=== PATIENT | female | born 1965 | race Caucasian/White ===

== ENCOUNTER → 2017-11-09 | Outpatient (CLI) | payer OTHER ==
[2017-11-09 15:55] LABS: ADD MAN DIFF? NO
[2017-11-09 16:03] LABS: BASO % 1 % (0-3); EOS # 0.1 x10^3/uL (0.0-0.7); EOS % 2 % (0-3); HEMATOCRIT 43.9 % (36.0-47.0); HEMOGLOBIN 14.7 g/dL (12.0-15.5); LYMPH # 2.7 x10^3/uL (1.0-4.8); LYMPH % 47 % (24-48); MEAN CORPUSCULAR HEMOGLOBIN 30 pg (25-35); MEAN CORPUSCULAR HGB CONC 33 g/dL (31-37); MEAN CORPUSCULAR VOLUME 90 fL (79-100); MONO # 0.5 x10^3/uL (0.0-1.1); MONO % 8 % (0-9); NEUT # 2.5 x10^3uL (1.8-7.7); NEUT % 43 % (31-73); PLATELET COUNT 251 x10^3/uL (140-400); RED BLOOD COUNT 4.87 x10^6/uL (3.50-5.40); RED CELL DISTRIBUTION WIDTH 14.2 % (11.5-14.5); WHITE BLOOD COUNT 5.8 x10^3/uL (4.0-11.0)
[2017-11-09 16:28] LABS: ALBUMIN 4.3 g/dL (3.4-5.0); ALBUMIN/GLOBULIN RATIO 1.2 (1.0-1.7); ALK PHOS 86 U/L (46-116); ALT (SGPT) 29 U/L (14-59); ANION GAP 9 (6-14); AST (SGOT) 13 U/L (15-37); BLOOD UREA NITROGEN 15 mg/dL (7-20); BUN/CREATININE RATIO 25 (6-20); CALCIUM 9.5 mg/dL (8.5-10.1); CARBON DIOXIDE 29 mmol/L (21-32); CHLORIDE 104 mmol/L (98-107); CHOLESTEROL 233 mg/dL (0-200); CREATININE 0.6 mg/dL (0.6-1.0); GFR 104.2; GLUCOSE 102 mg/dL (70-99); HDLC 41 mg/dL (40-60); LDLC 146 mg/dL (0-100); NON-HDL CHOLESTEROL 192 mg/dL (0-129); POTASSIUM 3.8 mmol/L (3.5-5.1); SODIUM 142 mmol/L (136-145); TOTAL BILIRUBIN 0.3 mg/dL (0.2-1.0); TOTAL PROTEIN 7.9 g/dL (6.4-8.2); TRIGLYCERIDES 232 mg/dL (0-150); VLDLC 46 mg/dL (0-40)
[2017-11-09 16:29] LABS: CHOLESTEROL/HDL RATIO 5.7
[2017-11-09 16:37] LABS: THYROID STIM HORMONE (TSH) 1.004 uIU/mL (0.358-3.74)
[2017-11-10 03:20] LABS: HEMOGLOBIN A1C 5.6 % (4.8-5.6)
== END | disposition home or self-care (01) ==
LOC: LAB 15:43
DX: Z13.220 Encounter for screening for lipoid disorders (principal); F41.9 Anxiety disorder, unspecified
CPT/HCPCS: 36415; 80053; 80061; 83036; 84443; 85025

== ENCOUNTER → 2018-06-01 | Outpatient (CLI) | payer OTHER ==
--- NOTE | 2018-06-01 11:02 | KCIC ---
Bilateral digital screening mammograms: Reason for examination: Routine screening. Comparison is made to previous studies dated 06/22/2012, 05/06/2011 and 05/05/2010. Interpretation was made with the benefit of CAD. The skin and nipples show no abnormalities. No abnormal axillary lymph nodes are seen. The breast parenchyma shows scattered fibroglandular density. (Breast density: Category B.) There are no dominant masses, suspicious calcifications or architectural distortions. Impression: No evidence of malignancy. Recommend routine screening. BI-RADS Category 1: Negative. "Our facility is accredited by the [employer] Mammography Program." This patient's information has been entered into a reminder system for the patient to be notified with the results of her examination and a target date for the next mammogram. Electronically signed by: Christy Porter MD (06/01/2018 10:57 AM) [id number]
== END | disposition home or self-care (01) ==
LOC: KCIC MAMMO 09:37
PROVIDERS: ATTEND Nurse Practitioner
DX: Z12.31 Encounter for screening mammogram for malignant neoplasm of breast (principal)
CPT/HCPCS: 77063; 77067

== ENCOUNTER → 2018-06-15 | Outpatient (CLI) | payer OTHER ==
--- NOTE | 2018-06-15 11:02 | KCIC ---
CHEST PA LATERAL Clinical indications: Cough for one month. Shortness of air. Chest pain. COMPARISON: June 19, 2014. Findings: No acute lung infiltrate or pleural effusion or pulmonary edema or lung mass or pneumothorax is seen. The heart size, pulmonary vasculature, mediastinum and both elida are unremarkable. The osseous structures appear intact. Impression: No acute radiographic abnormality is seen. Electronically signed by: Evangelista Mota MD (06/15/2018 10:57 AM) [facility]
== END | disposition home or self-care (01) ==
LOC: KCIC 10:19
PROVIDERS: ATTEND Surgery
DX: R07.9 Chest pain, unspecified (principal); R05 Cough; R06.02 Shortness of breath
CPT/HCPCS: 71046

== ENCOUNTER 2018-09-09 09:24 | Inpatient (IN) | payer OTHER ==
[~2018-09-09] VITALS: Ht 165.1 cm; Wt 73.6 kg
[~2018-09-09 09:24] MED LIST: ALBU2.5V8 INH; ASCO500C PO; CHOL10003 PO; DIPH25CA58 PO; FEXO180T81 PO; FLUT9.9S NS; GLUC1CAP48 PO; INUL2TAB4 PO; LORA0.5T PO; MELA3TAB2 PO; MULT1TAB52 PO; OMEP20TA8 PO; VITA1TAB19 PO
[2018-09-09] MEDS ORDERED: IV NORMAL SALINE 1000ML BAG 1,000 ML IV ONE (10:00)
[2018-09-09] MEDS ORDERED: MECLIZINE HCL 12.5 MG TABLET. PO ONE (10:00)
[2018-09-09 10:14] LABS: BASO % 1 % (0-3); EOS # 0.2 x10^3/uL (0.0-0.7); EOS % 2 % (0-3); HEMOGLOBIN 13.5 g/dL (12.0-15.5); LYMPH # 1.8 x10^3/uL (1.0-4.8); LYMPH % 23 % (24-48); MEAN CORPUSCULAR HEMOGLOBIN 29 pg (25-35); MEAN CORPUSCULAR HGB CONC 33 g/dL (31-37); MEAN CORPUSCULAR VOLUME 88 fL (79-100); MONO # 0.5 x10^3/uL (0.0-1.1); MONO % 7 % (0-9); NEUT # 5.5 x10^3uL (1.8-7.7); NEUT % 68 % (31-73); PLATELET COUNT 271 x10^3/uL (140-400); RED BLOOD COUNT 4.64 x10^6/uL (3.50-5.40); RED CELL DISTRIBUTION WIDTH 15.1 % (11.5-14.5); WHITE BLOOD COUNT 8.1 x10^3/uL (4.0-11.0)
[2018-09-09 10:25] LABS: CALCIUM 9.3 mg/dL (8.5-10.1); CREATININE 0.6 mg/dL (0.6-1.0); GFR 103.8; POTASSIUM 3.8 mmol/L (3.5-5.1)
--- NOTE | 2018-09-09 10:25 | PHYS DOC ---
Past Medical History Past Medical History: Anxiety, Asthma, Other Additional Past Medical Histor: SEASONAL ALLERGIES Past Surgical History: Hysterectomy, Tubal ligation, Other Additional Past Surgical Histo: LEEP,CYSTO/RECTOCELE Alcohol Use: Occasionally Drug Use: None Adult General Chief Complaint Chief Complaint: DIZZY/LIGHT HEADED HPI HPI This is a pleasant 53-year-old female presenting the emergency department today with vertigo. She's had vertigo for many months intermittently. She also has had facial tingling and paresthesias bilaterally for over a year now intermittently. She denies slurred speech but describes blurred vision intermittently over the past many months. Last known well greater than one month ago. This morning at about 7:30 her symptoms got worse when she was getting up from a chair. She describes the room was spinning and she was turning to the right. She denies any slurred speech at that time. She denies weakness of the upper or lower extremities. She did have an episode 2 months ago when she had bilateral arm weakness in the morning that lasted briefly for a few minutes which improved. Review of systems is negative for chest pain shortness of breath. She has a chronic cough for which she took antibiotics which didn't seem to help for the past few months. She denies headache but did have a severe headache about a month ago which has improved since then. All other review of systems is negative. ED course: 53-year-old female presenting with generalized vertigo with intermittent tingling of the face blurred vision and an episode of month ago of weakness of both arms. On arrival NIH stroke scale was performed which demonstrated her to have decreased sensation on the right in the face arm and leg. Otherwise good strength in the extremities. Facial smile is symmetric. Otherwise she has rotatory laterals nystatin this to the right lateral right gaze. No vertical nystagmus. EKG obtained and reviewed by myself shows sinus rhythm with a regular rate. ST segments congruent. Not suggestive of ACS. Nonspecific T-wave inversion in lead 3. Otherwise head CT ordered along with blood work. We will place the patient nothing by mouth at this time and perform a bedside swallow. Patient is outside of the TPA window and is not a candidate for TPA. Head CT was negative. CT angiogram demonstrates an internal carotid dissection. Dr. Rice had seen the patient in the emergency department however Dr. padilla took over. I spoke with Dr. deshpande after obtaining the verbal report from radiology. Dr. padilla asked me to initiate IV heparin with a bolus and drip. I then spoke with Dr. Martin who accepted the patient for admission. We will put the patient in the intensive care unit overnight for frequent neurologic checks. I also spoke with our vascular surgeon Dr. Trimble who agrees with IV heparin initiation and will consult on the case. Current Medications Current Medications Current Medications Medications (Trade) Dose Ordered Sig/Michael Start Time Stop Time Status Last Admin Dose Admin Info (CONTRAST GIVEN -- Rx MONITORING) 1 each PRN DAILY PRN 09/09/18 10:45 09/11/18 10:44 Iohexol (Omnipaque 350 Mg/ml) 100 ml 1X ONCE 09/09/18 10:45 09/09/18 10:46 DC 09/09/18 10:45 100 ML Meclizine HCl (Antivert) 25 mg 1X ONCE 09/09/18 10:00 09/09/18 10:08 DC 09/09/18 10:16 25 MG Morphine Sulfate (Morphine Sulfate) 2 mg PRN Q2HR PRN 09/09/18 11:00 09/10/18 10:59 Ondansetron HCl (Zofran) 4 mg PRN Q8HRS PRN 09/09/18 11:00 09/10/18 10:59 Sodium Chloride 1,000 ml @ 100 mls/hr Q10H 09/09/18 10:47 09/10/18 10:46 Allergies Allergies Allergies Coded Allergies Type Severity Reaction Last Updated Verified No Known Drug Allergies 08/12/18 No Physical Exam Physical Exam Constitutional: Well developed, well nourished, no acute distress, non-toxic appearance. [] HENT: Normocephalic, atraumatic, bilateral external ears normal, oropharynx moist, no oral exudates, nose normal. [] Eyes: PERRLA, EOMI, conjunctiva normal, no discharge. [] Neck: Normal range of motion, no tenderness, supple, no stridor. [] Cardiovascular:Heart rate regular rhythm, no murmur [] Lungs & Thorax: Bilateral breath sounds clear to auscultation [] Abdomen: Bowel sounds normal, soft, no tenderness, no masses, no pulsatile masses. [] Skin: Warm, dry, no erythema, no rash. [] Back: No tenderness, no CVA tenderness. [] Extremities: No tenderness, no cyanosis, no clubbing, ROM intact, no edema. [] Neurologic: Mental status: Awake oriented and alert x3 Cranial nerves: Extraocular movements intact, eyebrows low bilaterally, smile symmetric, uvula elevation nl, shoulder shrug intact bilaterally, tongue protrusion normal DTRs: 2+ Sensation: Mild decreased sensation in the right face arm and leg. Strength: 5/5 in upper and lower extremities bilaterally Psychologic: Affect normal, judgement normal, mood normal. [] Current Patient Data Vital Signs Vital Signs Date Time Temp Pulse Resp B/P (MAP) Pulse Ox O2 Delivery O2 Flow Rate FiO2 09/09/18 11:27 72 16 96 09/09/18 09:25 98.1 149/86 (107) Room Air 98.1 Lab Values Laboratory Tests Test 09/09/18 09:32 09/09/18 09:50 Glucose (Fingerstick) 106 mg/dL (70-99) H White Blood Count 8.1 x10^3/uL (4.0-11.0) Red Blood Count 4.64 x10^6/uL (3.50-5.40) Hemoglobin 13.5 g/dL (12.0-15.5) Hematocrit 41.0 % (36.0-47.0) Mean Corpuscular Volume 88 fL (79-100) Mean Corpuscular Hemoglobin 29 pg (25-35) Mean Corpuscular Hemoglobin Concent 33 g/dL (31-37) Red Cell Distribution Width 15.1 % (11.5-14.5) H Platelet Count 271 x10^3/uL (140-400) Neutrophils (%) (Auto) 68 % (31-73) Lymphocytes (%) (Auto) 23 % (24-48) L Monocytes (%) (Auto) 7 % (0-9) Eosinophils (%) (Auto) 2 % (0-3) Basophils (%) (Auto) 1 % (0-3) Neutrophils # (Auto) 5.5 x10^3uL (1.8-7.7) Lymphocytes # (Auto) 1.8 x10^3/uL (1.0-4.8) Monocytes # (Auto) 0.5 x10^3/uL (0.0-1.1) Eosinophils # (Auto) 0.2 x10^3/uL (0.0-0.7) Basophils # (Auto) 0.0 x10^3/uL (0.0-0.2) Prothrombin Time 13.4 SEC (11.7-14.0) Prothrombin Time INR 1.1 (0.8-1.1) Sodium Level 140 mmol/L (136-145) Potassium Level 3.8 mmol/L (3.5-5.1) Chloride Level 103 mmol/L (98-107) Carbon Dioxide Level 26 mmol/L (21-32) Anion Gap 11 (6-14) Blood Urea Nitrogen 18 mg/dL (7-20) Creatinine 0.6 mg/dL (0.6-1.0) Estimated GFR (Cockcroft-Gault) 103.8 BUN/Creatinine Ratio 30 (6-20) H Glucose Level 114 mg/dL (70-99) H Calcium Level 9.3 mg/dL (8.5-10.1) Total Bilirubin 0.2 mg/dL (0.2-1.0) Aspartate Amino Transferase (AST) 15 U/L (15-37) Alanine Aminotransferase (ALT) 29 U/L (14-59) Alkaline Phosphatase 99 U/L (46-116) Total Protein 7.6 g/dL (6.4-8.2) Albumin 3.9 g/dL (3.4-5.0) Albumin/Globulin Ratio 1.1 (1.0-1.7) Laboratory Tests 09/09/18 09:50 Laboratory Tests 09/09/18 09:50 EKG EKG [] Radiology/Procedures Radiology/Procedures [] Course & Med Decision Making Course & Med Decision Making Pertinent Labs and Imaging studies reviewed. (See chart for details) [] Dragon Disclaimer Dragon Disclaimer This electronic medical record was generated, in whole or in part, using a voice recognition dictation system. Departure Departure Impression: Primary Impression: Vertigo Additional Impressions: Focal neurological deficit Carotid artery dissection Disposition: ADMITTED INPATIENT Admitting Physician: Micah Martin Condition: STABLE Referrals: MANJU BLUNT MD (PCP) Critical Care Time Critical care time spent was 45 minutes exclusive of procedures. Time was spent evaluating the patient, ordering the administration of medications, reevaluating the patient, discussing with the admitting provider and documenting. Problem Qualifiers LORI LINDSAY MD Sep 09, 2018 10:25
[2018-09-09 10:31] LABS: ALBUMIN 3.9 g/dL (3.4-5.0); ALBUMIN/GLOBULIN RATIO 1.1 (1.0-1.7); TOTAL BILIRUBIN 0.2 mg/dL (0.2-1.0); TOTAL PROTEIN 7.6 g/dL (6.4-8.2)
--- NOTE | 2018-09-09 10:42 | RAD ---
CT HEAD WO CONTRAST History: Dizziness Comparison: None. Technique: Noncontrast CT imaging was performed of the head. Exposure: One or more of the following individualized dose reduction techniques were utilized for this examination: 1. Automated exposure control 2. Adjustment of the mA and/or kV according to patient size 3. Use of iterative reconstruction technique. Findings: No acute extra-axial or parenchymal hemorrhage is identified. There is no significant intra-axial mass effect, midline shift, or extra-axial fluid collection. The adhikari-white differentiation of the major vascular territories is preserved. The ventricles, sulci, and cisterns are within normal limits in size and configuration. The mastoid air cells and the visualized paranasal sinuses are aerated. No acute calvarial abnormality is identified. Impression: 1. No acute intracranial abnormality is identified. Electronically signed by: Osorio Santiago MD (09/09/2018 10:39 AM) [facility]
[2018-09-09] MEDS ORDERED: CONTRAST GIVEN. MC PRN (10:45)
[2018-09-09] MEDS ORDERED: IOHEXOL 350 MG/ML 100 ML VIAL. IV ONE (10:45)
[2018-09-09] MEDS ORDERED: IV NORMAL SALINE 1000ML BAG 1,000 ML IV SCH (10:47)
--- NOTE | 2018-09-09 10:59 | EKG ---
[facility] [address] [place] [address] Test Date: 2018-09-09 Test Time: 09:37:15 Pat Name: TIFFANIE STANLEY Department: Room: Gender: F [employer]: : [id number] Requested By: LORI LINDSAY Order Number: [id number] Reading MD: Robinson Yadav MD Measurements Intervals [place] Rate: 66 P: 34 AR: 140 QRS: -5 QRSD: 86 T: 6 QT: 382 QTc: 402 Interpretive Statements SINUS RHYTHM Electronically Signed On 09-13-2018 12:00:00 CDT by Robinson Yadav MD
[2018-09-09] MEDS ORDERED: MORPHINE SULFATE 2 MG/ML VIAL. IV PRN (11:00)
[2018-09-09] MEDS ORDERED: ONDANSETRON PF 4 MG/2 ML VIAL. IV PRN (11:00)
[2018-09-09 11:27] LABS: PROTHROMBIN TIME PATIENT 13.4 SEC (11.7-14.0)
--- NOTE | 2018-09-09 12:19 | PDOC2 ---
NEUROLOGY CONSULT Date of Admission Date of Admission DATE: 09/09/18 TIME: 12:10 Reason for Consult Reason for Consult: Vertigo and numbness Referring Physician Referring Physician: Dr. Razo PCP: Dr. Soto Source Source: Chart review, Patient History of Present Illness History of Present Illness The patient is a 53-year-old right-handed female who came to the emergency department for vertigo. She has been having vertigo for several months intermittently as well as facial tingling and paresthesias in the arms. She had a particularly severe spell today. There is no dysarthria, diplopia, cognitive change, headache, but she does have chronic dysphagia for which she has esophageal dilatations. She is under a large amount of stress because her has early-onset dementia. 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, no tobacco Current Medications Current Medications Current Medications Meclizine HCl (Antivert) 25 mg 1X ONCE PO Last administered on 09/09/18at 10:16 ; Start 09/09/18 at 10:00; Stop 09/09/18 at 10:08; Status DC Sodium Chloride 1,000 ml @ 1,000 mls/hr 1X ONCE IV Last administered on at 10:17; Start 09/09/18 at 10:00; Stop 09/09/18 at 10:59; Status DC Iohexol (Omnipaque 350 Mg/ml) 100 ml 1X ONCE IV Last administered on at 10:45; Start 09/09/18 at 10:45; Stop 09/09/18 at 10:46; Status DC Info (CONTRAST GIVEN -- Rx MONITORING) 1 each PRN DAILY PRN MC SEE COMMENTS; Start 09/09/18 at 10:45; Stop 09/11/18 at 10:44 Ondansetron HCl (Zofran) 4 mg PRN Q8HRS PRN IV NAUSEA/VOMITING; Start 09/09/18 at 11:00; Stop 09/10/18 at 10:59 Morphine Sulfate (Morphine Sulfate) 2 mg PRN Q2HR PRN IV PAIN; Start 09/09/18 at 11:00; Stop 09/10/18 at 10:59 Sodium Chloride 1,000 ml @ 100 mls/hr Q10H IV ; Start 09/09/18 at 10:47; Stop 09/10/18 at 10:46 Active Scripts Active Reported Vitamin D3 (Cholecalciferol (Vitamin D3)) 1,000 Unit Tablet 1 Tab PO DAILY Vitamin C (Ascorbic Acid) 500 Mg Capsule.er 500 Mg PO DAILY B Complex (Vitamin B Complex) 1 Each Tablet 1 Each PO DAILY Multivitamins (Multivitamin) 1 Each Tablet 1 Tab PO DAILY Glucosamine & Chondroitin Cap (Gluc 2KCL/Chondr/Adarsh Hy/Hy Ac) 1 Each Capsule 1 Each PO DAILY Fiber Gummies (Inulin) 2 Gm Tab.chew 2 Gm PO DAILY Melatonin 3 Mg Tablet 1 Tab PO QHS Proair Hfa (Albuterol Sulfate) 8.5 Gm Hfa.aer.ad 1 Puff INH PRN Q6HRS PRN Flonase Allergy Relief (Fluticasone Propionate) 9.9 Ml [place].susp 2 Sprays NS DAILY Benadryl (Diphenhydramine Hcl) 25 Mg Capsule 25 Mg PO PRN PRN Barbara Allergy (Fexofenadine Hcl) 180 Mg Tablet 1 Tab PO DAILY Omeprazole 20 Mg Tablet.dr 1 Tab PO DAILY Lorazepam 0.5 Mg Tablet 0.5 Mg PO HS Allergies Allergies: Coded Allergies: No Known Drug Allergies (Unverified , 08/12/18) ROS Review of System Negative for fever, chills, weight loss, shortness of breath, chest pain, indigestion, hematochezia, melena, and dysuria. Full 14-point review of systems is negative. Physical Exam Physical Examination General: Well-developed, well-nourished white female in no acute distress HEENT: Normocephalic andatraumatic. Tympanic membranes clear.Temporal arteries pulsatile and nontender.Fundoscopic exam unremarkable Neck: Supple without bruit, no meningismus Musculoskeletal: Stability:see neurologic. Gait exam:see neurologic. Tone:see neurologic. Strength:see neurologic. Neurological: Mental Status:intact, orientation, memory, attention span/concentration, language, fund of knowledge normal. Cranial Nerves:Pupils equal and reactive to light, extraocular movements areintact, visual bentley are full to confrontation. Facial sensation is normal. There is no facial asymmetry. Vestibulo-ocular reflex is intact. Palate elevates and tongue protrudes in midline. All other cranial related problems are negative except as mentioned before.Reflexes:2+ and symmetric with flexor plantar responses. Motor:5/5 strength with normal tone and bulk. Coordination:Finger-nose finger and heel-to -howe testing are normal. Rapid alternating movements and fine finger movements are intact. Gait:Normal, including tandem. Sensory:hypesthesia, bilateral face , normal pinprick, vibration, light touch, proprioception. Vitals VITALS Vital Signs Date Time Temp Pulse Resp B/P (MAP) Pulse Ox O2 Delivery O2 Flow Rate FiO2 09/09/18 11:27 72 16 96 09/09/18 09:25 98.1 149/86 (107) Room Air 98.1 Labs Labs Laboratory Tests Test 09/09/18 09:32 09/09/18 09:50 Glucose (Fingerstick) 106 mg/dL (70-99) White Blood Count 8.1 x10^3/uL (4.0-11.0) Red Blood Count 4.64 x10^6/uL (3.50-5.40) Hemoglobin 13.5 g/dL (12.0-15.5) Hematocrit 41.0 % (36.0-47.0) Mean Corpuscular Volume 88 fL (79-100) Mean Corpuscular Hemoglobin 29 pg (25-35) Mean Corpuscular Hemoglobin Concent 33 g/dL (31-37) Red Cell Distribution Width 15.1 % (11.5-14.5) Platelet Count 271 x10^3/uL (140-400) Neutrophils (%) (Auto) 68 % (31-73) Lymphocytes (%) (Auto) 23 % (24-48) Monocytes (%) (Auto) 7 % (0-9) Eosinophils (%) (Auto) 2 % (0-3) Basophils (%) (Auto) 1 % (0-3) Neutrophils # (Auto) 5.5 x10^3uL (1.8-7.7) Lymphocytes # (Auto) 1.8 x10^3/uL (1.0-4.8) Monocytes # (Auto) 0.5 x10^3/uL (0.0-1.1) Eosinophils # (Auto) 0.2 x10^3/uL (0.0-0.7) Basophils # (Auto) 0.0 x10^3/uL (0.0-0.2) Prothrombin Time 13.4 SEC (11.7-14.0) Prothromb Time International Ratio 1.1 (0.8-1.1) Sodium Level 140 mmol/L (136-145) Potassium Level 3.8 mmol/L (3.5-5.1) Chloride Level 103 mmol/L (98-107) Carbon Dioxide Level 26 mmol/L (21-32) Anion Gap 11 (6-14) Blood Urea Nitrogen 18 mg/dL (7-20) Creatinine 0.6 mg/dL (0.6-1.0) Estimated GFR (Cockcroft-Gault) 103.8 BUN/Creatinine Ratio 30 (6-20) Glucose Level 114 mg/dL (70-99) Calcium Level 9.3 mg/dL (8.5-10.1) Total Bilirubin 0.2 mg/dL (0.2-1.0) Aspartate Amino Transf (AST/SGOT) 15 U/L (15-37) Alanine Aminotransferase (ALT/SGPT) 29 U/L (14-59) Alkaline Phosphatase 99 U/L (46-116) Total Protein 7.6 g/dL (6.4-8.2) Albumin 3.9 g/dL (3.4-5.0) Albumin/Globulin Ratio 1.1 (1.0-1.7) Laboratory Tests Test 09/09/18 09:32 09/09/18 09:50 Glucose (Fingerstick) 106 mg/dL (70-99) White Blood Count 8.1 x10^3/uL (4.0-11.0) Red Blood Count 4.64 x10^6/uL (3.50-5.40) Hemoglobin 13.5 g/dL (12.0-15.5) Hematocrit 41.0 % (36.0-47.0) Mean Corpuscular Volume 88 fL (79-100) Mean Corpuscular Hemoglobin 29 pg (25-35) Mean Corpuscular Hemoglobin Concent 33 g/dL (31-37) Red Cell Distribution Width 15.1 % (11.5-14.5) Platelet Count 271 x10^3/uL (140-400) Neutrophils (%) (Auto) 68 % (31-73) Lymphocytes (%) (Auto) 23 % (24-48) Monocytes (%) (Auto) 7 % (0-9) Eosinophils (%) (Auto) 2 % (0-3) Basophils (%) (Auto) 1 % (0-3) Neutrophils # (Auto) 5.5 x10^3uL (1.8-7.7) Lymphocytes # (Auto) 1.8 x10^3/uL (1.0-4.8) Monocytes # (Auto) 0.5 x10^3/uL (0.0-1.1) Eosinophils # (Auto) 0.2 x10^3/uL (0.0-0.7) Basophils # (Auto) 0.0 x10^3/uL (0.0-0.2) Prothrombin Time 13.4 SEC (11.7-14.0) Prothromb Time International Ratio 1.1 (0.8-1.1) Sodium Level 140 mmol/L (136-145) Potassium Level 3.8 mmol/L (3.5-5.1) Chloride Level 103 mmol/L (98-107) Carbon Dioxide Level 26 mmol/L (21-32) Anion Gap 11 (6-14) Blood Urea Nitrogen 18 mg/dL (7-20) Creatinine 0.6 mg/dL (0.6-1.0) Estimated GFR (Cockcroft-Gault) 103.8 BUN/Creatinine Ratio 30 (6-20) Glucose Level 114 mg/dL (70-99) Calcium Level 9.3 mg/dL (8.5-10.1) Total Bilirubin 0.2 mg/dL (0.2-1.0) Aspartate Amino Transf (AST/SGOT) 15 U/L (15-37) Alanine Aminotransferase (ALT/SGPT) 29 U/L (14-59) Alkaline Phosphatase 99 U/L (46-116) Total Protein 7.6 g/dL (6.4-8.2) Albumin 3.9 g/dL (3.4-5.0) Albumin/Globulin Ratio 1.1 (1.0-1.7) Images Images CT HEAD WO CONTRAST History: Dizziness Comparison: None. Technique: Noncontrast CT imaging was performed of the head. Exposure: One or more of the following individualized dose reduction techniques were utilized for this examination: 1. Automated exposure control 2. Adjustment of the mA and/or kV according to patient size 3. Use of iterative reconstruction technique. Findings: No acute extra-axial or parenchymal hemorrhage is identified. There is no significant intra-axial mass effect, midline shift, or extra-axial fluid collection. The adhikari-white differentiation of the major vascular territories is preserved. The ventricles, sulci, and cisterns are within normal limits in size and configuration. The mastoid air cells and the visualized paranasal sinuses are aerated. No acute calvarial abnormality is identified. Impression: 1. No acute intracranial abnormality is identified. Assessment/Plan Assessment/Plan Impression: Non-localization neurologic symptoms, unlikely to be related to cerebrovascular disease. Stress reaction is likely, also consider migraine Recommendation: CTA ordered MRI brain Rehab screening Thank you for letting me help with the patient's care. MICHELLE COLLINS MD Sep 09, 2018 12:19
--- NOTE | 2018-09-09 12:25 | RAD ---
Examination: CT ANGIOGRAPHY HEAD AND NECK History: right face sensation change Omni 350 75ml
Comparison/Correlation: 09/09/2018 CT head without contrast Findings: Axial images of the head and neck were obtained following IV contrast according to arteriography protocol. MIP images provided. 3-D images provided. Arterial vasculature of the head is normal. [place] of [place] is unremarkable. Kinked appearance of the proximal left internal carotid artery is evident. Relative narrowing at the proximal left internal carotid artery is present with diameter of 0.45 cm. Slightly more distally, diameter of 0.8 cm noted. At the proximal left internal carotid artery, there is linear focal dissection within the medial aspect of the lumen with measurement of less than 0.8 cm in length. No thrombosis of the false lumen. This is best seen on axial images [id number] and on coronal image 24 of series 5. Right common, internal, and external carotid arteries are unremarkable. Origins of the right brachiocephalic, right common carotid, left common carotid, and left subclavian arteries are normal. Vertebral artery origins are unremarkable. There is no aneurysm identified. There is no suspicious enhancement identified involving the brain on arterial phase images provided. Globes and optic nerves are unremarkable. Mucosal thickening of ethmoid sinuses noted. Right maxillary sinus mucous retention cyst is present. Minimal opacification of the bilateral maxillary sinuses noted. Atlantoaxial joint degenerative remodeling is noted. Disc space narrowing from C4 to C6 is present. Facet joint degenerative changes at multiple levels of the cervical spine noted. Soft tissues of the head and neck are unremarkable. Lung apices are unremarkable. No enlarged lymph nodes. Impression: There is a small focal left internal carotid artery dissection just distal to a narrowing of less than 50%. No thrombosis. No high-grade stenosis. No significant or definite plaque identified involving the arterial vasculature of the head or neck. Dr. Fontanez of the emergency Department informed on 09/09/2017 at 12:22 PM. PQRS Compliance Statement - Stenosis calculations for CT, MR and conventional angiography are based upon measurement of the distal ICA diameter in accordance with the NASCET methodology. Stenosis calculations for carotid ultrasound studies are derived from validated velocity criteria which are known to correlate with the NASCET methodology. PQRS Compliance Statement: One or more of the following individualized dose reduction techniques were utilized for this examination: 1. Automated exposure control 2. Adjustment of the mA and/or kV according to patient size 3. Use of iterative reconstruction technique Electronically signed by: Dharmesh Hernández MD (09/09/2018 12:22 PM) [id number]
[2018-09-09] MEDS ORDERED: ACETAMINOPHEN 325 MG TABLET. PO PRN (12:30)
[2018-09-09] MEDS ORDERED: ACETAMINOPHEN 650 MG SUPP.RECT. PR PRN (12:30)
[2018-09-09] MEDS ORDERED: ASPIRIN RECTAL 300 MG SUPP. PR PRN (12:30)
[2018-09-09] MEDS ORDERED: HEPARIN for IV BOLUS 10,000 UNIT/10 ML VIAL. IV ONE (12:45)
[2018-09-09] MEDS ORDERED: HEPARIN 25,000UTS/500ML PREMIX 500 ML IV PRN (12:45)
[2018-09-09 13:26] VITALS: BP 147/73
[2018-09-09] MEDS ORDERED: ALBUTEROL SULFATE 2.5 MG/3 ML NEBU. INH PRN (13:30)
--- NOTE | 2018-09-09 13:54 | HP ---
ADMIT DATE: 09/09/2018 CHIEF COMPLAINT: Dizziness. 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 She became dizzy today in the office. Dr. Celaya escorted her to the ER. She rates her symptoms at 9/10. This has been occurring off and on for some time. She also had some left face tingling and paresthesias in the arms. It is worse with moving, better with sitting still. She denies any visual changes. Her neurological exam is essentially benign, but we did some imaging and she has a carotid dissection on the left. I discussed the case with ER physician. We are going to admit the patient. We have also called Interventional Radiology and Neurosurgery and Neurology. The patient is going to the ICU. PAST MEDICAL HISTORY: Diverticulosis, mastectomy, hysterectomy, cystocele, rectocele, and some skin lesions removed from the hand. FAMILY HISTORY: Cancer. SOCIAL HISTORY: She does not drink, smoke or take drugs other than social alcohol in the weekends. 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 MEDICATIONS: Reviewed, please refer to the MRAD. She is on 13 home meds including Benadryl, ProAir, fexofenadine, lorazepam, Flonase, fiber, omeprazole, vitamins and melatonin. REVIEW OF SYSTEMS: GENERAL: No history of weight change, weakness or fevers. SKIN: No bruising, hair changes or rashes. EYES: No blurred, double or loss of vision. NOSE AND THROAT: No history of nosebleeds, hoarseness or sore throat. HEART: No history of palpitations, chest pain or shortness of breath on exertion. LUNGS: Denies cough, hemoptysis, wheezing or shortness of breath. GASTROINTESTINAL: Denies changes in appetite, nausea, vomiting, diarrhea or constipation. GENITOURINARY: No history of frequency, urgency, hesitancy or nocturia. NEUROLOGIC: She complains of dizziness. PSYCHIATRIC: No history of panic, anxiety or depression. ENDOCRINE: No history of heat or cold intolerance, polyuria or polydipsia. EXTREMITIES: Denies muscle weakness, joint pain, pain on walking or stiffness. PHYSICAL EXAMINATION: VITAL SIGNS: Temperature afebrile, pulse 92, respirations 18, blood pressure 149/86. GENERAL: She is alert, cooperative. HEART: Normal S1 and S2. LUNGS: Clear to auscultation. ABDOMEN: Soft, positive bowel sounds. EXTREMITIES: Trace edema. SKIN: No rash. ENDOCRINE: No thyromegaly. LYMPHATICS: No cervical nodes. HEMATOPOIETIC: No bruising. PSYCHIATRIC: She is anxious. NEUROLOGIC: Benign. LABORATORY DATA AND DIAGNOSTIC STUDIES: Hematology is normal. Electrolytes are normal other than glucose of 114. INR is 1.1. CT of the neck and head showed a small left carotid dissection. CT of the head was negative. ASSESSMENT AND PLAN: Left carotid dissection with vertigo. The patient is being admitted to the ICU. We are starting a heparin drip. We have consulted Vascular Surgery. I discussed the case with Interventional Radiology as well, but they do not generally do any work on the carotids. We have consulted Neurology. The patient has been seen by them already. We will resume her home meds, ICU monitoring, full code, DVT prophylaxis, PT and OT. TOTAL TIME: 32 minutes. ERUM VELASCO DO DR: ANGELINA/mer JOB#: [id number] / [id number]
--- NOTE | 2018-09-09 14:50 | RAD ---
MRI Brain without contrast History: Unsteady gait, right weakness Technique: Multiplanar, multisequential noncontrast MR imaging was performed of the brain. Comparison: None Findings: There is some motion degradation. There is no evidence of recent infarct or cytotoxic edema. The ventricles, sulci, and cisterns are within normal limits in size and configuration. There is no significant midline shift, intraaxial mass effect, or focal abnormal extra-axial fluid collection. There is no significant signal abnormality of the brain parenchyma. There is preservation of the major intracranial flow-voids at the skull base. The mastoid air cells are aerated. The cerebellar tonsils are normal in location. There is no significant abnormality of the pineal gland or pituitary gland. . There is right maxillary sinus mucous retention cyst about 1.2 cm and patchy minimal ethmoid air cell mucosal thickening. There is mild inferior left maxillary sinus mucosal thickening. There is preserved marrow signal of the clivus. Impression: 1. There is no significant intracranial abnormality. Electronically signed by: Osorio Santiago MD (09/09/2018 2:47 PM) [id number]
[2018-09-09] MEDS ORDERED: ANTI-COAG MONITOR BY PHARMACY. MC PRN (15:15)
[2018-09-09] MEDS ORDERED: IBUPROFEN 200 MG TABLET. PO PRN (18:00)
[2018-09-09] MEDS ORDERED: NAPROXEN 500 MG TABLET PO PRN (18:00)
[2018-09-09] MEDS ORDERED: LORazepam 0.5 MG TABLET PO SCH (21:00)
[2018-09-09] MEDS ORDERED: NON FORMULARY ITEM (Melatonin 1 TAB) PO SCH (21:00)
[2018-09-09] MEDS: METOPROLOL TART IMMED RELEASE 25 MG TABLET. PO SCH (21:53)
[2018-09-09 23:00] VITALS: BP 119/74
[2018-09-10 02:47] VITALS: BP 111/66
[2018-09-10] MEDS: HEPARIN for IV BOLUS 10,000 UNIT/10 ML VIAL. IV PRN ×2 (03:47→12:40)
[2018-09-10] MEDS ORDERED: PANTOPRAZOLE 40 MG TABLET.DR. PO SCH (07:30)
[2018-09-10 07:32] VITALS: BP 131/96
[2018-09-10] MEDS ORDERED: ASPIRIN ENTERIC COATED 325 MG TABLET.DR. PO SCH (08:00)
[2018-09-10] MEDS ORDERED: ASCORBIC ACID 500 MG TABLET PO SCH (09:00)
[2018-09-10] MEDS ORDERED: NON FORMULARY ITEM (Inulin (Fiber Gummies) 2 GM) PO SCH (09:00)
[2018-09-10] MEDS ORDERED: NON FORMULARY ITEM (Gluc 2KCL/Chondr/Coll Hy/Hy Ac (Glucosamine & Chondroitin Cap) 1 EACH) PO SCH (09:00)
[2018-09-10] MEDS ORDERED: VITAMIN B COMPLEX TABLET. PO SCH (09:00)
[2018-09-10] MEDS ORDERED: CHOLECALCIFEROL (VITAMIN D3) 1,000 UNIT TABLET PO SCH (09:00)
[2018-09-10] MEDS ORDERED: CETIRIZINE HCL 10 MG TABLET. PO SCH (09:00)
[2018-09-10] MEDS ORDERED: MULTIVITAMIN with MINERAL TABLET. PO SCH (09:00)
[2018-09-10] MEDS ORDERED: FLUTICASONE 50MCG/NASAL SPRAY 16GM BOTTLE. NS SCH (09:00)
[2018-09-10] MEDS: METOPROLOL TART IMMED RELEASE 25 MG TABLET. PO SCH (09:30)
[2018-09-10 10:04] LABS: BASO % 1 % (0-3); EOS # 0.2 x10^3/uL (0.0-0.7); EOS % 4 % (0-3); HEMATOCRIT 40.6 % (36.0-47.0); HEMOGLOBIN 13.1 g/dL (12.0-15.5); LYMPH # 2.1 x10^3/uL (1.0-4.8); LYMPH % 39 % (24-48); MEAN CORPUSCULAR HEMOGLOBIN 28 pg (25-35); MEAN CORPUSCULAR HGB CONC 32 g/dL (31-37); MEAN CORPUSCULAR VOLUME 88 fL (79-100); MONO # 0.4 x10^3/uL (0.0-1.1); MONO % 8 % (0-9); NEUT # 2.5 x10^3uL (1.8-7.7); NEUT % 49 % (31-73); PLATELET COUNT 236 x10^3/uL (140-400); RED BLOOD COUNT 4.62 x10^6/uL (3.50-5.40); RED CELL DISTRIBUTION WIDTH 14.9 % (11.5-14.5); WHITE BLOOD COUNT 5.3 x10^3/uL (4.0-11.0)
[2018-09-10 10:10] LABS: CALCIUM 9.2 mg/dL (8.5-10.1); CREATININE 0.6 mg/dL (0.6-1.0); GFR 103.8; POTASSIUM 3.7 mmol/L (3.5-5.1)
[2018-09-10 10:25] LABS: CHOLESTEROL/HDL RATIO 4.3
--- NOTE | 2018-09-10 10:54 | PDOC ---
Provider Note Provider Note Vascular surgery consult Consult dictated 53-year-old female with multiple underlying medical problems who has had episodes of numbness tingling and vertigo. She was seen in the emergency room. CT angiogram was obtained. There is a short segment dissection in the proximal internal carotid artery without hemodynamic significant stenosis. There is no evidence of brain injury. Patient does not have a history of left hemispheric TIAs, amaurosis fugax, or stroke Her examination is unremarkable. Her CT scan has been reviewed. Impression: Asymptomatic left internal carotid artery dissection without hemodynamically significant stenosis. Plan: Daily aspirin therapy and ambulation. Would repeat imaging studies in 2-3 months. The usual course of events is that this dissection flap will heal The patient develops any hemispheric symptoms that I need to be notified and would recommend additional evaluation and alternative therapies. EL SHRESTHA MD Sep 10, 2018 10:54
[2018-09-10 11:41] VITALS: BP 123/76
--- NOTE | 2018-09-10 13:16 | PDOC ---
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 She became dizzy today in the office. Dr. Celaya escorted her to the ER. She rates her symptoms at 9/ 10. This has been occurring off and on for some time. She also had some left face tingling and paresthesias in the arms. Symptoms completely resolved after a few minutes. She denies any visual changes. Her neurological exam is essentially benign, but we did some imaging and she has a carotid dissection on the left, less than 25%. Seen by vascular surgery as insignificant. Seen by Neurology as well, was initially placed on heparin GTT. Initially was triaged to ICU MRI was negative for CVA. On further review she has very severe allergies and h/o sinusitis and symptoms such as these have occurred on and off for years. Vitals Vitals Vital Signs Date Time Temp Pulse Resp B/P (MAP) Pulse Ox O2 Delivery O2 Flow Rate FiO2 09/10/18 11:41 97.5 70 123/76 (92) Room Air 97.5 09/10/18 07:32 16 97 Physical Exam General: Alert, Oriented X3, Cooperative Heart: Regular rate, Normal S1, Normal S2 Lungs: Clear Abdomen: Normal bowel sounds, Soft Extremities: No clubbing, No cyanosis Skin: No rashes, No breakdown Labs LABS Laboratory Tests Test 09/09/18 22:00 09/10/18 09:35 Heparin Anti-Xa Act, Unfractionated < 0.10 IU/mL (0.30-0.70) 0.16 IU/mL (0.30-0.70) White Blood Count 5.3 x10^3/uL (4.0-11.0) Red Blood Count 4.62 x10^6/uL (3.50-5.40) Hemoglobin 13.1 g/dL (12.0-15.5) Hematocrit 40.6 % (36.0-47.0) Mean Corpuscular Volume 88 fL (79-100) Mean Corpuscular Hemoglobin 28 pg (25-35) Mean Corpuscular Hemoglobin Concent 32 g/dL (31-37) Red Cell Distribution Width 14.9 % (11.5-14.5) Platelet Count 236 x10^3/uL (140-400) Neutrophils (%) (Auto) 49 % (31-73) Lymphocytes (%) (Auto) 39 % (24-48) Monocytes (%) (Auto) 8 % (0-9) Eosinophils (%) (Auto) 4 % (0-3) Basophils (%) (Auto) 1 % (0-3) Neutrophils # (Auto) 2.5 x10^3uL (1.8-7.7) Lymphocytes # (Auto) 2.1 x10^3/uL (1.0-4.8) Monocytes # (Auto) 0.4 x10^3/uL (0.0-1.1) Eosinophils # (Auto) 0.2 x10^3/uL (0.0-0.7) Basophils # (Auto) 0.0 x10^3/uL (0.0-0.2) Sodium Level 142 mmol/L (136-145) Potassium Level 3.7 mmol/L (3.5-5.1) Chloride Level 105 mmol/L (98-107) Carbon Dioxide Level 25 mmol/L (21-32) Anion Gap 12 (6-14) Blood Urea Nitrogen 16 mg/dL (7-20) Creatinine 0.6 mg/dL (0.6-1.0) Estimated GFR (Cockcroft-Gault) 103.8 Glucose Level 129 mg/dL (70-99) Calcium Level 9.2 mg/dL (8.5-10.1) Triglycerides Level 190 mg/dL (0-150) Cholesterol Level 199 mg/dL (0-200) LDL Cholesterol, Calculated 115 mg/dL (0-100) VLDL Cholesterol, Calculated 38 mg/dL (0-40) Non-HDL Cholesterol Calculated 153 mg/dL (0-129) HDL Cholesterol 46 mg/dL (40-60) Cholesterol/HDL Ratio 4.3 Assessment and Plan Assessmemt and Plan Problems Medical Problems: (1) Carotid artery dissection Status: Acute (2) Focal neurological deficit Status: Acute (3) Vertigo Status: Acute Comment Review of Relevant I have reviewed the following items so (where applicable) has been applied. Labs Laboratory Tests Test 09/09/18 09:32 09/09/18 09:50 09/09/18 22:00 09/10/18 09:35 Glucose (Fingerstick) 106 mg/dL (70-99) White Blood Count 8.1 x10^3/uL (4.0-11.0) 5.3 x10^3/uL (4.0-11.0) Red Blood Count 4.64 x10^6/uL (3.50-5.40) 4.62 x10^6/uL (3.50-5.40) Hemoglobin 13.5 g/dL (12.0-15.5) 13.1 g/dL (12.0-15.5) Hematocrit 41.0 % (36.0-47.0) 40.6 % (36.0-47.0) Mean Corpuscular Volume 88 fL (79-100) 88 fL (79-100) Mean Corpuscular Hemoglobin 29 pg (25-35) 28 pg (25-35) Mean Corpuscular Hemoglobin Concent 33 g/dL (31-37) 32 g/dL (31-37) Red Cell Distribution Width 15.1 % (11.5-14.5) 14.9 % (11.5-14.5) Platelet Count 271 x10^3/uL (140-400) 236 x10^3/uL (140-400) Neutrophils (%) (Auto) 68 % (31-73) 49 % (31-73) Lymphocytes (%) (Auto) 23 % (24-48) 39 % (24-48) Monocytes (%) (Auto) 7 % (0-9) 8 % (0-9) Eosinophils (%) (Auto) 2 % (0-3) 4 % (0-3) Basophils (%) (Auto) 1 % (0-3) 1 % (0-3) Neutrophils # (Auto) 5.5 x10^3uL (1.8-7.7) 2.5 x10^3uL (1.8-7.7) Lymphocytes # (Auto) 1.8 x10^3/uL (1.0-4.8) 2.1 x10^3/uL (1.0-4.8) Monocytes # (Auto) 0.5 x10^3/uL (0.0-1.1) 0.4 x10^3/uL (0.0-1.1) Eosinophils # (Auto) 0.2 x10^3/uL (0.0-0.7) 0.2 x10^3/uL (0.0-0.7) Basophils # (Auto) 0.0 x10^3/uL (0.0-0.2) 0.0 x10^3/uL (0.0-0.2) Prothrombin Time 13.4 SEC (11.7-14.0) Prothromb Time International Ratio 1.1 (0.8-1.1) Sodium Level 140 mmol/L (136-145) 142 mmol/L (136-145) Potassium Level 3.8 mmol/L (3.5-5.1) 3.7 mmol/L (3.5-5.1) Chloride Level 103 mmol/L (98-107) 105 mmol/L (98-107) Carbon Dioxide Level 26 mmol/L (21-32) 25 mmol/L (21-32) Anion Gap 11 (6-14) 12 (6-14) Blood Urea Nitrogen 18 mg/dL (7-20) 16 mg/dL (7-20) Creatinine 0.6 mg/dL (0.6-1.0) 0.6 mg/dL (0.6-1.0) Estimated GFR (Cockcroft-Gault) 103.8 103.8 BUN/Creatinine Ratio 30 (6-20) Glucose Level 114 mg/dL (70-99) 129 mg/dL (70-99) Calcium Level 9.3 mg/dL (8.5-10.1) 9.2 mg/dL (8.5-10.1) Total Bilirubin 0.2 mg/dL (0.2-1.0) Aspartate Amino Transf (AST/SGOT) 15 U/L (15-37) Alanine Aminotransferase (ALT/SGPT) 29 U/L (14-59) Alkaline Phosphatase 99 U/L (46-116) Total Protein 7.6 g/dL (6.4-8.2) Albumin 3.9 g/dL (3.4-5.0) Albumin/Globulin Ratio 1.1 (1.0-1.7) Heparin Anti-Xa Act, Unfractionated < 0.10 IU/mL (0.30-0.70) 0.16 IU/mL (0.30-0.70) Triglycerides Level 190 mg/dL (0-150) Cholesterol Level 199 mg/dL (0-200) LDL Cholesterol, Calculated 115 mg/dL (0-100) VLDL Cholesterol, Calculated 38 mg/dL (0-40) Non-HDL Cholesterol Calculated 153 mg/dL (0-129) HDL Cholesterol 46 mg/dL (40-60) Cholesterol/HDL Ratio 4.3 Laboratory Tests Test 09/09/18 22:00 09/10/18 09:35 Heparin Anti-Xa Act, Unfractionated < 0.10 IU/mL (0.30-0.70) 0.16 IU/mL (0.30-0.70) White Blood Count 5.3 x10^3/uL (4.0-11.0) Red Blood Count 4.62 x10^6/uL (3.50-5.40) Hemoglobin 13.1 g/dL (12.0-15.5) Hematocrit 40.6 % (36.0-47.0) Mean Corpuscular Volume 88 fL (79-100) Mean Corpuscular Hemoglobin 28 pg (25-35) Mean Corpuscular Hemoglobin Concent 32 g/dL (31-37) Red Cell Distribution Width 14.9 % (11.5-14.5) Platelet Count 236 x10^3/uL (140-400) Neutrophils (%) (Auto) 49 % (31-73) Lymphocytes (%) (Auto) 39 % (24-48) Monocytes (%) (Auto) 8 % (0-9) Eosinophils (%) (Auto) 4 % (0-3) Basophils (%) (Auto) 1 % (0-3) Neutrophils # (Auto) 2.5 x10^3uL (1.8-7.7) Lymphocytes # (Auto) 2.1 x10^3/uL (1.0-4.8) Monocytes # (Auto) 0.4 x10^3/uL (0.0-1.1) Eosinophils # (Auto) 0.2 x10^3/uL (0.0-0.7) Basophils # (Auto) 0.0 x10^3/uL (0.0-0.2) Sodium Level 142 mmol/L (136-145) Potassium Level 3.7 mmol/L (3.5-5.1) Chloride Level 105 mmol/L (98-107) Carbon Dioxide Level 25 mmol/L (21-32) Anion Gap 12 (6-14) Blood Urea Nitrogen 16 mg/dL (7-20) Creatinine 0.6 mg/dL (0.6-1.0) Estimated GFR (Cockcroft-Gault) 103.8 Glucose Level 129 mg/dL (70-99) Calcium Level 9.2 mg/dL (8.5-10.1) Triglycerides Level 190 mg/dL (0-150) Cholesterol Level 199 mg/dL (0-200) LDL Cholesterol, Calculated 115 mg/dL (0-100) VLDL Cholesterol, Calculated 38 mg/dL (0-40) Non-HDL Cholesterol Calculated 153 mg/dL (0-129) HDL Cholesterol 46 mg/dL (40-60) Cholesterol/HDL Ratio 4.3 Medications Current Medications Meclizine HCl (Antivert) 25 mg 1X ONCE PO Last administered on 09/09/18at 10:16 ; Start 09/09/18 at 10:00; Stop 09/09/18 at 10:08; Status DC Sodium Chloride 1,000 ml @ 1,000 mls/hr 1X ONCE IV Last administered on at 10:17; Start 09/09/18 at 10:00; Stop 09/09/18 at 10:59; Status DC Iohexol (Omnipaque 350 Mg/ml) 100 ml 1X ONCE IV Last administered on at 10:45; Start 09/09/18 at 10:45; Stop 09/09/18 at 10:46; Status DC Info (CONTRAST GIVEN -- Rx MONITORING) 1 each PRN DAILY PRN MC SEE COMMENTS; Start 09/09/18 at 10:45; Stop 09/11/18 at 10:44 Ondansetron HCl (Zofran) 4 mg PRN Q8HRS PRN IV NAUSEA/VOMITING; Start 09/09/18 at 11:00; Stop 09/10/18 at 10:59; Status DC Morphine Sulfate (Morphine Sulfate) 2 mg PRN Q2HR PRN IV PAIN; Start 09/09/18 at 11:00; Stop 09/10/18 at 10:59; Status DC Sodium Chloride 1,000 ml @ 100 mls/hr Q10H IV ; Start 09/09/18 at 10:47; Stop 09/09/18 at 16:50; Status DC Acetaminophen (Tylenol) 650 mg PRN Q6HRS PRN PO TEMP > 100.4F; Start 09/09/18 at 12:30 Acetaminophen (Tylenol Supp) 650 mg PRN Q4HRS PRN VA TEMP > 100.4F; Start 09/09 at 12:30 Aspirin (Ecotrin) 325 mg DAILYWBKFT PO Last administered on 09/10/18 09:29; Start 09/10/18 at 08:00 Aspirin (Aspirin) 300 mg PRN DAILY PRN VA IF UNABLE TO TAKE PO; Start 09/09/18 at 12:30 Heparin Sodium (Porcine) (Heparin Sodium) 4,000 unit 1X ONCE IV Last administered on 09/09/18at 13:04; Start 09/09/18 at 12:45; Stop 09/09/18 at 12:50 ; Status DC Heparin Sodium/ Dextrose 500 ml @ 16.8 mls/hr CONT PRN IV SEE I/O RECORD Last administered on 09/09/18at 13:06; Start 09/09/18 at 12:45 Metoprolol Tartrate (Lopressor) 12.5 mg BID PO Last administered on 09/10/18 09:30; Start 09/09/18 at 21:00 Albuterol Sulfate (Ventolin Neb Soln) 2.5 mg PRN Q6HRS PRN INH SHORTNESS OF BREATH; Start 09/09/18 at 13:30 Vitamin D (Vitamin D3) 1,000 unit DAILY PO Last administered on 09/10/18at 09:29 ; Start 09/10/18 at 09:00 Lorazepam (Ativan) 0.5 mg HS PO Last administered on 09/09/18 21:52; Start at 21:00 Vitamin B Complex (Per B) 1 tab DAILY PO Last administered on 09/10/18at 09:28 ; Start 09/10/18 at 09:00 Ascorbic Acid (Vitamin C) 500 mg DAILY PO Last administered on 09/10/18 09:29 ; Start 09/10/18 at 09:00 Cetirizine HCl (ZyrTEC) 10 mg DAILY PO ; Start 09/10/18 at 09:00 Fluticasone Propionate (Flonase) 2 spray DAILY NS ; Start 09/10/18 at 09:00 Non-Formulary Medication (Gluc 2KCL/ Chondr/Adarsh Hy/Hy Ac (Glucosamine & Chondroitin Cap)) 1 each DAILY PO ; Start 09/10/18 at 09:00; Stop 09/10/18 at 09 :00; Status DC Non-Formulary Medication (Inulin (Fiber Gummies)) 2 gm DAILY PO ; Start at 09:00; Stop 09/10/18 at 09:00; Status DC Non-Formulary Medication (Melatonin ) 1 tab QHS PO ; Start 09/09/18 at 21:00; Stop 09/09/18 at 21:00; Status DC Multivitamins (Thera M Plus) 1 tab DAILY PO Last administered on 09/10/18at 09: 28; Start 09/10/18 at 09:00 Pantoprazole Sodium (Protonix) 40 mg DAILYAC PO Last administered on 09/10/18at 09:29; Start 09/10/18 at 07:30 Info (Anti-Coagulation Monitoring By Pharmacy) 1 each PRN DAILY PRN MC SEE COMMENTS Last administered on 09/10/18at 08:51; Start 09/09/18 at 15:15 Ibuprofen (Motrin) 600 mg PRN Q6HRS PRN PO INFLAMMATION; Start 09/09/18 at 18: 00; Status UNV Naproxen (Naprosyn) 500 mg PRN BID PRN PO headache Last administered on at 18:13; Start 09/09/18 at 18:00 Heparin Sodium (Porcine) (Heparin Sodium) 1,800 unit PRN Q6HRS PRN IV FOR UFH LEVEL LESS THAN 0.2 Last administered on 09/10/18at 12:40; Start 09/10/18 at 03: 45 Active Scripts Active Reported Vitamin D3 (Cholecalciferol (Vitamin D3)) 1,000 Unit Tablet 1 Tab PO DAILY Vitamin C (Ascorbic Acid) 500 Mg Capsule.er 500 Mg PO DAILY B Complex (Vitamin B Complex) 1 Each Tablet 1 Each PO DAILY Multivitamins (Multivitamin) 1 Each Tablet 1 Tab PO DAILY Glucosamine & Chondroitin Cap (Gluc 2KCL/Chondr/Adarsh Hy/Hy Ac) 1 Each Capsule 1 Each PO DAILY Fiber Gummies (Inulin) 2 Gm Tab.chew 2 Gm PO DAILY Melatonin 3 Mg Tablet 1 Tab PO QHS Proair Hfa (Albuterol Sulfate) 8.5 Gm Hfa.aer.ad 1 Puff INH PRN Q6HRS PRN Flonase Allergy Relief (Fluticasone Propionate) 9.9 Ml [place].susp 2 Sprays NS DAILY Barbara Allergy (Fexofenadine Hcl) 180 Mg Tablet 1 Tab PO DAILY Omeprazole 20 Mg Tablet. 1 Tab PO DAILY Lorazepam 0.5 Mg Tablet 0.5 Mg PO HS Vitals/I & O Vital Sign - Last 24 Hours 09/09/18 09/09/18 09/09/18 09/09/18 13:26 14:58 20:08 21:53 Temp 98.6 98.6 Pulse 62 62 Resp 16 B/P (MAP) 147/73 (97) 147/73 Pulse Ox 96 O2 Delivery Room Air Room Air Room Air 09/09/18 09/10/18 09/10/18 09/10/18 23:00 02:47 07:32 08:00 Temp 98.9 97.5 97.6 98.9 97.5 97.6 Pulse 84 83 83 Resp 17 16 16 B/P (MAP) 119/74 (89) 111/66 (81) 131/96 (108) Pulse Ox 95 96 97 O2 Delivery Room Air Room Air Room Air Room Air 09/10/18 09/10/18 09:30 11:41 Temp 97.5 97.5 Pulse 83 70 B/P (MAP) 131/96 123/76 (92) O2 Delivery Room Air Intake and Output 09/09/18 09/09/18 09/10/18 15:00 23:00 07:00 Intake Total 1000 ml 950 ml 950 ml Balance 1000 ml 950 ml 950 ml VIKI FUENTES MD Sep 10, 2018 13:16
--- NOTE | 2018-09-10 13:26 | CONS ---
DATE OF CONSULTATION: 09/10/2018 REASON FOR CONSULTATION: Asymptomatic left internal carotid artery dissection, without hemodynamically significant stenosis. HISTORY OF PRESENT ILLNESS: This is a 53-year-old female admitted through the Emergency Room with an episode of vertigo. She has been having episodes of vertigo over the last several months. She has had some tingling and paresthesias in her arms. This is not localized to either right or left side. There is no antecedent history of dysarthria. No diplopia. No weakness or numbness. No history of stroke. No history of amaurosis fugax. She underwent CT imaging studies, including CT angiography of the neck and imaging studies of the head. There were no acute intracranial abnormalities. CT angiogram of the neck shows a short segment, non-hemodynamically significant dissection at the origin of the internal carotid artery. No other significant abnormalities were noted. She was admitted to the hospital for anticoagulation and observation. Vascular Surgery was consulted. The patient has also been seen by Dr. Rice from Neurology. SOCIAL HISTORY: The patient does not smoke. MEDICATIONS: Include she takes multivitamins and vitamin D, vitamin B complex, melatonin 3 mg for sleep, albuterol inhalers, Flonase, Benadryl, Barbara, omeprazole and lorazepam. ALLERGIES: She does not have any allergies. PHYSICAL EXAMINATION: NECK: No carotid bruits, normal carotid upstrokes. Excellent radial pulse. ABDOMEN: Soft. No masses, no aneurysm. EXTREMITIES: Excellent femoral and popliteal pulses bilaterally. NEUROLOGICAL EXAMINATION: She is awake, cooperative and conversant. Normal sensation, normal motor function bilaterally. Extraocular muscles are intact. LABORATORY DATA: Blood sugar is 106. Hemoglobin 13.5, platelet count 271,000. Protime at admission 13.4. Electrolytes are unremarkable. IMPRESSION AND PLAN: Asymptomatic short-segment left internal carotid artery stenosis. I do not believe this is related in any way to the patient's current symptoms. It is unclear as to whether or not this is new or an old finding. However, given the patient's recent nonspecific neurologic complaints and the finding of an internal carotid artery dissection, my recommendation would be for anticoagulation with heparin initially and then convert to either Coumadin or oral agent plus aspirin. This should be continued for 6 months. We will recommend re-imaging her neck in 2-3 months to see if she has healed this dissection. Following her course of anticoagulation therapy, she can be transitioned to just daily aspirin therapy and followed up with yearly carotid duplex imaging studies to make sure that any irregularity or potential stenosis in that left carotid artery remains stable. Thank you for this consultation. EL SHRESTHA MD DR: STEFAN/mer JOB#: [id number] / [id number]
--- NOTE | 2018-09-10 14:18 | CARD ---
MR#: [id number] Date of Study: 09/09/2018 Ordering Physician: MICHELLE COLLINS, Referring Physician: ERUM VELASCO Tech: Isabella Resendez APPROVED REPORT EXAM: Two-dimensional and M-mode echocardiogram with Doppler and color Doppler. Other Information Quality : AverageHR: 67bpm INDICATION Vertigo 2D DIMENSIONS RVDd3.1 (2.9-3.5cm)Left Atrium(2D)3.6 (1.6-4.0cm) IVSd1.1 (0.7-1.1cm)Aortic Root(2D)3.0 (2.0-3.7cm) LVDd5.0 (3.9-5.9cm)LVOT Diameter2.2 (1.8-2.4cm) PWd1.0 (0.7-1.1cm)LVDs3.3 (2.5-4.0cm) FS (%) 33.7 %SV72.1 ml LVEF(%)62.3 (>50%) Aortic Valve AoV Peak Elian.106.2cm/sAoV VTI23.1cm AO Peak GR.4.5mmHgLVOT VTI 16.26cm AO Mean GR.3mmHg Mitral Valve MV E Pjyyvpkn19.6cm/sMV DECEL [id number] MV A Wceykcya74.7cm/sE/A Ratio1.0 TDI Lateral E' P. V8.17cm/sMedial E' P. V8.43cm/s E/Lateral E'8.3E/Medial E'8.0 Tricuspid Valve TR P. Arisguga859ck/sRAP [id number] TR Peak Gr.67tkOoBKQQ24uzIx Pulmonary Vein S1 Txdxzybz91.7cm/sS2 Qqdvqkwc00.04cm/s D2 Ftufvtfn96.0cm/sPVa [id number] LEFT VENTRICLE The left ventricle is normal size. There is borderline concentric left ventricular hypertrophy. The l eft ventricular systolic function is normal and the ejection fraction is within normal range. The Eje ction Fraction is >55%. There is normal LV segmental wall motion. The left ventricular diastolic func tion and filling is normal for age. RIGHT VENTRICLE The right ventricle is normal size. There is normal right ventricular wall thickness. The right ventr icular systolic function is normal. ATRIA The left atrium is borderline dilated. The right atrium size is normal. The interatrial septum is int act with no evidence for an atrial septal defect or patent foramen ovale as noted on 2-D or Doppler i maging. AORTIC VALVE The aortic valve is normal in structure and function. Doppler and Color Flow revealed no significant aortic regurgitation. There is no significant aortic valvular stenosis. MITRAL VALVE The mitral valve is normal in structure and function. There is no evidence of mitral valve prolapse. There is no mitral valve stenosis. Doppler and Color Flow revealed no mitral valve regurgitation note d. TRICUSPID VALVE The tricuspid valve is normal in structure and function. Doppler and Color Flow revealed trace tricus pid regurgitation. There is no tricuspid valve stenosis. PULMONIC VALVE The pulmonary valve is normal in structure and function. Doppler and Color Flow revealed no pulmonic valvular regurgitation. There is no pulmonic valvular stenosis. GREAT VESSELS The aortic root is normal in size. The IVC is normal in size and collapses >50% with inspiration. PERICARDIAL EFFUSION There is no evidence of significant pericardial effusion. Critical Notification Critical Value: No <Conclusion> The left ventricular systolic function is normal and the ejection fraction is within normal range. Th e Ejection Fraction is >55%. There is normal LV segmental wall motion. Signed by : Robinson Yadav, Electronically Approved : 09/10/2018 14:17:43
[2018-09-10] MEDS ORDERED: MONT10TA9 PO (14:21)
[2018-09-10] MEDS ORDERED: METO25TA4 PO (14:21)
[2018-09-10] MEDS ORDERED: ASPI325T11 PO (14:21)
--- NOTE | 2018-09-10 14:26 | PDOC3 ---
Discharge Summary Visit Information Date of Admission: Sep 09, 2018 Date of Discharge: Sep 10, 2018 Admitting Diagnosis: TIA Final Diagnosis Problems Medical Problems: (1) Carotid artery dissection Status: Acute (2) Focal neurological deficit Status: Acute (3) Vertigo Status: Acute Brief Hospital Course Allergies Allergies Coded Allergies Type Severity Reaction Last Updated Verified No Known Drug Allergies 08/12/18 No Vital Signs Vital Signs Date Time Temp Pulse Resp B/P (MAP) Pulse Ox O2 Delivery O2 Flow Rate FiO2 09/10/18 11:41 97.5 70 123/76 (92) Room Air 97.5 09/10/18 07:32 16 97 Lab Results Laboratory Tests Test 09/09/18 09:32 09/09/18 09:50 09/09/18 22:00 09/10/18 09:35 Glucose (Fingerstick) 106 mg/dL (70-99) White Blood Count 8.1 x10^3/uL (4.0-11.0) 5.3 x10^3/uL (4.0-11.0) Red Blood Count 4.64 x10^6/uL (3.50-5.40) 4.62 x10^6/uL (3.50-5.40) Hemoglobin 13.5 g/dL (12.0-15.5) 13.1 g/dL (12.0-15.5) Hematocrit 41.0 % (36.0-47.0) 40.6 % (36.0-47.0) Mean Corpuscular Volume 88 fL (79-100) 88 fL (79-100) Mean Corpuscular Hemoglobin 29 pg (25-35) 28 pg (25-35) Mean Corpuscular Hemoglobin Concent 33 g/dL (31-37) 32 g/dL (31-37) Red Cell Distribution Width 15.1 % (11.5-14.5) 14.9 % (11.5-14.5) Platelet Count 271 x10^3/uL (140-400) 236 x10^3/uL (140-400) Neutrophils (%) (Auto) 68 % (31-73) 49 % (31-73) Lymphocytes (%) (Auto) 23 % (24-48) 39 % (24-48) Monocytes (%) (Auto) 7 % (0-9) 8 % (0-9) Eosinophils (%) (Auto) 2 % (0-3) 4 % (0-3) Basophils (%) (Auto) 1 % (0-3) 1 % (0-3) Neutrophils # (Auto) 5.5 x10^3uL (1.8-7.7) 2.5 x10^3uL (1.8-7.7) Lymphocytes # (Auto) 1.8 x10^3/uL (1.0-4.8) 2.1 x10^3/uL (1.0-4.8) Monocytes # (Auto) 0.5 x10^3/uL (0.0-1.1) 0.4 x10^3/uL (0.0-1.1) Eosinophils # (Auto) 0.2 x10^3/uL (0.0-0.7) 0.2 x10^3/uL (0.0-0.7) Basophils # (Auto) 0.0 x10^3/uL (0.0-0.2) 0.0 x10^3/uL (0.0-0.2) Prothrombin Time 13.4 SEC (11.7-14.0) Prothromb Time International Ratio 1.1 (0.8-1.1) Sodium Level 140 mmol/L (136-145) 142 mmol/L (136-145) Potassium Level 3.8 mmol/L (3.5-5.1) 3.7 mmol/L (3.5-5.1) Chloride Level 103 mmol/L (98-107) 105 mmol/L (98-107) Carbon Dioxide Level 26 mmol/L (21-32) 25 mmol/L (21-32) Anion Gap 11 (6-14) 12 (6-14) Blood Urea Nitrogen 18 mg/dL (7-20) 16 mg/dL (7-20) Creatinine 0.6 mg/dL (0.6-1.0) 0.6 mg/dL (0.6-1.0) Estimated GFR (Cockcroft-Gault) 103.8 103.8 BUN/Creatinine Ratio 30 (6-20) Glucose Level 114 mg/dL (70-99) 129 mg/dL (70-99) Calcium Level 9.3 mg/dL (8.5-10.1) 9.2 mg/dL (8.5-10.1) Total Bilirubin 0.2 mg/dL (0.2-1.0) Aspartate Amino Transf (AST/SGOT) 15 U/L (15-37) Alanine Aminotransferase (ALT/SGPT) 29 U/L (14-59) Alkaline Phosphatase 99 U/L (46-116) Total Protein 7.6 g/dL (6.4-8.2) Albumin 3.9 g/dL (3.4-5.0) Albumin/Globulin Ratio 1.1 (1.0-1.7) Heparin Anti-Xa Act, Unfractionated < 0.10 IU/mL (0.30-0.70) 0.16 IU/mL (0.30-0.70) Triglycerides Level 190 mg/dL (0-150) Cholesterol Level 199 mg/dL (0-200) LDL Cholesterol, Calculated 115 mg/dL (0-100) VLDL Cholesterol, Calculated 38 mg/dL (0-40) Non-HDL Cholesterol Calculated 153 mg/dL (0-129) HDL Cholesterol 46 mg/dL (40-60) Cholesterol/HDL Ratio 4.3 Laboratory Tests Test 09/09/18 22:00 09/10/18 09:35 Heparin Anti-Xa Act, Unfractionated < 0.10 IU/mL (0.30-0.70) 0.16 IU/mL (0.30-0.70) White Blood Count 5.3 x10^3/uL (4.0-11.0) Red Blood Count 4.62 x10^6/uL (3.50-5.40) Hemoglobin 13.1 g/dL (12.0-15.5) Hematocrit 40.6 % (36.0-47.0) Mean Corpuscular Volume 88 fL (79-100) Mean Corpuscular Hemoglobin 28 pg (25-35) Mean Corpuscular Hemoglobin Concent 32 g/dL (31-37) Red Cell Distribution Width 14.9 % (11.5-14.5) Platelet Count 236 x10^3/uL (140-400) Neutrophils (%) (Auto) 49 % (31-73) Lymphocytes (%) (Auto) 39 % (24-48) Monocytes (%) (Auto) 8 % (0-9) Eosinophils (%) (Auto) 4 % (0-3) Basophils (%) (Auto) 1 % (0-3) Neutrophils # (Auto) 2.5 x10^3uL (1.8-7.7) Lymphocytes # (Auto) 2.1 x10^3/uL (1.0-4.8) Monocytes # (Auto) 0.4 x10^3/uL (0.0-1.1) Eosinophils # (Auto) 0.2 x10^3/uL (0.0-0.7) Basophils # (Auto) 0.0 x10^3/uL (0.0-0.2) Sodium Level 142 mmol/L (136-145) Potassium Level 3.7 mmol/L (3.5-5.1) Chloride Level 105 mmol/L (98-107) Carbon Dioxide Level 25 mmol/L (21-32) Anion Gap 12 (6-14) Blood Urea Nitrogen 16 mg/dL (7-20) Creatinine 0.6 mg/dL (0.6-1.0) Estimated GFR (Cockcroft-Gault) 103.8 Glucose Level 129 mg/dL (70-99) Calcium Level 9.2 mg/dL (8.5-10.1) Triglycerides Level 190 mg/dL (0-150) Cholesterol Level 199 mg/dL (0-200) LDL Cholesterol, Calculated 115 mg/dL (0-100) VLDL Cholesterol, Calculated 38 mg/dL (0-40) Non-HDL Cholesterol Calculated 153 mg/dL (0-129) HDL Cholesterol 46 mg/dL (40-60) Cholesterol/HDL Ratio 4.3 Brief Hospital Course Ms Arce is a 53-year-old female w/ PMHx Diverticulosis, mastectomy, hysterectomy, cystocele, rectocele, and some skin lesions removed from the hand , 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 She became dizzy today in the office. Dr. Celaya escorted her to the ER. She rates her symptoms at 9/ 10. This has been occurring off and on for some time. She also had some left face tingling and paresthesias in the arms. Symptoms completely resolved after a few minutes. She denies any visual changes. Her neurological exam is essentially benign, but we did some imaging and she has a carotid dissection on the left, less than 25%. Seen by vascular surgery as insignificant. Seen by Neurology as well, was initially placed on heparin GTT. Initially was triaged to ICU. However, MRI was negative for CVA and downgraded. Her symptoms resolved before she even in the ICU. On further review she has very severe allergies and h/o sinusitis and symptoms such as these have occurred on and off for years. After d/w vascular surgery, ASA is appropriate discharge therapy. Discharge time spent greater than 30 minutes Asymptomatic left internal carotid artery dissection without hemodynamically significant stenosis TIA sx Allergic rhinitis Discharge Information Condition at Discharge: Improved Follow Up: Weeks (2) Disposition/Orders: D/C to Home Scheduled Ascorbic Acid (Vitamin C) 500 Mg Capsule.er, 500 MG PO DAILY for supplement, ( Reported) Entered as Reported by: NAILA ESPINAL on 08/12/18836 Last Action: Reviewed on 09/09/181455 by BIPIN WALTON Aspirin (Aspirin Ec) 325 Mg Tablet.dr, 325 MG PO DAILYWBKFT for TIA/Carotid dissection for 30 Days, #30 Ref 5 Prescribed by: VIKI FUENTES MD on 09/10/181420 Cholecalciferol (Vitamin D3) (Vitamin D3) 1,000 Unit Tablet, 1 TAB PO DAILY for supplement, #30 Ref 5 (Reported) Entered as Reported by: NAILA ESPINAL on 08/12/18837 Last Action: Reviewed on 09/09/181455 by BIPIN WALTON Fexofenadine Hcl (Barbara Allergy) 180 Mg Tablet, 1 TAB PO DAILY for allergies, #30 Ref 2 (Reported) Entered as Reported by: NAILA ESPINAL on 08/12/18814 Last Action: Reviewed on 09/09/181455 by BIPIN WALTON Fluticasone Propionate (Flonase Allergy Relief) 9.9 Ml [place].susp, 2 SPRAYS NS DAILY for allergies, (Reported) Entered as Reported by: NAILA ESPINAL on 08/12/18815 Last Action: Reviewed on 09/09/181455 by BIPIN WALTON Gluc 2KCL/Chondr/Adarsh Hy/Hy Ac (Glucosamine & Chondroitin Cap) 1 Each Capsule, 1 EACH PO DAILY for joint health, (Reported) Entered as Reported by: NAILA ESPINAL on 08/12/18834 Last Action: Reviewed on 09/09/181455 by BIPIN WALTON Inulin (Fiber Gummies) 2 Gm Tab.chew, 2 GM PO DAILY for supplement, (Reported) Entered as Reported by: NAILA ESPINAL on 08/12/18834 Last Action: Reviewed on 09/09/181455 by BIPIN WALTON Lorazepam (Lorazepam) 0.5 Mg Tablet, 0.5 MG PO HS for anxiety, (Reported) Entered as Reported by: NAILA ESPINAL on 08/12/18814 Last Action: Reviewed on 09/09/181455 by BIPIN WALTON Melatonin (Melatonin) 3 Mg Tablet, 1 TAB PO QHS for insomnia, #30 Ref 2 ( Reported) Entered as Reported by: NAILA ESPINAL on 08/12/18833 Last Action: Reviewed on 09/09/181455 by BIPIN WALTON Metoprolol Tartrate (Metoprolol Tartrate) 25 Mg Tablet, 12.5 MG PO BID for HTN for 30 Days, #30 Ref 3 Prescribed by: VIKI FUENTES MD on 09/10/18 1421 Montelukast Sodium (Montelukast Sodium Tablet) 10 Mg Tablet, 1 TAB PO QHS for Allergies for 30 Days, #30 Ref 5 Prescribed by: VIKI FUENTES MD on 09/10/18 1421 Multivitamin (Multivitamins) 1 Each Tablet, 1 TAB PO DAILY for supplement, #90 Ref 3 (Reported) Entered as Reported by: NAILA ESPINAL on 08/12/18835 Last Action: Reviewed on 09/09/181455 by BIPIN WALTON Omeprazole (Omeprazole) 20 Mg Tablet.dr, 1 TAB PO DAILY for reflux, #90 Ref 1 ( Reported) Entered as Reported by: NAILA ESPINAL on 08/12/18814 Last Action: Reviewed on 09/09/181455 by BIPIN WALTON Vitamin B Complex (B Complex) 1 Each Tablet, 1 EACH PO DAILY for supplement, ( Reported) Entered as Reported by: NAILA ESPINAL on 08/12/18836 Last Action: Reviewed on 09/09/181455 by BIPIN WALTON Scheduled PRN Albuterol Sulfate (Proair Hfa) 8.5 Gm Hfa.aer.ad, 1 PUFF INH PRN Q6HRS PRN for SHORTNESS OF BREATH, (Reported) Entered as Reported by: NAILA ESPINAL on 08/12/18 0833 Last Action: Reviewed on 09/09/181455 by BIPIN WALTON Discontinued Medications Diphenhydramine Hcl (Benadryl) 25 Mg Capsule, 25 MG PO PRN PRN for ALLERGIES, ( Reported) Entered as Reported by: NAILA ESPINAL on 08/12/18 0816 Last Action: Discontinued on 09/09/181455 by VIKI SAENZ MD Sep 10, 2018 14:26
--- NOTE | 2018-09-10 15:23 | PDOC ---
PROGRESS NOTES Assessment Assessment IMPRESSION: Left ICA dissection? Vertigo. Dizziness. HLD. Emotional stress. Breast cancer. RECOMMENDATIONS/PLAN: Heparin drip on 09/09/18. ASA daily. Zocor 20 mg HS. Consulted Vascular Surgery. MRA head and neck. 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 Head: No traumatic brain or head injury. Skin: No edema, or rash. Ear: No infection, tinnitus. Eyes: No vision loss, or diplopia. Nose: No bleeding or purulent discharges. Hearing: No hearing decrease. Neck: No injury. Breast: Cancer. Cardiac: HLD Pulmonary: No pneumonia, COPD. GI: No GI Ulcer, GI bleeding Urinary/genital: UTI. Endocrine: Over weight. Skeletomuscular: No muscular atrophy, deformity. Neurological: see HP. Psychiatric: Denies drug use/abuse. Otherwise, not [id number] review of systems. PHYSICAL EXAMINATION: General appearance in subacute distress. HEENT: Normocephalic and nontraumatic. Eyes, nose, ears, and throat are unremarkable. Hearing decrease. Neck is supple. No lymphadenopathy. No bruits are heard over the carotid artery. No Crepitus. Cardiovascular: S1, S2, regular rate and rhythm. Pulmonary: Clear to auscultation bilaterally. Abdomen: Bowel sounds are positive. Abdomen is soft, nontender, and nondistended. Extremities: No rash, lesions, or edema. No restriction of range of motion NEUROLOGICAL EXAMINATION: Alert. Oriented to time, place and person. PERRL. EOMI. CN: no focal findings. Muscle tone: within normal. Muscle strength: 5 DTR: 2 Plantar reflex: Flexor response bilaterally Gait: At baseline normal. Sensory exam: no abnormal findings. No cerebellar signs elicited. F-T-N test accurate. Objective Objective Vital Signs Date Time Temp Pulse Resp B/P (MAP) Pulse Ox O2 Delivery O2 Flow Rate FiO2 09/10/18 11:41 97.5 70 123/76 (92) Room Air 97.5 09/10/18 07:32 16 97 Intake and Output 09/10/18 07:00 Intake Total 2900 ml Balance 2900 ml Intake Oral 1900 ml IV Total 1000 ml # Voids 4 Vitals Signs Vitals VS - Last 72 Hours, by Label Date Time Temp Pulse Resp B/P (MAP) Pulse Ox O2 Delivery O2 Flow Rate FiO2 09/10/18 11:41 97.5 70 123/76 (92) Room Air 97.5 09/10/18 09:30 83 131/96 09/10/18 08:00 Room Air 09/10/18 07:32 97.6 83 16 131/96 (108) 97 Room Air 97.6 09/10/18 02:47 97.5 83 16 111/66 (81) 96 Room Air 97.5 09/09/18 23:00 98.9 84 17 119/74 (89) 95 Room Air 98.9 09/09/18 21:53 62 147/73 09/09/18 20:08 Room Air 09/09/18 14:58 Room Air 09/09/18 13:26 98.6 62 16 147/73 (97) 96 Room Air 98.6 09/09/18 13:01 76 28 97 09/09/18 12:57 76 25 4 09/09/18 12:27 74 23 97 09/09/18 11:57 72 20 99 09/09/18 11:27 72 16 96 09/09/18 10:33 70 25 96 09/09/18 10:10 70 19 96 09/09/18 09:40 70 96 09/09/18 09:25 98.1 77 20 149/86 (107) 95 Room Air 98.1 Laboratory Laboratory Laboratory Tests Test 09/09/18 22:00 09/10/18 09:35 Heparin Anti-Xa Act, Unfractionated < 0.10 IU/mL (0.30-0.70) 0.16 IU/mL (0.30-0.70) White Blood Count 5.3 x10^3/uL (4.0-11.0) Red Blood Count 4.62 x10^6/uL (3.50-5.40) Hemoglobin 13.1 g/dL (12.0-15.5) Hematocrit 40.6 % (36.0-47.0) Mean Corpuscular Volume 88 fL (79-100) Mean Corpuscular Hemoglobin 28 pg (25-35) Mean Corpuscular Hemoglobin Concent 32 g/dL (31-37) Red Cell Distribution Width 14.9 % (11.5-14.5) Platelet Count 236 x10^3/uL (140-400) Neutrophils (%) (Auto) 49 % (31-73) Lymphocytes (%) (Auto) 39 % (24-48) Monocytes (%) (Auto) 8 % (0-9) Eosinophils (%) (Auto) 4 % (0-3) Basophils (%) (Auto) 1 % (0-3) Neutrophils # (Auto) 2.5 x10^3uL (1.8-7.7) Lymphocytes # (Auto) 2.1 x10^3/uL (1.0-4.8) Monocytes # (Auto) 0.4 x10^3/uL (0.0-1.1) Eosinophils # (Auto) 0.2 x10^3/uL (0.0-0.7) Basophils # (Auto) 0.0 x10^3/uL (0.0-0.2) Sodium Level 142 mmol/L (136-145) Potassium Level 3.7 mmol/L (3.5-5.1) Chloride Level 105 mmol/L (98-107) Carbon Dioxide Level 25 mmol/L (21-32) Anion Gap 12 (6-14) Blood Urea Nitrogen 16 mg/dL (7-20) Creatinine 0.6 mg/dL (0.6-1.0) Estimated GFR (Cockcroft-Gault) 103.8 Glucose Level 129 mg/dL (70-99) Calcium Level 9.2 mg/dL (8.5-10.1) Triglycerides Level 190 mg/dL (0-150) Cholesterol Level 199 mg/dL (0-200) LDL Cholesterol, Calculated 115 mg/dL (0-100) VLDL Cholesterol, Calculated 38 mg/dL (0-40) Non-HDL Cholesterol Calculated 153 mg/dL (0-129) HDL Cholesterol 46 mg/dL (40-60) Cholesterol/HDL Ratio 4.3 Medication Medications Current Medications Ascorbic Acid (Vitamin C) 500 mg DAILY PO Last administered on 09/10/18at 09:29 ; Start 09/10/18 at 09:00 Aspirin (Ecotrin) 325 mg DAILYWBKFT PO Last administered on 09/10/18at 09:29; Start 09/10/18 at 08:00 Cetirizine HCl (ZyrTEC) 10 mg DAILY PO ; Start 09/10/18 at 09:00 Fluticasone Propionate (Flonase) 2 spray DAILY NS ; Start 09/10/18 at 09:00 Heparin Sodium (Porcine) (Heparin Sodium) 1,800 unit PRN Q6HRS PRN IV FOR UFH LEVEL LESS THAN 0.2 Last administered on 09/10/18at 12:40; Start 09/10/18 at 03: 45 Ibuprofen (Motrin) 600 mg PRN Q6HRS PRN PO INFLAMMATION; Start 09/09/18 at 18: 00; Status UNV Info (Anti-Coagulation Monitoring By Pharmacy) 1 each PRN DAILY PRN MC SEE COMMENTS Last administered on 09/10/18 08:51; Start 09/09/18 at 15:15 Lorazepam (Ativan) 0.5 mg HS PO Last administered on 09/09/18 21:52; Start at 21:00 Metoprolol Tartrate (Lopressor) 12.5 mg BID PO Last administered on 09/10/18 09:30; Start 09/09/18 at 21:00 Multivitamins (Thera M Plus) 1 tab DAILY PO Last administered on 09/10/18at 09: 28; Start 09/10/18 at 09:00 Naproxen (Naprosyn) 500 mg PRN BID PRN PO headache Last administered on at 18:13; Start 09/09/18 at 18:00 Non-Formulary Medication (Gluc 2KCL/ Chondr/Adarsh Hy/Hy Ac (Glucosamine & Chondroitin Cap)) 1 each DAILY PO ; Start 09/10/18 at 09:00; Stop 09/10/18 at 09 :00; Status DC Non-Formulary Medication (Inulin (Fiber Gummies)) 2 gm DAILY PO ; Start at 09:00; Stop 09/10/18 at 09:00; Status DC Non-Formulary Medication (Melatonin ) 1 tab QHS PO ; Start 09/09/18 at 21:00; Stop 09/09/18 at 21:00; Status DC Pantoprazole Sodium (Protonix) 40 mg DAILYAC PO Last administered on 09/10/18at 09:29; Start 09/10/18 at 07:30 Vitamin B Complex (Per B) 1 tab DAILY PO Last administered on 09/10/18at 09:28 ; Start 09/10/18 at 09:00 Vitamin D (Vitamin D3) 1,000 unit DAILY PO Last administered on 09/10/18at 09:29 ; Start 09/10/18 at 09:00 Comment Review of Relevant I have reviewed the following items so (where applicable) has been applied. SHAISTA CRUZ MD Sep 10, 2018 15:23
[2018-09-10] MEDS ORDERED: SIMVASTATIN 20 MG TABLET PO SCH (21:00)
== END 2018-09-10 17:00 | disposition home or self-care (01) | DRG 301 ==
LOC: ER 09:24 → 6 SOUTH 11:52 → 1 WEST ICU 12:53 → 2 NORTH 19:50
PROVIDERS: ADMIT Internal Medicine; ATTEND Internal Medicine
DX: I77.71 Dissection of carotid artery (principal); F41.9 Anxiety disorder, unspecified; J45.909 Unspecified asthma, uncomplicated; K57.90 Diverticulosis of intestine, part unspecified, without perforation or abscess without bleeding; E78.5 Hyperlipidemia, unspecified; Z90.710 Acquired absence of both cervix and uterus; Z98.51 Tubal ligation status; Z85.3 Personal history of malignant neoplasm of breast; Z79.82 Long term (current) use of aspirin; Z90.10 Acquired absence of unspecified breast and nipple
CPT/HCPCS: 36415; 70450; 70496; 70498; 70551; 80048; 80053; 80061; 82962; 85025; 85520; 85610; 87641; 93005; 93306; 96361; 96374; J1644; J7030; J8597; Q9967; 92610; 99291-25

== ENCOUNTER → 2018-09-26 | Outpatient (CLI) | payer OTHER ==
[2018-09-10 11:41] VITALS: BP 123/76
[~2018-09-26] MED LIST changes: +ASPI325T11 PO; +METO25TA4 PO; +MONT10TA9 PO
[2018-09-26 15:39] LABS: BILIRUBIN,URINE NEGATIVE (NEG); CLARITY,URINE CLEAR; COLOR,URINE YELLOW; NITRITE,URINE NEGATIVE (NEG); PROTEIN,URINE NEGATIVE (NEG-TRACE); UROBILINOGEN,URINE 0.2 mg/dL (0.2 mg/dL)
[2018-09-26 15:47] LABS: BACTERIA,URINE 0 /HPF (0-FEW); RBC,URINE 0 /HPF (0-2); SQUAMOUS EPITHELIAL CELL,UR OCC /LPF; WBC,URINE RARE /HPF (0-4)
[2018-09-26 16:11] LABS: ALBUMIN 3.9 g/dL (3.4-5.0); ALBUMIN/GLOBULIN RATIO 1.1 (1.0-1.7); CALCIUM 9.1 mg/dL (8.5-10.1); CREATININE 0.7 mg/dL (0.6-1.0); GFR 86.9; POTASSIUM 3.7 mmol/L (3.5-5.1); TOTAL BILIRUBIN 0.3 mg/dL (0.2-1.0); TOTAL PROTEIN 7.5 g/dL (6.4-8.2)
[2018-09-27 03:13] LABS: HEMOGLOBIN A1C 6.3 % (4.8-5.6)
== END | disposition home or self-care (01) ==
LOC: LAB 15:05
PROVIDERS: ATTEND Nurse Practitioner
DX: Z13.1 Encounter for screening for diabetes mellitus (principal); R39.15 Urgency of urination
CPT/HCPCS: 36415; 80053; 81001; 83036

== ENCOUNTER → 2018-10-28 | Outpatient (CLI) | payer OTHER ==
--- NOTE | 2018-10-28 15:28 | RAD ---
EXAM: CT paranasal sinuses without contrast. HISTORY: Chronic cough, rhinitis. TECHNIQUE: CT of the paranasal sinuses was performed without intravenous contrast. COMPARISON: None. FINDINGS: There is a small mucus retention cyst within the right maxillary sinus. This currently occludes the ostium of the right ostiomeatal unit. The left ostiomeatal unit is patent currently. Another small mucus retention cyst is seen inferiorly in the right maxillary sinus. There is minimal mucosal thickening in the left maxillary sinus. The ethmoid air cells, frontal sinus and sphenoid sinus are clear. There are no air-fluid levels. Limited images of the orbits and brain reveal no abnormality. IMPRESSION: 1. A small right maxillary sinus mucus retention cyst currently occludes the right ostiomeatal unit. *One or more of the following individualized dose reduction techniques were utilized for this examination: 1. Automated exposure control. 2. Adjustment of the mA and/or kV according to patient size. 3. Use of iterative reconstruction technique. Electronically signed by: Morales Meyers MD (10/28/2018 3:25 PM) [facility]
== END | disposition home or self-care (01) ==
LOC: CT 14:36
PROVIDERS: ATTEND Otolaryngology Plastic Surgery within the Head & Neck
DX: J34.1 Cyst and mucocele of nose and nasal sinus (principal)
CPT/HCPCS: 70486

== ENCOUNTER → 2018-11-11 | Outpatient (CLI) | payer OTHER ==
[~2018-11-11] MED LIST changes: +MONT10TA49 PO; -MONT10TA9 PO
--- NOTE | 2018-11-11 17:02 | RAD ---
Carotid ultrasound, 11/11/2018: HISTORY: Previous left internal carotid artery dissection Duplex evaluation of the carotid arteries and neck was performed including grayscale, color-flow and spectral Doppler analysis. There are minimal scattered atherosclerotic plaques. No carotid dissection is evident. The peak systolic velocity in the right internal carotid artery is 93 cm per sec with an end-diastolic velocity of 36 cm/s and an internal carotid to common carotid artery ratio of less than 1. On the left the peak systolic velocity in the internal carotid artery is 68 cm/s with an end-diastolic velocity of 29 cm/s and an internal carotid to common carotid artery ratio of less than 1. These Doppler findings do not suggest significant stenosis. Antegrade flow is present in both vertebral arteries in the neck. IMPRESSION: No duplex evidence of a significant carotid stenosis in the neck. Note: Stenosis calculations for CT, MRA and conventional angiography are based upon determination of the distal ICA diameter in accordance with the NASCET methodology. Stenosis calculations for Doppler studies are derived from validated velocity criteria which are known to correlate with NASCET methodology of determining stenosis. Electronically signed by: Beny Feldman MD (11/11/2018 4:59 PM) [facility]
== END | disposition home or self-care (01) ==
LOC: US 14:57
DX: I65.23 Occlusion and stenosis of bilateral carotid arteries (principal); Z86.79 Personal history of other diseases of the circulatory system
CPT/HCPCS: 93880

== ENCOUNTER 2019-02-23 11:36 | Inpatient (IN) | payer OTHER ==
[~2019-02-23] VITALS: Ht 162.6 cm; Wt 70.3 kg
[~2019-02-23 11:36] MED LIST changes: -MELA3TAB2 PO; +MELA3TAB56 PO
[2019-02-23 12:28] LABS: BILIRUBIN,URINE NEGATIVE (NEG); CLARITY,URINE CLEAR; COLOR,URINE YELLOW; NITRITE,URINE NEGATIVE (NEG); PH,URINE 5.5; PROTEIN,URINE NEGATIVE (NEG-TRACE); UROBILINOGEN,URINE 0.2 mg/dL (0.2 mg/dL)
[2019-02-23] MEDS ORDERED: ONDANSETRON PF 4 MG/2 ML VIAL. IVP ONE (12:30)
[2019-02-23 12:34] LABS: SQUAMOUS EPITHELIAL CELL,UR MOD /LPF
[2019-02-23 12:35] LABS: BACTERIA,URINE 0 /HPF (0-FEW)
[2019-02-23] MEDS ORDERED: CONTRAST GIVEN. MC PRN (12:45)
--- NOTE | 2019-02-23 12:49 | RAD ---
EXAM: Chest, single view. HISTORY: Chest pain. Dizziness. COMPARISON: None. FINDINGS: A frontal view of the chest is obtained. There is no infiltrate, pleural effusion or pneumothorax. The heart is normal in size for portable technique. IMPRESSION: No acute pulmonary finding. Electronically signed by: Rachell Galeana MD (02/23/2019 12:46 PM) [facility]
[2019-02-23] MEDS ORDERED: IOHEXOL 300 MG/ML 100ML VIAL. IV ONE (13:00)
--- NOTE | 2019-02-23 13:03 | EKG ---
[facility] [address] [place] [address] Test Date: 2019-02-23 Test Time: 11:55:06 Pat Name: TIFFANIE STANLEY Department: Room: Gender: F Undercollar Maker: : [id number] Requested By: MARJAN VERA Order Number: [id number] Reading MD: Zaki Rivera Measurements Intervals [place] Rate: 69 P: 26 AK: 144 QRS: -3 QRSD: 88 T: 2 QT: 380 QTc: 409 Interpretive Statements SINUS RHYTHM NONSPECIFIC ST-T WAVE CHANGES. Electronically Signed On 03-03-2019 16:40:53 CDT by Zaki Rivera
[2019-02-23 13:13] LABS: BASO % 1 % (0-3); EOS # 0.1 x10^3/uL (0.0-0.7); EOS % 1 % (0-3); HEMATOCRIT 38.1 % (36.0-47.0); HEMOGLOBIN 12.6 g/dL (12.0-15.5); LYMPH # 1.7 x10^3/uL (1.0-4.8); LYMPH % 21 % (24-48); MEAN CORPUSCULAR HEMOGLOBIN 29 pg (25-35); MEAN CORPUSCULAR HGB CONC 33 g/dL (31-37); MEAN CORPUSCULAR VOLUME 87 fL (79-100); MONO # 0.7 x10^3/uL (0.0-1.1); MONO % 8 % (0-9); NEUT # 5.6 x10^3/uL (1.8-7.7); NEUT % 69 % (31-73); PLATELET COUNT 256 x10^3/uL (140-400); RED BLOOD COUNT 4.36 x10^6/uL (3.50-5.40); RED CELL DISTRIBUTION WIDTH 15.5 % (11.5-14.5); WHITE BLOOD COUNT 8.1 x10^3/uL (4.0-11.0)
[2019-02-23 13:27] LABS: CALCIUM 9.4 mg/dL (8.5-10.1); CREATININE 0.6 mg/dL (0.6-1.0); GFR 103.8; POTASSIUM 3.8 mmol/L (3.5-5.1)
--- NOTE | 2019-02-23 13:33 | RAD ---
EXAM: CT ANGIOGRAPHY HEAD AND NECK DATE: 02/23/2019 12:24 PM INDICATION: Neck pain, dizziness, history of carotid dissection TECHNIQUE: 5 mm axial tomographic images were obtained through the head before contrast. CTA angiogram of the head and neck was obtained after IV bolus administration of 75 cc of Omnipaque 350. The images were sent to workstation and multiplanar reconstructions were obtained. Multiplanar reconstruction images to include MIP and 3-D reconstruction images are submitted. One or more of the following dose reduction techniques were utilized: Automated exposure control (AEC), Adjustment of mA and/or kV according to patient size, Use of iterative reconstruction technique such as ASiR, CT scan done according to ALARA and image gently/image wisely COMPARISON: CTA 09/09/2018. FINDINGS: CTA Head: The visualized distal internal carotid arteries, anterior and middle cerebral arteries are patent and normal caliber. The distal vertebral arteries, basilar artery, and posterior cerebral arteries are patent and normal caliber. No aneurysm or arteriovenous malformation is seen. CTA Neck: Right carotid: The right common carotid artery is patent and normal caliber. The carotid bifurcation is normal. No stenosis of the right internal carotid artery per NASCET criteria. Unchanged small focal dissection flap of the left proximal ICA (series 3 image 165). The right external carotid artery is patent. Left carotid: The left common carotid artery is patent and normal caliber. The carotid bifurcation is normal. No stenosis of the left internal carotid artery per NASCET criteria. The left external carotid artery is patent. Right vertebral: The right vertebral artery is patent and normal caliber. Left vertebral: The left vertebral artery is patent and normal caliber. The visualized portions of the aortic arch are normal. The origins of the brachiocephalic and subclavian arteries are normal. No cervical lymphadenopathy. The thyroid gland is normal. The parotid and submandibular glands are normal. The visualized aerodigestive tract is unremarkable. The cervical spine is normal. The visualized portions of the lungs are clear. IMPRESSION: Unchanged small focal dissection flap involving the left proximal ICA. There is no new dissection, stenosis, or occlusion of the cervical or intracranial vasculature. PQRS Compliance Statement - Stenosis calculations for CT, MR and conventional angiography are based upon measurement of the distal ICA diameter in accordance with the NASCET methodology. Electronically signed by: Osorio Lagos MD (02/23/2019 1:30 PM) [facility]
--- NOTE | 2019-02-23 14:34 | PDOC1 ---
History and Physical Date of Admission Date of Admission DATE: 02/23/19 TIME: 14:32 Identification/Chief Complaint Chief Complaint Dizziness Source Source: Patient History of Present Illness History of Present Illness Ms Arce is a 53-year-old female w/ PMHx Diverticulosis, mastectomy, hysterectomy, cystocele, rectocele, and carotid artery dissection he presents acute onset dizziness starting approximately 0700 while at work this morning. Vision was standing reports acute onset dizziness and feeling off balance while walking. Symptoms associated with nausea. Symptoms are worse with standing and movement and are partially relieved while at rest and eyes are closed. Patient denies headache, neck pain chest pain palpitations. Denies extremity weakness or loss of sensation. Patient had similar episode of dizziness several months ago attributed to left carotid artery dissection. Patient reports feeling left-sided neck pain earlier in the week. She denies recent trauma or strain. Recent sinus sx, no sinus symptoms or complaints at this time. No new medications recent changes, in fact she just weaned herself off metoprolol for feeling fatigued. No other acute symptoms or complaints. On further review she has very severe allergies and h/o sinusitis and symptoms such as these have occurred on and off for years. She just had sinus surgery with Dr. Min she is still recovering from, no complications. Past Medical History GI: Diverticulosis Heme/Onc: Cancer Past Surgical History Past Surgical History: Mastectomy, Hysterectomy, Other Family History Family History: Family History Unknown Social History Smoke: No ALCOHOL: none Drugs: None Current Medications Current Medications Current Medications Ondansetron HCl (Zofran) 4 mg 1X ONCE IVP Last administered on 02/23/19at 12:55; Start 02/23/19 at 12:30; Stop 02/23/19 at 12:31; Status DC Iohexol (Omnipaque 300 Mg/ml) 75 ml 1X ONCE IV Last administered on 02/23/19at 12:39; Start 02/23/19 at 13:00; Stop 02/23/19 at 13:01; Status DC Info (CONTRAST GIVEN -- Rx MONITORING) 1 each PRN DAILY PRN MC SEE COMMENTS; Start 02/23/19 at 12:45; Stop 02/25/19 at 12:44 Active Scripts Active Montelukast Sodium Tablet (Montelukast Sodium) 10 Mg Tablet 1 Tab PO QHS 30 Days Aspirin Ec (Aspirin) 325 Mg Tablet. 325 Mg PO DAILYWBKFT 30 Days Metoprolol Tartrate 25 Mg Tablet 12.5 Mg PO BID 30 Days Reported Vitamin D3 (Cholecalciferol (Vitamin D3)) 1,000 Unit Tablet 1 Tab PO DAILY Vitamin C (Ascorbic Acid) 500 Mg Capsule.er 500 Mg PO DAILY B Complex (Vitamin B Complex) 1 Each Tablet 1 Each PO DAILY Multivitamins (Multivitamin) 1 Each Tablet 1 Tab PO DAILY Glucosamine & Chondroitin Cap (Gluc 2KCL/Chondr/Adarsh Hy/Hy Ac) 1 Each Capsule 1 Each PO DAILY Fiber Gummies (Inulin) 2 Gm Tab.chew 2 Gm PO DAILY Melatonin 3 Mg Tablet 1 Tab PO QHS Proair Hfa (Albuterol Sulfate) 8.5 Gm Hfa.aer.ad 1 Puff INH PRN Q6HRS PRN Flonase Allergy Relief (Fluticasone Propionate) 9.9 Ml [place].susp 2 Sprays NS DAILY Barbara Allergy (Fexofenadine Hcl) 180 Mg Tablet 1 Tab PO DAILY Omeprazole 20 Mg Tablet.dr 1 Tab PO DAILY Lorazepam 0.5 Mg Tablet 0.5 Mg PO HS Allergies Allergies: Coded Allergies: No Known Drug Allergies (Unverified , 08/12/18) ROS General: YES: Fatigue, Malaise; No: Chills, Night Sweats, Appetite, Other PSYCHOLOGICAL ROS: YES: Anxiety; No: Behavioral Disorder, Concentration difficultie, Decreased libido, Depression, Disorientation, Hallucinations, Hostility, Irritablity, Memory difficulties, Mood Swings, Obsessive thoughts, Physical abuse, Sexual abuse, Sleep disturbances, Suicidal ideation, Other Eyes: Yes Blurry vision, Yes Double vision; No Decreased vision, No Dry eyes, No Excessive tearing, No Eye Pain, No Itchy Eyes, No Loss of vision, No Photophobia, No Scotomata, No Uses contacts, No Uses glasses, No Other HEENT: YES: Visual Changes; No: Heacaches, Hearing change, Nasal congestion, Nasal discharge, Oral lesions, Sinus pain, Sore Throat, Epistaxis, Sneezing, Snoring, Tinnitus, Vertigo, Vocal changes, Other ALLERGY AND IMMUNOLOGY: No: Hives, Insect Bite Sensitivity, Itchy/Watery Eyes, Nasal Congestion, Post Nasal Drip, Seasonal Allergies, Other Hematological and Lymphatic: No: Bleeding Problems, Blood Clots, Blood Transfusions, Brusing, Night Sweats, Pallor, Swollen Lymph Nodes, Other ENDOCRINE: No: Breast Changes, Galactorrhea, Hair Pattern Changes, Hot Flashes, Malaise/lethargy, Mood Swings, Palpitations, Polydipsia/polyuria, Skin Changes, Temperature Intolerance, Unexpected Weight Changes, Other Breast: No New/Changing Breast Lumps, No Nipple changes, No Nipple discharge, No Other Respiratory: No: Cough, Hemoptysis, Orthopnea, Pleuritic Pain, Shortness of breath, SOB with excertion, Sputum Changes, Stridor, Tachypnea, Wheezing, Other Cardiovascular: No Chest Pain, No Palpitations, No Orthopnea, No Paroxysmal Noc. Dyspnea, No Edema, No Lt Headedness, No Other Gastrointestinal: Yes Nausea; No Vomiting, No Abdominal Pain, No Diarrhea, No Constipation, No Melena, No Hematochezia, No Other Genitourinary: No Dysuria, No Frequency, No Incontinence, No Hematuria, No Retention, No Discharge, No Urgency, No Pain, No Flank Pain, No Other, No , No , No , No , No , No , No Musculoskeletal: Yes Gait Disturbance; No Joint Pain, No Joint Stiffness, No Joint Swelling, No Muscle Pain, No Muscular Weakness, No Pain In:, No Swelling In:, No Other Neurological: Yes Dizziness; No Behavorial Changes, No Bowel/Bladder ControlChng, No Confusion, No Gait Disturbance, No Headaches, No Impaired Coord/balance, No Memory Loss, No Numbness/Tingling, No Seizures, No Speech Problems, No Tremors, No Visual Changes, No Weakness, No Other Skin: No Dry Skin, No Eczema, No Hair Changes, No Lumps, No Mole Changes, No Mottling, No Nail Changes, No Pruritus, No Rash, No Skin Lesion Changes, No Other, No Acne Physical Exam General: Alert, Oriented X3, Cooperative, No acute distress HEENT: Atraumatic, PERRLA, EOMI, Mucous membr. moist/pink, Other (Early dot ract in left eye) Lungs: Clear to auscultation, Normal air movement Heart: S1S2, RRR, no gallops, no murmurs Abdomen: Normal bowel sounds, Soft, No tenderness, No hepatosplenomegaly, No masses Rectal Exam: not examined Extremities: No clubbing, No cyanosis, No edema, Normal pulses, No tenderness/swelling Skin: No rashes, No breakdown, No significant lesion Neuro: Normal gait, Normal speech, Strength at 5/5 X4 ext, Normal tone, Sensation intact, Cranial nerves 3-12 NL, Reflexes 2+ Psych/Mental Status: Mental status NL, Mood NL Vitals Vitals Vital Signs Date Time Temp Pulse Resp B/P (MAP) Pulse Ox O2 Delivery O2 Flow Rate FiO2 02/23/19 11:41 97.8 78 21 151/85 (107) 96 Room Air 97.8 Labs Labs Laboratory Tests Test 02/23/19 12:05 02/23/19 13:05 02/23/19 13:07 Urine Collection Type Unknown Urine Color Yellow Urine Clarity Clear Urine pH 5.5 Urine Specific [place] 1.015 Urine Protein Negative mg/dL (NEG-TRACE) Urine Glucose (UA) Negative mg/dL (NEG) Urine Ketones (Stick) Negative mg/dL (NEG) Urine Blood Negative (NEG) Urine Nitrite Negative (NEG) Urine Bilirubin Negative (NEG) Urine Urobilinogen Dipstick 0.2 mg/dL (0.2 mg/dL) Urine Leukocyte Esterase Trace (NEG) Urine RBC 1-2 /HPF (0-2) Urine WBC 5-10 /HPF (0-4) Urine Squamous Epithelial Cells Mod /LPF Urine Bacteria 0 /HPF (0-FEW) Urine Mucus Mod /LPF White Blood Count 8.1 x10^3/uL (4.0-11.0) Red Blood Count 4.36 x10^6/uL (3.50-5.40) Hemoglobin 12.6 g/dL (12.0-15.5) Hematocrit 38.1 % (36.0-47.0) Mean Corpuscular Volume 87 fL (79-100) Mean Corpuscular Hemoglobin 29 pg (25-35) Mean Corpuscular Hemoglobin Concent 33 g/dL (31-37) Red Cell Distribution Width 15.5 % (11.5-14.5) Platelet Count 256 x10^3/uL (140-400) Neutrophils (%) (Auto) 69 % (31-73) Lymphocytes (%) (Auto) 21 % (24-48) Monocytes (%) (Auto) 8 % (0-9) Eosinophils (%) (Auto) 1 % (0-3) Basophils (%) (Auto) 1 % (0-3) Neutrophils # (Auto) 5.6 x10^3/uL (1.8-7.7) Lymphocytes # (Auto) 1.7 x10^3/uL (1.0-4.8) Monocytes # (Auto) 0.7 x10^3/uL (0.0-1.1) Eosinophils # (Auto) 0.1 x10^3/uL (0.0-0.7) Basophils # (Auto) 0.0 x10^3/uL (0.0-0.2) Sodium Level 142 mmol/L (136-145) Potassium Level 3.8 mmol/L (3.5-5.1) Chloride Level 106 mmol/L (98-107) Carbon Dioxide Level 27 mmol/L (21-32) Anion Gap 9 (6-14) Blood Urea Nitrogen 17 mg/dL (7-20) Creatinine 0.6 mg/dL (0.6-1.0) Estimated GFR (Cockcroft-Gault) 103.8 Glucose Level 103 mg/dL (70-99) Calcium Level 9.4 mg/dL (8.5-10.1) Bedside Troponin I 0.01 ng/ml (<0.08) Laboratory Tests Test 02/23/19 12:05 02/23/19 13:05 02/23/19 13:07 Urine Collection Type Unknown Urine Color Yellow Urine Clarity Clear Urine pH 5.5 Urine Specific [place] 1.015 Urine Protein Negative mg/dL (NEG-TRACE) Urine Glucose (UA) Negative mg/dL (NEG) Urine Ketones (Stick) Negative mg/dL (NEG) Urine Blood Negative (NEG) Urine Nitrite Negative (NEG) Urine Bilirubin Negative (NEG) Urine Urobilinogen Dipstick 0.2 mg/dL (0.2 mg/dL) Urine Leukocyte Esterase Trace (NEG) Urine RBC 1-2 /HPF (0-2) Urine WBC 5-10 /HPF (0-4) Urine Squamous Epithelial Cells Mod /LPF Urine Bacteria 0 /HPF (0-FEW) Urine Mucus Mod /LPF White Blood Count 8.1 x10^3/uL (4.0-11.0) Red Blood Count 4.36 x10^6/uL (3.50-5.40) Hemoglobin 12.6 g/dL (12.0-15.5) Hematocrit 38.1 % (36.0-47.0) Mean Corpuscular Volume 87 fL (79-100) Mean Corpuscular Hemoglobin 29 pg (25-35) Mean Corpuscular Hemoglobin Concent 33 g/dL (31-37) Red Cell Distribution Width 15.5 % (11.5-14.5) Platelet Count 256 x10^3/uL (140-400) Neutrophils (%) (Auto) 69 % (31-73) Lymphocytes (%) (Auto) 21 % (24-48) Monocytes (%) (Auto) 8 % (0-9) Eosinophils (%) (Auto) 1 % (0-3) Basophils (%) (Auto) 1 % (0-3) Neutrophils # (Auto) 5.6 x10^3/uL (1.8-7.7) Lymphocytes # (Auto) 1.7 x10^3/uL (1.0-4.8) Monocytes # (Auto) 0.7 x10^3/uL (0.0-1.1) Eosinophils # (Auto) 0.1 x10^3/uL (0.0-0.7) Basophils # (Auto) 0.0 x10^3/uL (0.0-0.2) Sodium Level 142 mmol/L (136-145) Potassium Level 3.8 mmol/L (3.5-5.1) Chloride Level 106 mmol/L (98-107) Carbon Dioxide Level 27 mmol/L (21-32) Anion Gap 9 (6-14) Blood Urea Nitrogen 17 mg/dL (7-20) Creatinine 0.6 mg/dL (0.6-1.0) Estimated GFR (Cockcroft-Gault) 103.8 Glucose Level 103 mg/dL (70-99) Calcium Level 9.4 mg/dL (8.5-10.1) Bedside Troponin I 0.01 ng/ml (<0.08) Images Images CTA shows Unchanged small focal dissection flap involving the left proximal ICA. There is no new dissection, stenosis, or occlusion of the cervical or intracranial vasculature. VTE Prophylaxis Ordered VTE Prophylaxis Devices: Yes VTE Pharmacological Prophylaxi: No Assessment/Plan Assessment/Plan A/P: Dizziness - resolving already, she is very anxious about her 's health. Asymptomatic left internal carotid artery dissection without hemodynamically significant stenosis TIA sx - improving. Will check TSH, sed rate. Neurology consulted. MRI brain ordered Nausea - improved with zofran Visual disturbance - may have early left cataract. Allergic rhinitis - s/p sinus surgery FEN - General diet PPX - SCDs FULL CODE Dispo - inpatient for further workup of CVA syndrome symptoms with high risk carotid dissection known VIKI FUENTES MD Feb 23, 2019 14:34
[2019-02-23] MEDS ORDERED: ALBUTEROL SULFATE 2.5 MG/3 ML NEBU. NEB PRN (14:45)
--- NOTE | 2019-02-23 14:55 | PHYS DOC ---
Past Medical History Past Medical History: Anxiety, Asthma, Other Additional Past Medical Histor: SEASONAL ALLERGIES, CAROTID ARTERY DISSECTION Past Surgical History: Hysterectomy, Tubal ligation, Other Additional Past Surgical Histo: LEEP,CYSTO/RECTOCELE, SINUS SURGERY Alcohol Use: Occasionally Drug Use: None Adult General Chief Complaint Chief Complaint: DIZZY/LIGHT HEADED HPI HPI Patient is a 53 year old female with history of carotid artery dissection he presents acute onset dizziness starting approximately 0700 while at work this morning. Vision was standing reports acute onset dizziness and feeling off balance while walking. Symptoms associated with nausea. Symptoms are worse with standing and movement and are partially relieved while at rest and eyes are rody sed. Patient denies headache, neck pain chest pain palpitations. Denies extremity weakness or loss of sensation. Patient had similar episode of dizziness several months ago attributed to left carotid artery dissection. Patient reports feeling left-sided neck pain earlier in the week. She denies recent trauma or strain. Recent sinus sx, no sinus symptoms or complaints at this time. No new medications recent changes. No other acute symptoms or complaints. [] Review of Systems Review of Systems ROS are as HPI. All other systems were reviewed and found to be within normal limits, except as documented in this note. Current Medications Current Medications Current Medications Medications (Trade) Dose Ordered Sig/Michael Start Time Stop Time Status Last Admin Dose Admin Albuterol Sulfate (Ventolin Neb Soln) 2.5 mg PRN Q6HRS PRN 02/23/19 14:45 Ascorbic Acid (Vitamin C) 500 mg DAILY 02/24/19 09:00 Aspirin (Ecotrin) 325 mg DAILYWBKFT 02/24/19 08:00 Info (CONTRAST GIVEN -- Rx MONITORING) 1 each PRN DAILY PRN 02/23/19 12:45 02/25/19 12:44 Iohexol (Omnipaque 300 Mg/ml) 75 ml 1X ONCE 02/23/19 13:00 02/23/19 13:01 DC 02/23/19 12:39 75 ML Lorazepam (Ativan) 0.5 mg HS 02/23/19 21:00 Metoprolol Tartrate (Lopressor) 12.5 mg BID 02/23/19 21:00 Montelukast Sodium (Singulair) 10 mg QHS 02/23/19 21:00 Multivitamins (Thera M Plus) 1 tab DAILY 02/24/19 09:00 Non-Formulary Medication (Fexofenadine Hcl (Barbara Allergy)) 1 tab DAILY 02/24/19 09:00 UNV Non-Formulary Medication (Fluticasone Propionate (Flonase Allergy Relief)) 2 sprays DAILY 02/24/19 09:00 UNV Non-Formulary Medication (Melatonin ) 1 tab QHS 02/23/19 21:00 UNV Ondansetron HCl (Zofran) 4 mg 1X ONCE 02/23/19 12:30 02/23/19 12:31 DC 02/23/19 12:55 4 MG Pantoprazole Sodium (Protonix) 40 mg DAILYAC 02/24/19 07:30 Vitamin B Complex (Per B) 1 tab DAILY 02/24/19 09:00 Vitamin D (Vitamin D3) 1,000 unit DAILY 02/24/19 09:00 Allergies Allergies Allergies Coded Allergies Type Severity Reaction Last Updated Verified No Known Drug Allergies 08/12/18 No Physical Exam Physical Exam Constitutional: Well developed, well nourished, no acute distress, non-toxic appearance. [] HENT: Normocephalic, atraumatic, bilateral external ears normal, oropharynx moist, no oral exudates, nose normal. [] Eyes: PERRLA, EOMI, is on nystagmus. [] Neck: Normal range of motion, no tenderness, supple, no stridor. [] Cardiovascular:Heart rate regular rhythm, no murmur [] Lungs & Thorax: Bilateral breath sounds clear to auscultation [] Abdomen: Bowel sounds normal, soft, no tenderness. [] Skin: Warm, dry. [] Back: No tenderness, no CVA tenderness. [] Extremities: No tenderness, no cyanosis, no clubbing, ROM intact, no edema. [] Neurologic: Alert and oriented X 3, renal nerves II through XII grossly intact, no focal extremity weakness loss of sensation. [id number], [id number].. [] Psychologic: Affect normal, judgement normal, mood normal. [] Current Patient Data Vital Signs Vital Signs Date Time Temp Pulse Resp B/P (MAP) Pulse Ox O2 Delivery O2 Flow Rate FiO2 02/23/19 11:41 97.8 78 21 151/85 (107) 96 Room Air 97.8 Lab Values Laboratory Tests Test 02/23/19 12:05 02/23/19 13:05 02/23/19 13:07 Urine Collection Type Unknown Urine Color Yellow Urine Clarity Clear Urine pH 5.5 Urine Specific [place] 1.015 Urine Protein Negative mg/dL (NEG-TRACE) Urine Glucose (UA) Negative mg/dL (NEG) Urine Ketones (Stick) Negative mg/dL (NEG) Urine Blood Negative (NEG) Urine Nitrite Negative (NEG) Urine Bilirubin Negative (NEG) Urine Urobilinogen Dipstick 0.2 mg/dL (0.2 mg/dL) Urine Leukocyte Esterase Trace (NEG) Urine RBC 1-2 /HPF (0-2) Urine WBC 5-10 /HPF (0-4) Urine Squamous Epithelial Cells Mod /LPF Urine Bacteria 0 /HPF (0-FEW) Urine Mucus Mod /LPF White Blood Count 8.1 x10^3/uL (4.0-11.0) Red Blood Count 4.36 x10^6/uL (3.50-5.40) Hemoglobin 12.6 g/dL (12.0-15.5) Hematocrit 38.1 % (36.0-47.0) Mean Corpuscular Volume 87 fL (79-100) Mean Corpuscular Hemoglobin 29 pg (25-35) Mean Corpuscular Hemoglobin Concent 33 g/dL (31-37) Red Cell Distribution Width 15.5 % (11.5-14.5) H Platelet Count 256 x10^3/uL (140-400) Neutrophils (%) (Auto) 69 % (31-73) Lymphocytes (%) (Auto) 21 % (24-48) L Monocytes (%) (Auto) 8 % (0-9) Eosinophils (%) (Auto) 1 % (0-3) Basophils (%) (Auto) 1 % (0-3) Neutrophils # (Auto) 5.6 x10^3/uL (1.8-7.7) Lymphocytes # (Auto) 1.7 x10^3/uL (1.0-4.8) Monocytes # (Auto) 0.7 x10^3/uL (0.0-1.1) Eosinophils # (Auto) 0.1 x10^3/uL (0.0-0.7) Basophils # (Auto) 0.0 x10^3/uL (0.0-0.2) Sodium Level 142 mmol/L (136-145) Potassium Level 3.8 mmol/L (3.5-5.1) Chloride Level 106 mmol/L (98-107) Carbon Dioxide Level 27 mmol/L (21-32) Anion Gap 9 (6-14) Blood Urea Nitrogen 17 mg/dL (7-20) Creatinine 0.6 mg/dL (0.6-1.0) Estimated GFR (Cockcroft-Gault) 103.8 Glucose Level 103 mg/dL (70-99) H Calcium Level 9.4 mg/dL (8.5-10.1) POC Troponin I 0.01 ng/ml (<0.08) Laboratory Tests 02/23/19 13:05 Laboratory Tests 02/23/19 13:05 EKG EKG [EKG: Reviewed] Radiology/Procedures Radiology/Procedures [CT angio head and neck: No acute findings per radiology report.] Course & Med Decision Making Course & Med Decision Making Pertinent Labs and Imaging studies reviewed. (See chart for details) [Symptoms improved while in the ED. No acute neurologic findings. No new findings of dissection on CT angiogram of the neck. MRI pending. Case discussed with Dr. she recommends hospitalization and stroke evaluation. to admit] Dragon Disclaimer Tee Disclaimer This electronic medical record was generated, in whole or in part, using a voice recognition dictation system. Departure Departure Impression: Primary Impression: Vertigo Disposition: ADMITTED INPATIENT Condition: STABLE Referrals: MANJU BLUNT MD (PCP) MARJAN VERA DO Feb 23, 2019 14:55
[2019-02-23 15:20] VITALS: BP 143/79
--- NOTE | 2019-02-23 16:44 | RAD ---
Exam: MRI brain without contrast INDICATION: Vertigo TECHNIQUE: Multiplanar multisequence MRI of the brain was obtained without the administration of IV contrast. Comparisons: 09/09/2018 FINDINGS: No focal area of restricted diffusion identified on DWI sequence. Visualized portions of the vascular flow voids are within normal limits. No abnormal areas of T2/FLAIR hyperintense signal. No focal intraparenchymal hemorrhage or lesion is identified. The ventricular system is within normal limits without compression hydrocephalus. The basal cisterns are well maintained. Globes and intraorbital contents are normal. Midline structures are within normal limits. Bone marrow signal is normal. IMPRESSION: No intracranial abnormality. No evidence for acute ischemia. Electronically signed by: Myriam Bull MD (02/23/2019 4:41 PM) [facility]
[2019-02-23] MEDS ORDERED: NAPR220C4 PO (16:58)
[2019-02-23] MEDS ORDERED: CALC500T54 PO (16:58)
[2019-02-23] MEDS ORDERED: ATOR40TA59 PO (16:58)
[2019-02-23] MEDS ORDERED: UBID30CA9 PO (16:58)
[2019-02-23] MEDS ORDERED: [UNRECOGNIZED DRUG - REMARK] (16:58)
[2019-02-23] MEDS ORDERED: METF500T16 PO (16:58)
[2019-02-23 18:30] VITALS: BP_SYST 130; BP_SYST 132; BP_SYST 135; BP_DIAS 82; BP_DIAS 85; BP_DIAS 88
--- NOTE | 2019-02-23 18:51 | PDOC2 ---
NEUROLOGY CONSULT Date of Admission Date of Admission DATE: 02/23/19 TIME: 18:35 Reason for Consult Reason for Consult: IMPRESSION: Vertigo. Dizziness. 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 HTN. RECOMMENDATIONS/PLAN: Meclizine 12.5 mg bid to tid x 3 days. Lab: see orders. Ortho HR and BP. See ENT as out patient. Treat medical diseases. OT/PT. CT: Negative. CTA: No acute findings. No new CA dissection. Brain MRI: No acute CVA. History of Present Illness Ms. Arce is a 53-year-old female patient w/ith PMHx Diverticulosis, mastectomy, hysterectomy, cystocele, rectocele, and small left carotid artery dissection about 5 months ago without etiology found. She developed acute onset symptoms of dizziness and vertigo and feeling of unsteadiness starting approximately 0700 while at work this morning. Symptoms associated with nausea. Her symptoms are worse with standing and movement and are partially relieved while at rest and eyes are closed. Patient denies headache, sharp neck pain chest pain palpitations. Denies extremity weakness or loss of sensation. She had similar episode of dizziness several months ago attributed to left carotid artery dissection. She had another episode of dizziness recently lasting for about 30 minutes then resolved. She had left-sided neck pain earlier in the week. She denies recent trauma or strain. Past Medical History GI: Diverticulosis Heme/Onc: Cancer Past Surgical History Mastectomy, Hysterectomy. Family History Unknown Social History Smoke: No ALCOHOL: none Drugs: None ALLERGY: Unknown MEDICATIONS: Refer to MAR REVIEW OF SYSTEMS: Constitutional: No malnutrition, weight loss, cachexia. Head: No traumatic brain or head injury. Skin: No edema, or rash. Ear: No infection, tinnitus. Eyes: No vision loss or color blindness. Nose: No bleeding or purulent discharges. Hearing: No hearing decrease. Neck: No injury. Breast: No history of cancer, masses,or discharges. Cardiac: HTN. Pulmonary: No COPD. GI: No GI ulcer, GI bleeding. Urinary/genital: UTI. Endocrinologic: No cousin face, craniofacial dysmorphism, polydactyly. Skeletomuscular: No muscular atrophy, deformity. Neurological: see HP. Psychiatric: Denies drug use/abuse. Otherwise, not [id number] review of systems. PHYSICAL EXAMINATION: General appearance is in subacute distress. HEENT: Normocephalic and nontraumatic. Eyes, nose, ears, and throat are unremarkable. Neck is supple. No lymphadenopathy. No crepitus. Cardiovascular: S1, S2, regular rate and rhythm. Pulmonary: Clear to auscultation bilaterally. Abdomen: Bowel sounds are positive. Extremities: No rash, lesions, or edema. No restriction of range of motion NEUROLOGICAL EXAMINATION: Alert Oriented to time, place and person. PERRL. EOMI. CN: no focal findings. Muscle tone: within normal. Muscle strength: 5 DTR: 2 Plantar reflex: Flexor response bilaterally Gait: At baseline normal. Sensory exam: no abnormal findings. No obvious cerebellar signs elicited, but tadem walking slightly unsteady. F-T-N test accurate. Current Medications Current Medications Current Medications Ondansetron HCl (Zofran) 4 mg 1X ONCE IVP Last administered on 02/23/19at 12:55; Start 02/23/19 at 12:30; Stop 02/23/19 at 12:31; Status DC Iohexol (Omnipaque 300 Mg/ml) 75 ml 1X ONCE IV Last administered on 02/23/19at 12:39; Start 02/23/19 at 13:00; Stop 02/23/19 at 13:01; Status DC Info (CONTRAST GIVEN -- Rx MONITORING) 1 each PRN DAILY PRN MC SEE COMMENTS; Start 02/23/19 at 12:45; Stop 02/25/19 at 12:44 Albuterol Sulfate (Ventolin Neb Soln) 2.5 mg PRN Q6HRS PRN NEB SHORTNESS OF BREATH; Start 02/23/19 at 14:45 Aspirin (Ecotrin) 325 mg DAILYWBKFT PO ; Start 02/24/19 at 08:00 Vitamin D (Vitamin D3) 1,000 unit DAILY PO ; Start 02/24/19 at 09:00 Lorazepam (Ativan) 0.5 mg HS PO ; Start 02/23/19 at 21:00 Metoprolol Tartrate (Lopressor) 12.5 mg BID PO ; Start 02/23/19 at 21:00 Montelukast Sodium (Singulair) 10 mg QHS PO ; Start 02/23/19 at 21:00 Vitamin B Complex (Per B) 1 tab DAILY PO ; Start 02/24/19 at 09:00 Ascorbic Acid (Vitamin C) 500 mg DAILY PO ; Start 02/24/19 at 09:00 Cetirizine HCl (ZyrTEC) 10 mg DAILY PO ; Start 02/24/19 at 09:00 Fluticasone Propionate (Flonase) 2 spray DAILY NS ; Start 02/24/19 at 09:00 Non-Formulary Medication (Melatonin ) 1 tab QHS PO ; Start 02/23/19 at 21:00; Status UNV Multivitamins (Thera M Plus) 1 tab DAILY PO ; Start 02/24/19 at 09:00 Pantoprazole Sodium (Protonix) 40 mg DAILYAC PO ; Start 02/24/19 at 07:30 Active Scripts Active Montelukast Sodium Tablet (Montelukast Sodium) 10 Mg Tablet 1 Tab PO QHS 30 Days Aspirin Ec (Aspirin) 325 Mg Tablet.dr 325 Mg PO DAILYWBKFT 30 Days Reported Metformin Hcl 500 Mg Tablet 500 Mg PO DAILY16 Coq-10 (Ubidecarenone) 30 Mg Capsule 30 Mg PO DAILY Calcium (Calcium Carbonate) 500 Mg Tab.chew 500 Mg PO DAILY Aleve (Naproxen Sodium) 220 Mg Capsule 220 Mg PO BID [genexa allergy d] DAILY Atorvastatin Calcium 40 Mg Tablet 1 Tab PO QHS Vitamin D3 (Cholecalciferol (Vitamin D3)) 1,000 Unit Tablet 1 Tab PO DAILY Vitamin C (Ascorbic Acid) 500 Mg Capsule.er 500 Mg PO DAILY B Complex (Vitamin B Complex) 1 Each Tablet 1 Each PO DAILY Multivitamins (Multivitamin) 1 Each Tablet 1 Tab PO DAILY Glucosamine & Chondroitin Cap (Gluc 2KCL/Chondr/Adarsh Hy/Hy Ac) 1 Each Capsule 1 Each PO DAILY Fiber Gummies (Inulin) 2 Gm Tab.chew 2 Gm PO DAILY Melatonin 3 Mg Tablet 1 Tab PO QHS Proair Hfa (Albuterol Sulfate) 8.5 Gm Hfa.aer.ad 1 Puff INH PRN Q6HRS PRN Flonase Allergy Relief (Fluticasone Propionate) 9.9 Ml [place].susp 2 Sprays NS DAILY Barbara Allergy (Fexofenadine Hcl) 180 Mg Tablet 1 Tab PO DAILY Omeprazole 20 Mg Tablet.dr 1 Tab PO DAILY Lorazepam 0.5 Mg Tablet 0.5 Mg PO HS Allergies Allergies: Allergies Coded Allergies Type Severity Reaction Last Updated Verified No Known Drug Allergies 08/12/18 No ROS Review of System The patient denies any associated fevers, chills, headache, ear pain, rhinorrhea, sore throat, stiff neck, productive cough, chest pain, shortness of breath, back or flank pain, abdominal pain, nausea, vomiting, diarrhea, constipation, dysuria, rash, numbness, weakness, tingling, incontinence, difficulty ambulating, or diaphoresis. Physical Exam Physical Exam General: Well developed, well nourished, no acute distress, well appearing HEENT: Pupils equally round and reactive to light, EOMI, no discharge, normal conjunctiva Neck: Supple, no nuchal rigidity, no JVD, trachea midline, no tenderness Cardiac: RRR, no murmurs, no gallops, no rubs Chest/Lungs: CTAB, no wheeze, no rhonchi, no crackles Abdomen: soft, non-distended, no guarding, no peritoneal signs, non-tender Back: No tenderness Extremities: no edema, pulses intact, non-tender,capillary refill <3 sec bilateral upper and lower extremities, Neuro: Alert and oriented x 4, no focal deficits, normal speech Vitals Vitals: Vital Signs Date Time Temp Pulse Resp B/P (MAP) Pulse Ox O2 Delivery O2 Flow Rate FiO2 02/23/19 15:20 97.7 72 18 143/79 (100) 95 Room Air 97.7 Labs Labs Laboratory Tests Test 02/23/19 12:05 02/23/19 13:05 02/23/19 13:07 Urine Collection Type Unknown Urine Color Yellow Urine Clarity Clear Urine pH 5.5 Urine Specific [place] 1.015 Urine Protein Negative mg/dL (NEG-TRACE) Urine Glucose (UA) Negative mg/dL (NEG) Urine Ketones (Stick) Negative mg/dL (NEG) Urine Blood Negative (NEG) Urine Nitrite Negative (NEG) Urine Bilirubin Negative (NEG) Urine Urobilinogen Dipstick 0.2 mg/dL (0.2 mg/dL) Urine Leukocyte Esterase Trace (NEG) Urine RBC 1-2 /HPF (0-2) Urine WBC 5-10 /HPF (0-4) Urine Squamous Epithelial Cells Mod /LPF Urine Bacteria 0 /HPF (0-FEW) Urine Mucus Mod /LPF White Blood Count 8.1 x10^3/uL (4.0-11.0) Red Blood Count 4.36 x10^6/uL (3.50-5.40) Hemoglobin 12.6 g/dL (12.0-15.5) Hematocrit 38.1 % (36.0-47.0) Mean Corpuscular Volume 87 fL (79-100) Mean Corpuscular Hemoglobin 29 pg (25-35) Mean Corpuscular Hemoglobin Concent 33 g/dL (31-37) Red Cell Distribution Width 15.5 % (11.5-14.5) Platelet Count 256 x10^3/uL (140-400) Neutrophils (%) (Auto) 69 % (31-73) Lymphocytes (%) (Auto) 21 % (24-48) Monocytes (%) (Auto) 8 % (0-9) Eosinophils (%) (Auto) 1 % (0-3) Basophils (%) (Auto) 1 % (0-3) Neutrophils # (Auto) 5.6 x10^3/uL (1.8-7.7) Lymphocytes # (Auto) 1.7 x10^3/uL (1.0-4.8) Monocytes # (Auto) 0.7 x10^3/uL (0.0-1.1) Eosinophils # (Auto) 0.1 x10^3/uL (0.0-0.7) Basophils # (Auto) 0.0 x10^3/uL (0.0-0.2) Sodium Level 142 mmol/L (136-145) Potassium Level 3.8 mmol/L (3.5-5.1) Chloride Level 106 mmol/L (98-107) Carbon Dioxide Level 27 mmol/L (21-32) Anion Gap 9 (6-14) Blood Urea Nitrogen 17 mg/dL (7-20) Creatinine 0.6 mg/dL (0.6-1.0) Estimated GFR (Cockcroft-Gault) 103.8 Glucose Level 103 mg/dL (70-99) Calcium Level 9.4 mg/dL (8.5-10.1) Vitamin B12 Level 642 pg/mL (247-911) Bedside Troponin I 0.01 ng/ml (<0.08) Laboratory Tests Test 02/23/19 12:05 02/23/19 13:05 02/23/19 13:07 Urine Collection Type Unknown Urine Color Yellow Urine Clarity Clear Urine pH 5.5 Urine Specific [place] 1.015 Urine Protein Negative mg/dL (NEG-TRACE) Urine Glucose (UA) Negative mg/dL (NEG) Urine Ketones (Stick) Negative mg/dL (NEG) Urine Blood Negative (NEG) Urine Nitrite Negative (NEG) Urine Bilirubin Negative (NEG) Urine Urobilinogen Dipstick 0.2 mg/dL (0.2 mg/dL) Urine Leukocyte Esterase Trace (NEG) Urine RBC 1-2 /HPF (0-2) Urine WBC 5-10 /HPF (0-4) Urine Squamous Epithelial Cells Mod /LPF Urine Bacteria 0 /HPF (0-FEW) Urine Mucus Mod /LPF White Blood Count 8.1 x10^3/uL (4.0-11.0) Red Blood Count 4.36 x10^6/uL (3.50-5.40) Hemoglobin 12.6 g/dL (12.0-15.5) Hematocrit 38.1 % (36.0-47.0) Mean Corpuscular Volume 87 fL (79-100) Mean Corpuscular Hemoglobin 29 pg (25-35) Mean Corpuscular Hemoglobin Concent 33 g/dL (31-37) Red Cell Distribution Width 15.5 % (11.5-14.5) Platelet Count 256 x10^3/uL (140-400) Neutrophils (%) (Auto) 69 % (31-73) Lymphocytes (%) (Auto) 21 % (24-48) Monocytes (%) (Auto) 8 % (0-9) Eosinophils (%) (Auto) 1 % (0-3) Basophils (%) (Auto) 1 % (0-3) Neutrophils # (Auto) 5.6 x10^3/uL (1.8-7.7) Lymphocytes # (Auto) 1.7 x10^3/uL (1.0-4.8) Monocytes # (Auto) 0.7 x10^3/uL (0.0-1.1) Eosinophils # (Auto) 0.1 x10^3/uL (0.0-0.7) Basophils # (Auto) 0.0 x10^3/uL (0.0-0.2) Sodium Level 142 mmol/L (136-145) Potassium Level 3.8 mmol/L (3.5-5.1) Chloride Level 106 mmol/L (98-107) Carbon Dioxide Level 27 mmol/L (21-32) Anion Gap 9 (6-14) Blood Urea Nitrogen 17 mg/dL (7-20) Creatinine 0.6 mg/dL (0.6-1.0) Estimated GFR (Cockcroft-Gault) 103.8 Glucose Level 103 mg/dL (70-99) Calcium Level 9.4 mg/dL (8.5-10.1) Vitamin B12 Level 642 pg/mL (247-911) Bedside Troponin I 0.01 ng/ml (<0.08) SHAISTA CRUZ MD Feb 23, 2019 18:51
[2019-02-23] MEDS ORDERED: NON FORMULARY ITEM (Melatonin 1 TAB) PO SCH (21:00)
[2019-02-23] MEDS ORDERED: MONTELUKAST SODIUM 10 MG TABLET. PO SCH (21:00)
[2019-02-23] MEDS ORDERED: METOPROLOL TART IMMED RELEASE 25 MG TABLET. PO SCH (21:00)
[2019-02-23] MEDS ORDERED: LORazepam 0.5 MG TABLET PO SCH (21:00)
[2019-02-24] MEDS ORDERED: PANTOPRAZOLE 40 MG TABLET.DR. PO SCH (07:30)
[2019-02-24] MEDS ORDERED: ASPIRIN ENTERIC COATED 325 MG TABLET.DR. PO SCH (08:00)
[2019-02-24] MEDS ORDERED: CHOLECALCIFEROL (VITAMIN D3) 1,000 UNIT TABLET PO SCH (09:00)
[2019-02-24] MEDS ORDERED: CETIRIZINE HCL 10 MG TABLET. PO SCH (09:00)
[2019-02-24] MEDS ORDERED: ASCORBIC ACID 500 MG TABLET PO SCH (09:00)
[2019-02-24] MEDS ORDERED: MULTIVITAMIN with MINERAL TABLET. PO SCH (09:00)
[2019-02-24] MEDS ORDERED: FLUTICASONE 50MCG/NASAL SPRAY 16GM BOTTLE. NS SCH (09:00)
[2019-02-24] MEDS ORDERED: VITAMIN B COMPLEX TABLET. PO SCH (09:00)
== END 2019-02-23 18:59 | disposition home or self-care (01) | DRG 149 ==
LOC: ER 11:36 → 6 SOUTH 14:30
PROVIDERS: ADMIT Internal Medicine; ATTEND Internal Medicine
DX: R42 Dizziness and giddiness (principal); Z98.51 Tubal ligation status; I10 Essential (primary) hypertension; K57.90 Diverticulosis of intestine, part unspecified, without perforation or abscess without bleeding; J45.909 Unspecified asthma, uncomplicated; Z79.899 Other long term (current) drug therapy; Z90.710 Acquired absence of both cervix and uterus; F41.9 Anxiety disorder, unspecified
CPT/HCPCS: 36415; 70496; 70498; 70551; 71045; 80048; 81001; 82607; 84443; 84484; 85025; 85651; 87086; 93005; J2405; Q9967; G0378

== ENCOUNTER → 2019-03-17 | Outpatient (CLI) | payer OTHER ==
[2019-02-23 18:30] VITALS: BP 135/88
[~2019-03-17] MED LIST changes: +ATOR40TA59 PO; +CALC500T54 PO; +METF500T16 PO; +NAPR220C4 PO; +UBID30CA9 PO; +[UNRECOGNIZED DRUG - REMARK]
[2019-03-17 14:52] LABS: CALCIUM 9.2 mg/dL (8.5-10.1); CREATININE 0.8 mg/dL (0.6-1.0); GFR 74.5; POTASSIUM 3.8 mmol/L (3.5-5.1); TOTAL BILIRUBIN 0.3 mg/dL (0.2-1.0); TOTAL PROTEIN 8.1 g/dL (6.4-8.2)
[2019-03-17 14:54] LABS: CHOLESTEROL/HDL RATIO 2.5
[2019-03-18 01:13] LABS: HEMOGLOBIN A1C 5.9 % (4.8-5.6)
== END | disposition home or self-care (01) ==
LOC: LAB 14:12
PROVIDERS: ATTEND Nurse Practitioner
DX: I77.71 Dissection of carotid artery (principal); R73.03 Prediabetes
CPT/HCPCS: 36415; 80053; 80061; 83036

== ENCOUNTER 2019-05-07 21:33 | Emergency (ER) | payer OTHER ==
[~2019-05-07] VITALS: Ht 162.6 cm; Wt 72.6 kg
[2019-05-07 23:06] LABS: BASO % 1 % (0-3); EOS # 0.2 x10^3/uL (0.0-0.7); EOS % 2 % (0-3); HEMATOCRIT 40.7 % (36.0-47.0); HEMOGLOBIN 13.3 g/dL (12.0-15.5); LYMPH # 1.7 x10^3/uL (1.0-4.8); LYMPH % 24 % (24-48); MEAN CORPUSCULAR HEMOGLOBIN 28 pg (25-35); MEAN CORPUSCULAR HGB CONC 33 g/dL (31-37); MEAN CORPUSCULAR VOLUME 87 fL (79-100); MONO # 0.6 x10^3/uL (0.0-1.1); MONO % 9 % (0-9); NEUT # 4.4 x10^3/uL (1.8-7.7); NEUT % 64 % (31-73); PLATELET COUNT 326 x10^3/uL (140-400); RED BLOOD COUNT 4.71 x10^6/uL (3.50-5.40); WHITE BLOOD COUNT 6.9 x10^3/uL (4.0-11.0)
[2019-05-07 23:18] LABS: CALCIUM 9.4 mg/dL (8.5-10.1); CREATININE 0.6 mg/dL (0.6-1.0); GFR 103.4; POTASSIUM 3.8 mmol/L (3.5-5.1)
[2019-05-07 23:26] LABS: ALBUMIN 3.8 g/dL (3.4-5.0); ALBUMIN/GLOBULIN RATIO 0.9 (1.0-1.7); MAGNESIUM 2.3 mg/dL (1.8-2.4); TOTAL BILIRUBIN 0.3 mg/dL (0.2-1.0)
--- NOTE | 2019-05-07 23:28 | PHYS DOC ---
Past Medical History Past Medical History: Anxiety, Arthritis, Asthma, CAD, GERD, Other Additional Past Medical Histor: SEASONAL ALLERGIES, left CAROTID DISSECTION, Pre-Diabetes (GADIEL LOPEZ APRN) Past Surgical History: Hysterectomy, Tubal ligation, Other Additional Past Surgical Histo: LEEP,CYSTO/RECTOCELE, SINUS SURGERY (GADIEL LOPEZ APRN) Alcohol Use: Occasionally Drug Use: None (GADIEL LOPEZ APRN) Adult General Chief Complaint Chief Complaint: LOWER EXT PAIN HPI HPI Patient is a 54 year old female with history of CAD, asthma, anxiety, who presents to the ED today complaining of bilateral ankle pain. Patient rates the pain at 7 out of 10, describes the pain as sharp and constant. Patient states left ankle pain began 3 weeks ago, it got better and returned last night, patient states right ankle pain began last night. Patient is also reporting swelling to bilateral ankles. Denies anything specifically exacerbating or relieving her symptoms. (GADIEL LOPEZ APRN) Review of Systems Review of Systems Constitutional: Denies fever or chills [] Eyes: Denies change in visual acuity, redness, or eye pain [] HENT: Denies nasal congestion or sore throat [] Respiratory: Denies cough or shortness of breath [] Cardiovascular: No additional information not addressed in HPI [] GI: Denies abdominal pain, nausea, vomiting, bloody stools or diarrhea [] : Denies dysuria or hematuria [] Musculoskeletal: Reports bilateral ankle pain and slight swelling. Denies back pain Integument: Denies rash or skin lesions [] Neurologic: Denies headache, focal weakness or sensory changes [] All other systems were reviewed and found to be within normal limits, except as documented in this note. (GADIEL LOPEZ APRN) Allergies Allergies Allergies Coded Allergies Type Severity Reaction Last Updated Verified No Known Drug Allergies 08/12/18 No (ELIZABETH LACY DO) Physical Exam Physical Exam Constitutional: Well developed, well nourished, no acute distress, non-toxic appearance. [] HENT: Normocephalic, atraumatic, bilateral external ears normal, oropharynx moist, no oral exudates, nose normal. [] Eyes: PERRLA, EOMI, conjunctiva normal, no discharge. [] Neck: Normal range of motion, no tenderness, supple, no stridor. [] Cardiovascular:Heart rate regular rhythm, no murmur [] Lungs & Thorax: Bilateral breath sounds clear to auscultation [] Abdomen: Bowel sounds normal, soft, no tenderness, no masses, no pulsatile masses. [] Skin: Warm, dry, no erythema, no rash. [] Back: No tenderness, no CVA tenderness. [] Extremities: Bilateral ankles with no obvious deformity, trace edema noted on the left ankle with slight erythema on the medial and lateral aspect of the ankle, no warmth, no signs of infection. Full range of motion to bilateral ankles, negative Homans sign bilaterally. +2 bilateral pedal pulses. Cap refill less than 2 seconds bilateral lower extremities. Neurologic: Alert and oriented X 3, normal motor function, normal sensory function, no focal deficits noted. [] Psychologic: Affect normal, judgement normal, mood normal. [] (GADIEL LOPEZ APRN) Current Patient Data Vital Signs Vital Signs Date Time Temp Pulse Resp B/P (MAP) Pulse Ox O2 Delivery O2 Flow Rate FiO2 05/07/19 23:30 84 113/56 (75) 95 Room Air 05/07/19 22:05 98.2 22 98.2 (LACYELIZABETH ESQUIVEL DO) Lab Values Laboratory Tests Test 05/07/19 22:55 White Blood Count 6.9 x10^3/uL (4.0-11.0) Red Blood Count 4.71 x10^6/uL (3.50-5.40) Hemoglobin 13.3 g/dL (12.0-15.5) Hematocrit 40.7 % (36.0-47.0) Mean Corpuscular Volume 87 fL (79-100) Mean Corpuscular Hemoglobin 28 pg (25-35) Mean Corpuscular Hemoglobin Concent 33 g/dL (31-37) Red Cell Distribution Width 15.0 % (11.5-14.5) H Platelet Count 326 x10^3/uL (140-400) Neutrophils (%) (Auto) 64 % (31-73) Lymphocytes (%) (Auto) 24 % (24-48) Monocytes (%) (Auto) 9 % (0-9) Eosinophils (%) (Auto) 2 % (0-3) Basophils (%) (Auto) 1 % (0-3) Neutrophils # (Auto) 4.4 x10^3/uL (1.8-7.7) Lymphocytes # (Auto) 1.7 x10^3/uL (1.0-4.8) Monocytes # (Auto) 0.6 x10^3/uL (0.0-1.1) Eosinophils # (Auto) 0.2 x10^3/uL (0.0-0.7) Basophils # (Auto) 0.0 x10^3/uL (0.0-0.2) Sodium Level 145 mmol/L (136-145) Potassium Level 3.8 mmol/L (3.5-5.1) Chloride Level 104 mmol/L (98-107) Carbon Dioxide Level 27 mmol/L (21-32) Anion Gap 14 (6-14) Blood Urea Nitrogen 20 mg/dL (7-20) Creatinine 0.6 mg/dL (0.6-1.0) Estimated GFR (Cockcroft-Gault) 103.4 BUN/Creatinine Ratio 33 (6-20) H Glucose Level 106 mg/dL (70-99) H Calcium Level 9.4 mg/dL (8.5-10.1) Magnesium Level 2.3 mg/dL (1.8-2.4) Total Bilirubin 0.3 mg/dL (0.2-1.0) Aspartate Amino Transferase (AST) 10 U/L (15-37) L Alanine Aminotransferase (ALT) 18 U/L (14-59) Alkaline Phosphatase 147 U/L (46-116) H Creatine Kinase 61 U/L (26-192) Creatine Kinase MB (Mass) < 0.5 ng/mL (0.0-3.6) Creatine Kinase MB Relative Index % (0-4) Troponin I Quantitative < 0.017 ng/mL (0.000-0.055) SE-Vft-G-Type Natriuretic Peptide 25 pg/mL (0-124) Total Protein 8.0 g/dL (6.4-8.2) Albumin 3.8 g/dL (3.4-5.0) Albumin/Globulin Ratio 0.9 (1.0-1.7) L Laboratory Tests 05/07/19 22:55 Laboratory Tests 05/07/19 22:55 (ELIZABETH LACY DO) EKG EKG [address] Lacy sinus rhythm heart rate 66 no STEMI[] (GADIEL LOPEZ TOUR LEADER) Radiology/Procedures Radiology/Procedures [] (GADIEL LOPEZ APRN) Radiology/Procedures PROCEDURE: VENOUS LOWER EXT BILATERAL Exam: VENOUS LOWER EXT BILATERAL Indication: Bilateral leg pain Technique: Color-flow and pulsed wave duplex ultrasound with compression of venous structures of the bilateral lower extremities. Comparison: None Available. Findings: Duplex ultrasound with compression of the deep venous structures of the bilateral lower extremities from the common femoral vein through the popliteal vein is negative for DVT. The posterior tibial and peroneal veins are segmentally visualized and patent where seen. Normal venous waveforms and augmentation are noted throughout. Impression: No evidence for DVT in the bilateral lower extremities. Electronically signed by: Osorio Lagos MD (05/07/2019 11:34 PM) [facility] PROCEDURE: PORTABLE CHEST 1V PORTABLE CHEST 1V INDICATION: Swelling. COMPARISON STUDY: None. FINDINGS: Lungs: Normal lung volume. No pulmonary mass or consolidation. The tracheobronchial tree and hilar structures are normal. Pleura: No pleural effusion or pneumothorax. Heart and Mediastinum: The cardiomediastinal silhouette is normal. The great vessels of the thorax are normal. IMPRESSION: No acute cardiopulmonary process. Electronically signed by: Osorio Lagos MD (05/07/2019 11:59 PM) [facility] PROCEDURE: ANKLE BILAT 3V ANKLE BILAT 3V DATE: 05/07/2019 10:30 PM INDICATION: Ankle swelling COMPARISON: None. FINDINGS: Bones: There is no evidence of acute fracture or dislocation. Joints: The ankle mortise is congruent. No widening of the distal tibiofibular syndesmosis. Miscellaneous: No focal soft tissue swelling. IMPRESSION: No evidence of acute ankle fracture. Electronically signed by: Osorio Lagos MD (05/08/2019 12:00 AM) [facility] (ELIZABETH LACY DO) Course & Med Decision Making Course & Med Decision Making Pertinent Labs and Imaging studies reviewed. (See chart for details) This is a 54-year-old female patient presenting to the ED today complaining of bilateral ankle pain with slight swelling. Left ankle pain and swelling began 3 weeks ago, right ankle pain began last night. Venous Dopplers of bilateral lower extremities are negative. Chest x-ray, bilateral ankle x-rays interpreted by Dr. Lacy negative for any acute findings. Patient's labs are negative for any acute findings including normal BNP She was discharged to home. Instructed to ice and elevate the ankles. Ray ban dages also recommended as needed to the ankles. Follow-up with primary care doctor in 1-2 weeks although orthopedic doctor. (GADIEL LOPEZ APRN) Dragon Disclaimer Dragon Disclaimer This electronic medical record was generated, in whole or in part, using a voice recognition dictation system. (GADIEL LOPEZ APRN) Departure Departure Impression: Primary Impression: Acute bilateral ankle pain Disposition: HOME, SELF-CARE Condition: STABLE Referrals: MANJU BLUNT MD (PCP) Follow up in 1-2 weeks HEMA LAND MD follow up in 1-2 weeks Patient Instructions: Ankle Pain Additional Instructions: You were evaluated and admitted to bilateral eye pain and swelling. Your ankle x-rays are negative for any acute findings, your venous Dopplers of bilateral lower extremities are negative, your labwork is negative. Please follow-up with your own primary care doctor or the orthopedic doctor provided in the next 1-2 weeks. Try to ice and elevate the bilateral extremities. You can apply Ray bandages to bilateral ankles to help with the swelling and pain. Attending Signature Attending Signature I have reviewed the PA/GRAPHICS EDIT TECHNICIAN's note and plan of care. I was available for consultation as needed during the patient's visit in the emergency department. I agree with the clinical impression, plan, and disposition. (ELIZABETH LACY DO) GADIEL LOPEZ APRN May 07, 2019 23:28 ELIZABETH LACY DO May 08, 2019 04:03
[2019-05-07 23:30] VITALS: BP 113/56
[2019-05-07 23:33] LABS: CREATINE KINASE 61 U/L (26-192)
--- NOTE | 2019-05-07 23:37 | RAD ---
Exam: VENOUS LOWER EXT BILATERAL Indication: Bilateral leg pain Technique: Color-flow and pulsed wave duplex ultrasound with compression of venous structures of the bilateral lower extremities. Comparison: None Available. Findings: Duplex ultrasound with compression of the deep venous structures of the bilateral lower extremities from the common femoral vein through the popliteal vein is negative for DVT. The posterior tibial and peroneal veins are segmentally visualized and patent where seen. Normal venous waveforms and augmentation are noted throughout. Impression: No evidence for DVT in the bilateral lower extremities. Electronically signed by: Osorio Lagos MD (05/07/2019 11:34 PM) [facility]
--- NOTE | 2019-05-08 00:01 | RAD ---
PORTABLE CHEST 1V INDICATION: Swelling. COMPARISON STUDY: None. FINDINGS: Lungs: Normal lung volume. No pulmonary mass or consolidation. The tracheobronchial tree and hilar structures are normal. Pleura: No pleural effusion or pneumothorax. Heart and Mediastinum: The cardiomediastinal silhouette is normal. The great vessels of the thorax are normal. IMPRESSION: No acute cardiopulmonary process. Electronically signed by: Osorio Lagos MD (05/07/2019 11:59 PM) [facility]
--- NOTE | 2019-05-08 00:03 | RAD ---
ANKLE BILAT 3V DATE: 05/07/2019 10:30 PM INDICATION: Ankle swelling COMPARISON: None. FINDINGS: Bones: There is no evidence of acute fracture or dislocation. Joints: The ankle mortise is congruent. No widening of the distal tibiofibular syndesmosis. Miscellaneous: No focal soft tissue swelling. IMPRESSION: No evidence of acute ankle fracture. Electronically signed by: Osorio Lagos MD (05/08/2019 12:00 AM) [facility]
--- NOTE | 2019-05-08 07:40 | EKG ---
[facility] [address] [place] [address] Test Date: 2019-05-07 Test Time: 22:40:25 Pat Name: TIFFANIE STANLEY Department: Room: Gender: F Service Member: : 1965 Requested By: GADIEL LOPEZ Order Number: [id number] Reading MD: Measurements Intervals Edwards Rate: 67 P: 26 RI: 132 QRS: -7 QRSD: 86 T: -6 QT: 398 QTc: 423 Interpretive Statements SINUS RHYTHM LEFTWARD AXIS T ABNORMALITY IN INFERIOR LEADS ABNORMAL ECG No previous ECG available for comparison
== END 2019-05-08 00:16 | disposition home or self-care (01) ==
LOC: ER 21:33
DX: M25.572 Pain in left ankle and joints of left foot (principal); M25.571 Pain in right ankle and joints of right foot; F41.9 Anxiety disorder, unspecified; J45.909 Unspecified asthma, uncomplicated; M13.80 Other specified arthritis, unspecified site; I25.10 Atherosclerotic heart disease of native coronary artery without angina pectoris; K21.9 Gastro-esophageal reflux disease without esophagitis; R73.03 Prediabetes; Z90.710 Acquired absence of both cervix and uterus; Z98.51 Tubal ligation status; Z98.890 Other specified postprocedural states
CPT/HCPCS: 36415; 71045; 73610; 80053; 82553; 83735; 83880; 84484; 85025; 93005; 93970; 99285

== ENCOUNTER → 2019-05-09 | Outpatient (CLI) | payer OTHER ==
[2019-05-07 23:30] VITALS: BP 113/56
[2019-05-09 14:19] LABS: BASO % 1 % (0-3); EOS # 0.1 x10^3/uL (0.0-0.7); EOS % 2 % (0-3); HEMATOCRIT 40.4 % (36.0-47.0); HEMOGLOBIN 13.3 g/dL (12.0-15.5); LYMPH # 1.6 x10^3/uL (1.0-4.8); LYMPH % 24 % (24-48); MEAN CORPUSCULAR HEMOGLOBIN 29 pg (25-35); MEAN CORPUSCULAR HGB CONC 33 g/dL (31-37); MEAN CORPUSCULAR VOLUME 87 fL (79-100); MONO # 0.6 x10^3/uL (0.0-1.1); MONO % 9 % (0-9); NEUT # 4.3 x10^3/uL (1.8-7.7); NEUT % 65 % (31-73); PLATELET COUNT 339 x10^3/uL (140-400); RED BLOOD COUNT 4.65 x10^6/uL (3.50-5.40); WHITE BLOOD COUNT 6.7 x10^3/uL (4.0-11.0)
[2019-05-09 15:36] LABS: ALBUMIN 3.7 g/dL (3.4-5.0); ALBUMIN/GLOBULIN RATIO 0.8 (1.0-1.7); C-REACTIVE PROTEIN 13.2 mg/L (0-3.3); CALCIUM 9.3 mg/dL (8.5-10.1); CREATININE 0.6 mg/dL (0.6-1.0); GFR 103.4; POTASSIUM 3.8 mmol/L (3.5-5.1); TOTAL BILIRUBIN 0.3 mg/dL (0.2-1.0); TOTAL PROTEIN 8.1 g/dL (6.4-8.2); URIC ACID 4.5 mg/dL (2.6-6.0)
[2019-05-10 01:07] LABS: RHEUMATOID FACTOR <10.0 IU/mL (0.0-13.9)
[2019-05-11 19:09] LABS: ANA INTERP Negative (.)
== END | disposition home or self-care (01) ==
LOC: LAB 13:46
PROVIDERS: ATTEND Nurse Practitioner
DX: M25.50 Pain in unspecified joint (principal)
CPT/HCPCS: 36415; 80053; 84550; 85025; 85651; 86038; 86140; 86431

== ENCOUNTER → 2019-06-08 | Outpatient (CLI) | payer OTHER | END | disposition home or self-care (01) | LOC: LAB 07:20 | PROVIDERS: ATTEND Nurse Practitioner | DX: R89.9 Unspecified abnormal finding in specimens from other organs, systems and tissues (principal) | CPT/HCPCS: 36415; 85651; 86140; 86141 ==

== ENCOUNTER → 2019-06-14 | Outpatient (CLI) | payer OTHER ==
[2019-06-14 11:41] LABS: BILIRUBIN,URINE NEGATIVE (NEG); CLARITY,URINE CLEAR; COLOR,URINE YELLOW; NITRITE,URINE NEGATIVE (NEG); PROTEIN,URINE NEGATIVE (NEG-TRACE)
[2019-06-14 12:01] LABS: BACTERIA,URINE FEW /HPF (0-FEW); RBC,URINE OCC /HPF (0-2); SQUAMOUS EPITHELIAL CELL,UR OCC /LPF; WBC,URINE OCC /HPF (0-4)
== END | disposition home or self-care (01) ==
LOC: LAB 11:05
PROVIDERS: ATTEND Nurse Practitioner
DX: R10.32 Left lower quadrant pain (principal)
CPT/HCPCS: 81001

== ENCOUNTER → 2019-06-14 | Outpatient (CLI) | payer OTHER ==
[~2019-06-14] MED LIST changes: +IOHEXOL 240 MG/ML 50ML VIAL. PO ONE; +IOHEXOL 300 MG/ML 100ML VIAL. IV ONE
--- NOTE | 2019-06-14 16:12 | RAD ---
Examination: CT of the abdomen pelvis with oral and IV contrast HISTORY: History of abdominal pain COMPARISON: None available TECHNIQUE: Axial CT images of the abdomen pelvis were performed with oral and IV contrast. Coronal and sagittal reformats are performed Exposure: One or more of the following individualized dose reduction techniques were utilized for this examination: 1. Automated exposure control 2. Adjustment of the mA and/or kV according to patient size 3. Use of iterative reconstruction technique FINDINGS: Minimal atelectasis left lung base. No evidence of free air identified in the abdomen. Mild decreased attenuation noted in the liver likely hepatic steatosis. The spleen, adrenals grossly appears unremarkable. Is mildly distended. Stomach is mildly distended. The visualized pancreas grossly appears unremarkable. The small bowel is nondilated. There is focal thickening of the junction of the distal descending colon and sigmoid colon with surrounding inflammatory fat stranding. Multiple colonic diverticulosis. Few pericolonic subcentimeter lymph nodes identified. Urinary bladder is mildly distended. Bilateral kidneys enhance symmetrically. Moderate degenerative changes thoracolumbar spine. IMPRESSION: 1. Focal thickening of the junction of the distal descending colon and the sigmoid colon with surrounding edema identified stranding. Differential includes neoplasm or diverticulitis or focal colitis. Correlate clinically. Consider colonoscopic evaluation. Few subcentimeter pericolonic lymph nodes identified could be reactive or metastatic. Electronically signed by: Justin Rajput MD (06/14/2019 4:09 PM) [place] [id number]
== END | disposition home or self-care (01) ==
LOC: CT 11:00
PROVIDERS: ATTEND Internal Medicine
DX: K57.30 Diverticulosis of large intestine without perforation or abscess without bleeding (principal); J98.11 Atelectasis
CPT/HCPCS: 74177; Q9966; Q9967

== ENCOUNTER → 2019-07-11 | Outpatient (CLI) | payer OTHER ==
--- NOTE | 2019-07-11 16:15 | RAD ---
Examination: CT abdomen pelvis with IV contrast HISTORY: History of left lower quadrant abdominal pain, bloating COMPARISON: None available TECHNIQUE: Axial CT images of the abdomen pelvis were performed with oral and IV contrast. Coronal and sagittal reformats performed. Exposure: One or more of the following individualized dose reduction techniques were utilized for this examination: 1. Automated exposure control 2. Adjustment of the mA and/or kV according to patient size 3. Use of iterative reconstruction technique FINDINGS: Linear atelectasis left lung base. No evidence of free air identified in the abdomen. The liver, spleen, adrenals grossly appears unremarkable. Gallbladder is mildly distended. The stomach is mildly distended. The visualized pancreas grossly appears unremarkable. The small bowel is nondilated. Appendix is normal. Feces and gas noted throughout the colon. Multiple diverticulosis identified in the descending colon and sigmoid colon. There is faint fat stranding identified in the distal descending colon. Few subcentimeter lymph nodes identified about the descending colon. Urinary bladder is mildly distended. The bilateral kidneys enhance symmetrically. Mild degenerative changes lumbar spine. IMPRESSION: 1. Multiple diverticulosis identified in the descending colon and sigmoid colon with mild fat stranding in the distal descending colon probably mild diverticulitis. However underlying neoplasm is not completely excluded. Tiny subcentimeter lymph nodes identified about the descending colon could be reactive or metastatic. Electronically signed by: Justin Rajput MD (07/11/2019 4:12 PM) [id number]
== END | disposition home or self-care (01) ==
LOC: CT 07:59
PROVIDERS: ATTEND Internal Medicine Gastroenterology
DX: K57.30 Diverticulosis of large intestine without perforation or abscess without bleeding (principal); N32.89 Other specified disorders of bladder; M47.816 Spondylosis without myelopathy or radiculopathy, lumbar region; J98.11 Atelectasis
CPT/HCPCS: 74177; Q9966; Q9967

== ENCOUNTER → 2019-08-15 | Outpatient (CLI) | payer OTHER ==
[~2019-08-15] MED LIST changes: +CONTRAST GIVEN. MC PRN; -IOHEXOL 240 MG/ML 50ML VIAL. PO ONE; +MELA3TAB4 PO; -MELA3TAB56 PO
--- NOTE | 2019-08-15 13:36 | RAD ---
Contrast-enhanced CT scan of the chest without comparison for hemoptysis. TECHNIQUE: Contiguous helical 5 mm axial images are obtained from the thoracic inlet to the base of diaphragm following administration of IV contrast. Sagittal and coronal reformations are evaluated. FINDINGS: There are couple of areas of groundglass opacification in a discoid configuration, one in the lateral aspect of the left lower lobe, and another in the medial aspect the right lower lobe. These are seen best on the coronal reformatted images. These findings may represent discoid atelectasis, or pneumonitis from a variety of pathological entities including viral or atypical organisms. No pleural effusions. Central airways are patent. No pleural thickening. No lung nodules or masses. Heart size within normal limits. No suspicious mediastinal, hilar, or axillary lymphadenopathy. Visualized upper abdominal organs are grossly unremarkable. No suspicious osteoblastic or osteolytic bone lesions. IMPRESSION: 1. Small foci of groundglass opacification within both lung bases as described above. Considerations include atelectasis versus early pneumonitis from a variety of possible etiologies including viral or atypical infection. PQRS Compliance Statement: One or more of the following individualized dose reduction techniques were utilized for this examination: 1. Automated exposure control 2. Adjustment of the mA and/or kV according to patient size 3. Use of iterative reconstruction technique Electronically signed by: Ben Curry MD (08/15/2019 1:33 PM) [id number]
== END | disposition home or self-care (01) ==
LOC: CT 12:29
PROVIDERS: ATTEND Internal Medicine
DX: J98.4 Other disorders of lung (principal); R04.2 Hemoptysis
CPT/HCPCS: 71260; Q9967

== ENCOUNTER → 2019-08-16 | Outpatient (CLI) | payer OTHER ==
[~2019-08-16] MED LIST changes: -CONTRAST GIVEN. MC PRN; -IOHEXOL 300 MG/ML 100ML VIAL. IV ONE
[2019-08-16 15:29] LABS: BASO % 0 % (0-3); BILIRUBIN,URINE NEGATIVE (NEG); CLARITY,URINE CLEAR; COLOR,URINE YELLOW; EOS # 0.1 x10^3/uL (0.0-0.7); EOS % 1 % (0-3); HEMATOCRIT 43.5 % (36.0-47.0); HEMOGLOBIN 14.3 g/dL (12.0-15.5); LYMPH # 1.6 x10^3/uL (1.0-4.8); LYMPH % 17 % (24-48); MEAN CORPUSCULAR HEMOGLOBIN 28 pg (25-35); MEAN CORPUSCULAR HGB CONC 33 g/dL (31-37); MEAN CORPUSCULAR VOLUME 86 fL (79-100); MONO # 0.8 x10^3/uL (0.0-1.1); MONO % 8 % (0-9); NEUT # 7.2 x10^3/uL (1.8-7.7); NEUT % 74 % (31-73); NITRITE,URINE NEGATIVE (NEG); PH,URINE 7.5 (<5.0-8.0); PLATELET COUNT 328 x10^3/uL (140-400); PROTEIN,URINE NEGATIVE (NEG-TRACE); RED BLOOD COUNT 5.05 x10^6/uL (3.50-5.40); RED CELL DISTRIBUTION WIDTH 16.7 % (11.5-14.5); UROBILINOGEN,URINE 0.2 mg/dL (0.2 mg/dL); WHITE BLOOD COUNT 9.7 x10^3/uL (4.0-11.0)
[2019-08-16 15:39] LABS: PROTHROMBIN TIME PATIENT 12.9 SEC (11.7-14.0)
[2019-08-16 15:41] LABS: CALCIUM 9.6 mg/dL (8.5-10.1); CREATININE 0.7 mg/dL (0.6-1.0); GFR 86.6; TOTAL BILIRUBIN 0.2 mg/dL (0.2-1.0); TOTAL PROTEIN 7.9 g/dL (6.4-8.2)
[2019-08-16 15:44] LABS: SQUAMOUS EPITHELIAL CELL,UR FEW /LPF
[2019-08-16 15:45] LABS: BACTERIA,URINE 0 /HPF (0-FEW); RBC,URINE 0 /HPF (0-2)
== END | disposition home or self-care (01) ==
LOC: LAB 14:54
PROVIDERS: ATTEND Nurse Practitioner
DX: R04.2 Hemoptysis (principal)
CPT/HCPCS: 36415; 80053; 81001; 85025; 85610; 85730; 86481; 87086

== ENCOUNTER 2019-11-30 10:15 | Inpatient (IN) | payer OTHER ==
[~2019-11-30] VITALS: Ht 165.1 cm; Wt 78.1 kg
[~2019-11-30 10:15] MED LIST changes: +MULT-445 PO; -MULT1TAB52 PO
[2019-11-30 11:23] LABS: BASO % 0 % (0-3); EOS # 0.1 x10^3/uL (0.0-0.7); EOS % 1 % (0-3); HEMOGLOBIN 14.4 g/dL (12.0-15.5); LYMPH # 1.1 x10^3/uL (1.0-4.8); LYMPH % 19 % (24-48); MEAN CORPUSCULAR HEMOGLOBIN 30 pg (25-35); MEAN CORPUSCULAR HGB CONC 34 g/dL (31-37); MEAN CORPUSCULAR VOLUME 89 fL (79-100); MONO # 0.6 x10^3/uL (0.0-1.1); MONO % 11 % (0-9); NEUT # 3.8 x10^3/uL (1.8-7.7); NEUT % 68 % (31-73); PLATELET COUNT 277 x10^3/uL (140-400); RED BLOOD COUNT 4.83 x10^6/uL (3.50-5.40); RED CELL DISTRIBUTION WIDTH 15.5 % (11.5-14.5); WHITE BLOOD COUNT 5.6 x10^3/uL (4.0-11.0)
[2019-11-30 11:25] LABS: BILIRUBIN,URINE NEGATIVE (NEG); CLARITY,URINE CLEAR; COLOR,URINE AMBER; NITRITE,URINE NEGATIVE (NEG); PROTEIN,URINE NEGATIVE (NEG-TRACE)
[2019-11-30 11:37] LABS: SQUAMOUS EPITHELIAL CELL,UR FEW /LPF
[2019-11-30 11:38] LABS: BACTERIA,URINE FEW /HPF (0-FEW); RBC,URINE 0 /HPF (0-2)
[2019-11-30 11:46] LABS: CALCIUM 9.4 mg/dL (8.5-10.1); CREATININE 0.9 mg/dL (0.6-1.0); GFR 64.8; POTASSIUM 3.7 mmol/L (3.5-5.1)
[2019-11-30 11:52] LABS: ALBUMIN 4.1 g/dL (3.4-5.0); ALBUMIN/GLOBULIN RATIO 1.1 (1.0-1.7); TOTAL BILIRUBIN 0.2 mg/dL (0.2-1.0)
[2019-11-30] MEDS ORDERED: IOHEXOL 300 MG/ML 100ML VIAL. IV ONE (12:00)
[2019-11-30] MEDS ORDERED: CONTRAST GIVEN. MC PRN (12:00)
[2019-11-30] MEDS ORDERED: ONDANSETRON PF 4 MG/2 ML VIAL. IV ONE (12:15)
[2019-11-30] MEDS ORDERED: IV NORMAL SALINE 1000ML BAG 1,000 ML IV ONE (12:15)
[2019-11-30 13:47] LABS: FECAL OB PT POSITIVE (NEG)
--- NOTE | 2019-11-30 14:02 | RAD ---
EXAM: CT ABDOMEN/PELVIS WITH CONTRAST. HISTORY: Abdominal pain, rectal bleeding. TECHNIQUE: Computed tomography of the abdomen and pelvis was performed after the intravenous administration of iodinated contrast. One or more of the following individualized dose reduction techniques were utilized for this examination: 1. Automated exposure control. 2. Adjustment of the mA and/or kV according to patient size. 3. Use of iterative reconstruction technique. COMPARISON: 07/11/2019. FINDINGS: Lung windows through the visualized portions of the bases reveal a small hiatal hernia.. Bone windows reveal no suspicious lesions. Wall thickening along the descending/sigmoid junction involves a segment measuring approximately 17 cm. Inflammation is favored over malignancy given the long segment. There are enlarged lymph nodes within the adjacent mesentery measuring up to 12 mm. There is mild surrounding stranding without a drainable collection. Diverticulosis is moderate within the more proximal colon. Stool throughout the more proximal colon is consistent with mild constipation. The appendix is not inflamed. There is no small bowel obstruction. The uterus is surgically absent. There are changes of pelvic floor relaxation with a small cystocele. There are no suspicious hepatic lesions. The gallbladder, spleen, adrenal glands, pancreas and kidneys are unremarkable. IMPRESSION: 1. A 17 cm segment of wall thickening along the descending/sigmoid junction is more likely inflammatory than neoplastic given the length of the segment. Lymphoma could be considered as a neoplastic etiology. Endoscopy is recommended to exclude an underlying lesion. Enlarged adjacent mesenteric lymph nodes are likely reactive in the absence of identifiable malignancy. 2. Mild constipation more proximally. 3. Small hiatal hernia. 4. Pelvic floor relaxation with a cystocele. Electronically signed by: Morales Meyers MD (11/30/2019 1:59 PM) [id number]
--- NOTE | 2019-11-30 14:19 | PDOC1 ---
History and Physical Date of Admission Date of Admission DATE: 11/30/19 TIME: 14:16 Identification/Chief Complaint Chief Complaint Abdominal pain Source Source: Patient History of Present Illness History of Present Illness Ms Arce is a 53-year-old female w/ PMHx Diverticulosis, mastectomy, hysterectomy, cystocele, rectocele, and carotid artery dissection who presents to ED c/o nausea and vomiting. She drank 7-up with no improvement. Started cipro and flagyl on Wednesday and has been having nausea and vomiting and blood in stools since then. Passing stool that is small rabbit pellets mixed with bloody mucous. She has been treated with antibiotics 3 times in the past 1-2 years for diverticultis, and this is similar. Prior EGD 07/2018 showed mild Schatzki's ring (dilated), and she was planning on a colonoscopy recently but due to coronavirus outbreak has not had it yet. In ED hemoccult was positive, but no stool in the vault. WBC 5.6, HB 14.4. CT abdomen/pelvis with 17cm of inflamed appearing descending and sigmoid colon. Admitted for further treatment failing outpatient antibiotics. Past Medical History GI: Diverticulosis Heme/Onc: Cancer Past Surgical History Past Surgical History: Mastectomy, Hysterectomy, Other Family History Family History: Cancer (Colon) Social History Smoke: No ALCOHOL: none Drugs: None Current Medications Current Medications Current Medications Iohexol (Omnipaque 300 Mg/ml) 75 ml 1X ONCE IV Last administered on 11/30/19at 12:07; Start 11/30/19 at 12:00; Stop 11/30/19 at 12:01; Status DC Info (CONTRAST GIVEN -- Rx MONITORING) 1 each PRN DAILY PRN MC SEE COMMENTS; Start 11/30/19 at 12:00; Stop 12/02/19 at 11:59 Sodium Chloride 1,000 ml @ 1,000 mls/hr 1X ONCE IV Last administered on 11/30/19at 12:36; Start 11/30/19 at 12:15; Stop 11/30/19 at 13:14; Status DC Ondansetron HCl (Zofran) 4 mg 1X ONCE IV Last administered on 11/30/19at 12:36; Start 11/30/19 at 12:15; Stop 11/30/19 at 12:16; Status DC Active Scripts Active Montelukast Sodium Tablet (Montelukast Sodium) 10 Mg Tablet 1 Tab PO QHS 30 Days Aspirin Ec (Aspirin) 325 Mg Tablet. 325 Mg PO DAILYWBKFT 30 Days Reported Metformin Hcl 500 Mg Tablet 500 Mg PO DAILY16 Coq-10 (Ubidecarenone) 30 Mg Capsule 30 Mg PO DAILY Calcium (Calcium Carbonate) 500 Mg Tab.chew 500 Mg PO DAILY Aleve (Naproxen Sodium) 220 Mg Capsule 220 Mg PO BID [genexa allergy d] DAILY Atorvastatin Calcium 40 Mg Tablet 1 Tab PO QHS Vitamin D3 (Cholecalciferol (Vitamin D3)) 1,000 Unit Tablet 1 Tab PO DAILY Vitamin C (Ascorbic Acid) 500 Mg Capsule.er 500 Mg PO DAILY B Complex (Vitamin B Complex) 1 Each Tablet 1 Each PO DAILY Multivitamins (Multivitamin) 1 Each Tablet 1 Tab PO DAILY Glucosamine & Chondroitin Cap (Gluc 2KCL/Chondr/Adarsh Hy/Hy Ac) 1 Each Capsule 1 Each PO DAILY Fiber Gummies (Inulin) 2 Gm Tab.chew 2 Gm PO DAILY Melatonin 3 Mg Tablet 1 Tab PO QHS Proair Hfa (Albuterol Sulfate) 8.5 Gm Hfa.aer.ad 1 Puff INH PRN Q6HRS PRN Flonase Allergy Relief (Fluticasone Propionate) 9.9 Ml [place].susp 2 Sprays NS DAILY Barbara Allergy (Fexofenadine Hcl) 180 Mg Tablet 1 Tab PO DAILY Omeprazole 20 Mg Tablet. 1 Tab PO DAILY Lorazepam 0.5 Mg Tablet 0.5 Mg PO HS Allergies Allergies: Coded Allergies: No Known Drug Allergies (Unverified , 08/12/18) ROS General: YES: Fatigue, Malaise; No: Chills, Night Sweats, Appetite, Other PSYCHOLOGICAL ROS: No: Anxiety, Behavioral Disorder, Concentration difficultie, Decreased libido, Depression, Disorientation, Hallucinations, Hostility, Irritablity, Memory difficulties, Mood Swings, Obsessive thoughts, Physical abuse, Sexual abuse, Sleep disturbances, Suicidal ideation, Other Eyes: No Blurry vision, No Decreased vision, No Double vision, No Dry eyes, No Excessive tearing, No Eye Pain, No Itchy Eyes, No Loss of vision, No Photophobia, No Scotomata, No Uses contacts, No Uses glasses, No Other HEENT: No: Heacaches, Visual Changes, Hearing change, Nasal congestion, Nasal discharge, Oral lesions, Sinus pain, Sore Throat, Epistaxis, Sneezing, Snoring, Tinnitus, Vertigo, Vocal changes, Other ALLERGY AND IMMUNOLOGY: No: Hives, Insect Bite Sensitivity, Itchy/Watery Eyes, Nasal Congestion, Post Nasal Drip, Seasonal Allergies, Other Hematological and Lymphatic: No: Bleeding Problems, Blood Clots, Blood Transfusions, Brusing, Night Sweats, Pallor, Swollen Lymph Nodes, Other ENDOCRINE: No: Breast Changes, Galactorrhea, Hair Pattern Changes, Hot Flashes, Malaise/lethargy, Mood Swings, Palpitations, Polydipsia/polyuria, Skin Changes, Temperature Intolerance, Unexpected Weight Changes, Other Breast: No New/Changing Breast Lumps, No Nipple changes, No Nipple discharge, No Other Respiratory: No: Cough, Hemoptysis, Orthopnea, Pleuritic Pain, Shortness of breath, SOB with excertion, Sputum Changes, Stridor, Tachypnea, Wheezing, Other Cardiovascular: No Chest Pain, No Palpitations, No Orthopnea, No Paroxysmal Noc. Dyspnea, No Edema, No Lt Headedness, No Other Gastrointestinal: Yes Nausea, Yes Vomiting, Yes Abdominal Pain, Yes Diarrhea, Yes Constipation; No Melena, No Hematochezia, No Other Genitourinary: No Dysuria, No Frequency, No Incontinence, No Hematuria, No Retention, No Discharge, No Urgency, No Pain, No Flank Pain, No Other, No , No , No , No , No , No , No Musculoskeletal: No Gait Disturbance, No Joint Pain, No Joint Stiffness, No Joint Swelling, No Muscle Pain, No Muscular Weakness, No Pain In:, No Swelling In:, No Other Neurological: No Behavorial Changes, No Bowel/Bladder ControlChng, No Confusion, No Dizziness, No Gait Disturbance, No Headaches, No Impaired Coord/balance, No Memory Loss, No Numbness/Tingling, No Seizures, No Speech Problems, No Tremors, No Visual Changes, No Weakness, No Other Skin: No Dry Skin, No Eczema, No Hair Changes, No Lumps, No Mole Changes, No Mottling, No Nail Changes, No Pruritus, No Rash, No Skin Lesion Changes, No Other, No Acne Physical Exam General: Alert, Oriented X3, Cooperative, moderate distress HEENT: Atraumatic, PERRLA, EOMI, Mucous membr. moist/pink Lungs: Clear to auscultation, Normal air movement Heart: S1S2, RRR, no thrills, no rubs, no gallops, no murmurs Abdomen: Normal bowel sounds, Soft, No hepatosplenomegaly, No masses, Other (LUQ and LLQ tenderness) Rectal Exam: not examined Extremities: No clubbing, No cyanosis, No edema, Normal pulses, No t enderness/swelling Skin: No rashes, No breakdown, No significant lesion Neuro: Normal gait, Normal speech, Strength at 5/5 X4 ext, Normal tone, Sensation intact, Cranial nerves 3-12 NL, Reflexes 2+ Psych/Mental Status: Mental status NL, Mood NL Vitals Vitals Vital Signs Date Time Temp Pulse Resp B/P (MAP) Pulse Ox O2 Delivery O2 Flow Rate FiO2 11/30/19 10:53 98.3 86 18 129/78 (95) 96 Room Air 98.3 Labs Labs Laboratory Tests Test 11/30/19 11:10 11/30/19 12:00 White Blood Count 5.6 x10^3/uL (4.0-11.0) Red Blood Count 4.83 x10^6/uL (3.50-5.40) Hemoglobin 14.4 g/dL (12.0-15.5) Hematocrit 43.0 % (36.0-47.0) Mean Corpuscular Volume 89 fL (79-100) Mean Corpuscular Hemoglobin 30 pg (25-35) Mean Corpuscular Hemoglobin Concent 34 g/dL (31-37) Red Cell Distribution Width 15.5 % (11.5-14.5) Platelet Count 277 x10^3/uL (140-400) Neutrophils (%) (Auto) 68 % (31-73) Lymphocytes (%) (Auto) 19 % (24-48) Monocytes (%) (Auto) 11 % (0-9) Eosinophils (%) (Auto) 1 % (0-3) Basophils (%) (Auto) 0 % (0-3) Neutrophils # (Auto) 3.8 x10^3/uL (1.8-7.7) Lymphocytes # (Auto) 1.1 x10^3/uL (1.0-4.8) Monocytes # (Auto) 0.6 x10^3/uL (0.0-1.1) Eosinophils # (Auto) 0.1 x10^3/uL (0.0-0.7) Basophils # (Auto) 0.0 x10^3/uL (0.0-0.2) Urine Collection Type Unknown Urine Color Laura Urine Clarity Clear Urine pH 6.0 (<5.0-8.0) Urine Specific [place] 1.015 (1.000-1.030) Urine Protein Negative mg/dL (NEG-TRACE) Urine Glucose (UA) Negative mg/dL (NEG) Urine Ketones (Stick) Negative mg/dL (NEG) Urine Blood Negative (NEG) Urine Nitrite Negative (NEG) Urine Bilirubin Negative (NEG) Urine Urobilinogen Dipstick 1.0 mg/dL (0.2 mg/dL) Urine Leukocyte Esterase Small (NEG) Urine RBC 0 /HPF (0-2) Urine WBC 1-4 /HPF (0-4) Urine Squamous Epithelial Cells Few /LPF Urine Transitional Epithelial Cells Occ /LPF Urine Bacteria Few /HPF (0-FEW) Urine Mucus Mod /LPF Sodium Level 143 mmol/L (136-145) Potassium Level 3.7 mmol/L (3.5-5.1) Chloride Level 104 mmol/L (98-107) Carbon Dioxide Level 27 mmol/L (21-32) Anion Gap 12 (6-14) Blood Urea Nitrogen 13 mg/dL (7-20) Creatinine 0.9 mg/dL (0.6-1.0) Estimated GFR (Cockcroft-Gault) 64.8 BUN/Creatinine Ratio 14 (6-20) Glucose Level 118 mg/dL (70-99) Calcium Level 9.4 mg/dL (8.5-10.1) Total Bilirubin 0.2 mg/dL (0.2-1.0) Aspartate Amino Transf (AST/SGOT) 16 U/L (15-37) Alanine Aminotransferase (ALT/SGPT) 28 U/L (14-59) Alkaline Phosphatase 112 U/L (46-116) Total Protein 8.0 g/dL (6.4-8.2) Albumin 4.1 g/dL (3.4-5.0) Albumin/Globulin Ratio 1.1 (1.0-1.7) Lipase 75 U/L (73-393) Stool Occult Blood Positive (NEG) Laboratory Tests Test 11/30/19 11:10 11/30/19 12:00 White Blood Count 5.6 x10^3/uL (4.0-11.0) Red Blood Count 4.83 x10^6/uL (3.50-5.40) Hemoglobin 14.4 g/dL (12.0-15.5) Hematocrit 43.0 % (36.0-47.0) Mean Corpuscular Volume 89 fL (79-100) Mean Corpuscular Hemoglobin 30 pg (25-35) Mean Corpuscular Hemoglobin Concent 34 g/dL (31-37) Red Cell Distribution Width 15.5 % (11.5-14.5) Platelet Count 277 x10^3/uL (140-400) Neutrophils (%) (Auto) 68 % (31-73) Lymphocytes (%) (Auto) 19 % (24-48) Monocytes (%) (Auto) 11 % (0-9) Eosinophils (%) (Auto) 1 % (0-3) Basophils (%) (Auto) 0 % (0-3) Neutrophils # (Auto) 3.8 x10^3/uL (1.8-7.7) Lymphocytes # (Auto) 1.1 x10^3/uL (1.0-4.8) Monocytes # (Auto) 0.6 x10^3/uL (0.0-1.1) Eosinophils # (Auto) 0.1 x10^3/uL (0.0-0.7) Basophils # (Auto) 0.0 x10^3/uL (0.0-0.2) Urine Collection Type Unknown Urine Color Laura Urine Clarity Clear Urine pH 6.0 (<5.0-8.0) Urine Specific [place] 1.015 (1.000-1.030) Urine Protein Negative mg/dL (NEG-TRACE) Urine Glucose (UA) Negative mg/dL (NEG) Urine Ketones (Stick) Negative mg/dL (NEG) Urine Blood Negative (NEG) Urine Nitrite Negative (NEG) Urine Bilirubin Negative (NEG) Urine Urobilinogen Dipstick 1.0 mg/dL (0.2 mg/dL) Urine Leukocyte Esterase Small (NEG) Urine RBC 0 /HPF (0-2) Urine WBC 1-4 /HPF (0-4) Urine Squamous Epithelial Cells Few /LPF Urine Transitional Epithelial Cells Occ /LPF Urine Bacteria Few /HPF (0-FEW) Urine Mucus Mod /LPF Sodium Level 143 mmol/L (136-145) Potassium Level 3.7 mmol/L (3.5-5.1) Chloride Level 104 mmol/L (98-107) Carbon Dioxide Level 27 mmol/L (21-32) Anion Gap 12 (6-14) Blood Urea Nitrogen 13 mg/dL (7-20) Creatinine 0.9 mg/dL (0.6-1.0) Estimated GFR (Cockcroft-Gault) 64.8 BUN/Creatinine Ratio 14 (6-20) Glucose Level 118 mg/dL (70-99) Calcium Level 9.4 mg/dL (8.5-10.1) Total Bilirubin 0.2 mg/dL (0.2-1.0) Aspartate Amino Transf (AST/SGOT) 16 U/L (15-37) Alanine Aminotransferase (ALT/SGPT) 28 U/L (14-59) Alkaline Phosphatase 112 U/L (46-116) Total Protein 8.0 g/dL (6.4-8.2) Albumin 4.1 g/dL (3.4-5.0) Albumin/Globulin Ratio 1.1 (1.0-1.7) Lipase 75 U/L (73-393) Stool Occult Blood Positive (NEG) Images Images CT abdomen/pelvis: Lung windows through the visualized portions of the bases reveal a small hiatal hernia.. Bone windows reveal no suspicious lesions. Wall thickening along the descending/sigmoid junction involves a segment measuring approximately 17 cm. Inflammation is favored over malignancy given the long segment. There are enlarged lymph nodes within the adjacent mesentery measuring up to 12 mm. There is mild surrounding stranding without a drainable collection. Diverticulosis is moderate within the more proximal colon. Stool throughout the more proximal colon is consistent with mild constipation. The appendix is not inflamed. There is no small bowel obstruction. The uterus is surgically absent. There are changes of pelvic floor relaxation with a small cystocele. There are no suspicious hepatic lesions. The gallbladder, spleen, adrenal glands, pancreas and kidneys are unremarkable. IMPRESSION: 1. A 17 cm segment of wall thickening along the descending/sigmoid junction is more likely inflammatory than neoplastic given the length of the segment. Lymphoma could be considered as a neoplastic etiology. Endoscopy is recommended to exclude an underlying lesion. Enlarged adjacent mesenteric lymph nodes are likely reactive in the absence of identifiable malignancy. 2. Mild constipation more proximally. 3. Small hiatal hernia. 4. Pelvic floor relaxation with a cystocele. VTE Prophylaxis Ordered VTE Prophylaxis Devices: Yes VTE Pharmacological Prophylaxi: Yes Assessment/Plan Assessment/Plan A/P: Nausea and vomiting - likely from colitis/enteritis. Will give IV antiemetics. Consult GI. Abdominal pain - with colitis and h/o diverticulitis, was on 3 days PO antibiotics, will admit for IV antibiotics Abnormal CT - 7 cm segment of wall thickening along the descending/sigmoid j unction w/ lymphadenopathy and stranding - similar findings on 2 earlier CTs from this year and in 2014 Schatzki's ring/dilation - H/o GERD, dysphagia Constipation - with diarrhea, previously thought IBD, but no evidence of this. Will check CRP Hemorrhoids - likely etiology of blood in stool FEN - NPO, ADAT if ok with GI PPX - lovenox FULL CODE Dispo - inpatient for 2 midnights Justicifation of Admission Dx: Justifications for Admission: Justification of Admission Dx: Yes VIKI FUENTES MD Nov 30, 2019 14:19
--- NOTE | 2019-11-30 14:44 | PHYS DOC ---
Past Medical History Past Medical History: Anxiety, Arthritis, Asthma, CAD, Diverticulitis, GERD, Other Additional Past Medical Histor: SEASONAL ALLERGIES, left CAROTID DISSECTION, Pre-Diabetes Past Surgical History: Hysterectomy, Tubal ligation, Other Additional Past Surgical Histo: LEEP,CYSTO/RECTOCELE, SINUS SURGERY Smoking Status: Never Smoker Alcohol Use: Occasionally Drug Use: None General Adult EDM: Chief Complaint: ABDOMINAL PAIN HPI: HPI: Patient is a 54 year old female who presents to the emergency department with complaints of left-sided abdominal pain for the last 6 days with nausea, constipation, and rectal bleeding. She reports that she has a history of diverticulitis and that her eyeletter, Dr. Gupta started her on oral ciprofloxacin and Flagyl Wednesday. Patient reports she is taking the medication since then with no relief in her symptoms. She denies any fever, cough, shortness of breath, rash, dysuria, hematuria, low back pain, or increased urination. She denies any vomiting. The patient currently rates her pain a 7 out of 10 on the pain scale, there is no radiation of the pain, there are no alleviating or exacerbating factors. The patient reports that the pain feels like a cramping or aching sensation. Review of Systems: Review of Systems: Constitutional: Denies fever or chills. [] Eyes: Denies change in visual acuity. [] HENT: Denies nasal congestion or sore throat. [] Respiratory: Denies cough or shortness of breath. [] Cardiovascular: Denies chest pain or edema. [] GI: See HPI : Denies dysuria. [] Musculoskeletal: Denies back pain or joint pain. [] Integument: Denies rash. [] Neurologic: Denies headache, focal weakness or sensory changes. [] Psychiatric: Denies depression or anxiety. [] Heart Score: Risk Factors: Risk Factors: DM, Current or recent (<one month) smoker, HTN, HLP, family history of CAD, obesity. Risk Scores: Score 0 - 3: 2.5% MACE over next 6 weeks - Discharge Home Score 4 - 6: 20.3% MACE over next 6 weeks - Admit for Clinical Observation Score 7 - 10: 72.7% MACE over next 6 weeks - Early Invasive Strategies Current Medications: Current Medications Medications (Trade) Dose Ordered Sig/Michael Start Time Stop Time Status Last Admin Dose Admin Info (CONTRAST GIVEN -- Rx MONITORING) 1 each PRN DAILY PRN 11/30/19 12:00 12/02/19 11:59 Iohexol (Omnipaque 300 Mg/ml) 75 ml 1X ONCE 11/30/19 12:00 11/30/19 12:01 DC 11/30/19 12:07 75 ML Ondansetron HCl (Zofran) 4 mg 1X ONCE 11/30/19 12:15 11/30/19 12:16 DC 11/30/19 12:36 4 MG Sodium Chloride 1,000 ml @ 1,000 mls/hr 1X ONCE 11/30/19 12:15 11/30/19 13:14 DC 11/30/19 12:36 1,000 MLS/HR Allergies: Allergies: Allergies Coded Allergies Type Severity Reaction Last Updated Verified No Known Drug Allergies 08/12/18 No Physical Exam: PE: Constitutional: Well developed, well nourished, no acute distress, non-toxic appearance. [] HENT: Normocephalic, atraumatic, bilateral external ears normal, nose normal. [] Eyes: PERRLA, EOMI, conjunctiva normal, no discharge. [] Neck: Normal range of motion, no stridor. [] Cardiovascular:Heart rate regular rhythm Lungs & Thorax: Respirations even and unlabored, no retractions, no respiratory distress Abdomen: soft, Left upper and lower tenderness to palpation, no rebound tenderness, no guarding Rectal Exam: Normal tone, No mass, Positive control Stool: Bloody Guaiac: Positive Skin: Warm, dry, no erythema, no rash. [] Extremities: No cyanosis, ROM intact, no edema. [] Neurologic: Alert and oriented X 3, no focal deficits noted. [] Psychologic: Affect normal, judgement normal, mood normal. [] Current Patient Data: Labs: Laboratory Tests Test 11/30/19 11:10 11/30/19 12:00 White Blood Count 5.6 x10^3/uL (4.0-11.0) Red Blood Count 4.83 x10^6/uL (3.50-5.40) Hemoglobin 14.4 g/dL (12.0-15.5) Hematocrit 43.0 % (36.0-47.0) Mean Corpuscular Volume 89 fL (79-100) Mean Corpuscular Hemoglobin 30 pg (25-35) Mean Corpuscular Hemoglobin Concent 34 g/dL (31-37) Red Cell Distribution Width 15.5 % (11.5-14.5) H Platelet Count 277 x10^3/uL (140-400) Neutrophils (%) (Auto) 68 % (31-73) Lymphocytes (%) (Auto) 19 % (24-48) L Monocytes (%) (Auto) 11 % (0-9) H Eosinophils (%) (Auto) 1 % (0-3) Basophils (%) (Auto) 0 % (0-3) Neutrophils # (Auto) 3.8 x10^3/uL (1.8-7.7) Lymphocytes # (Auto) 1.1 x10^3/uL (1.0-4.8) Monocytes # (Auto) 0.6 x10^3/uL (0.0-1.1) Eosinophils # (Auto) 0.1 x10^3/uL (0.0-0.7) Basophils # (Auto) 0.0 x10^3/uL (0.0-0.2) Urine Collection Type Unknown Urine Color Laura Urine Clarity Clear Urine pH 6.0 (<5.0-8.0) Urine Specific [place] 1.015 (1.000-1.030) Urine Protein Negative mg/dL (NEG-TRACE) Urine Glucose (UA) Negative mg/dL (NEG) Urine Ketones (Stick) Negative mg/dL (NEG) Urine Blood Negative (NEG) Urine Nitrite Negative (NEG) Urine Bilirubin Negative (NEG) Urine Urobilinogen Dipstick 1.0 mg/dL (0.2 mg/dL) Urine Leukocyte Esterase Small (NEG) Urine RBC 0 /HPF (0-2) Urine WBC 1-4 /HPF (0-4) Urine Squamous Epithelial Cells Few /LPF Urine Transitional Epithelial Cells Occ /LPF Urine Bacteria Few /HPF (0-FEW) Urine Mucus Mod /LPF Sodium Level 143 mmol/L (136-145) Potassium Level 3.7 mmol/L (3.5-5.1) Chloride Level 104 mmol/L (98-107) Carbon Dioxide Level 27 mmol/L (21-32) Anion Gap 12 (6-14) Blood Urea Nitrogen 13 mg/dL (7-20) Creatinine 0.9 mg/dL (0.6-1.0) Estimated GFR (Cockcroft-Gault) 64.8 BUN/Creatinine Ratio 14 (6-20) Glucose Level 118 mg/dL (70-99) H Calcium Level 9.4 mg/dL (8.5-10.1) Total Bilirubin 0.2 mg/dL (0.2-1.0) Aspartate Amino Transferase (AST) 16 U/L (15-37) Alanine Aminotransferase (ALT) 28 U/L (14-59) Alkaline Phosphatase 112 U/L (46-116) Total Protein 8.0 g/dL (6.4-8.2) Albumin 4.1 g/dL (3.4-5.0) Albumin/Globulin Ratio 1.1 (1.0-1.7) Lipase 75 U/L (73-393) Stool Occult Blood Positive (NEG) Laboratory Tests 11/30/19 11:10 Laboratory Tests 11/30/19 11:10 Vital Signs: Vital Signs Date Time Temp Pulse Resp B/P (MAP) Pulse Ox O2 Delivery O2 Flow Rate FiO2 11/30/19 10:53 98.3 86 18 129/78 (95) 96 Room Air 98.3 EKG: EKG: [] Radiology/Procedures: Radiology/Procedures: PROCEDURE: CT ABD PELV W/ IV CONTRST ONLY EXAM: CT ABDOMEN/PELVIS WITH CONTRAST. HISTORY: Abdominal pain, rectal bleeding. TECHNIQUE: Computed tomography of the abdomen and pelvis was performed after the intravenous administration of iodinated contrast. One or more of the following individualized dose reduction techniques were utilized for this examination: 1. Automated exposure control. 2. Adjustment of the mA and/or kV according to patient size. 3. Use of iterative reconstruction technique. COMPARISON: 07/11/2019. FINDINGS: Lung windows through the visualized portions of the bases reveal a small hiatal hernia.. Bone windows reveal no suspicious lesions. Wall thickening along the descending/sigmoid junction involves a segment measuring approximately 17 cm. Inflammation is favored over malignancy given the long segment. There are enlarged lymph nodes within the adjacent mesentery measuring up to 12 mm. There is mild surrounding stranding without a drainable collection. Diverticulosis is moderate within the more proximal colon. Stool throughout the more proximal colon is consistent with mild constipation. The appendix is not inflamed. There is no small bowel obstruction. The uterus is surgically absent. There are changes of pelvic floor relaxation with a small cystocele. There are no suspicious hepatic lesions. The gallbladder, spleen, adrenal glands, pancreas and kidneys are unremarkable. IMPRESSION: 1. A 17 cm segment of wall thickening along the descending/sigmoid junction is more likely inflammatory than neoplastic given the length of the segment. Lymphoma could be considered as a neoplastic etiology. Endoscopy is recommended to exclude an underlying lesion. Enlarged adjacent mesenteric lymph nodes are likely reactive in the absence of identifiable malignancy. 2. Mild constipation more proximally. 3. Small hiatal hernia. 4. Pelvic floor relaxation with a cystocele.[] Course & Med Decision Making: Course & Med Decision Making Pertinent Labs and Imaging studies reviewed. (See chart for details) [id number]-spoke with Dr. Herzog who is the admitting physician, and care was assumed following discussion of patient. Will admit patient to [facility] for colitis Patient's vital signs stable. Patient remains afebrile, appears nontoxic, respirations even and unlabored. Patient's case and plan of care also discussed with Dr. Tse [] Tee Disclaimer: Tee Disclaimer: This electronic medical record was generated, in whole or in part, using a voice recognition dictation system. Departure Departure Impression: Primary Impression: Colitis Disposition: ADMITTED INPATIENT Admitting Physician: HELEN (Rosenda) Condition: STABLE Referrals: JESSICA TRAYLOR APRN (PCP) Justicifation of Admission Dx: Justifications for Admission: Justification of Admission Dx: Yes Comments: Colitis failed outpatient tx REYNA ONEILL APRN Nov 30, 2019 14:44
[2019-11-30] MEDS ORDERED: diphenhydrAMINE 50 MG/ML VIAL IVP PRN (14:45)
[2019-11-30] MEDS ORDERED: ONDANSETRON PF 4 MG/2 ML VIAL. IV PRN (14:45)
[2019-11-30] MEDS ORDERED: ZOLPIDEM 5 MG TABLET. PO PRN (14:45)
[2019-11-30] MEDS ORDERED: ACETAMINOPHEN 325 MG TABLET. PO PRN (14:45)
--- NOTE | 2019-11-30 15:31 | PDOC2 ---
GI CONSULT Reason For Consult: colitis HPI: HPI: Pleasant 54 y/o female seen in ER. Ill since Wednesday - began w/ a bloated gassy feeling, then started w/ left-sided abdominal pain w/ radiation on lower back and significant nausea, low-grade fever and fatigue, and also notes constipation. Last "good" bowel movement 1.5 weeks ago - has been passing "rabbit turds" since w/ some bloody mucous. All symptoms similar but more severe than past episodes of diverticulitis - says has been treated w/ antibiotics 3 times in the past 1-2 years. She called our office on Wednesday and was started on Cipro and Flagyl but came to ER today w/ worsening symptoms. H/o GERD on omeprazole. Occasional dysphagia w/ foods like pizza - felt in midt hroat, has to clear throat and take a drink or cough food up - esophageal dilation has helped in the past. Vomited once this morning. No diarrhea or melena. Typically no constipation either. Has gained weight "from stress eating." Also was sick briefly after a Father's Day bbq w/ vomiting. EGD and colonoscopy in 07/2018 showed mild Schatzki's ring (dilated), sigmoid diverticulosis, hemorrhoids. Says another colonoscopy was discussed earlier this year but not pursued due to pandemic. No GB, liver, pancreas, or PUD history. PRN NSAIDs. Previously daily ASA but stopped due to bruising. PMH: PMH: left carotid artery dissection, HLD, asthma, pre-DM, OA, anxiety tubal ligation, LEEP, hysterectomy w/ cystocele/rectocele repair, sinus surgery FH: Family History: Cancer (mother - colon, other family members w/ non-GI cancers), Other (father - diverticulitis w/ colon resection) Social History: Smoke: No ALCOHOL: occassional Drugs: None ROS: GEN: +fever HEENT: Denies blurred vision, sore throat CV: Denies chest pain RESP: Denies shortness of air, cough GI: Per HPI : Denies hematuria, dysuria ENDO: +weight gain NEURO: Denies confusion, dizziness MSK: Denies weakness, joint pain/swelling SKIN: Denies jaundice, pruritus Vitals: Vitals: Vital Signs Date Time Temp Pulse Resp B/P (MAP) Pulse Ox O2 Delivery O2 Flow Rate FiO2 7/9/20 14:40 72 149/84 (105) 96 Room Air 11/30/19 10:53 98.3 18 98.3 Labs: Labs: Laboratory Tests Test 11/30/19 11:10 11/30/19 12:00 White Blood Count 5.6 x10^3/uL (4.0-11.0) Red Blood Count 4.83 x10^6/uL (3.50-5.40) Hemoglobin 14.4 g/dL (12.0-15.5) Hematocrit 43.0 % (36.0-47.0) Mean Corpuscular Volume 89 fL (79-100) Mean Corpuscular Hemoglobin 30 pg (25-35) Mean Corpuscular Hemoglobin Concent 34 g/dL (31-37) Red Cell Distribution Width 15.5 % (11.5-14.5) Platelet Count 277 x10^3/uL (140-400) Neutrophils (%) (Auto) 68 % (31-73) Lymphocytes (%) (Auto) 19 % (24-48) Monocytes (%) (Auto) 11 % (0-9) Eosinophils (%) (Auto) 1 % (0-3) Basophils (%) (Auto) 0 % (0-3) Neutrophils # (Auto) 3.8 x10^3/uL (1.8-7.7) Lymphocytes # (Auto) 1.1 x10^3/uL (1.0-4.8) Monocytes # (Auto) 0.6 x10^3/uL (0.0-1.1) Eosinophils # (Auto) 0.1 x10^3/uL (0.0-0.7) Basophils # (Auto) 0.0 x10^3/uL (0.0-0.2) Urine Collection Type Unknown Urine Color Laura Urine Clarity Clear Urine pH 6.0 (<5.0-8.0) Urine Specific [place] 1.015 (1.000-1.030) Urine Protein Negative mg/dL (NEG-TRACE) Urine Glucose (UA) Negative mg/dL (NEG) Urine Ketones (Stick) Negative mg/dL (NEG) Urine Blood Negative (NEG) Urine Nitrite Negative (NEG) Urine Bilirubin Negative (NEG) Urine Urobilinogen Dipstick 1.0 mg/dL (0.2 mg/dL) Urine Leukocyte Esterase Small (NEG) Urine RBC 0 /HPF (0-2) Urine WBC 1-4 /HPF (0-4) Urine Squamous Epithelial Cells Few /LPF Urine Transitional Epithelial Cells Occ /LPF Urine Bacteria Few /HPF (0-FEW) Urine Mucus Mod /LPF Sodium Level 143 mmol/L (136-145) Potassium Level 3.7 mmol/L (3.5-5.1) Chloride Level 104 mmol/L (98-107) Carbon Dioxide Level 27 mmol/L (21-32) Anion Gap 12 (6-14) Blood Urea Nitrogen 13 mg/dL (7-20) Creatinine 0.9 mg/dL (0.6-1.0) Estimated GFR (Cockcroft-Gault) 64.8 BUN/Creatinine Ratio 14 (6-20) Glucose Level 118 mg/dL (70-99) Calcium Level 9.4 mg/dL (8.5-10.1) Total Bilirubin 0.2 mg/dL (0.2-1.0) Aspartate Amino Transf (AST/SGOT) 16 U/L (15-37) Alanine Aminotransferase (ALT/SGPT) 28 U/L (14-59) Alkaline Phosphatase 112 U/L (46-116) Total Protein 8.0 g/dL (6.4-8.2) Albumin 4.1 g/dL (3.4-5.0) Albumin/Globulin Ratio 1.1 (1.0-1.7) Lipase 75 U/L (73-393) Stool Occult Blood Positive (NEG) Allergies: Coded Allergies: No Known Drug Allergies (Unverified , 08/12/18) Medications: Current Medications Medications (Trade) Dose Ordered Sig/Michael Route PRN Reason Start Time Stop Time Status Last Admin Dose Admin Iohexol (Omnipaque 300 Mg/ml) 75 ml 1X ONCE IV 11/30/19 12:00 11/30/19 12:01 DC 11/30/19 12:07 Sodium Chloride 1,000 ml @ 1,000 mls/hr 1X ONCE IV 11/30/19 12:15 11/30/19 13:14 DC 11/30/19 12:36 Ondansetron HCl (Zofran) 4 mg 1X ONCE IV 11/30/19 12:15 11/30/19 12:16 DC 11/30/19 12:36 Imaging: Imaging: CT A/P IMPRESSION: 1. A 17 cm segment of wall thickening along the descending/sigmoid junction is more likely inflammatory than neoplastic given the length of the segment. Lymphoma could be considered as a neoplastic etiology. Endoscopy is recommended to exclude an underlying lesion. Enlarged adjacent mesenteric lymph nodes are likely reactive in the absence of identifiable malignancy. 2. Mild constipation more proximally. 3. Small hiatal hernia. 4. Pelvic floor relaxation with a cystocele. PE: GEN: NAD HEENT: Atraumatic, PERRL LUNGS: CTAB HEART: RRR ABD: quiet BS, some distention, diffuse discomfort - worst to left side EXTREMITY: No edema SKIN: No rashes, no jaundice NEURO/PSYCH: A & O 3, anxious A/P: A/P: Bloating, abd pain, change in bowel habits, n/v, fatigue - similar symptoms in the past w/ diverticulitis Abnormal CT - 7 cm segment of wall thickening along the descending/sigmoid junction w/ lymphadenopathy and stranding - similar findings on 2 earlier CTs from this year and in 2013 GERD, intermittent dysphagia w/ h/o Schatzki's ring/dilation CRC screen - UTD Constipation Diverticulosis, hemorrhoids -- Can try clears sparingly. IV atbx, pain control, anti-emetics. Recurrent issue - ?surgery opinion ABDON WHEELER Nov 30, 2019 15:31
[2019-11-30] MEDS: CIPROFLOXACIN 400MG PREMIX 200 ML IV SCH (15:59)
[2019-11-30] MEDS: PANTOPRAZOLE IV PUSH 40 MG VIAL. IVP SCH (16:01)
[2019-11-30] MEDS ORDERED: ALBUTEROL SULFATE 2.5 MG/3 ML NEBU. INH PRN (16:30)
[2019-11-30 19:00] VITALS: BP 112/61
[2019-11-30] MEDS: LORazepam 0.5 MG TABLET PO SCH (20:32)
[2019-11-30] MEDS: ATORVASTATIN CALCIUM 40 MG TABLET. PO SCH (20:32)
[2019-11-30] MEDS: MONTELUKAST SODIUM 10 MG TABLET. PO SCH (20:32)
[2019-11-30 23:00] VITALS: BP 115/74
[2019-12-01 03:00] VITALS: BP 103/68
[2019-12-01 07:00] VITALS: BP 103/64
[2019-12-01] MEDS: ASPIRIN ENTERIC COATED 325 MG TABLET.DR. PO SCH (08:00)
[2019-12-01] MEDS: CIPROFLOXACIN 400MG PREMIX 200 ML IV SCH ×2 (08:52→21:15)
[2019-12-01] MEDS: PANTOPRAZOLE IV PUSH 40 MG VIAL. IVP SCH (08:52)
[2019-12-01] MEDS: VITAMIN B COMPLEX TABLET. PO SCH (08:52)
[2019-12-01] MEDS: CHOLECALCIFEROL (VITAMIN D3) 1,000 UNIT TABLET PO SCH (08:53)
[2019-12-01] MEDS ORDERED: NON FORMULARY ITEM (Ubidecarenone (Coq-10) 30 MG) PO SCH (09:00)
--- NOTE | 2019-12-01 09:16 | PDOC ---
PROGRESS NOTES History of Present Illness History of Present Illness mages Images CT abdomen/pelvis: Lung windows through the visualized portions of the bases reveal a small hiatal hernia.. Bone windows reveal no suspicious lesions. Wall thickening along the descending/sigmoid junction involves a segment measuring approximately 17 cm. Inflammation is favored over malignancy given the long segment. There are enlarged lymph nodes within the adjacent mesentery measuring up to 12 mm. There is mild surrounding stranding without a drainable collection. Diverticulosis is moderate within the more proximal colon. Stool throughout the more proximal colon is consistent with mild constipation. The appendix is not inflamed. There is no small bowel obstruction. The uterus is surgically absent. There are changes of pelvic floor relaxation with a small cystocele. There are no suspicious hepatic lesions. The gallbladder, spleen, adrenal glands, pancreas and kidneys are unremarkable. IMPRESSION: 1. A 17 cm segment of wall thickening along the descending/sigmoid junction is more likely inflammatory than neoplastic given the length of the segment. Lymphoma could be considered as a neoplastic etiology. Endoscopy is recommended to exclude an underlying lesion. Enlarged adjacent mesenteric lymph nodes are likely reactive in the absence of identifiable malignancy. 2. Mild constipation more proximally. 3. Small hiatal hernia. 4. Pelvic floor relaxation with a cystocele. VTE Prophylaxis Ordered VTE Prophylaxis Devices: Yes VTE Pharmacological Prophylaxi: Yes Assessment/Plan Assessment/Plan A/P: Nausea and vomiting - likely from colitis/enteritis. // IV antiemetics. Consult GI. Abdominal pain - with colitis and h/o diverticulitis, admit for IV antibiotics Abnormal CT - 7 cm segment of wall thickening along the descending/sigmoid junction w/ lymphadenopathy and stranding - similar findings on 2 earlier CTs from this year and in 2014 Schatzki's ring/dilation - H/o GERD, dysphagia Constipation - with diarrhea, previously thought IBD, but no evidence of this. Will check CRP Hemorrhoids - likely etiology of blood in stool FEN - NPO, ADAT if ok with GI PPX - lovenox FULL CODE Dispo - inpatient for 2 midnights Gen surgery consult, recurrent colitis Vitals Vitals Vital Signs Date Time Temp Pulse Resp B/P (MAP) Pulse Ox O2 Delivery O2 Flow Rate FiO2 12/01/19 07:00 98.1 66 18 103/64 (77) 94 Room Air 98.1 Physical Exam General: Alert, Oriented X3, Cooperative, moderate distress Lungs: Clear Abdomen: Normal bowel sounds, Soft, No hepatosplenomegaly, No masses, Other (LUQ and LLQ tenderness) Extremities: No clubbing, No cyanosis, No edema, Normal pulses, No tenderness/swelling Skin: No rashes, No breakdown, No significant lesion Labs LABS Laboratory Tests Test 11/30/19 11:10 11/30/19 12:00 White Blood Count 5.6 x10^3/uL (4.0-11.0) Red Blood Count 4.83 x10^6/uL (3.50-5.40) Hemoglobin 14.4 g/dL (12.0-15.5) Hematocrit 43.0 % (36.0-47.0) Mean Corpuscular Volume 89 fL (79-100) Mean Corpuscular Hemoglobin 30 pg (25-35) Mean Corpuscular Hemoglobin Concent 34 g/dL (31-37) Red Cell Distribution Width 15.5 % (11.5-14.5) Platelet Count 277 x10^3/uL (140-400) Neutrophils (%) (Auto) 68 % (31-73) Lymphocytes (%) (Auto) 19 % (24-48) Monocytes (%) (Auto) 11 % (0-9) Eosinophils (%) (Auto) 1 % (0-3) Basophils (%) (Auto) 0 % (0-3) Neutrophils # (Auto) 3.8 x10^3/uL (1.8-7.7) Lymphocytes # (Auto) 1.1 x10^3/uL (1.0-4.8) Monocytes # (Auto) 0.6 x10^3/uL (0.0-1.1) Eosinophils # (Auto) 0.1 x10^3/uL (0.0-0.7) Basophils # (Auto) 0.0 x10^3/uL (0.0-0.2) Urine Collection Type Unknown Urine Color Laura Urine Clarity Clear Urine pH 6.0 (<5.0-8.0) Urine Specific [place] 1.015 (1.000-1.030) Urine Protein Negative mg/dL (NEG-TRACE) Urine Glucose (UA) Negative mg/dL (NEG) Urine Ketones (Stick) Negative mg/dL (NEG) Urine Blood Negative (NEG) Urine Nitrite Negative (NEG) Urine Bilirubin Negative (NEG) Urine Urobilinogen Dipstick 1.0 mg/dL (0.2 mg/dL) Urine Leukocyte Esterase Small (NEG) Urine RBC 0 /HPF (0-2) Urine WBC 1-4 /HPF (0-4) Urine Squamous Epithelial Cells Few /LPF Urine Transitional Epithelial Cells Occ /LPF Urine Bacteria Few /HPF (0-FEW) Urine Mucus Mod /LPF Sodium Level 143 mmol/L (136-145) Potassium Level 3.7 mmol/L (3.5-5.1) Chloride Level 104 mmol/L (98-107) Carbon Dioxide Level 27 mmol/L (21-32) Anion Gap 12 (6-14) Blood Urea Nitrogen 13 mg/dL (7-20) Creatinine 0.9 mg/dL (0.6-1.0) Estimated GFR (Cockcroft-Gault) 64.8 BUN/Creatinine Ratio 14 (6-20) Glucose Level 118 mg/dL (70-99) Calcium Level 9.4 mg/dL (8.5-10.1) Total Bilirubin 0.2 mg/dL (0.2-1.0) Aspartate Amino Transf (AST/SGOT) 16 U/L (15-37) Alanine Aminotransferase (ALT/SGPT) 28 U/L (14-59) Alkaline Phosphatase 112 U/L (46-116) C-Reactive Protein, Quantitative 2.7 mg/L (0-3.3) Total Protein 8.0 g/dL (6.4-8.2) Albumin 4.1 g/dL (3.4-5.0) Albumin/Globulin Ratio 1.1 (1.0-1.7) Lipase 75 U/L (73-393) Stool Occult Blood Positive (NEG) Assessment and Plan Assessmemt and Plan Problems Medical Problems: (1) Colitis Status: Acute Comment Review of Relevant I have reviewed the following items so (where applicable) has been applied. Labs Laboratory Tests Test 11/30/19 11:10 11/30/19 12:00 White Blood Count 5.6 x10^3/uL (4.0-11.0) Red Blood Count 4.83 x10^6/uL (3.50-5.40) Hemoglobin 14.4 g/dL (12.0-15.5) Hematocrit 43.0 % (36.0-47.0) Mean Corpuscular Volume 89 fL (79-100) Mean Corpuscular Hemoglobin 30 pg (25-35) Mean Corpuscular Hemoglobin Concent 34 g/dL (31-37) Red Cell Distribution Width 15.5 % (11.5-14.5) Platelet Count 277 x10^3/uL (140-400) Neutrophils (%) (Auto) 68 % (31-73) Lymphocytes (%) (Auto) 19 % (24-48) Monocytes (%) (Auto) 11 % (0-9) Eosinophils (%) (Auto) 1 % (0-3) Basophils (%) (Auto) 0 % (0-3) Neutrophils # (Auto) 3.8 x10^3/uL (1.8-7.7) Lymphocytes # (Auto) 1.1 x10^3/uL (1.0-4.8) Monocytes # (Auto) 0.6 x10^3/uL (0.0-1.1) Eosinophils # (Auto) 0.1 x10^3/uL (0.0-0.7) Basophils # (Auto) 0.0 x10^3/uL (0.0-0.2) Urine Collection Type Unknown Urine Color Laura Urine Clarity Clear Urine pH 6.0 (<5.0-8.0) Urine Specific [place] 1.015 (1.000-1.030) Urine Protein Negative mg/dL (NEG-TRACE) Urine Glucose (UA) Negative mg/dL (NEG) Urine Ketones (Stick) Negative mg/dL (NEG) Urine Blood Negative (NEG) Urine Nitrite Negative (NEG) Urine Bilirubin Negative (NEG) Urine Urobilinogen Dipstick 1.0 mg/dL (0.2 mg/dL) Urine Leukocyte Esterase Small (NEG) Urine RBC 0 /HPF (0-2) Urine WBC 1-4 /HPF (0-4) Urine Squamous Epithelial Cells Few /LPF Urine Transitional Epithelial Cells Occ /LPF Urine Bacteria Few /HPF (0-FEW) Urine Mucus Mod /LPF Sodium Level 143 mmol/L (136-145) Potassium Level 3.7 mmol/L (3.5-5.1) Chloride Level 104 mmol/L (98-107) Carbon Dioxide Level 27 mmol/L (21-32) Anion Gap 12 (6-14) Blood Urea Nitrogen 13 mg/dL (7-20) Creatinine 0.9 mg/dL (0.6-1.0) Estimated GFR (Cockcroft-Gault) 64.8 BUN/Creatinine Ratio 14 (6-20) Glucose Level 118 mg/dL (70-99) Calcium Level 9.4 mg/dL (8.5-10.1) Total Bilirubin 0.2 mg/dL (0.2-1.0) Aspartate Amino Transf (AST/SGOT) 16 U/L (15-37) Alanine Aminotransferase (ALT/SGPT) 28 U/L (14-59) Alkaline Phosphatase 112 U/L (46-116) C-Reactive Protein, Quantitative 2.7 mg/L (0-3.3) Total Protein 8.0 g/dL (6.4-8.2) Albumin 4.1 g/dL (3.4-5.0) Albumin/Globulin Ratio 1.1 (1.0-1.7) Lipase 75 U/L (73-393) Stool Occult Blood Positive (NEG) Laboratory Tests Test 11/30/19 11:10 11/30/19 12:00 White Blood Count 5.6 x10^3/uL (4.0-11.0) Red Blood Count 4.83 x10^6/uL (3.50-5.40) Hemoglobin 14.4 g/dL (12.0-15.5) Hematocrit 43.0 % (36.0-47.0) Mean Corpuscular Volume 89 fL (79-100) Mean Corpuscular Hemoglobin 30 pg (25-35) Mean Corpuscular Hemoglobin Concent 34 g/dL (31-37) Red Cell Distribution Width 15.5 % (11.5-14.5) Platelet Count 277 x10^3/uL (140-400) Neutrophils (%) (Auto) 68 % (31-73) Lymphocytes (%) (Auto) 19 % (24-48) Monocytes (%) (Auto) 11 % (0-9) Eosinophils (%) (Auto) 1 % (0-3) Basophils (%) (Auto) 0 % (0-3) Neutrophils # (Auto) 3.8 x10^3/uL (1.8-7.7) Lymphocytes # (Auto) 1.1 x10^3/uL (1.0-4.8) Monocytes # (Auto) 0.6 x10^3/uL (0.0-1.1) Eosinophils # (Auto) 0.1 x10^3/uL (0.0-0.7) Basophils # (Auto) 0.0 x10^3/uL (0.0-0.2) Urine Collection Type Unknown Urine Color Laura Urine Clarity Clear Urine pH 6.0 (<5.0-8.0) Urine Specific [place] 1.015 (1.000-1.030) Urine Protein Negative mg/dL (NEG-TRACE) Urine Glucose (UA) Negative mg/dL (NEG) Urine Ketones (Stick) Negative mg/dL (NEG) Urine Blood Negative (NEG) Urine Nitrite Negative (NEG) Urine Bilirubin Negative (NEG) Urine Urobilinogen Dipstick 1.0 mg/dL (0.2 mg/dL) Urine Leukocyte Esterase Small (NEG) Urine RBC 0 /HPF (0-2) Urine WBC 1-4 /HPF (0-4) Urine Squamous Epithelial Cells Few /LPF Urine Transitional Epithelial Cells Occ /LPF Urine Bacteria Few /HPF (0-FEW) Urine Mucus Mod /LPF Sodium Level 143 mmol/L (136-145) Potassium Level 3.7 mmol/L (3.5-5.1) Chloride Level 104 mmol/L (98-107) Carbon Dioxide Level 27 mmol/L (21-32) Anion Gap 12 (6-14) Blood Urea Nitrogen 13 mg/dL (7-20) Creatinine 0.9 mg/dL (0.6-1.0) Estimated GFR (Cockcroft-Gault) 64.8 BUN/Creatinine Ratio 14 (6-20) Glucose Level 118 mg/dL (70-99) Calcium Level 9.4 mg/dL (8.5-10.1) Total Bilirubin 0.2 mg/dL (0.2-1.0) Aspartate Amino Transf (AST/SGOT) 16 U/L (15-37) Alanine Aminotransferase (ALT/SGPT) 28 U/L (14-59) Alkaline Phosphatase 112 U/L (46-116) C-Reactive Protein, Quantitative 2.7 mg/L (0-3.3) Total Protein 8.0 g/dL (6.4-8.2) Albumin 4.1 g/dL (3.4-5.0) Albumin/Globulin Ratio 1.1 (1.0-1.7) Lipase 75 U/L (73-393) Stool Occult Blood Positive (NEG) Medications Current Medications Iohexol (Omnipaque 300 Mg/ml) 75 ml 1X ONCE IV Last administered on 11/30/19at 12:07; Start 11/30/19 at 12:00; Stop 11/30/19 at 12:01; Status DC Info (CONTRAST GIVEN -- Rx MONITORING) 1 each PRN DAILY PRN MC SEE COMMENTS; Start 11/30/19 at 12:00; Stop 12/02/19 at 11:59 Sodium Chloride 1,000 ml @ 1,000 mls/hr 1X ONCE IV Last administered on 11/30/19at 12:36; Start 11/30/19 at 12:15; Stop 11/30/19 at 13:14; Status DC Ondansetron HCl (Zofran) 4 mg 1X ONCE IV Last administered on 11/30/19at 12:36; Start 11/30/19 at 12:15; Stop 11/30/19 at 12:16; Status DC Ondansetron HCl (Zofran) 4 mg PRN Q4HRS PRN IV NAUSEA/VOMITING; Start 11/30/19 at 14:45 Zolpidem Tartrate (Ambien) 5 mg PRN QHS PRN PO INSOMNIA; Start 11/30/19 at 14:45 Acetaminophen (Tylenol) 650 mg PRN Q4HRS PRN PO TEMP OVER 100.4F OR MILD PAIN; Start 11/30/19 at 14:45 Diphenhydramine HCl (Benadryl) 25 mg PRN Q4HRS PRN IVP ITCHING; Start 11/30/19 at 14:45 Metronidazole 100 ml @ 100 mls/hr Q8HRS IV Last administered on 12/01/19at 06:24; Start 11/30/19 at 16:00 Ciprofloxacin/ Dextrose 200 ml @ 200 mls/hr Q12HR IV Last administered on 12/01/19at 08:52; Start 11/30/19 at 17:00 Pantoprazole Sodium (PROTONIX VIAL for IV PUSH) 40 mg DAILYAC IVP Last administered on 12/01/19at 08:52; Start 11/30/19 at 16:00 Albuterol Sulfate (Ventolin Neb Soln) 2.5 mg PRN Q6HRS PRN INH SHORTNESS OF BREATH Last administered on 11/30/19at 20:09; Start 11/30/19 at 16:30 Aspirin (Ecotrin) 325 mg DAILYWBKFT PO ; Start 12/01/19 at 08:00 Atorvastatin Calcium (Lipitor) 40 mg QHS PO Last administered on 11/30/19at 20:32; Start 11/30/19 at 21:00 Vitamin D (Vitamin D3) 1,000 unit DAILY PO ; Start 12/01/19 at 09:00 Lorazepam (Ativan) 0.5 mg HS PO Last administered on 11/30/19at 20:32; Start 11/30/19 at 21:00 Montelukast Sodium (Singulair) 10 mg QHS PO Last administered on 11/30/19at 20:32; Start 11/30/19 at 21:00 Vitamin B Complex (Per B) 1 tab DAILY PO Last administered on 12/01/19at 08:52; Start 12/01/19 at 09:00 Non-Formulary Medication (Ubidecarenone (Coq-10)) 30 mg DAILY PO ; Start 12/01/19 at 09:00; Status UNV Active Scripts Active Montelukast Sodium Tablet (Montelukast Sodium) 10 Mg Tablet 1 Tab PO QHS 30 Days Aspirin Ec (Aspirin) 325 Mg Tablet.dr 325 Mg PO DAILYWBKFT 30 Days Reported Metformin Hcl 500 Mg Tablet 500 Mg PO DAILY16 Coq-10 (Ubidecarenone) 30 Mg Capsule 30 Mg PO DAILY Calcium (Calcium Carbonate) 500 Mg Tab.chew 500 Mg PO DAILY Aleve (Naproxen Sodium) 220 Mg Capsule 220 Mg PO BID [genexa allergy d] DAILY Atorvastatin Calcium 40 Mg Tablet 1 Tab PO QHS Vitamin D3 (Cholecalciferol (Vitamin D3)) 1,000 Unit Tablet 1 Tab PO DAILY Vitamin C (Ascorbic Acid) 500 Mg Capsule.er 500 Mg PO DAILY B Complex (Vitamin B Complex) 1 Each Tablet 1 Each PO DAILY Multivitamins (Multivitamin) 1 Each Tablet 1 Tab PO DAILY Glucosamine & Chondroitin Cap (Gluc 2KCL/Chondr/Adarsh Hy/Hy Ac) 1 Each Capsule 1 Each PO DAILY Fiber Gummies (Inulin) 2 Gm Tab.chew 2 Gm PO DAILY Melatonin 3 Mg Tablet 1 Tab PO QHS Proair Hfa (Albuterol Sulfate) 8.5 Gm Hfa.aer.ad 1 Puff INH PRN Q6HRS PRN Flonase Allergy Relief (Fluticasone Propionate) 9.9 Ml [place].susp 2 Sprays NS DAILY Barbara Allergy (Fexofenadine Hcl) 180 Mg Tablet 1 Tab PO DAILY Omeprazole 20 Mg Tablet.dr 1 Tab PO DAILY Lorazepam 0.5 Mg Tablet 0.5 Mg PO HS Vitals/I & O Vital Sign - Last 24 Hours 11/30/19 11/30/19 11/30/19 11/30/19 10:53 11:30 14:40 19:00 Temp 98.3 98.0 98.3 98.0 Pulse 86 84 72 72 Resp 18 18 B/P (MAP) 129/78 (95) 118/80 (93) 149/84 (105) 112/61 (78) Pulse Ox 96 96 96 91 O2 Delivery Room Air Room Air Room Air Room Air 11/30/19 11/30/19 11/30/19 12/01/19 19:45 20:10 23:00 03:00 Temp 98.3 98.3 98.3 98.3 Pulse 86 70 Resp 18 18 B/P (MAP) 115/74 (88) 103/68 (80) Pulse Ox 95 93 94 O2 Delivery Room Air Room Air Room Air Room Air 12/01/19 07:00 Temp 98.1 98.1 Pulse 66 Resp 18 B/P (MAP) 103/64 (77) Pulse Ox 94 O2 Delivery Room Air Intake and Output 11/30/19 11/30/19 12/01/19 15:00 23:00 07:00 Intake Total 1000 ml 100 ml Balance 1000 ml 100 ml Justicifation of Admission Dx: Justifications for Admission: Justification of Admission Dx: Yes JUVENCIO GÓMEZ MD Dec 01, 2019 09:16
--- NOTE | 2019-12-01 09:25 | PDOC ---
Subjective: Subjective: Tolerating clear liquids - nausea much better. Abd pain better but still bloated. Mentions a couple times how fatigued she is - not like her. Objective: Vital Signs: Vital Signs Date Time Temp Pulse Resp B/P (MAP) Pulse Ox O2 Delivery O2 Flow Rate FiO2 12/01/19 07:00 98.1 66 18 103/64 (77) 94 Room Air 98.1 PE: GEN: NAD LUNGS: CTAB HEART: RRR ABD: quiet BS, soft, less discomfort to left NEURO/PSYCH: A & O 3, smiling and cooperative A/P: Fatigue, bloating, abd pain, change in bowel habits H/o recurrent diverticulitis - last colonoscopy 07/[address] - 7 cm segment of wall thickening along the descending/sigmoid junction w/ lymphadenopathy and stranding -- Keep to clears and IV atbx for now, will return to see w/ Dr. Sears. Outpt colonoscopy once acute issue resolved. Can change to PO PPI for h/o GERD and Schatzki's ring/past dilation. Note labs to be rechecked. Justicifation of Admission Dx: Justifications for Admission: Justification of Admission Dx: Yes ABDON WHEELER Dec 01, 2019 09:25
[2019-12-01 11:00] VITALS: BP 120/77
[2019-12-01 11:08] LABS: BASO % 1 % (0-3); EOS # 0.1 x10^3/uL (0.0-0.7); EOS % 2 % (0-3); HEMATOCRIT 39.3 % (36.0-47.0); HEMOGLOBIN 13.1 g/dL (12.0-15.5); LYMPH # 1.2 x10^3/uL (1.0-4.8); LYMPH % 23 % (24-48); MEAN CORPUSCULAR HEMOGLOBIN 30 pg (25-35); MEAN CORPUSCULAR HGB CONC 33 g/dL (31-37); MEAN CORPUSCULAR VOLUME 89 fL (79-100); MONO # 0.8 x10^3/uL (0.0-1.1); MONO % 14 % (0-9); NEUT # 3.2 x10^3/uL (1.8-7.7); NEUT % 61 % (31-73); PLATELET COUNT 260 x10^3/uL (140-400); RED BLOOD COUNT 4.44 x10^6/uL (3.50-5.40); RED CELL DISTRIBUTION WIDTH 15.2 % (11.5-14.5); WHITE BLOOD COUNT 5.3 x10^3/uL (4.0-11.0)
[2019-12-01 11:21] LABS: CALCIUM 8.8 mg/dL (8.5-10.1); CREATININE 0.8 mg/dL (0.6-1.0); GFR 74.2; POTASSIUM 3.7 mmol/L (3.5-5.1)
--- NOTE | 2019-12-01 12:04 | PDOC2 ---
CONSULT Date of Consult Date of Consult DATE: 12/01/19 TIME: 11:56 Reason for Consult Reason for Consult: diverticulitis Referring Physician Referring Physician: Dr Sears Identification/Chief Complaint Chief Complaint abdominal pain Source Source: Chart review, Patient History of Present Illness Reason for Visit: A week of abdominal pain, bloody stools. This has been a reoccurring issues for many years, however over last 2 years has been worse. Has been on abx for this in past. Colonoscopy in past, diverticulitis. Plans for rescope, however not done yet with Covid precautions. Very fatigued. Pain is improved. Past Medical History GI: Diverticulosis Heme/Onc: Cancer Past Surgical History Past Surgical History: Mastectomy, Hysterectomy, Other Family History Family History: Cancer (Colon) Social History No ALCOHOL: occassional Drugs: None Current Problem List Problem List Problems Medical Problems: (1) Colitis Status: Acute Current Medications Current Medications Current Medications Iohexol (Omnipaque 300 Mg/ml) 75 ml 1X ONCE IV Last administered on 11/30/19at 12:07; Start 11/30/19 at 12:00; Stop 11/30/19 at 12:01; Status DC Info (CONTRAST GIVEN -- Rx MONITORING) 1 each PRN DAILY PRN MC SEE COMMENTS; Start 11/30/19 at 12:00; Stop 12/02/19 at 11:59 Sodium Chloride 1,000 ml @ 1,000 mls/hr 1X ONCE IV Last administered on 11/30/19at 12:36; Start 11/30/19 at 12:15; Stop 11/30/19 at 13:14; Status DC Ondansetron HCl (Zofran) 4 mg 1X ONCE IV Last administered on 11/30/19at 12:36; Start 11/30/19 at 12:15; Stop 11/30/19 at 12:16; Status DC Ondansetron HCl (Zofran) 4 mg PRN Q4HRS PRN IV NAUSEA/VOMITING; Start 11/30/19 at 14:45 Zolpidem Tartrate (Ambien) 5 mg PRN QHS PRN PO INSOMNIA; Start 11/30/19 at 14:45 Acetaminophen (Tylenol) 650 mg PRN Q4HRS PRN PO TEMP OVER 100.4F OR MILD PAIN; Start 11/30/19 at 14:45 Diphenhydramine HCl (Benadryl) 25 mg PRN Q4HRS PRN IVP ITCHING; Start 11/30/19 at 14:45 Metronidazole 100 ml @ 100 mls/hr Q8HRS IV Last administered on 12/01/19at 06:24; Start 11/30/19 at 16:00 Ciprofloxacin/ Dextrose 200 ml @ 200 mls/hr Q12HR IV Last administered on 12/01/19at 08:52; Start 11/30/19 at 17:00 Pantoprazole Sodium (PROTONIX VIAL for IV PUSH) 40 mg DAILYAC IVP Last administered on 12/01/19at 08:52; Start 11/30/19 at 16:00; Stop 12/01/19 at 09:26; Status DC Albuterol Sulfate (Ventolin Neb Soln) 2.5 mg PRN Q6HRS PRN INH SHORTNESS OF KAILEY ATH Last administered on 11/30/19at 20:09; Start 11/30/19 at 16:30 Aspirin (Ecotrin) 325 mg DAILYWBKFT PO ; Start 12/01/19 at 08:00 Atorvastatin Calcium (Lipitor) 40 mg QHS PO Last administered on 11/30/19at 20:32; Start 11/30/19 at 21:00 Vitamin D (Vitamin D3) 1,000 unit DAILY PO ; Start 12/01/19 at 09:00 Lorazepam (Ativan) 0.5 mg HS PO Last administered on 11/30/19at 20:32; Start 11/30/19 at 21:00 Montelukast Sodium (Singulair) 10 mg QHS PO Last administered on 11/30/19at 20:32; Start 11/30/19 at 21:00 Vitamin B Complex (Per B) 1 tab DAILY PO Last administered on 12/01/19at 08:52; Start 12/01/19 at 09:00 Non-Formulary Medication (Ubidecarenone (Coq-10)) 30 mg DAILY PO ; Start 12/01/19 at 09:00; Status UNV Pantoprazole Sodium (Protonix) 40 mg DAILYAC PO ; Start 12/02/19 at 07:30 Active Scripts Active Montelukast Sodium Tablet (Montelukast Sodium) 10 Mg Tablet 1 Tab PO QHS 30 Days Aspirin Ec (Aspirin) 325 Mg Tablet.dr 325 Mg PO DAILYWBKFT 30 Days Reported Metformin Hcl 500 Mg Tablet 500 Mg PO DAILY16 Coq-10 (Ubidecarenone) 30 Mg Capsule 30 Mg PO DAILY Calcium (Calcium Carbonate) 500 Mg Tab.chew 500 Mg PO DAILY Aleve (Naproxen Sodium) 220 Mg Capsule 220 Mg PO BID [genexa allergy d] DAILY Atorvastatin Calcium 40 Mg Tablet 1 Tab PO QHS Vitamin D3 (Cholecalciferol (Vitamin D3)) 1,000 Unit Tablet 1 Tab PO DAILY Vitamin C (Ascorbic Acid) 500 Mg Capsule.er 500 Mg PO DAILY B Complex (Vitamin B Complex) 1 Each Tablet 1 Each PO DAILY Multivitamins (Multivitamin) 1 Each Tablet 1 Tab PO DAILY Glucosamine & Chondroitin Cap (Gluc 2KCL/Chondr/Adarsh Hy/Hy Ac) 1 Each Capsule 1 Each PO DAILY Fiber Gummies (Inulin) 2 Gm Tab.chew 2 Gm PO DAILY Melatonin 3 Mg Tablet 1 Tab PO QHS Proair Hfa (Albuterol Sulfate) 8.5 Gm Hfa.aer.ad 1 Puff INH PRN Q6HRS PRN Flonase Allergy Relief (Fluticasone Propionate) 9.9 Ml [place].susp 2 Sprays NS DAILY Barbara Allergy (Fexofenadine Hcl) 180 Mg Tablet 1 Tab PO DAILY Omeprazole 20 Mg Tablet. 1 Tab PO DAILY Lorazepam 0.5 Mg Tablet 0.5 Mg PO HS Allergies Allergies: Coded Allergies: No Known Drug Allergies (Unverified , 08/12/18) ROS General: YES: Fatigue; No: Chills, Other (fevers ) PSYCHOLOGICAL ROS: No: Anxiety, Depression Eyes: No Blurry vision, No Double vision HEENT: No: Heacaches, Sore Throat Respiratory: No: Cough, SOB with excertion Cardiovascular: No Chest Pain, No Palpitations Gastrointestinal: Yes Other (see hpi) Genitourinary: No Dysuria, No Retention Musculoskeletal: No Joint Pain, No Muscle Pain Neurological: No Impaired Coord/balance, No Numbness/Tingling Skin: No Pruritus, No Rash Physical Exam General: Alert, Oriented X3, Cooperative HEENT: Atraumatic, PERRLA Lungs: Clear to auscultation, Normal air movement Heart: Regular rate, Normal S1, Normal S2 Abdomen: Soft, No tenderness Extremities: No clubbing, No cyanosis Skin: No rashes, No breakdown Neuro: Normal gait, Normal speech Psych/Mental Status: Mental status NL, Mood NL MUSCULOSKELETAL: No deformity, No swelling Vitals VITALS Vital Signs Date Time Temp Pulse Resp B/P (MAP) Pulse Ox O2 Delivery O2 Flow Rate FiO2 12/01/19 11:00 98.3 72 18 120/77 (91) 96 Room Air 98.3 Labs Labs Laboratory Tests Test 11/30/19 11:10 11/30/19 12:00 12/01/19 10:55 White Blood Count 5.6 x10^3/uL (4.0-11.0) 5.3 x10^3/uL (4.0-11.0) Red Blood Count 4.83 x10^6/uL (3.50-5.40) 4.44 x10^6/uL (3.50-5.40) Hemoglobin 14.4 g/dL (12.0-15.5) 13.1 g/dL (12.0-15.5) Hematocrit 43.0 % (36.0-47.0) 39.3 % (36.0-47.0) Mean Corpuscular Volume 89 fL (79-100) 89 fL (79-100) Mean Corpuscular Hemoglobin 30 pg (25-35) 30 pg (25-35) Mean Corpuscular Hemoglobin Concent 34 g/dL (31-37) 33 g/dL (31-37) Red Cell Distribution Width 15.5 % (11.5-14.5) 15.2 % (11.5-14.5) Platelet Count 277 x10^3/uL (140-400) 260 x10^3/uL (140-400) Neutrophils (%) (Auto) 68 % (31-73) 61 % (31-73) Lymphocytes (%) (Auto) 19 % (24-48) 23 % (24-48) Monocytes (%) (Auto) 11 % (0-9) 14 % (0-9) Eosinophils (%) (Auto) 1 % (0-3) 2 % (0-3) Basophils (%) (Auto) 0 % (0-3) 1 % (0-3) Neutrophils # (Auto) 3.8 x10^3/uL (1.8-7.7) 3.2 x10^3/uL (1.8-7.7) Lymphocytes # (Auto) 1.1 x10^3/uL (1.0-4.8) 1.2 x10^3/uL (1.0-4.8) Monocytes # (Auto) 0.6 x10^3/uL (0.0-1.1) 0.8 x10^3/uL (0.0-1.1) Eosinophils # (Auto) 0.1 x10^3/uL (0.0-0.7) 0.1 x10^3/uL (0.0-0.7) Basophils # (Auto) 0.0 x10^3/uL (0.0-0.2) 0.0 x10^3/uL (0.0-0.2) Urine Collection Type Unknown Urine Color Laura Urine Clarity Clear Urine pH 6.0 (<5.0-8.0) Urine Specific [place] 1.015 (1.000-1.030) Urine Protein Negative mg/dL (NEG-TRACE) Urine Glucose (UA) Negative mg/dL (NEG) Urine Ketones (Stick) Negative mg/dL (NEG) Urine Blood Negative (NEG) Urine Nitrite Negative (NEG) Urine Bilirubin Negative (NEG) Urine Urobilinogen Dipstick 1.0 mg/dL (0.2 mg/dL) Urine Leukocyte Esterase Small (NEG) Urine RBC 0 /HPF (0-2) Urine WBC 1-4 /HPF (0-4) Urine Squamous Epithelial Cells Few /LPF Urine Transitional Epithelial Cells Occ /LPF Urine Bacteria Few /HPF (0-FEW) Urine Mucus Mod /LPF Sodium Level 143 mmol/L (136-145) 142 mmol/L (136-145) Potassium Level 3.7 mmol/L (3.5-5.1) 3.7 mmol/L (3.5-5.1) Chloride Level 104 mmol/L (98-107) 107 mmol/L (98-107) Carbon Dioxide Level 27 mmol/L (21-32) 25 mmol/L (21-32) Anion Gap 12 (6-14) 10 (6-14) Blood Urea Nitrogen 13 mg/dL (7-20) 9 mg/dL (7-20) Creatinine 0.9 mg/dL (0.6-1.0) 0.8 mg/dL (0.6-1.0) Estimated GFR (Cockcroft-Gault) 64.8 74.2 BUN/Creatinine Ratio 14 (6-20) Glucose Level 118 mg/dL (70-99) 105 mg/dL (70-99) Calcium Level 9.4 mg/dL (8.5-10.1) 8.8 mg/dL (8.5-10.1) Total Bilirubin 0.2 mg/dL (0.2-1.0) Aspartate Amino Transf (AST/SGOT) 16 U/L (15-37) Alanine Aminotransferase (ALT/SGPT) 28 U/L (14-59) Alkaline Phosphatase 112 U/L (46-116) C-Reactive Protein, Quantitative 2.7 mg/L (0-3.3) Total Protein 8.0 g/dL (6.4-8.2) Albumin 4.1 g/dL (3.4-5.0) Albumin/Globulin Ratio 1.1 (1.0-1.7) Lipase 75 U/L (73-393) Stool Occult Blood Positive (NEG) Laboratory Tests Test 11/30/19 12:00 12/01/19 10:55 Stool Occult Blood Positive (NEG) White Blood Count 5.3 x10^3/uL (4.0-11.0) Red Blood Count 4.44 x10^6/uL (3.50-5.40) Hemoglobin 13.1 g/dL (12.0-15.5) Hematocrit 39.3 % (36.0-47.0) Mean Corpuscular Volume 89 fL (79-100) Mean Corpuscular Hemoglobin 30 pg (25-35) Mean Corpuscular Hemoglobin Concent 33 g/dL (31-37) Red Cell Distribution Width 15.2 % (11.5-14.5) Platelet Count 260 x10^3/uL (140-400) Neutrophils (%) (Auto) 61 % (31-73) Lymphocytes (%) (Auto) 23 % (24-48) Monocytes (%) (Auto) 14 % (0-9) Eosinophils (%) (Auto) 2 % (0-3) Basophils (%) (Auto) 1 % (0-3) Neutrophils # (Auto) 3.2 x10^3/uL (1.8-7.7) Lymphocytes # (Auto) 1.2 x10^3/uL (1.0-4.8) Monocytes # (Auto) 0.8 x10^3/uL (0.0-1.1) Eosinophils # (Auto) 0.1 x10^3/uL (0.0-0.7) Basophils # (Auto) 0.0 x10^3/uL (0.0-0.2) Sodium Level 142 mmol/L (136-145) Potassium Level 3.7 mmol/L (3.5-5.1) Chloride Level 107 mmol/L (98-107) Carbon Dioxide Level 25 mmol/L (21-32) Anion Gap 10 (6-14) Blood Urea Nitrogen 9 mg/dL (7-20) Creatinine 0.8 mg/dL (0.6-1.0) Estimated GFR (Cockcroft-Gault) 74.2 Glucose Level 105 mg/dL (70-99) Calcium Level 8.8 mg/dL (8.5-10.1) Assessment/Plan Assessment/Plan diverticulitis abx, bowel rest outpt scope once resolved [address] THRU ORDER TAKER Dec 01, 2019 12:04
--- NOTE | 2019-12-01 14:55 | NUR ---
SS following for discharge planning. SS reviewed pt chart and discussed with pt RN. Pt is from home with spouse and is currently on room air. Pt on IV Cipro. Possible discharge to home over the weekend. SS will continue to follow for discharge planning.
[2019-12-01 15:00] VITALS: BP 121/82
[2019-12-01 19:30] VITALS: BP 108/70
[2019-12-01] MEDS: ATORVASTATIN CALCIUM 40 MG TABLET. PO SCH (21:14)
[2019-12-01] MEDS: MONTELUKAST SODIUM 10 MG TABLET. PO SCH (21:14)
[2019-12-01] MEDS: LORazepam 0.5 MG TABLET PO SCH (21:14)
[2019-12-01] MEDS: LACTOBACILLUS RHAMNOSUS GG 1 CAPSULE. PO SCH (21:14)
[2019-12-01 23:00] VITALS: BP 95/70
[2019-12-02 03:00] VITALS: BP 95/75
[2019-12-02 07:00] VITALS: BP 146/71
[2019-12-02] MEDS ORDERED: PANTOPRAZOLE 40 MG TABLET.DR. PO SCH (07:30)
[2019-12-02] MEDS: CHOLECALCIFEROL (VITAMIN D3) 1,000 UNIT TABLET PO SCH (07:35)
[2019-12-02] MEDS: ASPIRIN ENTERIC COATED 325 MG TABLET.DR. PO SCH (07:35)
[2019-12-02] MEDS: LACTOBACILLUS RHAMNOSUS GG 1 CAPSULE. PO SCH (08:01)
[2019-12-02] MEDS: VITAMIN B COMPLEX TABLET. PO SCH (08:01)
[2019-12-02] MEDS: CIPROFLOXACIN 400MG PREMIX 200 ML IV SCH (08:02)
[2019-12-02 11:00] VITALS: BP 148/70
--- NOTE | 2019-12-02 11:14 | PDOC ---
SURGICAL PROGRESS NOTE Subjective Pt with c/o some bleeding and LLQ pain, but improved, mya soft diet. No N/V Vital Signs Vital Signs Date Time Temp Pulse Resp B/P (MAP) Pulse Ox O2 Delivery O2 Flow Rate FiO2 12/02/19 07:00 98.6 89 20 146/71 (96) 94 Room Air 98.6 I&O Intake and Output 12/02/19 07:00 Intake Total 700 ml Balance 700 ml Intake Oral 300 ml IV Total 400 ml # Voids 6 General: Alert, Oriented X3, Cooperative, No acute distress Abdomen: Soft, No tenderness, No masses Labs Laboratory Tests Test 11/30/19 12:00 12/01/19 10:55 Stool Occult Blood Positive (NEG) White Blood Count 5.3 x10^3/uL (4.0-11.0) Red Blood Count 4.44 x10^6/uL (3.50-5.40) Hemoglobin 13.1 g/dL (12.0-15.5) Hematocrit 39.3 % (36.0-47.0) Mean Corpuscular Volume 89 fL (79-100) Mean Corpuscular Hemoglobin 30 pg (25-35) Mean Corpuscular Hemoglobin Concent 33 g/dL (31-37) Red Cell Distribution Width 15.2 % (11.5-14.5) Platelet Count 260 x10^3/uL (140-400) Neutrophils (%) (Auto) 61 % (31-73) Lymphocytes (%) (Auto) 23 % (24-48) Monocytes (%) (Auto) 14 % (0-9) Eosinophils (%) (Auto) 2 % (0-3) Basophils (%) (Auto) 1 % (0-3) Neutrophils # (Auto) 3.2 x10^3/uL (1.8-7.7) Lymphocytes # (Auto) 1.2 x10^3/uL (1.0-4.8) Monocytes # (Auto) 0.8 x10^3/uL (0.0-1.1) Eosinophils # (Auto) 0.1 x10^3/uL (0.0-0.7) Basophils # (Auto) 0.0 x10^3/uL (0.0-0.2) Sodium Level 142 mmol/L (136-145) Potassium Level 3.7 mmol/L (3.5-5.1) Chloride Level 107 mmol/L (98-107) Carbon Dioxide Level 25 mmol/L (21-32) Anion Gap 10 (6-14) Blood Urea Nitrogen 9 mg/dL (7-20) Creatinine 0.8 mg/dL (0.6-1.0) Estimated GFR (Cockcroft-Gault) 74.2 Glucose Level 105 mg/dL (70-99) Calcium Level 8.8 mg/dL (8.5-10.1) Problem List Problems Medical Problems: (1) Colitis Status: Acute Assessment/Plan favor diverticulitis with related stricture. OK to d/c home on PO abx and low residual diet given stricture and worsening problems, favor surgical intervention at some point. She will consider. Justicifation of Admission Dx: Justifications for Admission: Justification of Admission Dx: Yes BHAVIN SEVERINO MD Dec 02, 2019 11:14
[2019-12-02] MEDS ORDERED: ONDA4TAB12 PO (13:08)
[2019-12-02] MEDS ORDERED: AMOX1TAB61 PO (13:08)
--- NOTE | 2019-12-02 13:14 | PDOC ---
GENERAL General: Discharge summary [id number] VITAL SIGNS Vital Signs/I&O: Vital Signs Date Time Temp Pulse Resp B/P (MAP) Pulse Ox O2 Delivery O2 Flow Rate FiO2 12/02/19 11:00 98.6 90 18 148/70 (96) 94 Room Air 98.6 I & O 12/01/19 12/01/19 12/02/19 15:00 23:00 07:00 Intake Total 100 ml 500 ml 100 ml Balance 100 ml 500 ml 100 ml ALLERGIES Allergies: Allergies Coded Allergies Type Severity Reaction Last Updated Verified No Known Drug Allergies 08/12/18 No MEDS Medications: Current Medications Medications (Trade) Dose Ordered Sig/Michael Route PRN Reason Start Time Stop Time Status Last Admin Dose Admin Pantoprazole Sodium (Protonix) 40 mg DAILYAC PO 12/02/19 07:30 12/02/19 08:01 Lactobacillus Rhamnosus (Culturelle) 1 cap BID PO 12/01/19 21:00 12/02/19 08:01 Justicifation of Admission Dx: Justifications for Admission: Justification of Admission Dx: Yes SCARLETT CHE MD Dec 02, 2019 13:13
--- NOTE | 2019-12-02 13:30 | DS ---
DATE OF DISCHARGE: HOSPITAL COURSE: This patient is a marcin 54-year-old woman who is a continuity outpatient at [facility] with the nurse practitioner there, Jessica Ybarra. She also follows with Dr. Cortes. She was admitted 3 days ago with hematochezia and left sided abdominal pain, found to have recurrent sigmoid diverticulitis. She responded well to intravenous antibiotics and bowel rest and is feeling up for discharge today. 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 Plan is for outpatient colonoscopy once she is improved. We will send her home on another 14 days of Augmentin twice daily and close outpatient followup with primary care as well as Gastroenterology and surgery if needed. PHYSICAL EXAMINATION: VITAL SIGNS: Today is notable for that the patient has been afebrile. Blood pressure has been in the 130s-140s/70s, heart rate is in the 70s and regular. She is breathing comfortably and saturating normally on room air. GENERAL: She is a pleasant 54-year-old woman, alert and oriented x 3, in no acute distress. HEENT: Unremarkable. NECK: Soft and supple. No adenopathy or thyromegaly noted. CHEST: Clear to auscultation. HEART: S1, S2 normal. Regular rate and rhythm. No murmurs or gallops are noted. ABDOMEN: Bowel sounds are present, though diminished, soft, nontender except on the left lower quadrant. No masses or organomegaly noted. EXTREMITIES: Unremarkable. FINAL DIAGNOSIS: Sigmoid diverticulitis. SCARLETT CHE MD DR: ASYA/mer JOB#: [id number] / [id number] JESSICA Davison APRN, SCOTT MD MTDD
--- NOTE | 2019-12-02 14:18 | NUR ---
Discharge Note: TIFFANIE STANLEY Discharge instructions and discharge home medications reviewed with Patient and a copy given. All questions have been answered and understanding verbalized. The following instructions and handouts were given: Colitis, Soft diet Discontinued lines and drains: Peripheral IV intact. Patient discharged to Home or Self Care with Self via Wheelchair
[2019-12-22] MEDS ORDERED: glucosamine PO (17:06)
[2019-12-22] MEDS ORDERED: ACET325T21 PO (17:06)
[2019-12-22] MEDS ORDERED: CIPR500T PO (17:06)
[2019-12-22] MEDS ORDERED: LACT1CAP6 PO (17:06)
[2019-12-22] MEDS ORDERED: METR500T PO (17:06)
[2019-12-22] MEDS ORDERED: FEXO60TA25 PO (17:06)
== END 2019-12-02 14:19 | disposition home or self-care (01) | DRG 392 ==
LOC: ER 10:15 → 4 NORTH 14:10
PROVIDERS: ADMIT Internal Medicine; ATTEND Internal Medicine
DX: K57.32 Diverticulitis of large intestine without perforation or abscess without bleeding (principal); K52.9 Noninfective gastroenteritis and colitis, unspecified; E78.5 Hyperlipidemia, unspecified; F41.9 Anxiety disorder, unspecified; I25.10 Atherosclerotic heart disease of native coronary artery without angina pectoris; J45.909 Unspecified asthma, uncomplicated; K22.2 Esophageal obstruction; K44.9 Diaphragmatic hernia without obstruction or gangrene; K57.30 Diverticulosis of large intestine without perforation or abscess without bleeding; K59.00 Constipation, unspecified; K64.9 Unspecified hemorrhoids; N81.6 Rectocele; R73.03 Prediabetes; Z80.9 Family history of malignant neoplasm, unspecified; K21.9 Gastro-esophageal reflux disease without esophagitis; M19.90 Unspecified osteoarthritis, unspecified site; Z79.899 Other long term (current) drug therapy
CPT/HCPCS: 36415; 74177; 80048; 80053; 81001; 82274; 83690; 85025; 86140; 94640; 94760; 96361; 96374; 99285; C9113; J0744; J2405; J3490; J7030; Q9967; G0378; J7613

== ENCOUNTER → 2019-12-11 | Outpatient (CLI) | payer OTHER ==
[2019-12-02 11:00] VITALS: BP 148/70
[~2019-12-11] MED LIST changes: +AMOX1TAB61 PO; +ONDA4TAB12 PO
== END | disposition home or self-care (01) ==
LOC: LAB 14:14
PROVIDERS: ATTEND Internal Medicine Gastroenterology
DX: Z01.818 Encounter for other preprocedural examination (principal); Z11.59 Encounter for screening for other viral diseases; K57.30 Diverticulosis of large intestine without perforation or abscess without bleeding
CPT/HCPCS: U0003-CS

== ENCOUNTER → 2019-12-15 | Day surgery (SDC) | payer OTHER ==
[~2019-12-15] MED LIST changes: +IV RINGERS,LACTATED 1000ML 1,000 ML IV SCH; +LIDOCAINE 2% PF 5 ML VIAL. ONE; +PROPOFOL 10 MG/ML (20ML) VIAL. IV ONE
[2019-12-15 07:30] VITALS: BP 90/62
--- NOTE | 2019-12-15 07:46 | HP ---
ADMIT DATE: 12/15/2019 UPDATED HISTORY AND PHYSICAL REASON FOR ADMISSION: Diverticulitis. REFERRING PHYSICIAN: Minh Palmer MD HISTORY OF PRESENT ILLNESS: A 54-year-old female with past medical history significant for hyperlipidemia, gastroesophageal reflux disease as well as CVA and diverticulosis, has recently been treated with interval antibiotics for persistent left lower quadrant abdominal pain, recurrent diverticulitis. She does continue to have residual pain and interval colonoscopy to assess the CT scan is recommended at this time. No melena or hematochezia. No change in appetite. No change in weight. She is otherwise without additional complaints. PAST MEDICAL HISTORY: History of diverticular disease, history of Schatzki's ring, history of hyperlipidemia, history of CVA and history of asthma. ALLERGIES: None. MEDICATIONS: Include albuterol, atorvastatin, Barbara, Flonase, montelukast and omeprazole. FAMILY HISTORY: Significant for breast cancer with sister, CVA with multiple family members, hypertension with multiple family members and ovarian cancer with an aunt. PAST SURGICAL HISTORY: Significant for hysterectomy, rectocele, cystocele repair and tubal ligation. REVIEW OF SYSTEMS: Per records. PHYSICAL EXAMINATION: GENERAL: Reveals a well-nourished, well-developed female who is alert and cooperative, in no acute distress. VITAL SIGNS: Temperature is 97.7, pulse 104 and respirations 20. LUNGS: Clear. CARDIOVASCULAR: Reveals an S1, S2 without S3, S4 or appreciable murmur. ABDOMEN: With a soft abdomen, normal bowel sounds, with mild left lower quadrant tenderness to deep palpation. EXTREMITIES: Reveals no cyanosis, clubbing or edema. IMPRESSION: Left lower quadrant abdominal pain, history of diverticulitis. Interval colonoscopy to assess for malignancy and inflammatory bowel disease is recommended. Risks and benefits have been discussed. The patient is willing to proceed at this time. FRANSICO FLORES MD DR: SINDY/mer JOB#: [id number] / [id number]
== END | disposition home or self-care (01) ==
LOC: ENDOS 06:04
PROVIDERS: ATTEND Internal Medicine Gastroenterology
DX: R10.32 Left lower quadrant pain (principal); K57.30 Diverticulosis of large intestine without perforation or abscess without bleeding; E78.5 Hyperlipidemia, unspecified; J45.909 Unspecified asthma, uncomplicated; Z86.73 Personal history of transient ischemic attack (TIA), and cerebral infarction without residual deficits; Z82.49 Family history of ischemic heart disease and other diseases of the circulatory system; Z80.3 Family history of malignant neoplasm of breast; Z80.41 Family history of malignant neoplasm of ovary; Z79.899 Other long term (current) drug therapy
CPT/HCPCS: 45378; J2704

== ENCOUNTER → 2019-12-18 | Outpatient (CLI) | payer OTHER ==
[2019-12-15 07:30] VITALS: BP 90/62
[~2019-12-18] MED LIST changes: -IV RINGERS,LACTATED 1000ML 1,000 ML IV SCH; -LIDOCAINE 2% PF 5 ML VIAL. ONE; -PROPOFOL 10 MG/ML (20ML) VIAL. IV ONE
[2019-12-18 09:45] LABS: HEMATOCRIT 40.8 % (36.0-47.0); HEMOGLOBIN 13.7 g/dL (12.0-15.5)
== END | disposition home or self-care (01) ==
LOC: LAB 09:10
PROVIDERS: ATTEND Nurse Practitioner Family
DX: K92.1 Melena (principal)
CPT/HCPCS: 36415; 85014; 85018

== ENCOUNTER → 2019-12-22 | Outpatient (CLI) | payer OTHER ==
[2019-12-15 07:30] VITALS: BP 90/62
[~2019-12-22] MED LIST changes: +ACET325T21 PO; +CIPR500T PO; +FEXO60TA25 PO; +LACT1CAP6 PO; +METR500T PO; +glucosamine PO
== END | disposition home or self-care (01) ==
LOC: LAB 12:58
PROVIDERS: ATTEND Surgery
DX: Z11.59 Encounter for screening for other viral diseases (principal)
CPT/HCPCS: U0003-CS

== ENCOUNTER 2019-12-26 06:13 | Inpatient (IN) | payer OTHER ==
[~2019-12-26] VITALS: Ht 161.3 cm; Wt 71.4 kg
[2019-12-26] VITALS (9 sets, daily range): BP systolic 101–119; BP diastolic 59–73
[2019-12-26] MEDS ORDERED: fentaNYL PF VIAL 100 MCG/2 ML VIAL IV PRN (07:00)
[2019-12-26] MEDS ORDERED: LIDOCAINE 1% PF 2 ML VIAL. ID PRN (07:00)
[2019-12-26] MEDS ORDERED: IV RINGERS,LACTATED 1000ML 1,000 ML IV SCH (07:00)
[2019-12-26] MEDS ORDERED: ONDANSETRON PF 4 MG/2 ML VIAL. IV PRN (07:00)
[2019-12-26] MEDS ORDERED: MIDAZOLAM HCL/PF 2 MG/2 ML VIAL. ONE (07:16)
[2019-12-26] MEDS ORDERED: fentaNYL PF VIAL 100 MCG/2 ML VIAL ONE ×5 (07:16→14:23)
[2019-12-26] MEDS ORDERED: ROCURONIUM 50 MG/5 ML VIAL. ONE ×3 (07:16→10:55)
[2019-12-26] MEDS ORDERED: SEVOFLURANE > 120 MINUTES. IH ONE (07:16)
[2019-12-26] MEDS ORDERED: NEOSTIGMINE METHYLSULFATE 5 MG/5 ML SYRINGE. ONE (07:16)
[2019-12-26] MEDS ORDERED: ONDANSETRON PF 4 MG/2 ML VIAL. ONE (07:17)
[2019-12-26] MEDS ORDERED: DEXAMETHASONE SOD PHOS 4 MG/ML VIAL ONE (07:17)
[2019-12-26] MEDS ORDERED: GLYCOPYRROLATE 1 MG/5 ML VIAL. ONE (07:17)
[2019-12-26] MEDS ORDERED: PROPOFOL 10 MG/ML (20ML) VIAL. IV ONE (07:17)
[2019-12-26] MEDS ORDERED: LIDOCAINE 2% PF 5 ML VIAL. ONE (07:17)
[2019-12-26] MEDS ORDERED: ceFAZolin SODIUM IV Push 1 GM VIAL. IVP ONE ×2 (12:41)
[2019-12-26] MEDS ORDERED: PHENYLEPHRINE in 0.9% NACL PF 1 MG/10 ML SYRINGE. IV ONE (13:14)
[2019-12-26] MEDS: fentaNYL PF VIAL 100 MCG/2 ML VIAL IV PRN ×4 (13:52→15:06)
[2019-12-26] MEDS: IV NORMAL SALINE 1000ML BAG 1,000 ML IV SCH (13:56)
[2019-12-26] MEDS ORDERED: NALOXONE 0.4 MG/ML VIAL. IV PRN (14:00)
[2019-12-26] MEDS ORDERED: 0.9 % SODIUM CHLORIDE 10 ML DISP.SYRIN. IV PRN (14:00)
[2019-12-26] MEDS ORDERED: MORPHINE SULFATE 2 MG/ML VIAL. ONE (14:01)
[2019-12-26] MEDS: MORPHINE SULFATE 2 MG/ML VIAL. IV PRN ×2 (14:03→14:15)
[2019-12-26] MEDS ORDERED: HYDROmorphone 2 MG/ML VIAL ONE (14:11)
[2019-12-26] MEDS ORDERED: PROCHLORPERAZINE 10 MG/2 ML VIAL. ONE (14:11)
[2019-12-26] MEDS: PROCHLORPERAZINE 10 MG/2 ML VIAL. IV PRN ×2 (14:16→14:30)
[2019-12-26] MEDS: HYDROmorphone 2 MG/ML VIAL IV PRN ×4 (14:16→15:32)
--- NOTE | 2019-12-26 14:16 | PDOC4 ---
Operative Note Operative Note Operative Note: Preoperative Diagnosis: Colonic diverticulitis Postoperative Diagnosis: Long segment descending sigmoid colon diverticulitis, segment of transverse colon diverticulitis Procedure: Exploratory laparoscopy, extended left and sigmoid colectomy with splenic flexure takedown, appendectomy Surgeon: Giovani Anesthesia: Gen EBL: 200 ml Specimen: L colon, segment transverse colon to pathology with omentum Drains: 19 Fr RACHAEL drain, bill in subcutaneous space Complications: None Indication: The patient is a 54-year-old female who has been dealing with recurrent problems with diverticulitis. Her evaluation suggests long segment involvement of her descending and sigmoid colon. We recommend surgical intervention with plan resection of the involved area. The risks of surgery were discussed which include bleeding, infection, anastomotic leak, pain, visceral injury, hernia formation, anesthetic risk, potential need for additional surgery procedure. She understands and would like to proceed. Description: The patient was taken to the operating room and placed supine on the operating table. General anesthesia was performed. She was then placed in lithotomy. The abdomen was prepped with ChloraPrep and draped in a standard surgical manner. A small incision was made in the patient's right upper abdomen through which visualized 5 mm trocar was inserted. A pneumoperitoneum was created and the laparoscope was introduced. In the right lower quadrant and lower mid abdomen two additional 5 mm trochars were inserted. Attention was directed to the left colon. The sigmoid colon appeared fibrotic and hardened with obvious acute and chronic inflammatory changes. We began trying to mobilize the involved segment of colon however this proved difficult laparoscopically due to the degree of inflammation. There appeared to be dense adhesions to some of the surrounding structures including her left fallopian tube. We elected to convert to an open procedure due to the extent of her disease. A vertical midline incision was made in the skin with a scalpel. Cautery dissection was carried down to the fascia. The fascia and peritoneum were then opened and the Omni retractor was used to facilitate exposure. With palpation we were able to better identify the extent of disease which seem to involve the entire descending and sigmoid colon. We began mobilizing the entire left colon. The lateral peritoneal attachments were markedly thickened due to chronic inflammatory change. Were able to free up the colon away from the fibrotic inflammatory adhesions near the left fallopian tube. All of the attachments near the splenic flexure were taken down as well. The LigaSure device assisted with some of this dissection. The right colon and transverse colon appeared fairly dilated likely due to chronic obstructive effect from the diverticular changes. There was a separate focal area near the mid transverse colon that showed a masslike effect which seemed likely from a separate focus of chronic diverticulitis. We elected to include this with the specimen making it a very extended left and sigmoid colectomy. The proximal transverse colon was divided with the FLOR-75 stapling device. The mesentery of the distal transverse and left colon were then dissected. Blood vessels were sequentially ligated with 2-0 Vicryl and divided. The LigaSure device assisted with mesenteric dissection. We continued mobilizing all the way down to the junction at the sigmoid colon and rectum. The rectum appeared normal and we were able to divide the bowel in this location with a FLOR-75 stapling device. The transverse colon and left colon segments were then sent to pathology for evaluation. The stapled end of the transverse colon was able to reach the pelvis with no undue tension. A two layer handsewn anastomosis was then constructed. The posterior seromuscular layer was developed first with interrupted 3-0 Vicryl. The staple lines were then excised. The next layer was constructed with 3-0 PDS in a running locked fashion. The anterior seromuscular was then completed with 3-0 Vicryl sutures. Due to the colon resection and altered anatomy the ascending colon appeared quite mobile and was relocated to the right upper quadrant. Given its mobility we elected to remove the appendix and perform a cecopexy. The appendix was amputated with an Endo FLOR 45 stapling device. The mesoappendix was ligated with 2-0 Vicryl and divided. The appendix was sent to pathology. The cecum was then pexed to the anterior abdominal wall with interrupted 3-0 Vicryl sutures. The abdominal cavity was then thoroughly irrigated with sterile saline which was then suctioned. Hemostasis appeared good. A 19 [place] RACHAEL drain was left in the pelvis with an exit site in the right trocar incision. This was secured to the skin with 2-0 silk. The fascia was then approximated with 1 PDS. A [place] drain was left in the subcutaneous tissue which exited inferiorly. This was secured to skin with 3-0 Vicryl. The subcutaneous tissue was closed over the drain with 3-0 Vicryl and the skin was approximated with 4-0 Monocryl. Steri-Strips and a sterile dressing were then applied. The patient tolerated the procedure well and was sent to the recovery room in stable condition. At the end of the case all counts were correct. FRANSICO LIU MD Dec 26, 2019 14:16
[2019-12-26] MEDS: HYDROmorphone 12mg/30ml PCA 30 ML IV PRN (14:34)
--- NOTE | 2019-12-26 15:54 | RAD ---
KUB History: Reason: POST OP KUB IN OR, POST COLECTOMY / Spl. Instructions: / History: Technique: Supine view the abdomen. Comparison: CT November 30, 2019 Findings: No radiopaque foreign body. Surgical drain projecting over the mid abdomen. Multilevel lumbar spondylosis. Postoperative probable pneumoperitoneum noted. Impression: 1. No radiopaque foreign body. Electronically signed by: Lemuel Donovan DO (12/26/2019 3:51 PM) JESSIE
--- NOTE | 2019-12-26 17:25 | NUR ---
The patient, TIFFANIE STANLEY, 54 y/o, F admitted by FRANSICO LIU MD, was given written information regarding hospital policies, unit procedures and contact persons. Patient arrived to floor from PACU via bed at 1530. Patient was drowsy but oriented x4; she is on 2 L of oxygen with lang in place. 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 No drainage present on dressing; dressing intact. Some serosanguineous fluid present in RACHAEL drain. Two of her son's were present at time of admission. Valuables were checked.
--- NOTE | 2019-12-26 17:40 | NUR ---
Entered incorrect shift total in previous documentation. Charted 8.0, the correct dose was 0.8. Addendum: 12/26/19 at 1741 by GLORIA VELAZQUEZ RN Amended: Links added.
[2019-12-26] MEDS: POTASSIUM CL 20MEQ D5-0.45NACL 1,000 ML IV SCH (18:32)
[2019-12-26] MEDS: ceFAZolin SODIUM IV Push 1 GM VIAL. IVP SCH (21:00)
[2019-12-27] MEDS: POTASSIUM CL 20MEQ D5-0.45NACL 1,000 ML IV SCH ×3 (02:00→23:07)
[2019-12-27 03:58] VITALS: BP 91/54
[2019-12-27] MEDS: ceFAZolin SODIUM IV Push 1 GM VIAL. IVP SCH ×3 (05:06→23:07)
[2019-12-27 06:15] LABS: CREATININE 0.5 mg/dL (0.6-1.0); GFR 127.6; POTASSIUM 4.2 mmol/L (3.5-5.1)
[2019-12-27 06:16] LABS: BASO % 0 % (0-3); EOS % 0 % (0-3); HEMATOCRIT 35.4 % (36.0-47.0); HEMOGLOBIN 11.6 g/dL (12.0-15.5); LYMPH # 0.8 x10^3/uL (1.0-4.8); LYMPH % 13 % (24-48); MEAN CORPUSCULAR HEMOGLOBIN 29 pg (25-35); MEAN CORPUSCULAR HGB CONC 33 g/dL (31-37); MEAN CORPUSCULAR VOLUME 89 fL (79-100); MONO # 1.2 x10^3/uL (0.0-1.1); MONO % 18 % (0-9); NEUT # 4.4 x10^3/uL (1.8-7.7); NEUT % 69 % (31-73); PLATELET COUNT 210 x10^3/uL (140-400); RED BLOOD COUNT 3.97 x10^6/uL (3.50-5.40); RED CELL DISTRIBUTION WIDTH 15.8 % (11.5-14.5); WHITE BLOOD COUNT 6.4 x10^3/uL (4.0-11.0)
[2019-12-27 07:00] VITALS: BP 102/60
[2019-12-27] MEDS: ENOXAPARIN 40 MG/0.4 ML SYRINGE. SQ SCH (08:48)
[2019-12-27 11:00] VITALS: BP 105/57
[2019-12-27 11:04] LABS: % BANDS 38 % (0-9); % LYMPHS 12 % (24-48); % MONOS 15 % (0-10); % SEGS 35 % (35-66)
[2019-12-27 11:11] LABS: PLT ESTIMATE ADEQUATE (ADEQUATE)
--- NOTE | 2019-12-27 11:37 | PDOC ---
PROGRESS NOTES Date of Service DATE: 12/27/19 TIME: 11:36 Subjective Subjective very significant pain, hasn't been out of bed Objective Objective Vital Signs Date Time Temp Pulse Resp B/P (MAP) Pulse Ox O2 Delivery O2 Flow Rate FiO2 12/27/19 07:00 98.0 95 16 102/60 (74) 93 Nasal Cannula 2.0 98.0 Intake and Output 12/27/19 07:00 Intake Total 5331.5 ml Output Total 1820 ml Balance 3511.5 ml Intake Oral 0 ml IV Total 5124.5 ml Other 207 ml Output Urine Total 1295 ml Stool Total 250 ml Drainage Total 75 ml Estimated Blood Loss 200 ml Physical Exam Abdomen: Soft (binder on, tender with palp) Assessment Assessment POD 1 Plan Plan of Care Postop care, PT consult Comment Review of Relevant I have reviewed the following items so (where applicable) has been applied. Labs Laboratory Tests Test 12/27/19 04:00 White Blood Count 6.4 x10^3/uL (4.0-11.0) Red Blood Count 3.97 x10^6/uL (3.50-5.40) Hemoglobin 11.6 g/dL (12.0-15.5) Hematocrit 35.4 % (36.0-47.0) Mean Corpuscular Volume 89 fL (79-100) Mean Corpuscular Hemoglobin 29 pg (25-35) Mean Corpuscular Hemoglobin Concent 33 g/dL (31-37) Red Cell Distribution Width 15.8 % (11.5-14.5) Platelet Count 210 x10^3/uL (140-400) Neutrophils (%) (Auto) 69 % (31-73) Lymphocytes (%) (Auto) 13 % (24-48) Monocytes (%) (Auto) 18 % (0-9) Eosinophils (%) (Auto) 0 % (0-3) Basophils (%) (Auto) 0 % (0-3) Neutrophils # (Auto) 4.4 x10^3/uL (1.8-7.7) Lymphocytes # (Auto) 0.8 x10^3/uL (1.0-4.8) Monocytes # (Auto) 1.2 x10^3/uL (0.0-1.1) Eosinophils # (Auto) 0.0 x10^3/uL (0.0-0.7) Basophils # (Auto) 0.0 x10^3/uL (0.0-0.2) Segmented Neutrophils % 35 % (35-66) Band Neutrophils % 38 % (0-9) Lymphocytes % 12 % (24-48) Monocytes % 15 % (0-10) Platelet Estimate Adequate (ADEQUATE) Sodium Level 139 mmol/L (136-145) Potassium Level 4.2 mmol/L (3.5-5.1) Chloride Level 105 mmol/L (98-107) Carbon Dioxide Level 28 mmol/L (21-32) Anion Gap 6 (6-14) Blood Urea Nitrogen 6 mg/dL (7-20) Creatinine 0.5 mg/dL (0.6-1.0) Estimated GFR (Cockcroft-Gault) 127.6 Glucose Level 142 mg/dL (70-99) Calcium Level 8.0 mg/dL (8.5-10.1) Laboratory Tests Test 12/27/19 04:00 White Blood Count 6.4 x10^3/uL (4.0-11.0) Red Blood Count 3.97 x10^6/uL (3.50-5.40) Hemoglobin 11.6 g/dL (12.0-15.5) Hematocrit 35.4 % (36.0-47.0) Mean Corpuscular Volume 89 fL (79-100) Mean Corpuscular Hemoglobin 29 pg (25-35) Mean Corpuscular Hemoglobin Concent 33 g/dL (31-37) Red Cell Distribution Width 15.8 % (11.5-14.5) Platelet Count 210 x10^3/uL (140-400) Neutrophils (%) (Auto) 69 % (31-73) Lymphocytes (%) (Auto) 13 % (24-48) Monocytes (%) (Auto) 18 % (0-9) Eosinophils (%) (Auto) 0 % (0-3) Basophils (%) (Auto) 0 % (0-3) Neutrophils # (Auto) 4.4 x10^3/uL (1.8-7.7) Lymphocytes # (Auto) 0.8 x10^3/uL (1.0-4.8) Monocytes # (Auto) 1.2 x10^3/uL (0.0-1.1) Eosinophils # (Auto) 0.0 x10^3/uL (0.0-0.7) Basophils # (Auto) 0.0 x10^3/uL (0.0-0.2) Segmented Neutrophils % 35 % (35-66) Band Neutrophils % 38 % (0-9) Lymphocytes % 12 % (24-48) Monocytes % 15 % (0-10) Platelet Estimate Adequate (ADEQUATE) Sodium Level 139 mmol/L (136-145) Potassium Level 4.2 mmol/L (3.5-5.1) Chloride Level 105 mmol/L (98-107) Carbon Dioxide Level 28 mmol/L (21-32) Anion Gap 6 (6-14) Blood Urea Nitrogen 6 mg/dL (7-20) Creatinine 0.5 mg/dL (0.6-1.0) Estimated GFR (Cockcroft-Gault) 127.6 Glucose Level 142 mg/dL (70-99) Calcium Level 8.0 mg/dL (8.5-10.1) Medications Current Medications Ondansetron HCl (Zofran) 4 mg PRN Q6HRS PRN IV NAUSEA/VOMITING; Start 12/26/19 at 07:00; Stop 12/27/19 at 07:00; Status DC Fentanyl Citrate (Fentanyl 2ml Vial) 25 mcg PRN Q5MIN PRN IV MILD PAIN 1-3; Start 12/26/19 at 07:00; Stop 12/27/19 at 07:00; Status DC Fentanyl Citrate (Fentanyl 2ml Vial) 50 mcg PRN Q5MIN PRN IV MODERATE TO SEVERE PAIN Last administered on 12/26/19at 15:06; Start 12/26/19 at 07:00; Stop 12/27/19 at 07:00; Status DC Morphine Sulfate (Morphine Sulfate) 1 mg PRN Q10MIN PRN IV SEVERE PAIN 7-10 Last administered on 12/26/19at 14:15; Start 12/26/19 at 07:00; Stop 12/27/19 at 07:00; Status DC Ringer's Solution 1,000 ml @ 30 mls/hr Q24H IV Last administered on 12/26/19at 07:02; Start 12/26/19 at 07:00; Stop 12/26/19 at 18:59; Status DC Lidocaine HCl (Xylocaine-Mpf 1% 2ml Vial) 2 ml PRN 1X PRN ID PRIOR TO IV START; Start 12/26/19 at 07:00; Stop 12/27/19 at 07:00; Status DC Hydromorphone HCl (Dilaudid) 0.5 mg PRN Q10MIN PRN IV SEV PAIN, Second choice Last administered on 12/26/19at 15:32; Start 12/26/19 at 07:00; Stop 12/27/19 at 07:00; Status DC Prochlorperazine Edisylate (Compazine) 5 mg PACU PRN PRN IV NAUSEA, MRX1 Last administered on 12/26/19at 14:30; Start 12/26/19 at 07:00; Stop 12/27/19 at 07:00; Status DC Cefazolin Sodium/ Dextrose 50 ml @ 100 mls/hr 1X PREOP PRN IV PRIOR TO PROCEDURE Last administered on 12/26/19at 07:42; Start 12/26/19 at 06:00; Stop 12/26/19 at 18:00; Status DC Metronidazole 100 ml @ 100 mls/hr 1X PREOP PRN IV PRIOR TO PROCEDURE Last administered on 12/26/19at 07:59; Start 12/26/19 at 06:00; Stop 12/26/19 at 18:00; Status DC Sevoflurane (Ultane) 90 ml STK-MED ONCE IH ; Start 12/26/19 at 07:16; Stop 12/26/19 at 07:16; Status DC Rocuronium Kendrick (Zemuron) 50 mg STK-MED ONCE .ROUTE ; Start 12/26/19 at 07:16; Stop 12/26/19 at 07:16; Status DC Fentanyl Citrate (Fentanyl 2ml Vial) 100 mcg STK-MED ONCE .ROUTE ; Start 12/26/19 at 07:16; Stop 12/26/19 at 07:16; Status DC Neostigmine Kendrick (Neostigmine Methylsulfate) 5 mg STK-MED ONCE .ROUTE ; Start 12/26/19 at 07:16; Stop 12/26/19 at 07:16; Status DC Midazolam HCl (Versed) 2 mg STK-MED ONCE .ROUTE ; Start 12/26/19 at 07:16; Stop 12/26/19 at 07:17; Status DC Glycopyrrolate (Robinul) 1 mg STK-MED ONCE .ROUTE ; Start 12/26/19 at 07:17; Stop 12/26/19 at 07:17; Status DC Propofol (Diprivan) 200 mg STK-MED ONCE IV ; Start 12/26/19 at 07:17; Stop 12/26/19 at 07:17; Status DC Lidocaine HCl (Lidocaine Pf 2% Vial) 5 ml STK-MED ONCE .ROUTE ; Start 12/26/19 at 07:17; Stop 12/26/19 at 07:17; Status DC Dexamethasone Sodium Phosphate (Decadron) 4 mg STK-MED ONCE .ROUTE ; Start 12/26/19 at 07:17; Stop 12/26/19 at 07:17; Status DC Ondansetron HCl (Zofran) 4 mg STK-MED ONCE .ROUTE ; Start 12/26/19 at 07:17; Stop 12/26/19 at 07:17; Status DC Rocuronium Kendrick (Zemuron) 50 mg STK-MED ONCE .ROUTE ; Start 12/26/19 at 08:08; Stop 12/26/19 at 08:09; Status DC Fentanyl Citrate (Fentanyl 2ml Vial) 100 mcg STK-MED ONCE .ROUTE ; Start 12/26/19 at 08:33; Stop 12/26/19 at 08:34; Status DC Fentanyl Citrate (Fentanyl 2ml Vial) 100 mcg STK-MED ONCE .ROUTE ; Start 12/26/19 at 09:38; Stop 12/26/19 at 09:38; Status DC Rocuronium Kendrick (Zemuron) 50 mg STK-MED ONCE .ROUTE ; Start 12/26/19 at 10:55; Stop 12/26/19 at 10:56; Status DC Cefazolin Sodium (Ancef) 1 gm STK-MED ONCE IVP ; Start 12/26/19 at 12:41; Stop 12/26/19 at 12:41; Status DC Cefazolin Sodium (Ancef) 1 gm STK-MED ONCE IVP ; Start 12/26/19 at 12:41; Stop 12/26/19 at 12:41; Status DC Phenylephrine HCl (PHENYLEPHRINE in 0.9% NACL PF) 1 mg STK-MED ONCE IV ; Start 12/26/19 at 13:14; Stop 12/26/19 at 13:15; Status DC Phenylephrine HCl (PHENYLEPHRINE in 0.9% NACL PF) 1 mg STK-MED ONCE IV ; Start 12/26/19 at 13:14; Stop 12/26/19 at 13:15; Status DC Fentanyl Citrate (Fentanyl 2ml Vial) 100 mcg STK-MED ONCE .ROUTE ; Start 12/26/19 at 13:35; Stop 12/26/19 at 13:36; Status DC Cefazolin Sodium (Ancef) 1 gm Q8HRS IVP Last administered on 12/27/19at 05:06; Start 12/26/19 at 22:00 Metronidazole 100 ml @ 100 mls/hr Q12HR IV Last administered on 12/27/19at 08:47; Start 12/26/19 at 21:00 Enoxaparin Sodium (Lovenox 40mg Syringe) 40 mg Q24H SQ Last administered on 12/27/19at 08:48; Start 12/27/19 at 09:00 Sodium Chloride (Normal Saline Flush) 3 ml QSHIFT PRN IV AFTER MEDS AND BLOOD DRAWS; Start 12/26/19 at 14:00 Potassium Chloride/Dextrose/ Sod Cl 1,000 ml @ 100 mls/hr Q10H IV Last administered on 12/27/19at 03:29; Start 12/26/19 at 16:00 Naloxone HCl (Narcan) 0.4 mg PRN Q2MIN PRN IV SEE INSTRUCTIONS; Start 12/26/19 at 14:00 Sodium Chloride 1,000 ml @ 25 mls/hr Q24H IV ; Start 12/26/19 at 13:56 Hydromorphone HCl 30 ml @ 0 mls/hr CONT PRN PRN IV PER PROTOCOL Last admin istered on 12/26/19at 14:34; Start 12/26/19 at 14:00 Ondansetron HCl (Zofran) 4 mg PRN Q6HRS PRN IVP NAUESA, 1ST CHOICE; Start 12/26/19 at 14:00 Morphine Sulfate (Morphine Sulfate) 2 mg STK-MED ONCE .ROUTE ; Start 12/26/19 at 14:01; Stop 12/26/19 at 14:01; Status DC Prochlorperazine Edisylate (Compazine) 10 mg STK-MED ONCE .ROUTE ; Start 12/26/19 at 14:11; Stop 12/26/19 at 14:11; Status DC Hydromorphone HCl (Dilaudid) 2 mg STK-MED ONCE .ROUTE ; Start 12/26/19 at 14:11; Stop 12/26/19 at 14:12; Status DC Fentanyl Citrate (Fentanyl 2ml Vial) 100 mcg STK-MED ONCE .ROUTE ; Start 12/26/19 at 14:23; Stop 12/26/19 at 14:23; Status DC Active Scripts Active Montelukast Sodium Tablet (Montelukast Sodium) 10 Mg Tablet 1 Tab PO QHS 30 Days Reported Acetaminophen 325 Mg Tablet 650 Mg PO PRN Q8-12HRS PRN [glucosamine] 1 Tab PO DAILY Probiotic (Lactobacillus Acidophilus) 1 Each Capsule 1 Each PO DAILY Barbara Allergy (Fexofenadine Hcl) 60 Mg Tablet 60 Mg PO DAILY Calcium (Calcium Carbonate) 500 Mg Tab.chew 500 Mg PO DAILY Atorvastatin Calcium 40 Mg Tablet 1 Tab PO QHS Multivitamins (Multivitamin) 1 Each Tablet 1 Tab PO DAILY Melatonin 3 Mg Tablet 1 Tab PO QHS Proair Hfa (Albuterol Sulfate) 8.5 Gm Hfa.aer.ad 1 Puff INH PRN Q6HRS PRN Flonase Allergy Relief (Fluticasone Propionate) 9.9 Ml Alpine.susp 2 Sprays NS DAILY Omeprazole 20 Mg Tablet. 1 Tab PO DAILY Vitals/I & O Vital Sign - Last 24 Hours 12/26/19 12/26/19 12/26/19 12/26/19 13:47 13:47 13:52 14:02 Temp 97.3 97.3 Pulse 79 Resp 15 15 15 B/P (MAP) 122/55 Pulse Ox 98 98 98 O2 Delivery Mask Simple Mask Simple Mask O2 Flow Rate 10 10 10.0 10.0 12/26/19 12/26/19 12/26/19 12/26/19 14:02 14:03 14:15 14:16 Temp 97.3 97.3 Pulse 78 Resp 15 15 15 15 B/P (MAP) 121/63 Pulse Ox 99 98 98 98 O2 Delivery Simple Mask Simple Mask Simple Mask O2 Flow Rate 10.0 10.0 10.0 10.0 12/26/19 12/26/19 12/26/19 12/26/19 14:17 14:26 14:31 14:32 Temp 97.3 97.3 Pulse 92 103 Resp 15 15 22 B/P (MAP) 109/68 128/58 Pulse Ox 94 94 94 95 O2 Delivery Nasal Cannula Nasal Cannula Nasal Cannula Nasal Cannula O2 Flow Rate 2 2.0 2.0 2 12/26/19 12/26/19 12/26/19 12/26/19 14:34 14:47 15:02 15:06 Pulse 91 100 Resp 20 20 B/P (MAP) 126/60 125/65 Pulse Ox 95 92 92 O2 Delivery Nasal Cannula Nasal Cannula Nasal Cannula Nasal Cannula O2 Flow Rate 2.0 2 3 3.0 12/26/19 12/26/19 12/26/19 12/26/19 15:07 15:17 15:26 15:32 Pulse 102 Resp 20 20 20 B/P (MAP) 130/61 Pulse Ox 95 94 95 O2 Delivery Nasal Cannula Nasal Cannula Nasal Cannula O2 Flow Rate 2.0 2 3 12/26/19 12/26/19 12/26/19 12/26/19 15:32 15:45 15:50 16:00 Temp 97.6 98.9 97.6 98.9 Pulse 102 100 Resp 20 20 B/P (MAP) 127/67 105/70 (82) 110/69 (83) Pulse Ox 98 94 O2 Delivery Nasal Cannula Nasal Cannula Nasal Cannula O2 Flow Rate 2.0 2.0 12/26/19 12/26/19 12/26/19 12/26/19 16:02 16:15 16:30 17:00 Temp 98.0 97.9 98.0 97.9 Pulse 97 81 Resp 14 18 B/P (MAP) 112/73 (86) 105/70 (82) 113/66 (82) Pulse Ox 95 96 O2 Delivery Nasal Cannula Nasal Cannula Nasal Cannula O2 Flow Rate 2.0 2.0 2.0 12/26/19 12/26/19 12/26/19 12/26/19 17:30 18:33 19:39 19:52 Temp 97.2 98.3 97.2 98.3 Pulse 74 99 Resp 20 14 B/P (MAP) 119/70 (86) 110/59 (76) 106/70 (82) Pulse Ox 96 93 O2 Delivery Nasal Cannula Nasal Cannula Nasal Cannula O2 Flow Rate 2.0 2.0 2.0 12/26/19 12/27/19 12/27/19 22:48 03:58 07:00 Temp 99.2 98.1 98.0 99.2 98.1 98.0 Pulse 96 99 95 Resp 16 16 16 B/P (MAP) 101/63 (76) 91/54 (66) 102/60 (74) Pulse Ox 92 94 93 O2 Delivery Nasal Cannula Nasal Cannula Nasal Cannula O2 Flow Rate 2.0 2.0 2.0 Intake and Output 12/26/19 12/26/19 12/27/19 15:00 23:00 07:00 Intake Total 3950 ml 207 ml 1174.5 ml Output Total 395 ml 760 ml 665 ml Balance 3555 ml -553 ml 509.5 ml Justicifation of Admission Dx: Justifications for Admission: Justification of Admission Dx: Yes FRANSICO LIU MD Dec 27, 2019 11:37
--- NOTE | 2019-12-27 11:47 | NUR ---
SW following. 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 RN advised no SW needs. SW will continue to follow, should any discharge needs arise.
[2019-12-27] MEDS: IV NORMAL SALINE 1000ML BAG 1,000 ML IV SCH (13:56)
[2019-12-27 15:00] VITALS: BP 112/62
[2019-12-27 19:00] VITALS: BP 117/75
[2019-12-27] MEDS ORDERED: KETOROLAC 15 MG/ML VIAL. IVP ONE (21:00)
[2019-12-27 23:00] VITALS: BP 106/60
[2019-12-28] MEDS: HYDROmorphone 12mg/30ml PCA 30 ML IV PRN (01:08)
[2019-12-28 03:00] VITALS: BP 105/60
[2019-12-28] MEDS: ceFAZolin SODIUM IV Push 1 GM VIAL. IVP SCH ×3 (06:16→22:59)
[2019-12-28 07:00] VITALS: BP 114/62
--- NOTE | 2019-12-28 07:25 | NUR ---
At 0630 pt. got up to bedside commode to try to urinate but did not have any luck. Pt. is passing gas now. Will continue to monitor.
[2019-12-28] MEDS: POTASSIUM CL 20MEQ D5-0.45NACL 1,000 ML IV SCH ×2 (08:27→20:31)
[2019-12-28] MEDS: ENOXAPARIN 40 MG/0.4 ML SYRINGE. SQ SCH (08:27)
--- NOTE | 2019-12-28 09:41 | NUR ---
SW following. 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 PT ordered to work with pt. 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 RN advised no SW needs at this time, SW will continue to follow.
[2019-12-28 11:00] VITALS: BP_SYST 122; BP_SYST 130; BP_DIAS 72; BP_DIAS 74
[2019-12-28] MEDS ORDERED: KETOROLAC 30 MG/ML VIAL. IVP ONE (11:30)
[2019-12-28] MEDS: IV NORMAL SALINE 1000ML BAG 1,000 ML IV SCH (11:52)
--- NOTE | 2019-12-28 14:19 | PDOC ---
CALEB BOOTH RIGGING SUPERVISOR 12/28/19 1419: SURGICAL PROGRESS NOTE DATE: 12/28/19 TIME: 14:17 Subjective pain improved no nausea some flatus and stool urinating Vital Signs Vital Signs Date Time Temp Pulse Resp B/P (MAP) Pulse Ox O2 Delivery O2 Flow Rate FiO2 12/28/19 11:00 97.8 101 18 122/72 (89) 94 Room Air 97.8 12/28/19 08:00 2.0 I&O Intake and Output 12/28/19 07:00 Intake Total 30 ml Output Total 2900 ml Balance -2870 ml Intake Oral 30 ml Output Urine Total 2900 ml General: Alert, Oriented X3, Cooperative Abdomen: Soft, Other (ND, incision c/d/i, no erythema, terese serosang) Labs Laboratory Tests Test 12/27/19 04:00 White Blood Count 6.4 x10^3/uL (4.0-11.0) Red Blood Count 3.97 x10^6/uL (3.50-5.40) Hemoglobin 11.6 g/dL (12.0-15.5) Hematocrit 35.4 % (36.0-47.0) Mean Corpuscular Volume 89 fL (79-100) Mean Corpuscular Hemoglobin 29 pg (25-35) Mean Corpuscular Hemoglobin Concent 33 g/dL (31-37) Red Cell Distribution Width 15.8 % (11.5-14.5) Platelet Count 210 x10^3/uL (140-400) Neutrophils (%) (Auto) 69 % (31-73) Lymphocytes (%) (Auto) 13 % (24-48) Monocytes (%) (Auto) 18 % (0-9) Eosinophils (%) (Auto) 0 % (0-3) Basophils (%) (Auto) 0 % (0-3) Neutrophils # (Auto) 4.4 x10^3/uL (1.8-7.7) Lymphocytes # (Auto) 0.8 x10^3/uL (1.0-4.8) Monocytes # (Auto) 1.2 x10^3/uL (0.0-1.1) Eosinophils # (Auto) 0.0 x10^3/uL (0.0-0.7) Basophils # (Auto) 0.0 x10^3/uL (0.0-0.2) Segmented Neutrophils % 35 % (35-66) Band Neutrophils % 38 % (0-9) Lymphocytes % 12 % (24-48) Monocytes % 15 % (0-10) Platelet Estimate Adequate (ADEQUATE) Sodium Level 139 mmol/L (136-145) Potassium Level 4.2 mmol/L (3.5-5.1) Chloride Level 105 mmol/L (98-107) Carbon Dioxide Level 28 mmol/L (21-32) Anion Gap 6 (6-14) Blood Urea Nitrogen 6 mg/dL (7-20) Creatinine 0.5 mg/dL (0.6-1.0) Estimated GFR (Cockcroft-Gault) 127.6 Glucose Level 142 mg/dL (70-99) Calcium Level 8.0 mg/dL (8.5-10.1) Assessment/Plan s/p resection start clears ambulate Justicifation of Admission Dx: Justifications for Admission: Justification of Admission Dx: Yes FRANSICO LIU MD 12/29/19 1151: SURGICAL PROGRESS NOTE Assessment/Plan Agree with above CALEB BOOTH [employer]GING SUPERVISOR Dec 28, 2019 14:19 FRANSICO LIU MD Dec 29, 2019 11:51
[2019-12-28 15:00] VITALS: BP 124/70
--- NOTE | 2019-12-28 17:07 | PATHOLOGY ---
[facility] Accession Number: [id number] . 01 Material submitted: . PART A: colon - DESCENDING AND SIGMOID COLON AND OMENTUM. Modifiers: descending, sigmoid PART B: colon - SEGMENT OF TRANSVERSE COLON. Modifiers: transverse PART C: appendix - APPENDIX . 01 Clinical history: . diverticulitis . 02 Diagnosis: A. Segment of colon with attached mesocolon and separate portion of omentum, descending and sigmoid colon resection: - Diverticulosis. - Acute and chronic diverticulitis with pericolic abscesses, and with pericolic scarring, chronic inflammation, and focal foreign body giant cell reaction, and resulting in luminal narrowing. 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 - Serosal adhesions. - Omentum showing focal recent hemorrhage. . B. Segment of colon with attached mesocolon and omental apron, transverse colon segmental resection: - Diverticulosis. - Acute and chronic diverticulitis with focal pericolic scarring and inflammation. - Small tubular adenoma. - Omentum showing focal recent hemorrhage. . C. Appendix, appendectomy: - No significant pathologic abnormalities. (JPM/db; 12/28/2019) LBQ 12/28/2019 1650 Local . 02 Electronically signed: . Ramos Mcgee MD, Pathologist NPI- [id number] . 01 Gross description: . A. The specimen is received in formalin, labeled "Arce, Nini, descending and sigmoid colon and omentum" and consists of a segment of colon measuring approximate 33 cm in length and ranging from 3.1 cm to 5.0 cm in diameter with pericolic fat measuring up to 8.8 cm. Both margins are stapled closed. The serosa is pink-adhikari with multifocal hemorrhage and thin adhesions. The lumen at one margin is dilated, with the remaining colon showing narrowing and stenosis. The mucosa is pink-correa to brown with no mass lesions. Sectioning reveals multiple (more than 10) diverticula forming smooth mucosal lined out pouches as well as inflamed abscess formation. No perforation is grossly identified. Also received is a segment of omentum measuring 20.7 x 9.8 x 3.5 cm. Upon sectioning there is focal congestion and no masses or lesions. Issue Clerk sections are submitted as follows: . A1: Margin from dilated lumen aspect A2: Opposite margin A3-A6: Diverticula A7: Omentum . B. The specimen is received in formalin, labeled "Nini Arce, segment of transverse colon" and consists of an unoriented segment of colon measuring approximately 24.0 cm in length and 4.0 cm in diameter with pericolic fat measuring up to 4.0 cm. Both margins are stapled closed. Attached is the omental apron measuring 59.9 x 21.5 cm. The colon serosa is pink-correa smooth shiny. The mucosa is pink-correa with a single 0.3 x 0.3 cm polyp. Sectioning reveals multiple (more than 10) diverticula showing smooth mucosal lined out pouches. No perforation is grossly identified. The omentum reveals no gross lesions. Issue Clerk sections are submitted as follows: . B1-B2: Margins B3: Polyp B4-B5: Diverticuli B6: Omentum . C. The specimen is received in formalin, labeled "Nini Arce, appendix" and consists of an appendix measuring 12.5 cm in length and up to 0.6 cm in diameter with mesoappendix measuring 3.3 cm thick. The serosa is pink smooth shiny. The margin is closed with a line of jaydon and inked black. Sectioning reveals a pinpoint to dilated lumen containing brown fecal material. Issue Clerk sections are submitted in C1. (SDY; 12/27/2019) SYU/SYU 12/28/2019 1219 Local . 02 Pathologist provided ICD-10: K57.30, K57.32, K63.0, K52.9, D12.3, K92.2 . 02 CPT . 621481, [id number], [id number] Specimen Comment: A courtesy copy of this report has been sent to [phone], [phone] Specimen Comment: [id number] Specimen Comment: Report sent to / DR TRAYLOR Performed at: [address], [place] [id number] MD Edvin Ji MD Phone: [phone] [facility]formed at: [facility] [address] [place], [place] [id number] MD Ramos Mcgee MD Phone: [phone]
[2019-12-28 19:00] VITALS: BP 125/64
[2019-12-28 23:00] VITALS: BP 127/65
[2019-12-29 03:00] VITALS: BP 124/71
[2019-12-29 07:00] VITALS: BP 112/66
[2019-12-29] MEDS: POTASSIUM CL 20MEQ D5-0.45NACL 1,000 ML IV SCH ×2 (07:18→15:36)
[2019-12-29] MEDS: ceFAZolin SODIUM IV Push 1 GM VIAL. IVP SCH ×3 (07:18→22:07)
[2019-12-29] MEDS: HYDROmorphone 12mg/30ml PCA 30 ML IV PRN (08:10)
[2019-12-29] MEDS: ENOXAPARIN 40 MG/0.4 ML SYRINGE. SQ SCH (08:13)
[2019-12-29 11:00] VITALS: BP 114/68
--- NOTE | 2019-12-29 12:21 | PDOC ---
PROGRESS NOTES Date of Service DATE: 12/29/19 TIME: 12:20 Subjective Subjective improving steadily; passing gas and had a stool Objective Objective Vital Signs Date Time Temp Pulse Resp B/P (MAP) Pulse Ox O2 Delivery O2 Flow Rate FiO2 12/29/19 11:00 98.4 98 16 114/68 (83) 98 Room Air 98.4 12/29/19 08:40 2.0 Intake and Output 12/29/19 07:00 Output Total 0 ml Balance 0 ml Output Urine Total 0 ml # Voids 3 # Bowel Movements 1 Physical Exam Abdomen: Soft Assessment Assessment S/P extended Left/sigmoid colectomy Plan Plan of Care see orders Comment Review of Relevant I have reviewed the following items so (where applicable) has been applied. Medications Current Medications Ondansetron HCl (Zofran) 4 mg PRN Q6HRS PRN IV NAUSEA/VOMITING; Start 12/26/19 at 07:00; Stop 12/27/19 at 07:00; Status DC Fentanyl Citrate (Fentanyl 2ml Vial) 25 mcg PRN Q5MIN PRN IV MILD PAIN 1-3; Start 12/26/19 at 07:00; Stop 12/27/19 at 07:00; Status DC Fentanyl Citrate (Fentanyl 2ml Vial) 50 mcg PRN Q5MIN PRN IV MODERATE TO SEVERE PAIN Last administered on 12/26/19at 15:06; Start 12/26/19 at 07:00; Stop 12/27/19 at 07:00; Status DC Morphine Sulfate (Morphine Sulfate) 1 mg PRN Q10MIN PRN IV SEVERE PAIN 7-10 Last administered on 12/26/19at 14:15; Start 12/26/19 at 07:00; Stop 12/27/19 at 07:00; Status DC Ringer's Solution 1,000 ml @ 30 mls/hr Q24H IV Last administered on 12/26/19at 07:02; Start 12/26/19 at 07:00; Stop 12/26/19 at 18:59; Status DC Lidocaine HCl (Xylocaine-Mpf 1% 2ml Vial) 2 ml PRN 1X PRN ID PRIOR TO IV START; Start 12/26/19 at 07:00; Stop 12/27/19 at 07:00; Status DC Hydromorphone HCl (Dilaudid) 0.5 mg PRN Q10MIN PRN IV SEV PAIN, Second choice Last administered on 12/26/19at 15:32; Start 12/26/19 at 07:00; Stop 12/27/19 at 07:00; Status DC Prochlorperazine Edisylate (Compazine) 5 mg PACU PRN PRN IV NAUSEA, MRX1 Last administered on 12/26/19at 14:30; Start 12/26/19 at 07:00; Stop 12/27/19 at 07:00; Status DC Cefazolin Sodium/ Dextrose 50 ml @ 100 mls/hr 1X PREOP PRN IV PRIOR TO PROCEDURE Last administered on 12/26/19at 07:42; Start 12/26/19 at 06:00; Stop 12/26/19 at 18:00; Status DC Metronidazole 100 ml @ 100 mls/hr 1X PREOP PRN IV PRIOR TO PROCEDURE Last administered on 12/26/19at 07:59; Start 12/26/19 at 06:00; Stop 12/26/19 at 18:00; Status DC Sevoflurane (Ultane) 90 ml STK-MED ONCE IH ; Start 12/26/19 at 07:16; Stop 12/26/19 at 07:16; Status DC Rocuronium [place] (Zemuron) 50 mg STK-MED ONCE .ROUTE ; Start 12/26/19 at 07:16; Stop 12/26/19 at 07:16; Status DC Fentanyl Citrate (Fentanyl 2ml Vial) 100 mcg STK-MED ONCE .ROUTE ; Start 12/26/19 at 07:16; Stop 12/26/19 at 07:16; Status DC Neostigmine [place] (Neostigmine Methylsulfate) 5 mg STK-MED ONCE .ROUTE ; Start 12/26/19 at 07:16; Stop 12/26/19 at 07:16; Status DC Midazolam HCl (Versed) 2 mg STK-MED ONCE .ROUTE ; Start 12/26/19 at 07:16; Stop 12/26/19 at 07:17; Status DC Glycopyrrolate (Robinul) 1 mg STK-MED ONCE .ROUTE ; Start 12/26/19 at 07:17; Stop 12/26/19 at 07:17; Status DC Propofol (Diprivan) 200 mg STK-MED ONCE IV ; Start 12/26/19 at 07:17; Stop 12/26/19 at 07:17; Status DC Lidocaine HCl (Lidocaine Pf 2% Vial) 5 ml STK-MED ONCE .ROUTE ; Start 12/26/19 at 07:17; Stop 12/26/19 at 07:17; Status DC Dexamethasone Sodium Phosphate (Decadron) 4 mg STK-MED ONCE .ROUTE ; Start 12/26/19 at 07:17; Stop 12/26/19 at 07:17; Status DC Ondansetron HCl (Zofran) 4 mg STK-MED ONCE .ROUTE ; Start 12/26/19 at 07:17; Stop 12/26/19 at 07:17; Status DC Rocuronium [place] (Zemuron) 50 mg STK-MED ONCE .ROUTE ; Start 12/26/19 at 08:08; Stop 12/26/19 at 08:09; Status DC Fentanyl Citrate (Fentanyl 2ml Vial) 100 mcg STK-MED ONCE .ROUTE ; Start 12/26/19 at 08:33; Stop 12/26/19 at 08:34; Status DC Fentanyl Citrate (Fentanyl 2ml Vial) 100 mcg STK-MED ONCE .ROUTE ; Start 12/26/19 at 09:38; Stop 12/26/19 at 09:38; Status DC Rocuronium [place] (Zemuron) 50 mg STK-MED ONCE .ROUTE ; Start 12/26/19 at 10:55; Stop 12/26/19 at 10:56; Status DC Cefazolin Sodium (Ancef) 1 gm STK-MED ONCE IVP ; Start 12/26/19 at 12:41; Stop 12/26/19 at 12:41; Status DC Cefazolin Sodium (Ancef) 1 gm STK-MED ONCE IVP ; Start 12/26/19 at 12:41; Stop 12/26/19 at 12:41; Status DC Phenylephrine HCl (PHENYLEPHRINE in 0.9% NACL PF) 1 mg STK-MED ONCE IV ; Start 12/26/19 at 13:14; Stop 12/26/19 at 13:15; Status DC Phenylephrine HCl (PHENYLEPHRINE in 0.9% NACL PF) 1 mg STK-MED ONCE IV ; Start 12/26/19 at 13:14; Stop 12/26/19 at 13:15; Status DC Fentanyl Citrate (Fentanyl 2ml Vial) 100 mcg STK-MED ONCE .ROUTE ; Start 12/26/19 at 13:35; Stop 12/26/19 at 13:36; Status DC Cefazolin Sodium (Ancef) 1 gm Q8HRS IVP Last administered on 12/29/19at 07:18; Start 12/26/19 at 22:00 Metronidazole 100 ml @ 100 mls/hr Q12HR IV Last administered on 12/29/19at 08:12; Start 12/26/19 at 21:00 Enoxaparin Sodium (Lovenox 40mg Syringe) 40 mg Q24H SQ Last administered on 12/29/19at 08:13; Start 12/27/19 at 09:00 Sodium Chloride (Normal Saline Flush) 3 ml QSHIFT PRN IV AFTER MEDS AND BLOOD DRAWS; Start 12/26/19 at 14:00 Potassium Chloride/Dextrose/ Sod Cl 1,000 ml @ 100 mls/hr Q10H IV Last admi nistered on 12/29/19at 07:18; Start 12/26/19 at 16:00 Naloxone HCl (Narcan) 0.4 mg PRN Q2MIN PRN IV SEE INSTRUCTIONS; Start 12/26/19 at 14:00 Sodium Chloride 1,000 ml @ 25 mls/hr Q24H IV ; Start 12/26/19 at 13:56 Hydromorphone HCl 30 ml @ 0 mls/hr CONT PRN PRN IV PER PROTOCOL Last administered on 12/29/19at 08:10; Start 12/26/19 at 14:00 Ondansetron HCl (Zofran) 4 mg PRN Q6HRS PRN IVP NAUESA; Start 12/26/19 at 14:00 Morphine Sulfate (Morphine Sulfate) 2 mg STK-MED ONCE .ROUTE ; Start 12/26/19 at 14:01; Stop 12/26/19 at 14:01; Status DC Prochlorperazine Edisylate (Compazine) 10 mg STK-MED ONCE .ROUTE ; Start 12/26/19 at 14:11; Stop 12/26/19 at 14:11; Status DC Hydromorphone HCl (Dilaudid) 2 mg STK-MED ONCE .ROUTE ; Start 12/26/19 at 14:11; Stop 12/26/19 at 14:12; Status DC Fentanyl Citrate (Fentanyl 2ml Vial) 100 mcg STK-MED ONCE .ROUTE ; Start 12/26/19 at 14:23; Stop 12/26/19 at 14:23; Status DC Ketorolac Tromethamine (Toradol 15mg Vial) 15 mg 1X ONCE IVP Last administered on 12/27/19at 21:24; Start 12/27/19 at 21:00; Stop 12/27/19 at 21:01; Status DC Ketorolac Tromethamine (Toradol 30mg Vial) 30 mg 1X ONCE IVP Last administered on 12/28/19at 12:11; Start 12/28/19 at 11:30; Stop 12/28/19 at 11:31; Status DC Active Scripts Active Montelukast Sodium Tablet (Montelukast Sodium) 10 Mg Tablet 1 Tab PO QHS 30 Days Reported Acetaminophen 325 Mg Tablet 650 Mg PO PRN Q8-12HRS PRN [glucosamine] 1 Tab PO DAILY Probiotic (Lactobacillus Acidophilus) 1 Each Capsule 1 Each PO DAILY Barbara Allergy (Fexofenadine Hcl) 60 Mg Tablet 60 Mg PO DAILY Calcium (Calcium Carbonate) 500 Mg Tab.chew 500 Mg PO DAILY Atorvastatin Calcium 40 Mg Tablet 1 Tab PO QHS Multivitamins (Multivitamin) 1 Each Tablet 1 Tab PO DAILY Melatonin 3 Mg Tablet 1 Tab PO QHS Proair Hfa (Albuterol Sulfate) 8.5 Gm Hfa.aer.ad 1 Puff INH PRN Q6HRS PRN Flonase Allergy Relief (Fluticasone Propionate) 9.9 Ml [place].susp 2 Sprays NS DAILY Omeprazole 20 Mg Tablet.dr 1 Tab PO DAILY Vitals/I & O Vital Sign - Last 24 Hours 12/28/19 12/28/19 12/28/19 12/28/19 15:00 19:00 20:00 23:00 Temp 98.3 101.0 99.9 98.3 101.0 99.9 Pulse 102 99 100 Resp 16 24 30 B/P (MAP) 124/70 (88) 125/64 (84) 127/65 (85) Pulse Ox 97 96 93 O2 Delivery Room Air Room Air Nasal Cannula Room Air O2 Flow Rate 2.0 12/29/19 12/29/19 12/29/19 12/29/19 03:00 07:00 08:10 08:40 Temp 98.2 98.3 98.2 98.3 Pulse 92 99 Resp 26 18 B/P (MAP) 124/71 (88) 112/66 (81) Pulse Ox 97 96 O2 Delivery Room Air Room Air Room Air Nasal Cannula O2 Flow Rate 2.0 12/29/19 11:00 Temp 98.4 98.4 Pulse 98 Resp 16 B/P (MAP) 114/68 (83) Pulse Ox 98 O2 Delivery Room Air Intake and Output 12/28/19 12/28/19 12/29/19 15:00 23:00 07:00 Output Total 0 ml Balance 0 ml Justicifation of Admission Dx: Justifications for Admission: Justification of Admission Dx: Yes FRANSICO LIU MD Dec 29, 2019 12:21
[2019-12-29] MEDS ORDERED: HYDROmorphone 2 MG/ML VIAL IVP PRN ×2 (12:30)
[2019-12-29] MEDS: PANTOPRAZOLE 40 MG TABLET.DR. PO SCH (13:52)
[2019-12-29] MEDS: oxyCODONE/APAP 5/325 1 TAB TABLET PO PRN ×2 (13:52→19:51)
[2019-12-29] MEDS: IV NORMAL SALINE 1000ML BAG 1,000 ML IV SCH (13:56)
[2019-12-29 15:00] VITALS: BP 130/68
[2019-12-29] MEDS: HYDROmorphone 2 MG/ML VIAL IVP PRN ×2 (17:35→22:17)
[2019-12-29 19:00] VITALS: BP 128/70
[2019-12-29 23:00] VITALS: BP 115/79
[2019-12-30] MEDS: HYDROmorphone 2 MG/ML VIAL IVP PRN ×5 (01:16→21:39)
[2019-12-30] MEDS: POTASSIUM CL 20MEQ D5-0.45NACL 1,000 ML IV SCH (01:18)
[2019-12-30 03:00] VITALS: BP 123/76
[2019-12-30] MEDS: ceFAZolin SODIUM IV Push 1 GM VIAL. IVP SCH ×3 (05:38→21:37)
[2019-12-30] MEDS: oxyCODONE/APAP 5/325 1 TAB TABLET PO PRN ×3 (05:38→17:12)
[2019-12-30 07:59] VITALS: BP 111/75
[2019-12-30] MEDS: PANTOPRAZOLE 40 MG TABLET.DR. PO SCH (08:19)
[2019-12-30] MEDS: ENOXAPARIN 40 MG/0.4 ML SYRINGE. SQ SCH (08:20)
[2019-12-30 11:24] VITALS: BP 118/68
[2019-12-30] MEDS: IV NORMAL SALINE 1000ML BAG 1,000 ML IV SCH (13:56)
--- NOTE | 2019-12-30 14:48 | NUR ---
Manually administered Dilaudid. Vial thrown in sharps before scan.
[2019-12-30 15:59] VITALS: BP 130/89
--- NOTE | 2019-12-30 16:31 | PDOC ---
SURGICAL PROGRESS NOTE DATE: 12/30/19 TIME: 16:30 Subjective feeling better some flatus no stool yet some bloating Vital Signs Vital Signs Date Time Temp Pulse Resp B/P (MAP) Pulse Ox O2 Delivery O2 Flow Rate FiO2 12/30/19 15:17 15 Room Air 12/30/19 11:24 98.0 78 118/68 (85) 96 98.0 12/30/19 08:52 2.0 I&O Intake and Output 12/30/19 07:00 Intake Total 1000 ml Output Total 2025 ml Balance -1025 ml Intake Oral 1000 ml Output Urine Total 1975 ml Drainage Total 50 ml # Voids 2 General: Alert, Oriented X3, Cooperative Abdomen: Soft, Other (mildly distented , terese serosang) Assessment/Plan await bowel function will continue clears for now Justicifation of Admission Dx: Justifications for Admission: Justification of Admission Dx: Yes CALEB BOOTH APRN Dec 30, 2019 16:30
[2019-12-30 19:00] VITALS: BP 126/76
[2019-12-30] MEDS: LACTOBACILLUS RHAMNOSUS GG 1 CAPSULE. PO SCH (21:35)
[2019-12-30 22:43] VITALS: BP 122/82
[2019-12-31] MEDS: HYDROmorphone 2 MG/ML VIAL IVP PRN ×5 (02:23→21:16)
[2019-12-31] MEDS: POTASSIUM CL 20MEQ D5-0.45NACL 1,000 ML IV SCH (03:20)
[2019-12-31 03:35] VITALS: BP 120/68
[2019-12-31] MEDS: ceFAZolin SODIUM IV Push 1 GM VIAL. IVP SCH ×3 (05:54→23:01)
[2019-12-31] MEDS: ONDANSETRON PF 4 MG/2 ML VIAL. IVP PRN ×2 (06:08→16:52)
[2019-12-31 07:00] VITALS: BP 120/75
[2019-12-31] MEDS: LACTOBACILLUS RHAMNOSUS GG 1 CAPSULE. PO SCH ×2 (07:59→21:15)
[2019-12-31] MEDS: PANTOPRAZOLE 40 MG TABLET.DR. PO SCH (07:59)
[2019-12-31] MEDS: ENOXAPARIN 40 MG/0.4 ML SYRINGE. SQ SCH (08:00)
[2019-12-31 11:00] VITALS: BP 118/78
--- NOTE | 2019-12-31 12:29 | PDOC ---
CALEB BOOTH APRN 12/31/19 1229: SURGICAL PROGRESS NOTE DATE: 12/31/19 TIME: 12:27 Subjective pain this AM--waited to long for meds + flatus, no stool no emesis, jello tastes bad Vital Signs Vital Signs Date Time Temp Pulse Resp B/P (MAP) Pulse Ox O2 Delivery O2 Flow Rate FiO2 12/31/19 12:08 Room Air 12/31/19 11:00 98.4 80 18 118/78 (91) 92 98.4 12/30/19 08:52 2.0 I&O Intake and Output 12/31/19 07:00 Intake Total 1060 ml Balance 1060 ml Intake Oral 560 ml Other 500 ml # Voids 6 General: Alert, Oriented X3, Cooperative Abdomen: Soft, Other (RACHAEL serosang, dressing dry, ND) Assessment/Plan will trial fulls continue walking Justicifation of Admission Dx: Justifications for Admission: Justification of Admission Dx: Yes FRANSICO LIU MD 01/01/20 1334: SURGICAL PROGRESS NOTE Assessment/Plan Agree with above CALEB BOOTH APRN Dec 31, 2019 12:29 FRANSICO LIU MD Jan 01, 2020 13:34
[2019-12-31] MEDS: IV NORMAL SALINE 1000ML BAG 1,000 ML IV SCH (13:56)
[2019-12-31 15:00] VITALS: BP 121/80
[2019-12-31 19:00] VITALS: BP 131/68
[2019-12-31 23:00] VITALS: BP 125/68
[2020-01-01] MEDS: POTASSIUM CL 20MEQ D5-0.45NACL 1,000 ML IV SCH ×2 (00:50→21:00)
[2020-01-01] MEDS: HYDROmorphone 2 MG/ML VIAL IVP PRN ×3 (00:50→11:23)
[2020-01-01 03:00] VITALS: BP 119/69
[2020-01-01] MEDS: ceFAZolin SODIUM IV Push 1 GM VIAL. IVP SCH ×3 (05:33→22:17)
[2020-01-01 07:00] VITALS: BP 125/71
[2020-01-01] MEDS: LACTOBACILLUS RHAMNOSUS GG 1 CAPSULE. PO SCH ×2 (08:20→20:59)
[2020-01-01] MEDS: PANTOPRAZOLE 40 MG TABLET.DR. PO SCH (08:20)
[2020-01-01] MEDS: ENOXAPARIN 40 MG/0.4 ML SYRINGE. SQ SCH (08:21)
--- NOTE | 2020-01-01 09:58 | NUR ---
SW following. Discussed with RN, pt from home, full liquid, had BM. PT recommending home health - however, RN reporting pt gets around fine. RN advised no SW needs, anticipate possible discharge home today if diet can be advanced. SW will continue to follow.
[2020-01-01 11:00] VITALS: BP 104/66
--- NOTE | 2020-01-01 12:43 | PDOC ---
CALEB BOOTH APRN 01/01/20 1243: SURGICAL PROGRESS NOTE DATE: 01/01/20 TIME: 12:42 Subjective taking fulls slowly having stools, flatus Vital Signs Vital Signs Date Time Temp Pulse Resp B/P (MAP) Pulse Ox O2 Delivery O2 Flow Rate FiO2 01/01/20 11:23 Room Air 01/01/20 11:00 98.3 74 16 104/66 (79) 97 98.3 I&O Intake and Output 01/01/20 07:00 Intake Total 320 ml Output Total 60 ml Balance 260 ml Intake Oral 320 ml Drainage Total 60 ml # Voids 9 # Bowel Movements 2 General: Alert, Oriented X3, Cooperative Abdomen: Soft, Other (incision c/d/i, no erythema, bill in place, terese serosang) Assessment/Plan full liquids oral meds increase activity Justicifation of Admission Dx: Justifications for Admission: Justification of Admission Dx: Yes FRANSICO LIU MD 01/01/20 1334: SURGICAL PROGRESS NOTE Assessment/Plan Agree with above CALEB BOOTH APRN Jan 01, 2020 12:43 FRANSICO LIU MD Jan 01, 2020 13:34
[2020-01-01] MEDS: oxyCODONE/APAP 5/325 1 TAB TABLET PO PRN ×3 (13:40→22:30)
[2020-01-01] MEDS: IV NORMAL SALINE 1000ML BAG 1,000 ML IV SCH (13:56)
[2020-01-01 15:34] VITALS: BP 118/70
[2020-01-01 19:00] VITALS: BP 116/76
[2020-01-01 23:05] VITALS: BP 120/70
[2020-01-02 03:00] VITALS: BP 119/62
[2020-01-02] MEDS: oxyCODONE/APAP 5/325 1 TAB TABLET PO PRN ×5 (05:04→22:29)
[2020-01-02] MEDS: ceFAZolin SODIUM IV Push 1 GM VIAL. IVP SCH (06:04)
[2020-01-02 07:39] VITALS: BP 124/73
[2020-01-02] MEDS: PANTOPRAZOLE 40 MG TABLET.DR. PO SCH (09:27)
[2020-01-02] MEDS: ONDANSETRON PF 4 MG/2 ML VIAL. IVP PRN (09:27)
[2020-01-02] MEDS: LACTOBACILLUS RHAMNOSUS GG 1 CAPSULE. PO SCH ×2 (09:27→21:33)
[2020-01-02] MEDS: ENOXAPARIN 40 MG/0.4 ML SYRINGE. SQ SCH (09:27)
--- NOTE | 2020-01-02 09:45 | NUR ---
SW following. Discussed with RN, pt on full liquid diet - waiting for surgery to advance diet. SW will continue to follow. Pt will discharge home when ready.
--- NOTE | 2020-01-02 10:00 | PDOC ---
SURGICAL PROGRESS NOTE DATE: 01/02/20 TIME: 09:59 Subjective mild nausea this AM has been tolerating diet, low appetite pain managed loose stools Vital Signs Vital Signs Date Time Temp Pulse Resp B/P (MAP) Pulse Ox O2 Delivery O2 Flow Rate FiO2 01/02/20 08:00 Room Air 01/02/20 07:39 98.4 78 16 124/73 (90) 94 98.4 I&O Intake and Output 01/02/20 07:00 Intake Total 390 ml Output Total 0 ml Balance 390 ml Intake Oral 390 ml Output Urine Total 0 ml # Voids 4 # Bowel Movements 1 General: Alert, Oriented X3, Cooperative Abdomen: Soft, Other (binder in place, drain serosang ) Assessment/Plan advance diet stop abx remove bill drain Justicifation of Admission Dx: Justifications for Admission: Justification of Admission Dx: Yes CALEB BOOTH APRN Jan 02, 2020 10:00
[2020-01-02 11:45] VITALS: BP 122/69
[2020-01-02 15:34] VITALS: BP 94/58
[2020-01-02 19:00] VITALS: BP 128/69
[2020-01-02 23:00] VITALS: BP 132/78
[2020-01-03 03:00] VITALS: BP 121/72
[2020-01-03] MEDS: oxyCODONE/APAP 5/325 1 TAB TABLET PO PRN ×2 (04:22→08:47)
[2020-01-03 07:00] VITALS: BP 125/70
[2020-01-03] MEDS: PANTOPRAZOLE 40 MG TABLET.DR. PO SCH (08:47)
[2020-01-03] MEDS: ENOXAPARIN 40 MG/0.4 ML SYRINGE. SQ SCH (08:47)
[2020-01-03] MEDS: LACTOBACILLUS RHAMNOSUS GG 1 CAPSULE. PO SCH (08:47)
--- NOTE | 2020-01-03 09:59 | NUR ---
SW following. Discussed with RN, pt from home, advanced to GI soft, bill drain has been removed. RN advised no SW needs, anticipates possible discharge home today. SW will continue to follow, should any discharge needs arise.
[2020-01-03 11:00] VITALS: BP 128/81
--- NOTE | 2020-01-03 12:35 | PDOC3 ---
Discharge Summary Visit Information Date of Admission: Dec 26, 2019 Date of Discharge: Jan 03, 2020 Admitting Diagnosis: Diverticulosis with stricture Final Diagnosis Same Brief Hospital Course Allergies Allergies Coded Allergies Type Severity Reaction Last Updated Verified No Known Drug Allergies 12/26/19 No Vital Signs Vital Signs Date Time Temp Pulse Resp B/P (MAP) Pulse Ox O2 Delivery O2 Flow Rate FiO2 01/03/20 11:00 98.2 82 18 128/81 (97) 95 Room Air 98.2 01/02/20 20:00 2.0 Brief Hospital Course Ms. Arce is a 54 old female with long history of diverticular disease having worsening abdominal pain and obstructive symptoms. She underwent colectomy for significant stricture diverticular disease. Her hospital course is been quite uneventful she is tolerating regular diet having bowel movements and is being discharged home in stable condition. Assessment Assessment Diverticular disease Discharge Information Condition at Discharge: Stable Follow Up: Weeks Disposition/Orders: D/C to Home Scheduled Atorvastatin Calcium (Atorvastatin Calcium) 40 Mg Tablet, 1 TAB PO QHS for cholesterol, #90 Ref 3 (Reported) Entered as Reported by: REZA LOUISE on 02/23/191657 Last Action: Reviewed on 12/22/191705 by EMMANUEL KELLER Calcium Carbonate (Calcium) 500 Mg Tab.chew, 500 MG PO DAILY for replacement, (Reported) Entered as Reported by: REZA LOUISE on 02/23/191657 Last Action: Reviewed on 12/22/191705 by EMMANUEL KELLER Fexofenadine Hcl (Barbara Allergy) 60 Mg Tablet, 60 MG PO DAILY for control allergies, (Reported) Entered as Reported by: EMMANUEL KELLER on 12/22/191705 Last Action: New Order on 12/22/191705 by EMMANUEL KELLER Fluticasone Propionate (Flonase Allergy Relief) 9.9 Ml [place].susp, 2 SPRAYS NS DAILY for allergies, (Reported) Entered as Reported by: NAILA ESPINAL on 08/12/18815 Last Taken: Unknown Dose on 12/26/19 0430 Last Action: Last Taken Edited on 12/26/19810 by MALIK AMIN Lactobacillus Acidophilus (Probiotic) 1 Each Capsule, 1 EACH PO DAILY for colon health, (Reported) Entered as Reported by: EMMANUEL KELLER on 12/22/191705 Last Action: New Order on 12/22/191705 by EMMANUEL KELLER Melatonin (Melatonin) 3 Mg Tablet, 1 TAB PO QHS for insomnia, #30 Ref 2 (Repo rted) Entered as Reported by: NAILA ESPINAL on 08/12/18 0834 Last Action: Reviewed on 12/22/191705 by EMMANUEL KELLER Montelukast Sodium (Montelukast Sodium Tablet ) 10 Mg Tablet, 1 TAB PO QHS for Allergies for 30 Days, #30 Ref 5 Prescribed by: VIKI FUENTES MD on 09/10/18 1421 Last Action: Reviewed on 12/22/191705 by EMMANUEL KELLER Multivitamin (Multivitamins) 1 Each Tablet, 1 TAB PO DAILY for supplement, #90 Ref 3 (Reported) Entered as Reported by: NAILA ESPINAL on 08/12/18835 Last Action: Reviewed on 12/22/191705 by EMMANUEL KELLER Omeprazole (Omeprazole) 20 Mg Tablet.dr, 1 TAB PO DAILY for reflux, #90 Ref 1 (Reported) Entered as Reported by: NAILA ESPINAL on 08/12/1815 Last Taken: Unknown Dose on 12/26/19 0430 Last Action: Converted on 12/29/19 1345 by MIGUEL HUMPHRIES RN [glucosamine] , 1 TAB PO DAILY for joint health, (Reported) Entered as Reported by: EMMANUEL KELLER on 12/22/191705 Last Action: New Order on 12/22/191705 by EMMANUEL KELLER Scheduled PRN Acetaminophen (Acetaminophen) 325 Mg Tablet, 650 MG PO PRN Q8-12HRS PRN for PAIN, (Reported) Entered as Reported by: EMMANUEL KELLER on 12/22/191705 Last Action: New Order on 12/22/191705 by EMMANUEL KELLER Albuterol Sulfate (Proair Hfa) 8.5 Gm Hfa.aer.ad, 1 PUFF INH PRN Q6HRS PRN for SHORTNESS OF BREATH, (Reported) Entered as Reported by: NAILA ESPINAL on 08/12/18 0833 Last Action: Reviewed on 12/22/191705 by EMMANUEL KELLER Patient Instructions Patient Instructions Patient follow-up Dr. Matute in 1 week for possible drain removal No lifting more than 20 pounds for 6 weeks May shower No soaking in tub hot tub or pool for 6 weeks Justicifation of Admission Dx: Justifications for Admission: Justification of Admission Dx: N/A JUVENCIO CRANE MD Jan 03, 2020 12:35
--- NOTE | 2020-01-03 12:38 | DISCH ---
DISCHARGE INSTRUCTIONS Condition on Discharge Condition on Discharge: Stable Activity After Discharge Activity Instructions for Disc: Avoid exertion Other activity instructions: No lifting more than 20 pounds for 6 weeks Exercise Instruction after Dis: Progress as tolerated Driving Instructions after Dis: Do not drive today Weight Bearing Status after Di: No restrictions Diet after Discharge Diet after Discharge: GI Soft Diet Texture: Regular Liquid Texture: Thin Liquid Swallowing Supervision: None needed Wound Incision Care Other wound/incision instructi: May shower Contacting the DRArline after DC Call your doctor for: If your condition worsens Follow-Up Follow up with: Dr. Matute in 1 week Treatment/Equipment after DC Adaptive Equipment Issued: None JUVENCIO CRANE MD Jan 03, 2020 12:38
--- NOTE | 2020-01-03 14:44 | NUR ---
Pt. discharged to home with Rx, verbalized understanding of discharge instructions and RACHAEL drain care for home. Pt. given drain record and measuring cup. Abd binder in place incision CDI.
== END 2020-01-03 15:10 | disposition home or self-care (01) | DRG 331 ==
LOC: OPSVCIP 06:13 → 4 NORTH 15:21
PROVIDERS: ADMIT Surgery; ATTEND Surgery
PROC: 0DTJ0ZZ Resection of Appendix, Open Approach (ICD-10-PCS; 2019-12-26)
PROC: 0DJD4ZZ Inspection of Lower Intestinal Tract, Percutaneous Endoscopic Approach (ICD-10-PCS; 2019-12-26)
PROC: 0DNN0ZZ Release Sigmoid Colon, Open Approach (ICD-10-PCS; 2019-12-26)
PROC: 0DTN0ZZ Resection of Sigmoid Colon, Open Approach (ICD-10-PCS; principal; 2019-12-26 07:30)
DX: K57.32 Diverticulitis of large intestine without perforation or abscess without bleeding (principal); Z53.31 Laparoscopic surgical procedure converted to open procedure
CPT/HCPCS: 36415; 74018; 80048; 85007; 85025; 88304; 88307; A7015; J0690; J0780; J1100; J1170; J1650; J1885; J2250; J2270; J2370; J2405; J2704; J2710; J3010; J3480; J3490; J7030; J7120; 97110-GP; 97116-GP; 97530-GP; G0378

== ENCOUNTER 2020-01-05 14:41 | Inpatient (IN) | payer OTHER ==
[~2020-01-05] VITALS: Ht 162.6 cm; Wt 66.1 kg
[2020-01-05] MEDS ORDERED: ONDANSETRON PF 4 MG/2 ML VIAL. IVP ONE (16:15)
[2020-01-05] MEDS ORDERED: IOHEXOL 240 MG/ML 50ML VIAL. ONE (16:22)
[2020-01-05] MEDS ORDERED: IOHEXOL 240 MG/ML 50ML VIAL. PO ONE (16:30)
[2020-01-05] MEDS ORDERED: IOHEXOL 300 MG/ML 100ML VIAL. IV ONE (16:30)
[2020-01-05] MEDS ORDERED: IV NORMAL SALINE 1000ML BAG 1,000 ML IV ONE (16:30)
[2020-01-05] MEDS ORDERED: CONTRAST GIVEN. MC PRN (16:30)
[2020-01-05 17:02] LABS: BASO % 0 % (0-3); EOS % 0 % (0-3); HEMATOCRIT 37.7 % (36.0-47.0); HEMOGLOBIN 12.5 g/dL (12.0-15.5); LYMPH % 18 % (24-48); MEAN CORPUSCULAR HEMOGLOBIN 29 pg (25-35); MEAN CORPUSCULAR HGB CONC 33 g/dL (31-37); MEAN CORPUSCULAR VOLUME 87 fL (79-100); MONO # 0.9 x10^3/uL (0.0-1.1); MONO % 17 % (0-9); NEUT # 3.5 x10^3/uL (1.8-7.7); NEUT % 65 % (31-73); PLATELET COUNT 496 x10^3/uL (140-400); RED BLOOD COUNT 4.33 x10^6/uL (3.50-5.40); RED CELL DISTRIBUTION WIDTH 15.8 % (11.5-14.5); WHITE BLOOD COUNT 5.4 x10^3/uL (4.0-11.0)
[2020-01-05 17:10] LABS: CALCIUM 9.8 mg/dL (8.5-10.1); CREATININE 0.7 mg/dL (0.6-1.0); GFR 86.6; POTASSIUM 3.9 mmol/L (3.5-5.1)
--- NOTE | 2020-01-05 17:13 | PHYS DOC ---
Past Medical History Past Medical History: Anxiety, Arthritis, Asthma, CAD, Diverticulitis, GERD, Other Additional Past Medical Histor: SEASONAL ALLERGIES, left CAROTID DISSECTION, Pre-Diabetes (BRIELLE VILLALOBOS MD) Past Surgical History: Hysterectomy, Tubal ligation, Other Additional Past Surgical Histo: LEEP,CYSTO/RECTOCELE, SINUS SURGERY (BRIELLE VILLALOBOS MD) Smoking Status: Never Smoker Alcohol Use: Occasionally Drug Use: None (BRIELLE VILLALOBOS MD) General Adult EDM: Chief Complaint: NAUSEA/VOMITING/DIARRHA HPI: HPI: Patient is a 54-year-old female who presents to the emergency room complaining of nausea and vomiting. Patient states that she had a open colectomy done for diverticulitis and colitis 1 week ago. She states that she has been nauseous since the surgery. They initially thought it was due to pain medicine. When she went home she quit taking the pain medicine because she no longer had pain. She continues to be nauseous. She started having bilious vomiting earlier today. She denies any abdominal pain. She does not have any fever. She is not able to eat anything. (BRIELLE VILLALOBOS MD) Review of Systems: Review of Systems: General: Denies fever, chills, sweats, fatigue Eyes: Denies drainage, blurred vision, eye redness HENT: Denies rhinorrhea, sore throat, earache Respiratory: Denies cough, shortness of breath, wheezing Cardiac: Denies edema, palpitations, chest pain GI: Reports nausea, vomiting. Denies abdominal pain MSK: Denies neck pain, back pain Skin: Denies rash, jaundice Neuro: Denies headache, dizziness Psychiatric: Denies SI/HI (BRIELLE VILLALOBOS MD) Heart Score: Risk Factors: Risk Factors: DM, Current or recent (<one month) smoker, HTN, HLP, family history of CAD, obesity. Risk Scores: Score 0 - 3: 2.5% MACE over next 6 weeks - Discharge Home Score 4 - 6: 20.3% MACE over next 6 weeks - Admit for Clinical Observation Score 7 - 10: 72.7% MACE over next 6 weeks - Early Invasive Strategies (BRIELLE VILLALOBOS MD) Current Medications: Current Medications Medications (Trade) Dose Ordered Sig/Michael Start Time Stop Time Status Last Admin Dose Admin Info (CONTRAST GIVEN -- Rx MONITORING) 1 each PRN DAILY PRN 8/14/20 16:30 01/07/20 16:29 Iohexol (Omnipaque 240 Mg/ml) 50 ml STK-MED ONCE 01/05/20 16:22 01/05/20 16:22 DC Iohexol (Omnipaque 300 Mg/ml) 75 ml 1X ONCE 01/05/20 16:30 01/05/20 16:31 DC Ondansetron HCl (Zofran) 4 mg 1X ONCE 01/05/20 16:15 01/05/20 16:16 DC 01/05/20 16:52 4 MG Sodium Chloride 1,000 ml @ 1,000 mls/hr 1X ONCE 01/05/20 16:30 01/05/20 17:29 01/05/20 16:52 1,000 MLS/HR (BRIELLE VILLALOBOS MD) Allergies: Allergies: Allergies Coded Allergies Type Severity Reaction Last Updated Verified No Known Drug Allergies 12/26/19 No (BRIELLE VILLALOBOS MD) Physical Exam: PE: General: Awake, alert, NAD. Well Nourished, well hydrated. Cooperative HEENT: Atraumatic, EOMI, PERRL, airway patent, moist oral mucosa Neck: Supple, trachea midline Respiratory: CTA bilaterally, normal effort, no wheezing/crackles CV: Tachycardic, no murmur, cap refill <2 GI: Soft, nondistended, nontender, no masses, drain in place, incision clean dry intact MSK: No obvious deformities Skin: Warm, dry, intact Neuro: A&O x3, speech NL, sensory and motor grossly intact, no focal deficits Psych: Normal affect, normal mood, not suicidal or homicidal (BRIELLE VILLALOBOS MD) Current Patient Data: Labs: Laboratory Tests Test 01/05/20 16:50 White Blood Count 5.4 x10^3/uL (4.0-11.0) Red Blood Count 4.33 x10^6/uL (3.50-5.40) Hemoglobin 12.5 g/dL (12.0-15.5) Hematocrit 37.7 % (36.0-47.0) Mean Corpuscular Volume 87 fL (79-100) Mean Corpuscular Hemoglobin 29 pg (25-35) Mean Corpuscular Hemoglobin Concent 33 g/dL (31-37) Red Cell Distribution Width 15.8 % (11.5-14.5) H Platelet Count 496 x10^3/uL (140-400) H Neutrophils (%) (Auto) 65 % (31-73) Lymphocytes (%) (Auto) 18 % (24-48) L Monocytes (%) (Auto) 17 % (0-9) H Eosinophils (%) (Auto) 0 % (0-3) Basophils (%) (Auto) 0 % (0-3) Neutrophils # (Auto) 3.5 x10^3/uL (1.8-7.7) Lymphocytes # (Auto) 1.0 x10^3/uL (1.0-4.8) Monocytes # (Auto) 0.9 x10^3/uL (0.0-1.1) Eosinophils # (Auto) 0.0 x10^3/uL (0.0-0.7) Basophils # (Auto) 0.0 x10^3/uL (0.0-0.2) Laboratory Tests 01/05/20 16:50 Vital Signs: Vital Signs Date Time Temp Pulse Resp B/P (MAP) Pulse Ox O2 Delivery O2 Flow Rate FiO2 01/05/20 15:31 98.1 120 16 129/75 (93) 97 98.1 (BRIELLE VILLALOBOS MD) EKG: EKG: [] (BRIELLE VILLALOBOS MD) Radiology/Procedures: Radiology/Procedures: [] (BRIELLE VILLALOBOS MD) Course & Med Decision Making: Course & Med Decision Making Pertinent Labs and Imaging studies reviewed. (See chart for details) Patient is a 54-year-old female who presents to the emergency room complaining of postop nausea and vomiting. Patient has a nontender abdomen. Given her recent surgery will do a CT abdomen pelvis to evaluate for obstruction or other pathology. Abdominal labs were ordered. Patient was given fluids and nausea medicine here in the emergency room. (BRIELLE VILLALOBOS MD) Course & Med Decision Making 1958-patient was seen and evaluated. Patient reports that she has improved with the medications rendered here in the emergency department. I discussed the case with the admitting physician. I discussed all pertinent CT laboratory and history and physical data. I did discuss with the covering surgeon as well. No directions towards NG tube or other treatment other than admission and observation. (JOSÉ MANUEL RODRIGUEZ MD) Dragon Disclaimer: Dragon Disclaimer: This electronic medical record was generated, in whole or in part, using a voice recognition dictation system. (BRIELLE VILLALOBOS MD) Departure Departure Impression: Primary Impression: Abdominal pain Qualified Codes: R10.84 - Generalized abdominal pain Additional Impressions: Dehydration Ileus, postoperative Nausea and vomiting Qualified Codes: R11.14 - Bilious vomiting Disposition: ADMITTED INPATIENT Condition: STABLE Referrals: JESSICA TRAYLOR APRN (PCP) Justicifation of Admission Dx: Justifications for Admission: Justification of Admission Dx: Yes (BRIELLE VILLALOBOS MD) Justification of Admission Dx: Yes Comments: pOST-OP ILEUS (JOSÉ MANUEL RODRIGUEZ MD) BRIELLE VILLALOBOS MD Jan 05, 2020 17:13 JOSÉ MANUEL RODRIGUEZ MD Jan 05, 2020 19:58
[2020-01-05 17:16] LABS: ALBUMIN 3.3 g/dL (3.4-5.0); ALBUMIN/GLOBULIN RATIO 0.8 (1.0-1.7); TOTAL BILIRUBIN 0.4 mg/dL (0.2-1.0); TOTAL PROTEIN 7.4 g/dL (6.4-8.2)
--- NOTE | 2020-01-05 18:06 | RAD ---
Exam: CT of abdomen and pelvis with contrast INDICATION: Abdominal pain postop TECHNIQUE: Sequential axial images through the abdomen and pelvis obtained following the administration of 75 mL of Omni 300 IV contrast. Sagittal and coronal reformatted images were reconstructed from the axial data and reviewed. Comparisons: 11/30/2019 FINDINGS: Heart size is normal. No pericardial effusion. Strandy opacities at dependent portion lungs likely representing atelectasis. No pleural effusion Liver, spleen, pancreas and adrenals are unremarkable. Gallbladder is mildly distended. Kidneys demonstrate symmetric enhancement. No perinephric inflammation or hydronephrosis. No renal or ureteral calculi. Bladder is partially distended and not well evaluated. Uterus is absent. No abnormal adnexal mass. Interval postsurgical changes of a right hemicolectomy with a right upper quadrant ileocolic anastomosis. There is a small amount of free air adjacent to the sigmoid colon. There is wall thickening at the sigmoid colon. Additionally, there is small amount of free fluid noted in the pelvis particularly at the left adnexa. Percutaneous abdominal drain is seen with tip in the left pelvis. There are several mildly dilated loops of small bowel noted throughout the abdomen without evidence of obstruction. Abdominal aorta has a normal course and caliber. Abdominal vasculature is patent. No enlarged abdominal lymph nodes are identified. No suspicious osseous lesions or acute fractures. IMPRESSION: 1. Small amount of free air is noted along the sigmoid colon in an area of diffuse wall thickening. Findings are suspicious for perforation, correlate with surgical history. Additionally there is a small amount of free fluid noted in the pelvis. Oral contrast is seen predominantly in the proximal small bowel which limits the evaluation for extravasated contrast at this level. 2. Mildly distended loops of small bowel diffusely, likely reactive/postoperative. No evidence for obstruction. Exposure: One or more of the following in the visualized dose reduction techniques were utilized for this examination: 1. Automated exposure control 2. Adjustment of the MA and/or KV according to patient size 3. Use of iterative of reconstructive technique Electronically signed by: Myriam Bull MD (01/05/2020 6:03 PM) [id number]
[2020-01-05] MEDS ORDERED: diphenhydrAMINE 50 MG/ML VIAL IVP ONE (19:00)
[2020-01-05] MEDS ORDERED: PIPERACILLIN/TAZOBACTAM 4.5 GM in IV NORMAL SALINE 100ML 100 ML IV ONE (19:45)
[2020-01-05] MEDS ORDERED: PROCHLORPERAZINE 10 MG/2 ML VIAL. IV ONE (20:00)
[2020-01-05] MEDS ORDERED: ONDANSETRON PF 4 MG/2 ML VIAL. IV PRN (20:30)
[2020-01-05] MEDS ORDERED: IV NORMAL SALINE 1000ML BAG 1,000 ML IV SCH (21:00)
[2020-01-05] MEDS ORDERED: KETOROLAC 15 MG/ML VIAL. ONE (21:01)
[2020-01-05] MEDS: POTASSIUM CL 20MEQ D5-0.45NACL 1,000 ML IV SCH (21:15)
--- NOTE | 2020-01-05 21:24 | PDOC1 ---
History and Physical Date of Admission Date of Admission DATE: 01/05/20 TIME: 21:18 Source Source: Chart review, Patient History of Present Illness History of Present Illness Patient is a 54-year-old female who presents to the emergency room complaining of nausea and vomiting. Patient states that she had a open colectomy done for diverticulitis and colitis 1 week ago. She previously had a long history of diverticular disease having worsening abdominal pain and obstructive symptoms. She states that she has been nauseous since the surgery. she feels bloated and cannot eat. she complains of reflux and has vomited bilious material. she stopped taking pain meds only about 30 mls of of her drain today and it looks clear with tinge of red. She continues to be nauseous. she did stool some today, Past Medical History Cardiovascular: No pertinent hx GI: Diverticulosis Heme/Onc: Cancer Past Surgical History Past Surgical History: Mastectomy, Hysterectomy, Other Family History Family History: Cancer Social History Smoke: No ALCOHOL: occassional Drugs: None Current Problem List Problem List Problems Medical Problems: (1) Abdominal pain Status: Acute (2) Dehydration Status: Acute (3) Ileus, postoperative Status: Acute (4) Nausea and vomiting Status: Acute Current Medications Current Medications Current Medications Ondansetron HCl (Zofran) 4 mg 1X ONCE IVP Last administered on 01/05/20at 16:52; Start 01/05/20 at 16:15; Stop 01/05/20 at 16:16; Status DC Iohexol (Omnipaque 240 Mg/ml) 30 ml 1X ONCE PO Last administered on 01/05/20at 17:30; Start 01/05/20 at 16:30; Stop 01/05/20 at 16:31; Status DC Iohexol (Omnipaque 300 Mg/ml) 75 ml 1X ONCE IV Last administered on 01/05/20at 17:30; Start 01/05/20 at 16:30; Stop 01/05/20 at 16:31; Status DC Info (CONTRAST GIVEN -- Rx MONITORING) 1 each PRN DAILY PRN MC SEE COMMENTS; Start 01/05/20 at 16:30; Stop 01/07/20 at 16:29 Iohexol (Omnipaque 240 Mg/ml) 50 ml STK-MED ONCE .ROUTE ; Start 01/05/20 at 16:22; Stop 01/05/20 at 16:22; Status DC Sodium Chloride 1,000 ml @ 1,000 mls/hr 1X ONCE IV Last administered on 01/05/20at 16:52; Start 01/05/20 at 16:30; Stop 01/05/20 at 17:29; Status DC Diphenhydramine HCl (Benadryl) 25 mg 1X ONCE IVP Last administered on 01/05/20at 19:16; Start 01/05/20 at 19:00; Stop 01/05/20 at 19:01; Status DC Piperacillin Sod/ Tazobactam Sod 4.5 gm/Sodium Chloride 100 ml @ 200 mls/hr 1X ONCE IV ; Start 01/05/20 at 19:45; Stop 01/05/20 at 20:14; Status Cancel Prochlorperazine Edisylate (Compazine) 10 mg 1X ONCE IV Last administered on 01/05/20at 21:11; Start 01/05/20 at 20:00; Stop 01/05/20 at 20:01; Status DC Ondansetron HCl (Zofran) 4 mg PRN Q8HRS PRN IV NAUSEA/VOMITING 1ST CHOICE; Start 01/05/20 at 20:30; Stop 01/06/20 at 20:29 Sodium Chloride 1,000 ml @ 75 mls/hr [id number] IV Last administered on 01/05/20at 21:11; Start 01/05/20 at 21:00; Stop 01/06/20 at 20:59 Ketorolac Tromethamine (Toradol 15mg Vial) 15 mg 1X ONCE IVP Last administered on 01/05/20at 21:11; Start 01/05/20 at 21:30; Stop 01/05/20 at 21:31 Ketorolac Tromethamine (Toradol 15mg Vial) 15 mg STK-MED ONCE .ROUTE ; Start 01/05/20 at 21:01; Stop 01/05/20 at 21:01; Status DC Active Scripts Active Montelukast Sodium Tablet (Montelukast Sodium) 10 Mg Tablet 1 Tab PO QHS 30 Days Reported Acetaminophen 325 Mg Tablet 650 Mg PO PRN Q8-12HRS PRN Probiotic (Lactobacillus Acidophilus) 1 Each Capsule 1 Each PO DAILY Barbara Allergy (Fexofenadine Hcl) 60 Mg Tablet 60 Mg PO DAILY Calcium (Calcium Carbonate) 500 Mg Tab.chew 500 Mg PO DAILY Atorvastatin Calcium 40 Mg Tablet 1 Tab PO QHS Multivitamins (Multivitamin) 1 Each Tablet 1 Tab PO DAILY Melatonin 3 Mg Tablet 1 Tab PO QHS Proair Hfa (Albuterol Sulfate) 8.5 Gm Hfa.aer.ad 1 Puff INH PRN Q6HRS PRN Flonase Allergy Relief (Fluticasone Propionate) 9.9 Ml [place].susp 2 Sprays NS DAILY Omeprazole 20 Mg Tablet.dr 1 Tab PO DAILY Allergies Allergies: Coded Allergies: No Known Drug Allergies (Unverified , 12/26/19) ROS General: YES: Fatigue; No: Chills, Night Sweats, Malaise, Appetite, Other PSYCHOLOGICAL ROS: No: Anxiety, Behavioral Disorder, Concentration difficultie, Decreased libido, Depression, Disorientation, Hallucinations, Hostility, Irritablity, Memory difficulties, Mood Swings, Obsessive thoughts, Physical abuse, Sexual abuse, Sleep disturbances, Suicidal ideation, Other Eyes: No Blurry vision, No Decreased vision, No Double vision, No Dry eyes, No Excessive tearing, No Eye Pain, No Itchy Eyes, No Loss of vision, No Photophobia, No Scotomata, No Uses contacts, No Uses glasses, No Other HEENT: No: Heacaches, Visual Changes, Hearing change, Nasal congestion, Nasal discharge, Oral lesions, Sinus pain, Sore Throat, Epistaxis, Sneezing, Snoring, Tinnitus, Vertigo, Vocal changes, Other Respiratory: No: Cough, Hemoptysis, Orthopnea, Pleuritic Pain, Shortness of breath, SOB with excertion, Sputum Changes, Stridor, Tachypnea, Wheezing, Other Cardiovascular: No Chest Pain, No Palpitations, No Orthopnea, No Paroxysmal No c. Dyspnea, No Edema, No Lt Headedness, No Other Gastrointestinal: Yes Nausea, Yes Vomiting, Yes Abdominal Pain Genitourinary: No Dysuria, No Frequency, No Incontinence, No Hematuria, No Retention, No Discharge, No Urgency, No Pain, No Flank Pain, No Other, No , No , No , No , No , No , No Musculoskeletal: No Gait Disturbance, No Joint Pain, No Joint Stiffness, No Joint Swelling, No Muscle Pain, No Muscular Weakness, No Pain In:, No Swelling In:, No Other Neurological: No Behavorial Changes, No Bowel/Bladder ControlChng, No Confusion, No Dizziness, No Gait Disturbance, No Headaches, No Impaired Coord/balance, No Memory Loss, No Numbness/Tingling, No Seizures, No Speech Problems, No Tremors, No Visual Changes, No Weakness, No Other Skin: No Dry Skin, No Eczema, No Hair Changes, No Lumps, No Mole Changes, No Mottling, No Nail Changes, No Pruritus, No Rash, No Skin Lesion Changes, No Other, No Acne Physical Exam General: Alert, Oriented X3, Cooperative, mild distress HEENT: Atraumatic, PERRLA Lungs: Clear to auscultation Heart: S1S2 Abdomen: Other (binder, so firm, hypoactive sounds, no rebound or guarding, ) Extremities: No cyanosis, No edema, Normal pulses Skin: No rashes Neuro: Normal speech, Sensation intact Psych/Mental Status: Mental status NL, Mood NL Vitals Vitals Vital Signs Date Time Temp Pulse Resp B/P (MAP) Pulse Ox O2 Delivery O2 Flow Rate FiO2 01/05/20 20:30 92 20 114/74 (87) 93 Room Air 01/05/20 15:31 98.1 98.1 Labs Labs Laboratory Tests Test 01/05/20 16:50 White Blood Count 5.4 x10^3/uL (4.0-11.0) Red Blood Count 4.33 x10^6/uL (3.50-5.40) Hemoglobin 12.5 g/dL (12.0-15.5) Hematocrit 37.7 % (36.0-47.0) Mean Corpuscular Volume 87 fL (79-100) Mean Corpuscular Hemoglobin 29 pg (25-35) Mean Corpuscular Hemoglobin Concent 33 g/dL (31-37) Red Cell Distribution Width 15.8 % (11.5-14.5) Platelet Count 496 x10^3/uL (140-400) Neutrophils (%) (Auto) 65 % (31-73) Lymphocytes (%) (Auto) 18 % (24-48) Monocytes (%) (Auto) 17 % (0-9) Eosinophils (%) (Auto) 0 % (0-3) Basophils (%) (Auto) 0 % (0-3) Neutrophils # (Auto) 3.5 x10^3/uL (1.8-7.7) Lymphocytes # (Auto) 1.0 x10^3/uL (1.0-4.8) Monocytes # (Auto) 0.9 x10^3/uL (0.0-1.1) Eosinophils # (Auto) 0.0 x10^3/uL (0.0-0.7) Basophils # (Auto) 0.0 x10^3/uL (0.0-0.2) Sodium Level 138 mmol/L (136-145) Potassium Level 3.9 mmol/L (3.5-5.1) Chloride Level 97 mmol/L (98-107) Carbon Dioxide Level 32 mmol/L (21-32) Anion Gap 9 (6-14) Blood Urea Nitrogen 21 mg/dL (7-20) Creatinine 0.7 mg/dL (0.6-1.0) Estimated GFR (Cockcroft-Gault) 86.6 BUN/Creatinine Ratio 30 (6-20) Glucose Level 100 mg/dL (70-99) Calcium Level 9.8 mg/dL (8.5-10.1) Total Bilirubin 0.4 mg/dL (0.2-1.0) Aspartate Amino Transf (AST/SGOT) 37 U/L (15-37) Alanine Aminotransferase (ALT/SGPT) 93 U/L (14-59) Alkaline Phosphatase 186 U/L (46-116) Total Protein 7.4 g/dL (6.4-8.2) Albumin 3.3 g/dL (3.4-5.0) Albumin/Globulin Ratio 0.8 (1.0-1.7) Lipase 287 U/L (73-393) Laboratory Tests Test 01/05/20 16:50 White Blood Count 5.4 x10^3/uL (4.0-11.0) Red Blood Count 4.33 x10^6/uL (3.50-5.40) Hemoglobin 12.5 g/dL (12.0-15.5) Hematocrit 37.7 % (36.0-47.0) Mean Corpuscular Volume 87 fL (79-100) Mean Corpuscular Hemoglobin 29 pg (25-35) Mean Corpuscular Hemoglobin Concent 33 g/dL (31-37) Red Cell Distribution Width 15.8 % (11.5-14.5) Platelet Count 496 x10^3/uL (140-400) Neutrophils (%) (Auto) 65 % (31-73) Lymphocytes (%) (Auto) 18 % (24-48) Monocytes (%) (Auto) 17 % (0-9) Eosinophils (%) (Auto) 0 % (0-3) Basophils (%) (Auto) 0 % (0-3) Neutrophils # (Auto) 3.5 x10^3/uL (1.8-7.7) Lymphocytes # (Auto) 1.0 x10^3/uL (1.0-4.8) Monocytes # (Auto) 0.9 x10^3/uL (0.0-1.1) Eosinophils # (Auto) 0.0 x10^3/uL (0.0-0.7) Basophils # (Auto) 0.0 x10^3/uL (0.0-0.2) Sodium Level 138 mmol/L (136-145) Potassium Level 3.9 mmol/L (3.5-5.1) Chloride Level 97 mmol/L (98-107) Carbon Dioxide Level 32 mmol/L (21-32) Anion Gap 9 (6-14) Blood Urea Nitrogen 21 mg/dL (7-20) Creatinine 0.7 mg/dL (0.6-1.0) Estimated GFR (Cockcroft-Gault) 86.6 BUN/Creatinine Ratio 30 (6-20) Glucose Level 100 mg/dL (70-99) Calcium Level 9.8 mg/dL (8.5-10.1) Total Bilirubin 0.4 mg/dL (0.2-1.0) Aspartate Amino Transf (AST/SGOT) 37 U/L (15-37) Alanine Aminotransferase (ALT/SGPT) 93 U/L (14-59) Alkaline Phosphatase 186 U/L (46-116) Total Protein 7.4 g/dL (6.4-8.2) Albumin 3.3 g/dL (3.4-5.0) Albumin/Globulin Ratio 0.8 (1.0-1.7) Lipase 287 U/L (73-393) VTE Prophylaxis Ordered VTE Prophylaxis Devices: Yes VTE Pharmacological Prophylaxi: Yes Assessment/Plan Assessment/Plan acute abdominal pain nausea ileus recent abd surgery colectomy for significant stricture diverticular disease. her BUN is up a lot from earlier, will bolus fluid, then 100/h Justicifation of Admission Dx: Justifications for Admission: Justification of Admission Dx: Yes JOSE HILL MD Jan 05, 2020 21:24
[2020-01-05 21:30] VITALS: BP 114/78
[2020-01-05] MEDS ORDERED: KETOROLAC 15 MG/ML VIAL. IVP ONE (21:30)
[2020-01-05] MEDS ORDERED: FAMOTIDINE 20 MG/2 ML VIAL IVP ONE (21:30)
[2020-01-05] MEDS ORDERED: diphenhydrAMINE 50 MG/ML VIAL IVP PRN (21:30)
[2020-01-05 21:50] VITALS: BP 114/78
--- NOTE | 2020-01-05 22:00 | NUR ---
ADMIT NOTE The patient, TIFFANIE STANLEY, 54 y/o, F admitted by JOSE HILL MD, was given written information regarding hospital policies, unit procedures and contact persons. Patient afebrile, VSS, with mild c/o headache. Plan of care discussed, admit packet reviewed and patient's medications/allergies verified. Patient orientated to room and valuables checked and left with patient. Patient in bed, bed in lowest/locked position, call light within reach and no other needs voiced at this time.
[2020-01-05 23:00] VITALS: BP 129/67
[2020-01-06] MEDS ORDERED: C.DIFF MED SCREEN BY RX. MC ONE (01:15)
[2020-01-06 03:00] VITALS: BP 110/65
[2020-01-06] MEDS: POTASSIUM CL 20MEQ D5-0.45NACL 1,000 ML IV SCH ×2 (06:20→14:42)
[2020-01-06 07:59] VITALS: BP 112/76
--- NOTE | 2020-01-06 08:51 | PDOC2 ---
CONSULT Date of Consult Date of Consult DATE: 01/06/20 TIME: 08:48 Reason for Consult Reason for Consult: Abdominal pain nausea vomiting Referring Physician Referring Physician: Ravin Identification/Chief Complaint Chief Complaint Abdominal pain with nausea and vomiting Source Source: Chart review, Patient History of Present Illness Reason for Visit: Patient is 54-year-old female recently underwent a colectomy for diverticular disease was discharged in the hospital little less than a week ago in good condition at that time she subsequently developed abdominal distention was not passing any stool then became nauseated and began vomiting this is why she came back to the emergency department. CT scan was reviewed which shows quite a bit of stool within the colon dilated stomach as well as first portion of the small bowel consistent with either ileus or small bowel obstruction. There was some concern for some free air is likely secondary to her previous surgery no evidence of perforation. She is subsequently had several bowel movements overnight and feels much better this morning Past Medical History Cardiovascular: No pertinent hx GI: Diverticulosis Heme/Onc: Cancer Past Surgical History Past Surgical History: Mastectomy, Hysterectomy, Other Family History Family History: Cancer Social History No ALCOHOL: occassional Drugs: None Current Problem List Problem List Problems Medical Problems: (1) Abdominal pain Status: Acute (2) Dehydration Status: Acute (3) Ileus, postoperative Status: Acute (4) Nausea and vomiting Status: Acute Current Medications Current Medications Current Medications Ondansetron HCl (Zofran) 4 mg 1X ONCE IVP Last administered on 01/05/20at 16:52; Start 01/05/20 at 16:15; Stop 01/05/20 at 16:16; Status DC Iohexol (Omnipaque 240 Mg/ml) 30 ml 1X ONCE PO Last administered on 01/05/20at 17:30; Start 01/05/20 at 16:30; Stop 01/05/20 at 16:31; Status DC Iohexol (Omnipaque 300 Mg/ml) 75 ml 1X ONCE IV Last administered on 01/05/20at 17:30; Start 01/05/20 at 16:30; Stop 01/05/20 at 16:31; Status DC Info (CONTRAST GIVEN -- Rx MONITORING) 1 each PRN DAILY PRN MC SEE COMMENTS; Start 01/05/20 at 16:30; Stop 01/07/20 at 16:29 Iohexol (Omnipaque 240 Mg/ml) 50 ml STK-MED ONCE .ROUTE ; Start 01/05/20 at 16:22; Stop 01/05/20 at 16:22; Status DC Sodium Chloride 1,000 ml @ 1,000 mls/hr 1X ONCE IV Last administered on 01/05/20at 16:52; Start 01/05/20 at 16:30; Stop 01/05/20 at 17:29; Status DC Diphenhydramine HCl (Benadryl) 25 mg 1X ONCE IVP Last administered on 01/05/20at 19:16; Start 01/05/20 at 19:00; Stop 01/05/20 at 19:01; Status DC Piperacillin Sod/ Tazobactam Sod 4.5 gm/Sodium Chloride 100 ml @ 200 mls/hr 1X ONCE IV ; Start 01/05/20 at 19:45; Stop 01/05/20 at 20:14; Status Cancel Prochlorperazine Edisylate (Compazine) 10 mg 1X ONCE IV Last administered on 01/05/20at 21:11; Start 01/05/20 at 20:00; Stop 01/05/20 at 20:01; Status DC Ondansetron HCl (Zofran) 4 mg PRN Q8HRS PRN IV NAUSEA/VOMITING 1ST CHOICE; Start 01/05/20 at 20:30; Stop 01/06/20 at 20:29 Sodium Chloride 1,000 ml @ 75 mls/hr [id number] IV Last administered on 01/05/20at 21:11; Start 01/05/20 at 21:00; Stop 01/05/20 at 21:15; Status DC Ketorolac Tromethamine (Toradol 15mg Vial) 15 mg 1X ONCE IVP Last administered on 01/05/20at 21:11; Start 01/05/20 at 21:30; Stop 01/05/20 at 21:31; Status DC Ketorolac Tromethamine (Toradol 15mg Vial) 15 mg STK-MED ONCE .ROUTE ; Start 01/05/20 at 21:01; Stop 01/05/20 at 21:01; Status DC Potassium Chloride/Dextrose/ Sod Cl 1,000 ml @ 100 mls/hr Q10H IV Last administered on 01/06/20at 06:20; Start 01/05/20 at 21:15 Famotidine (Pepcid Vial) 20 mg 1X ONCE IVP Last administered on 01/05/20at 22:40; Start 01/05/20 at 21:30; Stop 01/05/20 at 21:31; Status DC Famotidine (Pepcid Vial) 20 mg BID IVP ; Start 01/06/20 at 09:00 Diphenhydramine HCl (Benadryl) 25 mg PRN Q6HRS PRN IVP ITCHING; Start 01/05/20 at 21:30 Lorazepam (Ativan Inj) 1 mg PRN Q4HRS PRN IVP nausea, agitation; Start 01/05/20 at 21:30 Pharmacy Consult (C.diff Med Screen By Rx) 1 each 1X ONCE MC Last administered on 01/06/20at 01:15; Start 01/06/20 at 01:15; Stop 01/06/20 at 01:16; Status DC Active Scripts Active Montelukast Sodium Tablet (Montelukast Sodium) 10 Mg Tablet 1 Tab PO QHS 30 Days Reported Acetaminophen 325 Mg Tablet 650 Mg PO PRN Q8-12HRS PRN [glucosamine] 1 Tab PO DAILY Probiotic (Lactobacillus Acidophilus) 1 Each Capsule 1 Each PO DAILY Barbara Allergy (Fexofenadine Hcl) 60 Mg Tablet 60 Mg PO DAILY Calcium (Calcium Carbonate) 500 Mg Tab.chew 500 Mg PO DAILY Atorvastatin Calcium 40 Mg Tablet 1 Tab PO QHS Multivitamins (Multivitamin) 1 Each Tablet 1 Tab PO DAILY Melatonin 3 Mg Tablet 1 Tab PO QHS Proair Hfa (Albuterol Sulfate) 8.5 Gm Hfa.aer.ad 1 Puff INH PRN Q6HRS PRN Flonase Allergy Relief (Fluticasone Propionate) 9.9 Ml [place].susp 2 Sprays NS DAILY Omeprazole 20 Mg Tablet.dr 1 Tab PO DAILY Allergies Allergies: Coded Allergies: No Known Drug Allergies (Unverified , 12/26/19) ROS Gastrointestinal: Yes Nausea, Yes Vomiting, Yes Abdominal Pain Physical Exam General: Alert, Oriented X3, Cooperative, mild distress HEENT: Atraumatic Lungs: Clear to auscultation, Normal air movement Heart: Regular rate, No murmurs Abdomen: Normal bowel sounds, Soft, Other (Mild incisional tenderness wounds clean dry and intact no erythema) Extremities: No edema Neuro: Normal speech Psych/Mental Status: Mental status NL Vitals VITALS Vital Signs Date Time Temp Pulse Resp B/P (MAP) Pulse Ox O2 Delivery O2 Flow Rate FiO2 01/06/20 03:00 98.4 78 18 110/65 (80) 93 Room Air 98.4 Labs Labs Laboratory Tests Test 01/05/20 16:50 01/06/20 04:00 White Blood Count 5.4 x10^3/uL (4.0-11.0) Red Blood Count 4.33 x10^6/uL (3.50-5.40) Hemoglobin 12.5 g/dL (12.0-15.5) Hematocrit 37.7 % (36.0-47.0) Mean Corpuscular Volume 87 fL (79-100) Mean Corpuscular Hemoglobin 29 pg (25-35) Mean Corpuscular Hemoglobin Concent 33 g/dL (31-37) Red Cell Distribution Width 15.8 % (11.5-14.5) Platelet Count 496 x10^3/uL (140-400) Neutrophils (%) (Auto) 65 % (31-73) Lymphocytes (%) (Auto) 18 % (24-48) Monocytes (%) (Auto) 17 % (0-9) Eosinophils (%) (Auto) 0 % (0-3) Basophils (%) (Auto) 0 % (0-3) Neutrophils # (Auto) 3.5 x10^3/uL (1.8-7.7) Lymphocytes # (Auto) 1.0 x10^3/uL (1.0-4.8) Monocytes # (Auto) 0.9 x10^3/uL (0.0-1.1) Eosinophils # (Auto) 0.0 x10^3/uL (0.0-0.7) Basophils # (Auto) 0.0 x10^3/uL (0.0-0.2) Sodium Level 138 mmol/L (136-145) Potassium Level 3.9 mmol/L (3.5-5.1) Chloride Level 97 mmol/L (98-107) Carbon Dioxide Level 32 mmol/L (21-32) Anion Gap 9 (6-14) Blood Urea Nitrogen 21 mg/dL (7-20) Creatinine 0.7 mg/dL (0.6-1.0) Estimated GFR (Cockcroft-Gault) 86.6 BUN/Creatinine Ratio 30 (6-20) Glucose Level 100 mg/dL (70-99) Calcium Level 9.8 mg/dL (8.5-10.1) Total Bilirubin 0.4 mg/dL (0.2-1.0) Aspartate Amino Transf (AST/SGOT) 37 U/L (15-37) Alanine Aminotransferase (ALT/SGPT) 93 U/L (14-59) Alkaline Phosphatase 186 U/L (46-116) Total Protein 7.4 g/dL (6.4-8.2) Albumin 3.3 g/dL (3.4-5.0) Albumin/Globulin Ratio 0.8 (1.0-1.7) Lipase 287 U/L (73-393) Lactic Acid Level 0.7 mmol/L (0.4-2.0) Laboratory Tests Test 01/05/20 16:50 01/06/20 04:00 White Blood Count 5.4 x10^3/uL (4.0-11.0) Red Blood Count 4.33 x10^6/uL (3.50-5.40) Hemoglobin 12.5 g/dL (12.0-15.5) Hematocrit 37.7 % (36.0-47.0) Mean Corpuscular Volume 87 fL (79-100) Mean Corpuscular Hemoglobin 29 pg (25-35) Mean Corpuscular Hemoglobin Concent 33 g/dL (31-37) Red Cell Distribution Width 15.8 % (11.5-14.5) Platelet Count 496 x10^3/uL (140-400) Neutrophils (%) (Auto) 65 % (31-73) Lymphocytes (%) (Auto) 18 % (24-48) Monocytes (%) (Auto) 17 % (0-9) Eosinophils (%) (Auto) 0 % (0-3) Basophils (%) (Auto) 0 % (0-3) Neutrophils # (Auto) 3.5 x10^3/uL (1.8-7.7) Lymphocytes # (Auto) 1.0 x10^3/uL (1.0-4.8) Monocytes # (Auto) 0.9 x10^3/uL (0.0-1.1) Eosinophils # (Auto) 0.0 x10^3/uL (0.0-0.7) Basophils # (Auto) 0.0 x10^3/uL (0.0-0.2) Sodium Level 138 mmol/L (136-145) Potassium Level 3.9 mmol/L (3.5-5.1) Chloride Level 97 mmol/L (98-107) Carbon Dioxide Level 32 mmol/L (21-32) Anion Gap 9 (6-14) Blood Urea Nitrogen 21 mg/dL (7-20) Creatinine 0.7 mg/dL (0.6-1.0) Estimated GFR (Cockcroft-Gault) 86.6 BUN/Creatinine Ratio 30 (6-20) Glucose Level 100 mg/dL (70-99) Calcium Level 9.8 mg/dL (8.5-10.1) Total Bilirubin 0.4 mg/dL (0.2-1.0) Aspartate Amino Transf (AST/SGOT) 37 U/L (15-37) Alanine Aminotransferase (ALT/SGPT) 93 U/L (14-59) Alkaline Phosphatase 186 U/L (46-116) Total Protein 7.4 g/dL (6.4-8.2) Albumin 3.3 g/dL (3.4-5.0) Albumin/Globulin Ratio 0.8 (1.0-1.7) Lipase 287 U/L (73-393) Lactic Acid Level 0.7 mmol/L (0.4-2.0) Images Images CT scan as per in the history of present illness Assessment/Plan Assessment/Plan Status post colectomy with ileostomy/constipation causing obstruction. She has had several bowel movements overnight and feels much better we will slowly advance diet JUVENCIO CRANE MD Jan 06, 2020 08:51
[2020-01-06] MEDS: FAMOTIDINE 20 MG/2 ML VIAL IVP SCH ×2 (09:09→21:21)
--- NOTE | 2020-01-06 10:47 | PDOC ---
PROGRESS NOTES Date of Service: DATE: 01/06/20 TIME: 10:46 Chief Complaint Chief Complaint acute abdominal pain nausea ileus recent abd surgery colectomy for significant stricture diverticular disease. , abd pain, dehydration, better with fluid, History of Present Illness History of Present Illness mult stools overnight try clears, start with sprite, she dislikes jello and broth, Vitals Vitals Vital Signs Date Time Temp Pulse Resp B/P (MAP) Pulse Ox O2 Delivery O2 Flow Rate FiO2 01/06/20 08:00 Room Air 01/06/20 07:59 98.2 88 18 112/76 (88) 95 98.2 Physical Exam General: Alert, Oriented X3, Cooperative, mild distress Heart: Regular rate, No murmurs Lungs: Clear Abdomen: Normal bowel sounds, Soft, Other (Mild incisional tenderness wounds clean dry and intact no erythema) Extremities: No edema Skin: No rashes Labs LABS Laboratory Tests Test 01/05/20 16:50 01/06/20 04:00 White Blood Count 5.4 x10^3/uL (4.0-11.0) Red Blood Count 4.33 x10^6/uL (3.50-5.40) Hemoglobin 12.5 g/dL (12.0-15.5) Hematocrit 37.7 % (36.0-47.0) Mean Corpuscular Volume 87 fL (79-100) Mean Corpuscular Hemoglobin 29 pg (25-35) Mean Corpuscular Hemoglobin Concent 33 g/dL (31-37) Red Cell Distribution Width 15.8 % (11.5-14.5) Platelet Count 496 x10^3/uL (140-400) Neutrophils (%) (Auto) 65 % (31-73) Lymphocytes (%) (Auto) 18 % (24-48) Monocytes (%) (Auto) 17 % (0-9) Eosinophils (%) (Auto) 0 % (0-3) Basophils (%) (Auto) 0 % (0-3) Neutrophils # (Auto) 3.5 x10^3/uL (1.8-7.7) Lymphocytes # (Auto) 1.0 x10^3/uL (1.0-4.8) Monocytes # (Auto) 0.9 x10^3/uL (0.0-1.1) Eosinophils # (Auto) 0.0 x10^3/uL (0.0-0.7) Basophils # (Auto) 0.0 x10^3/uL (0.0-0.2) Sodium Level 138 mmol/L (136-145) Potassium Level 3.9 mmol/L (3.5-5.1) Chloride Level 97 mmol/L (98-107) Carbon Dioxide Level 32 mmol/L (21-32) Anion Gap 9 (6-14) Blood Urea Nitrogen 21 mg/dL (7-20) Creatinine 0.7 mg/dL (0.6-1.0) Estimated GFR (Cockcroft-Gault) 86.6 BUN/Creatinine Ratio 30 (6-20) Glucose Level 100 mg/dL (70-99) Calcium Level 9.8 mg/dL (8.5-10.1) Total Bilirubin 0.4 mg/dL (0.2-1.0) Aspartate Amino Transf (AST/SGOT) 37 U/L (15-37) Alanine Aminotransferase (ALT/SGPT) 93 U/L (14-59) Alkaline Phosphatase 186 U/L (46-116) Total Protein 7.4 g/dL (6.4-8.2) Albumin 3.3 g/dL (3.4-5.0) Albumin/Globulin Ratio 0.8 (1.0-1.7) Lipase 287 U/L (73-393) Lactic Acid Level 0.7 mmol/L (0.4-2.0) Review of Systems Review of Systems abd pain, bloating better stooled x4 Assessment and Plan Assessmemt and Plan Problems Medical Problems: (1) Abdominal pain Status: Acute (2) Dehydration Status: Acute (3) Ileus, postoperative Status: Acute (4) Nausea and vomiting Status: Acute Comment Review of Relevant I have reviewed the following items so (where applicable) has been applied. Labs Laboratory Tests Test 01/05/20 16:50 01/06/20 04:00 White Blood Count 5.4 x10^3/uL (4.0-11.0) Red Blood Count 4.33 x10^6/uL (3.50-5.40) Hemoglobin 12.5 g/dL (12.0-15.5) Hematocrit 37.7 % (36.0-47.0) Mean Corpuscular Volume 87 fL (79-100) Mean Corpuscular Hemoglobin 29 pg (25-35) Mean Corpuscular Hemoglobin Concent 33 g/dL (31-37) Red Cell Distribution Width 15.8 % (11.5-14.5) Platelet Count 496 x10^3/uL (140-400) Neutrophils (%) (Auto) 65 % (31-73) Lymphocytes (%) (Auto) 18 % (24-48) Monocytes (%) (Auto) 17 % (0-9) Eosinophils (%) (Auto) 0 % (0-3) Basophils (%) (Auto) 0 % (0-3) Neutrophils # (Auto) 3.5 x10^3/uL (1.8-7.7) Lymphocytes # (Auto) 1.0 x10^3/uL (1.0-4.8) Monocytes # (Auto) 0.9 x10^3/uL (0.0-1.1) Eosinophils # (Auto) 0.0 x10^3/uL (0.0-0.7) Basophils # (Auto) 0.0 x10^3/uL (0.0-0.2) Sodium Level 138 mmol/L (136-145) Potassium Level 3.9 mmol/L (3.5-5.1) Chloride Level 97 mmol/L (98-107) Carbon Dioxide Level 32 mmol/L (21-32) Anion Gap 9 (6-14) Blood Urea Nitrogen 21 mg/dL (7-20) Creatinine 0.7 mg/dL (0.6-1.0) Estimated GFR (Cockcroft-Gault) 86.6 BUN/Creatinine Ratio 30 (6-20) Glucose Level 100 mg/dL (70-99) Calcium Level 9.8 mg/dL (8.5-10.1) Total Bilirubin 0.4 mg/dL (0.2-1.0) Aspartate Amino Transf (AST/SGOT) 37 U/L (15-37) Alanine Aminotransferase (ALT/SGPT) 93 U/L (14-59) Alkaline Phosphatase 186 U/L (46-116) Total Protein 7.4 g/dL (6.4-8.2) Albumin 3.3 g/dL (3.4-5.0) Albumin/Globulin Ratio 0.8 (1.0-1.7) Lipase 287 U/L (73-393) Lactic Acid Level 0.7 mmol/L (0.4-2.0) Laboratory Tests Test 01/05/20 16:50 01/06/20 04:00 White Blood Count 5.4 x10^3/uL (4.0-11.0) Red Blood Count 4.33 x10^6/uL (3.50-5.40) Hemoglobin 12.5 g/dL (12.0-15.5) Hematocrit 37.7 % (36.0-47.0) Mean Corpuscular Volume 87 fL (79-100) Mean Corpuscular Hemoglobin 29 pg (25-35) Mean Corpuscular Hemoglobin Concent 33 g/dL (31-37) Red Cell Distribution Width 15.8 % (11.5-14.5) Platelet Count 496 x10^3/uL (140-400) Neutrophils (%) (Auto) 65 % (31-73) Lymphocytes (%) (Auto) 18 % (24-48) Monocytes (%) (Auto) 17 % (0-9) Eosinophils (%) (Auto) 0 % (0-3) Basophils (%) (Auto) 0 % (0-3) Neutrophils # (Auto) 3.5 x10^3/uL (1.8-7.7) Lymphocytes # (Auto) 1.0 x10^3/uL (1.0-4.8) Monocytes # (Auto) 0.9 x10^3/uL (0.0-1.1) Eosinophils # (Auto) 0.0 x10^3/uL (0.0-0.7) Basophils # (Auto) 0.0 x10^3/uL (0.0-0.2) Sodium Level 138 mmol/L (136-145) Potassium Level 3.9 mmol/L (3.5-5.1) Chloride Level 97 mmol/L (98-107) Carbon Dioxide Level 32 mmol/L (21-32) Anion Gap 9 (6-14) Blood Urea Nitrogen 21 mg/dL (7-20) Creatinine 0.7 mg/dL (0.6-1.0) Estimated GFR (Cockcroft-Gault) 86.6 BUN/Creatinine Ratio 30 (6-20) Glucose Level 100 mg/dL (70-99) Calcium Level 9.8 mg/dL (8.5-10.1) Total Bilirubin 0.4 mg/dL (0.2-1.0) Aspartate Amino Transf (AST/SGOT) 37 U/L (15-37) Alanine Aminotransferase (ALT/SGPT) 93 U/L (14-59) Alkaline Phosphatase 186 U/L (46-116) Total Protein 7.4 g/dL (6.4-8.2) Albumin 3.3 g/dL (3.4-5.0) Albumin/Globulin Ratio 0.8 (1.0-1.7) Lipase 287 U/L (73-393) Lactic Acid Level 0.7 mmol/L (0.4-2.0) Medications Current Medications Ondansetron HCl (Zofran) 4 mg 1X ONCE IVP Last administered on 01/05/20at 16:52; Start 01/05/20 at 16:15; Stop 01/05/20 at 16:16; Status DC Iohexol (Omnipaque 240 Mg/ml) 30 ml 1X ONCE PO Last administered on 01/05/20at 17:30; Start 01/05/20 at 16:30; Stop 01/05/20 at 16:31; Status DC Iohexol (Omnipaque 300 Mg/ml) 75 ml 1X ONCE IV Last administered on 01/05/20at 17:30; Start 01/05/20 at 16:30; Stop 01/05/20 at 16:31; Status DC Info (CONTRAST GIVEN -- Rx MONITORING) 1 each PRN DAILY PRN MC SEE COMMENTS; Start 01/05/20 at 16:30; Stop 01/07/20 at 16:29 Iohexol (Omnipaque 240 Mg/ml) 50 ml STK-MED ONCE .ROUTE ; Start 01/05/20 at 16:22; Stop 01/05/20 at 16:22; Status DC Sodium Chloride 1,000 ml @ 1,000 mls/hr 1X ONCE IV Last administered on 01/05/20at 16:52; Start 01/05/20 at 16:30; Stop 01/05/20 at 17:29; Status DC Diphenhydramine HCl (Benadryl) 25 mg 1X ONCE IVP Last administered on 01/05/20at 19:16; Start 01/05/20 at 19:00; Stop 01/05/20 at 19:01; Status DC Piperacillin Sod/ Tazobactam Sod 4.5 gm/Sodium Chloride 100 ml @ 200 mls/hr 1X ONCE IV ; Start 01/05/20 at 19:45; Stop 01/05/20 at 20:14; Status Cancel Prochlorperazine Edisylate (Compazine) 10 mg 1X ONCE IV Last administered on 01/05/20at 21:11; Start 01/05/20 at 20:00; Stop 01/05/20 at 20:01; Status DC Ondansetron HCl (Zofran) 4 mg PRN Q8HRS PRN IV NAUSEA/VOMITING 1ST CHOICE; Start 01/05/20 at 20:30; Stop 01/06/20 at 20:29 Sodium Chloride 1,000 ml @ 75 mls/hr [id number] IV Last administered on 01/05/20at 21:11; Start 01/05/20 at 21:00; Stop 01/05/20 at 21:15; Status DC Ketorolac Tromethamine (Toradol 15mg Vial) 15 mg 1X ONCE IVP Last administered on 01/05/20at 21:11; Start 01/05/20 at 21:30; Stop 01/05/20 at 21:31; Status DC Ketorolac Tromethamine (Toradol 15mg Vial) 15 mg STK-MED ONCE .ROUTE ; Start 01/05/20 at 21:01; Stop 01/05/20 at 21:01; Status DC Potassium Chloride/Dextrose/ Sod Cl 1,000 ml @ 100 mls/hr Q10H IV Last administered on 01/06/20at 06:20; Start 01/05/20 at 21:15 Famotidine (Pepcid Vial) 20 mg 1X ONCE IVP Last administered on 01/05/20at 22:40; Start 01/05/20 at 21:30; Stop 01/05/20 at 21:31; Status DC Famotidine (Pepcid Vial) 20 mg BID IVP Last administered on 01/06/20at 09:09; Start 01/06/20 at 09:00 Diphenhydramine HCl (Benadryl) 25 mg PRN Q6HRS PRN IVP ITCHING; Start 01/05/20 at 21:30 Lorazepam (Ativan Inj) 1 mg PRN Q4HRS PRN IVP nausea, agitation; Start 01/05/20 at 21:30 Pharmacy Consult ([place] Med Screen By Rx) 1 each 1X ONCE MC Last administered on 01/06/20at 01:15; Start 01/06/20 at 01:15; Stop 01/06/20 at 01:16; Status DC Active Scripts Active Montelukast Sodium Tablet (Montelukast Sodium) 10 Mg Tablet 1 Tab PO QHS 30 Days Reported Acetaminophen 325 Mg Tablet 650 Mg PO PRN Q8-12HRS PRN [glucosamine] 1 Tab PO DAILY Probiotic (Lactobacillus Acidophilus) 1 Each Capsule 1 Each PO DAILY Barbara Allergy (Fexofenadine Hcl) 60 Mg Tablet 60 Mg PO DAILY Calcium (Calcium Carbonate) 500 Mg Tab.chew 500 Mg PO DAILY Atorvastatin Calcium 40 Mg Tablet 1 Tab PO QHS Multivitamins (Multivitamin) 1 Each Tablet 1 Tab PO DAILY Melatonin 3 Mg Tablet 1 Tab PO QHS Proair Hfa (Albuterol Sulfate) 8.5 Gm Hfa.aer.ad 1 Puff INH PRN Q6HRS PRN Flonase Allergy Relief (Fluticasone Propionate) 9.9 Ml Drake.susp 2 Sprays NS DAILY Omeprazole 20 Mg Tablet. 1 Tab PO DAILY Vitals/I & O Vital Sign - Last 24 Hours 01/05/20 01/05/20 01/05/20 01/05/20 15:30 15:31 16:00 16:30 Temp 98.1 98.1 Pulse 101 120 90 92 Resp 16 B/P (MAP) 129/76 (93) 129/75 (93) 113/72 (86) 122/78 (93) Pulse Ox 97 O2 Delivery Room Air Room Air Room Air 01/05/20 01/05/20 01/05/20 01/05/20 17:00 18:00 20:00 20:30 Pulse 82 88 92 Resp 20 B/P (MAP) 142/82 (102) 130/72 (91) 114/74 (87) Pulse Ox 97 97 93 O2 Delivery Room Air Room Air Room Air Room Air 01/05/20 01/05/20 01/05/20 01/06/20 21:30 21:50 23:00 03:00 Temp 98.5 98.4 98.4 98.5 98.4 98.4 Pulse 87 104 78 Resp 18 18 18 B/P (MAP) 114/78 (90) 129/67 (87) 110/65 (80) Pulse Ox 93 93 O2 Delivery Room Air Room Air Room Air Room Air 01/06/20 01/06/20 07:59 08:00 Temp 98.2 98.2 Pulse 88 Resp 18 B/P (MAP) 112/76 (88) Pulse Ox 95 O2 Delivery Room Air Room Air Intake and Output 01/05/20 01/05/20 01/06/20 15:00 23:00 07:00 Intake Total 1000 ml 0 ml Balance 1000 ml 0 ml Justicifation of Admission Dx: Justifications for Admission: Justification of Admission Dx: Yes JOSE HILL MD Jan 06, 2020 10:47
[2020-01-06 11:59] VITALS: BP 120/72
[2020-01-06 15:15] VITALS: BP 117/75
[2020-01-06 19:09] VITALS: BP 116/67
[2020-01-06 23:00] VITALS: BP 110/56
[2020-01-07 03:00] VITALS: BP 130/74
[2020-01-07] MEDS: POTASSIUM CL 20MEQ D5-0.45NACL 1,000 ML IV SCH ×3 (03:15→23:15)
--- NOTE | 2020-01-07 07:48 | PDOC ---
SURGICAL PROGRESS NOTE DATE: 01/07/20 TIME: 07:46 Subjective Patient feeling much better this morning is had several bowel movements biggest complaint is acid reflux Vital Signs Vital Signs Date Time Temp Pulse Resp B/P (MAP) Pulse Ox O2 Delivery O2 Flow Rate FiO2 01/07/20 03:00 98.1 83 18 130/74 (92) 96 Room Air 98.1 I&O Intake and Output 01/07/20 07:00 Intake Total 0 ml Balance 0 ml Intake Oral 0 ml # Voids 1 PATIENT HAS A HARMON: No General: Alert, Oriented X3, Cooperative, mild distress Abdomen: Normal bowel sounds, Soft, Other (Mild incisional tenderness wounds clean dry and intact RACHAEL drain with serosanguineous drainage) Labs Laboratory Tests Test 01/05/20 16:50 01/06/20 04:00 White Blood Count 5.4 x10^3/uL (4.0-11.0) Red Blood Count 4.33 x10^6/uL (3.50-5.40) Hemoglobin 12.5 g/dL (12.0-15.5) Hematocrit 37.7 % (36.0-47.0) Mean Corpuscular Volume 87 fL (79-100) Mean Corpuscular Hemoglobin 29 pg (25-35) Mean Corpuscular Hemoglobin Concent 33 g/dL (31-37) Red Cell Distribution Width 15.8 % (11.5-14.5) Platelet Count 496 x10^3/uL (140-400) Neutrophils (%) (Auto) 65 % (31-73) Lymphocytes (%) (Auto) 18 % (24-48) Monocytes (%) (Auto) 17 % (0-9) Eosinophils (%) (Auto) 0 % (0-3) Basophils (%) (Auto) 0 % (0-3) Neutrophils # (Auto) 3.5 x10^3/uL (1.8-7.7) Lymphocytes # (Auto) 1.0 x10^3/uL (1.0-4.8) Monocytes # (Auto) 0.9 x10^3/uL (0.0-1.1) Eosinophils # (Auto) 0.0 x10^3/uL (0.0-0.7) Basophils # (Auto) 0.0 x10^3/uL (0.0-0.2) Sodium Level 138 mmol/L (136-145) Potassium Level 3.9 mmol/L (3.5-5.1) Chloride Level 97 mmol/L (98-107) Carbon Dioxide Level 32 mmol/L (21-32) Anion Gap 9 (6-14) Blood Urea Nitrogen 21 mg/dL (7-20) Creatinine 0.7 mg/dL (0.6-1.0) Estimated GFR (Cockcroft-Gault) 86.6 BUN/Creatinine Ratio 30 (6-20) Glucose Level 100 mg/dL (70-99) Calcium Level 9.8 mg/dL (8.5-10.1) Total Bilirubin 0.4 mg/dL (0.2-1.0) Aspartate Amino Transf (AST/SGOT) 37 U/L (15-37) Alanine Aminotransferase (ALT/SGPT) 93 U/L (14-59) Alkaline Phosphatase 186 U/L (46-116) Total Protein 7.4 g/dL (6.4-8.2) Albumin 3.3 g/dL (3.4-5.0) Albumin/Globulin Ratio 0.8 (1.0-1.7) Lipase 287 U/L (73-393) Lactic Acid Level 0.7 mmol/L (0.4-2.0) Problem List Problems Medical Problems: (1) Abdominal pain Status: Acute (2) Dehydration Status: Acute (3) Ileus, postoperative Status: Acute (4) Nausea and vomiting Status: Acute Assessment/Plan Status post colectomy with ileus appears to be resolving we will advance diet to full liquids Start proton pump inhibitor Justicifation of Admission Dx: Justifications for Admission: Justification of Admission Dx: Yes JUVENCIO CRANE MD Jan 07, 2020 07:47
[2020-01-07 07:59] VITALS: BP 127/75
[2020-01-07] MEDS: PANTOPRAZOLE 40 MG TABLET.DR. PO SCH (09:01)
[2020-01-07] MEDS: FAMOTIDINE 20 MG/2 ML VIAL IVP SCH ×2 (09:17→21:12)
[2020-01-07] MEDS: ONDANSETRON PF 4 MG/2 ML VIAL. IVP PRN ×2 (09:17→16:40)
[2020-01-07] MEDS: LIDO:MAALOX 1:1 20 ML SINGLE DOSE. PO PRN ×2 (09:18→15:55)
--- NOTE | 2020-01-07 10:26 | PDOC ---
PROGRESS NOTES Date of Service: DATE: 01/07/20 TIME: 10:25 Chief Complaint Chief Complaint acute abdominal pain nausea ileus recent abd surgery colectomy for significant stricture diverticular disease. , abd pain, dehydration, better with fluid, History of Present Illness History of Present Illness still nausea, poor PO intake, will try to DC in AM no stool, feels bloated will cont the IV fluid abd pain, reflux pain, restart her PPI she is worried she will not tolerate full liquid diet, Vitals Vitals Vital Signs Date Time Temp Pulse Resp B/P (MAP) Pulse Ox O2 Delivery O2 Flow Rate FiO2 01/07/20 03:00 98.1 83 18 130/74 (92) 96 Room Air 98.1 Physical Exam General: Alert, Oriented X3, Cooperative, mild distress Heart: Regular rate, No murmurs Lungs: Clear Abdomen: Normal bowel sounds, Soft, Other (Mild incisional tenderness wounds clean dry and intact RACHAEL drain with serosanguineous drainage) Extremities: No edema Skin: No rashes Assessment and Plan Assessmemt and Plan Problems Medical Problems: (1) Abdominal pain Status: Acute (2) Dehydration Status: Acute (3) Ileus, postoperative Status: Acute (4) Nausea and vomiting Status: Acute Comment Review of Relevant I have reviewed the following items so (where applicable) has been applied. Labs Laboratory Tests Test 01/05/20 16:50 01/06/20 04:00 White Blood Count 5.4 x10^3/uL (4.0-11.0) Red Blood Count 4.33 x10^6/uL (3.50-5.40) Hemoglobin 12.5 g/dL (12.0-15.5) Hematocrit 37.7 % (36.0-47.0) Mean Corpuscular Volume 87 fL (79-100) Mean Corpuscular Hemoglobin 29 pg (25-35) Mean Corpuscular Hemoglobin Concent 33 g/dL (31-37) Red Cell Distribution Width 15.8 % (11.5-14.5) Platelet Count 496 x10^3/uL (140-400) Neutrophils (%) (Auto) 65 % (31-73) Lymphocytes (%) (Auto) 18 % (24-48) Monocytes (%) (Auto) 17 % (0-9) Eosinophils (%) (Auto) 0 % (0-3) Basophils (%) (Auto) 0 % (0-3) Neutrophils # (Auto) 3.5 x10^3/uL (1.8-7.7) Lymphocytes # (Auto) 1.0 x10^3/uL (1.0-4.8) Monocytes # (Auto) 0.9 x10^3/uL (0.0-1.1) Eosinophils # (Auto) 0.0 x10^3/uL (0.0-0.7) Basophils # (Auto) 0.0 x10^3/uL (0.0-0.2) Sodium Level 138 mmol/L (136-145) Potassium Level 3.9 mmol/L (3.5-5.1) Chloride Level 97 mmol/L (98-107) Carbon Dioxide Level 32 mmol/L (21-32) Anion Gap 9 (6-14) Blood Urea Nitrogen 21 mg/dL (7-20) Creatinine 0.7 mg/dL (0.6-1.0) Estimated GFR (Cockcroft-Gault) 86.6 BUN/Creatinine Ratio 30 (6-20) Glucose Level 100 mg/dL (70-99) Calcium Level 9.8 mg/dL (8.5-10.1) Total Bilirubin 0.4 mg/dL (0.2-1.0) Aspartate Amino Transf (AST/SGOT) 37 U/L (15-37) Alanine Aminotransferase (ALT/SGPT) 93 U/L (14-59) Alkaline Phosphatase 186 U/L (46-116) Total Protein 7.4 g/dL (6.4-8.2) Albumin 3.3 g/dL (3.4-5.0) Albumin/Globulin Ratio 0.8 (1.0-1.7) Lipase 287 U/L (73-393) Lactic Acid Level 0.7 mmol/L (0.4-2.0) Microbiology 01/06/20 Blood Culture - Preliminary, Resulted NO GROWTH AFTER 1 DAY Medications Current Medications Ondansetron HCl (Zofran) 4 mg 1X ONCE IVP Last administered on 01/05/20at 16:52; Start 01/05/20 at 16:15; Stop 01/05/20 at 16:16; Status DC Iohexol (Omnipaque 240 Mg/ml) 30 ml 1X ONCE PO Last administered on 01/05/20at 17:30; Start 01/05/20 at 16:30; Stop 01/05/20 at 16:31; Status DC Iohexol (Omnipaque 300 Mg/ml) 75 ml 1X ONCE IV Last administered on 01/05/20at 17:30; Start 01/05/20 at 16:30; Stop 01/05/20 at 16:31; Status DC Info (CONTRAST GIVEN -- Rx MONITORING) 1 each PRN DAILY PRN MC SEE COMMENTS; Start 01/05/20 at 16:30; Stop 01/07/20 at 16:29 Iohexol (Omnipaque 240 Mg/ml) 50 ml STK-MED ONCE .ROUTE ; Start 01/05/20 at 16:22; Stop 01/05/20 at 16:22; Status DC Sodium Chloride 1,000 ml @ 1,000 mls/hr 1X ONCE IV Last administered on 01/05/20at 16:52; Start 01/05/20 at 16:30; Stop 01/05/20 at 17:29; Status DC Diphenhydramine HCl (Benadryl) 25 mg 1X ONCE IVP Last administered on 01/05/20at 19:16; Start 01/05/20 at 19:00; Stop 01/05/20 at 19:01; Status DC Piperacillin Sod/ Tazobactam Sod 4.5 gm/Sodium Chloride 100 ml @ 200 mls/hr 1X ONCE IV ; Start 01/05/20 at 19:45; Stop 01/05/20 at 20:14; Status Cancel Prochlorperazine Edisylate (Compazine) 10 mg 1X ONCE IV Last administered on 01/05/20at 21:11; Start 01/05/20 at 20:00; Stop 01/05/20 at 20:01; Status DC Ondansetron HCl (Zofran) 4 mg PRN Q8HRS PRN IV NAUSEA/VOMITING 1ST CHOICE Last administered on 01/06/20at 14:42; Start 01/05/20 at 20:30; Stop 01/06/20 at 20:29; Status DC Sodium Chloride 1,000 ml @ 75 mls/hr [id number] IV Last administered on 01/05/20at 21:11; Start 01/05/20 at 21:00; Stop 01/05/20 at 21:15; Status DC Ketorolac Tromethamine (Toradol 15mg Vial) 15 mg 1X ONCE IVP Last administered on 01/05/20at 21:11; Start 01/05/20 at 21:30; Stop 01/05/20 at 21:31; Status DC Ketorolac Tromethamine (Toradol 15mg Vial) 15 mg STK-MED ONCE .ROUTE ; Start 01/05/20 at 21:01; Stop 01/05/20 at 21:01; Status DC Potassium Chloride/Dextrose/ Sod Cl 1,000 ml @ 100 mls/hr Q10H IV Last administered on 01/07/20at 09:02; Start 01/05/20 at 21:15 Famotidine (Pepcid Vial) 20 mg 1X ONCE IVP Last administered on 01/05/20at 22:40; Start 01/05/20 at 21:30; Stop 01/05/20 at 21:31; Status DC Famotidine (Pepcid Vial) 20 mg BID IVP Last administered on 01/07/20at 09:17; Start 01/06/20 at 09:00 Diphenhydramine HCl (Benadryl) 25 mg PRN Q6HRS PRN IVP ITCHING; Start 01/05/20 at 21:30 Lorazepam (Ativan Inj) 1 mg PRN Q4HRS PRN IVP nausea, agitation; Start 01/05/20 at 21:30 Pharmacy Consult (C.diff Med Screen By Rx) 1 each 1X ONCE MC Last administered on 01/06/20at 01:15; Start 01/06/20 at 01:15; Stop 01/06/20 at 01:16; Status DC Pantoprazole Sodium (Protonix) 40 mg DAILYAC PO Last administered on 01/07/20at 09:01; Start 01/07/20 at 08:00 Multi-Ingredient Mouthwash/Gargle (Gi Cocktail) 20 ml PRN QID PRN PO CHEST PAIN Last administered on 01/07/20at 09:18; Start 01/07/20 at 09:15 Calcium Carbonate/ Glycine (Tums) 500 mg PRN AFTMEALHC PRN PO INDIGESTION; Start 01/07/20 at 09:15 Ondansetron HCl (Zofran) 4 mg PRN Q8HRS PRN IVP NAUSEA/VOMITING Last admi nistered on 01/07/20at 09:17; Start 01/07/20 at 09:15 Active Scripts Active Montelukast Sodium Tablet (Montelukast Sodium) 10 Mg Tablet 1 Tab PO QHS 30 Days Reported Acetaminophen 325 Mg Tablet 650 Mg PO PRN Q8-12HRS PRN [glucosamine] 1 Tab PO DAILY Probiotic (Lactobacillus Acidophilus) 1 Each Capsule 1 Each PO DAILY Barbara Allergy (Fexofenadine Hcl) 60 Mg Tablet 60 Mg PO DAILY Calcium (Calcium Carbonate) 500 Mg Tab.chew 500 Mg PO DAILY Atorvastatin Calcium 40 Mg Tablet 1 Tab PO QHS Multivitamins (Multivitamin) 1 Each Tablet 1 Tab PO DAILY Melatonin 3 Mg Tablet 1 Tab PO QHS Proair Hfa (Albuterol Sulfate) 8.5 Gm Hfa.aer.ad 1 Puff INH PRN Q6HRS PRN Flonase Allergy Relief (Fluticasone Propionate) 9.9 Ml [place].susp 2 Sprays NS DAILY Omeprazole 20 Mg Tablet. 1 Tab PO DAILY Vitals/I & O Vital Sign - Last 24 Hours 01/06/20 01/06/20 01/06/20 01/06/20 11:59 15:15 19:09 20:00 Temp 97.7 98.0 98.7 97.7 98.0 98.7 Pulse 86 85 77 Resp 18 18 18 B/P (MAP) 120/72 (88) 117/75 (89) 116/67 (83) Pulse Ox 96 96 94 O2 Delivery Room Air Room Air Room Air Room Air 01/06/20 01/07/20 23:00 03:00 Temp 98.3 98.1 98.3 98.1 Pulse 83 83 Resp 18 18 B/P (MAP) 110/56 (74) 130/74 (92) Pulse Ox 94 96 O2 Delivery Room Air Room Air Intake and Output 01/06/20 01/06/20 01/07/20 14:59 22:59 06:59 Intake Total 0 ml Balance 0 ml Justicifation of Admission Dx: Justifications for Admission: Justification of Admission Dx: Yes JOSE HILL MD Jan 07, 2020 10:26
[2020-01-07 11:59] VITALS: BP 124/79
[2020-01-07 13:40] LABS: CALCIUM 8.5 mg/dL (8.5-10.1); CREATININE 0.7 mg/dL (0.6-1.0); GFR 86.6; POTASSIUM 4.1 mmol/L (3.5-5.1)
[2020-01-07 15:59] VITALS: BP 134/76
[2020-01-07] MEDS: CALCIUM CARBONATE 500 MG TAB.CHEW PO PRN ×2 (16:37→21:12)
[2020-01-07 19:00] VITALS: BP 112/65
[2020-01-07 22:50] VITALS: BP 123/74
[2020-01-08 03:09] VITALS: BP 100/62
[2020-01-08 07:00] VITALS: BP 117/72
[2020-01-08] MEDS: POTASSIUM CL 20MEQ D5-0.45NACL 1,000 ML IV SCH ×2 (08:57→14:37)
[2020-01-08] MEDS: PANTOPRAZOLE 40 MG TABLET.DR. PO SCH (08:57)
[2020-01-08] MEDS: FAMOTIDINE 20 MG/2 ML VIAL IVP SCH ×2 (08:58→20:21)
--- NOTE | 2020-01-08 09:29 | NUR ---
SW following. Discussed with RN, pt from home, full liquid diet, drain being removed tomorrow. RN advised no SW needs, anticipate discharge home tomorrow (01/09/2020). SW will continue to follow.
--- NOTE | 2020-01-08 09:37 | PDOC ---
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 01/08/20 0937: SURGICAL PROGRESS NOTE DATE: 01/08/20 TIME: 09:36 Subjective stool yesterday(couple of good movements), some flatus today low appetite pain minimal Vital Signs Vital Signs Date Time Temp Pulse Resp B/P (MAP) Pulse Ox O2 Delivery O2 Flow Rate FiO2 01/08/20 07:51 Room Air 01/08/20 07:00 98.6 76 16 117/72 (87) 95 98.6 I&O Intake and Output 01/08/20 07:00 Intake Total 800 ml Balance 800 ml Intake Oral 800 ml General: Alert, Oriented X3, Cooperative Abdomen: Soft, No tenderness, Other (ND, drain serous, incision without erythema ) Labs Laboratory Tests Test 01/07/20 13:05 Sodium Level 141 mmol/L (136-145) Potassium Level 4.1 mmol/L (3.5-5.1) Chloride Level 105 mmol/L (98-107) Carbon Dioxide Level 28 mmol/L (21-32) Anion Gap 8 (6-14) Blood Urea Nitrogen 6 mg/dL (7-20) Creatinine 0.7 mg/dL (0.6-1.0) Estimated GFR (Cockcroft-Gault) 86.6 Glucose Level 119 mg/dL (70-99) Calcium Level 8.5 mg/dL (8.5-10.1) Laboratory Tests Test 01/07/20 13:05 Sodium Level 141 mmol/L (136-145) Potassium Level 4.1 mmol/L (3.5-5.1) Chloride Level 105 mmol/L (98-107) Carbon Dioxide Level 28 mmol/L (21-32) Anion Gap 8 (6-14) Blood Urea Nitrogen 6 mg/dL (7-20) Creatinine 0.7 mg/dL (0.6-1.0) Estimated GFR (Cockcroft-Gault) 86.6 Glucose Level 119 mg/dL (70-99) Calcium Level 8.5 mg/dL (8.5-10.1) Problem List Problems Medical Problems: (1) Abdominal pain Status: Acute (2) Dehydration Status: Acute (3) Ileus, postoperative Status: Acute (4) Nausea and vomiting Status: Acute Assessment/Plan ileus slowly improving full liquids today ambulating Justicifation of Admission Dx: Justifications for Admission: Justification of Admission Dx: Yes FRANSICO LIU MD 01/08/20 1141: SURGICAL PROGRESS NOTE Assessment/Plan Agree with above, would progress slowly with diet, not ready for discharge at this time CALEB BOOTH APRN Jan 08, 2020 09:37 FRANSICO LIU MD Jan 08, 2020 11:41
[2020-01-08 11:00] VITALS: BP 117/71
[2020-01-08] MEDS: ONDANSETRON PF 4 MG/2 ML VIAL. IVP PRN (14:34)
[2020-01-08 15:00] VITALS: BP 130/73
--- NOTE | 2020-01-08 16:01 | PDOC ---
PROGRESS NOTES Date of Service: DATE: 01/08/20 TIME: 15:56 Chief Complaint Chief Complaint acute abdominal pain nausea ileus recent abd surgery colectomy for significant stricture diverticular disease. , abd pain, dehydration, better with fluid, History of Present Illness History of Present Illness Patient states she is feeling better today, tolerating her soft diet. She does report mild reflux. Admits to small bowel movement and passing flatus. Hopes to go home tomorrow. Vitals Vitals Vital Signs Date Time Temp Pulse Resp B/P (MAP) Pulse Ox O2 Delivery O2 Flow Rate FiO2 01/08/20 15:00 98.3 72 130/73 (92) 95 Room Air 98.3 01/08/20 07:00 16 Physical Exam General: Alert, Oriented X3, Cooperative Heart: Regular rate, No murmurs Lungs: Clear Abdomen: Soft, No tenderness, Other (Abdominal binder in place. +bowel sounds.) Extremities: No edema Skin: No rashes Review of Systems Review of Systems Acid reflux, abdominal distension. No abdominal pain, no vomiting, no fever. Assessment and Plan Assessmemt and Plan Problems Medical Problems: (1) Abdominal pain Status: Acute (2) Dehydration Status: Acute (3) Ileus, postoperative Status: Acute (4) Nausea and vomiting Status: Acute Plan: Likely discharge tomorrow if abdominal symptoms continue to improve. Comment Review of Relevant I have reviewed the following items so (where applicable) has been applied. Labs Laboratory Tests Test 01/07/20 13:05 Sodium Level 141 mmol/L (136-145) Potassium Level 4.1 mmol/L (3.5-5.1) Chloride Level 105 mmol/L (98-107) Carbon Dioxide Level 28 mmol/L (21-32) Anion Gap 8 (6-14) Blood Urea Nitrogen 6 mg/dL (7-20) Creatinine 0.7 mg/dL (0.6-1.0) Estimated GFR (Cockcroft-Gault) 86.6 Glucose Level 119 mg/dL (70-99) Calcium Level 8.5 mg/dL (8.5-10.1) Microbiology 01/06/20 Blood Culture - Preliminary, Resulted NO GROWTH AFTER 2 DAYS Medications Current Medications Ondansetron HCl (Zofran) 4 mg 1X ONCE IVP Last administered on 01/05/20at 16:52; Start 01/05/20 at 16:15; Stop 01/05/20 at 16:16; Status DC Iohexol (Omnipaque 240 Mg/ml) 30 ml 1X ONCE PO Last administered on 01/05/20at 17:30; Start 01/05/20 at 16:30; Stop 01/05/20 at 16:31; Status DC Iohexol (Omnipaque 300 Mg/ml) 75 ml 1X ONCE IV Last administered on 01/05/20at 17:30; Start 01/05/20 at 16:30; Stop 01/05/20 at 16:31; Status DC Info (CONTRAST GIVEN -- Rx MONITORING) 1 each PRN DAILY PRN MC SEE COMMENTS; Start 01/05/20 at 16:30; Stop 01/07/20 at 16:29; Status DC Iohexol (Omnipaque 240 Mg/ml) 50 ml STK-MED ONCE .ROUTE ; Start 01/05/20 at 16:22; Stop 01/05/20 at 16:22; Status DC Sodium Chloride 1,000 ml @ 1,000 mls/hr 1X ONCE IV Last administered on 01/05/20at 16:52; Start 01/05/20 at 16:30; Stop 01/05/20 at 17:29; Status DC Diphenhydramine HCl (Benadryl) 25 mg 1X ONCE IVP Last administered on 01/05/20at 19:16; Start 01/05/20 at 19:00; Stop 01/05/20 at 19:01; Status DC Piperacillin Sod/ Tazobactam Sod 4.5 gm/Sodium Chloride 100 ml @ 200 mls/hr 1X ONCE IV ; Start 01/05/20 at 19:45; Stop 01/05/20 at 20:14; Status Cancel Prochlorperazine Edisylate (Compazine) 10 mg 1X ONCE IV Last administered on 01/05/20at 21:11; Start 01/05/20 at 20:00; Stop 01/05/20 at 20:01; Status DC Ondansetron HCl (Zofran) 4 mg PRN Q8HRS PRN IV NAUSEA/VOMITING 1ST CHOICE Last administered on 01/06/20at 14:42; Start 01/05/20 at 20:30; Stop 01/06/20 at 20:29; Status DC Sodium Chloride 1,000 ml @ 75 mls/hr [id number] IV Last administered on 01/05/20at 21:11; Start 01/05/20 at 21:00; Stop 01/05/20 at 21:15; Status DC Ketorolac Tromethamine (Toradol 15mg Vial) 15 mg 1X ONCE IVP Last administered on 01/05/20at 21:11; Start 01/05/20 at 21:30; Stop 01/05/20 at 21:31; Status DC Ketorolac Tromethamine (Toradol 15mg Vial) 15 mg STK-MED ONCE .ROUTE ; Start 01/05/20 at 21:01; Stop 01/05/20 at 21:01; Status DC Potassium Chloride/Dextrose/ Sod Cl 1,000 ml @ 100 mls/hr Q10H IV Last administered on 01/08/20at 14:37; Start 01/05/20 at 21:15 Famotidine (Pepcid Vial) 20 mg 1X ONCE IVP Last administered on 01/05/20at 22:40; Start 01/05/20 at 21:30; Stop 01/05/20 at 21:31; Status DC Famotidine (Pepcid Vial) 20 mg BID IVP Last administered on 01/08/20at 08:58; Start 01/06/20 at 09:00 Diphenhydramine HCl (Benadryl) 25 mg PRN Q6HRS PRN IVP ITCHING; Start 01/05/20 at 21:30 Lorazepam (Ativan Inj) 1 mg PRN Q4HRS PRN IVP nausea, agitation; Start 01/05/20 at 21:30 Pharmacy Consult (C.diff Med Screen By Rx) 1 each 1X ONCE MC Last administered on 01/06/20at 01:15; Start 01/06/20 at 01:15; Stop 01/06/20 at 01:16; Status DC Pantoprazole Sodium (Protonix) 40 mg DAILYAC PO Last administered on 01/08/20at 08:57; Start 01/07/20 at 08:00 Multi-Ingredient Mouthwash/Gargle (Gi Cocktail) 20 ml PRN QID PRN PO CHEST PAIN Last administered on 01/07/20at 15:55; Start 01/07/20 at 09:15 Calcium Carbonate/ Glycine (Tums) 500 mg PRN AFTMEALHC PRN PO INDIGESTION Last administered on 01/07/20at 21:12; Start 01/07/20 at 09:15 Ondansetron HCl (Zofran) 4 mg PRN Q8HRS PRN IVP NAUSEA/VOMITING, 1st choice Last administered on 01/08/20at 14:34; Start 01/07/20 at 09:15 Active Scripts Active Montelukast Sodium Tablet (Montelukast Sodium) 10 Mg Tablet 1 Tab PO QHS 30 Days Reported Acetaminophen 325 Mg Tablet 650 Mg PO PRN Q8-12HRS PRN [glucosamine] 1 Tab PO DAILY Probiotic (Lactobacillus Acidophilus) 1 Each Capsule 1 Each PO DAILY Barbara Allergy (Fexofenadine Hcl) 60 Mg Tablet 60 Mg PO DAILY Calcium (Calcium Carbonate) 500 Mg Tab.chew 500 Mg PO DAILY Atorvastatin Calcium 40 Mg Tablet 1 Tab PO QHS Multivitamins (Multivitamin) 1 Each Tablet 1 Tab PO DAILY Melatonin 3 Mg Tablet 1 Tab PO QHS Proair Hfa (Albuterol Sulfate) 8.5 Gm Hfa.aer.ad 1 Puff INH PRN Q6HRS PRN Flonase Allergy Relief (Fluticasone Propionate) 9.9 Ml [place].susp 2 Sprays NS DAILY Omeprazole 20 Mg Tablet. 1 Tab PO DAILY Vitals/I & O Vital Sign - Last 24 Hours 01/07/20 01/07/20 01/07/20 01/07/20 15:59 19:00 20:00 22:50 Temp 98.5 98.4 98.0 98.5 98.4 98.0 Pulse 88 86 92 Resp 18 14 16 B/P (MAP) 134/76 (95) 112/65 (81) 123/74 (90) Pulse Ox 96 96 96 O2 Delivery Room Air Room Air Room Air Room Air 01/08/20 01/08/20 01/08/20 01/08/20 03:09 07:00 07:51 11:00 Temp 98.3 98.6 97.9 98.3 98.6 97.9 Pulse 89 76 79 Resp 16 16 B/P (MAP) 100/62 (75) 117/72 (87) 117/71 (86) Pulse Ox 96 95 96 O2 Delivery Room Air Room Air Room Air Room Air 01/08/20 15:00 Temp 98.3 98.3 Pulse 72 B/P (MAP) 130/73 (92) Pulse Ox 95 O2 Delivery Room Air Intake and Output 01/07/20 01/07/20 01/08/20 14:59 22:59 06:59 Intake Total 400 ml 400 ml Balance 400 ml 400 ml Justicifation of Admission Dx: Justifications for Admission: Justification of Admission Dx: Yes DEREK FINN MD Jan 08, 2020 16:01
[2020-01-08 19:00] VITALS: BP 137/82
[2020-01-08 23:00] VITALS: BP 117/72
[2020-01-09] MEDS: POTASSIUM CL 20MEQ D5-0.45NACL 1,000 ML IV SCH ×2 (00:12→13:03)
[2020-01-09 03:00] VITALS: BP 108/65
[2020-01-09 05:08] LABS: CALCIUM 8.7 mg/dL (8.5-10.1); CREATININE 0.7 mg/dL (0.6-1.0); GFR 86.6; POTASSIUM 4.3 mmol/L (3.5-5.1)
[2020-01-09] MEDS: PANTOPRAZOLE 40 MG TABLET.DR. PO SCH (06:29)
[2020-01-09] MEDS: ONDANSETRON PF 4 MG/2 ML VIAL. IVP PRN (06:29)
[2020-01-09 07:00] VITALS: BP 124/75
[2020-01-09] MEDS: FAMOTIDINE 20 MG/2 ML VIAL IVP SCH (08:23)
--- NOTE | 2020-01-09 09:17 | NUR ---
SW following. Discussed with RN, pt having drain removed today. RN advised no SW needs, anticipates discharge home today.
[2020-01-09 11:00] VITALS: BP 121/78
--- NOTE | 2020-01-09 11:14 | PDOC ---
CALEB BOOTH FEATHER MIXER 01/09/20 1114: SURGICAL PROGRESS NOTE DATE: 01/09/20 TIME: 11:13 Subjective some nausea, zofran helped, ate some cream of wheat + flatus and loose stools no abdominal pain Vital Signs Vital Signs Date Time Temp Pulse Resp B/P (MAP) Pulse Ox O2 Delivery O2 Flow Rate FiO2 01/09/20 07:35 Room Air 01/09/20 07:00 98.7 66 18 124/75 (91) 96 98.7 I&O Intake and Output 01/09/20 07:00 Intake Total 780 ml Output Total 15 ml Balance 765 ml Intake Oral 780 ml Output Drainage Total 15 ml # Voids 2 # Bowel Movements 1 General: Alert, Oriented X3, Cooperative Abdomen: Soft, Other (ND, drain serous ) Labs Laboratory Tests Test 01/07/20 13:05 01/09/20 02:50 Sodium Level 141 mmol/L (136-145) 141 mmol/L (136-145) Potassium Level 4.1 mmol/L (3.5-5.1) 4.3 mmol/L (3.5-5.1) Chloride Level 105 mmol/L (98-107) 105 mmol/L (98-107) Carbon Dioxide Level 28 mmol/L (21-32) 26 mmol/L (21-32) Anion Gap 8 (6-14) 10 (6-14) Blood Urea Nitrogen 6 mg/dL (7-20) 3 mg/dL (7-20) Creatinine 0.7 mg/dL (0.6-1.0) 0.7 mg/dL (0.6-1.0) Estimated GFR (Cockcroft-Gault) 86.6 86.6 Glucose Level 119 mg/dL (70-99) 126 mg/dL (70-99) Calcium Level 8.5 mg/dL (8.5-10.1) 8.7 mg/dL (8.5-10.1) Laboratory Tests Test 01/09/20 02:50 Sodium Level 141 mmol/L (136-145) Potassium Level 4.3 mmol/L (3.5-5.1) Chloride Level 105 mmol/L (98-107) Carbon Dioxide Level 26 mmol/L (21-32) Anion Gap 10 (6-14) Blood Urea Nitrogen 3 mg/dL (7-20) Creatinine 0.7 mg/dL (0.6-1.0) Estimated GFR (Cockcroft-Gault) 86.6 Glucose Level 126 mg/dL (70-99) Calcium Level 8.7 mg/dL (8.5-10.1) Problem List Problems Medical Problems: (1) Abdominal pain Status: Acute (2) Dehydration Status: Acute (3) Ileus, postoperative Status: Acute (4) Nausea and vomiting Status: Acute Assessment/Plan trial soft diet for lunch Justicifation of Admission Dx: Justifications for Admission: Justification of Admission Dx: Yes FRANSICO LIU MD 01/09/20 1721: SURGICAL PROGRESS NOTE Assessment/Plan Agree with above CALEB BOOTH APRN Jan 09, 2020 11:14 FRANSICO LIU MD Jan 09, 2020 17:21
--- NOTE | 2020-01-09 14:13 | PDOC ---
PROGRESS NOTES Date of Service: DATE: 01/09/20 TIME: 14:08 Chief Complaint Chief Complaint acute abdominal pain nausea ileus recent abd surgery colectomy for significant stricture diverticular disease. , abd pain, dehydration, better with fluid, History of Present Illness History of Present Illness Tolerating diet, some nausea. Passing flatus and having bowel movements. Feels close to going home. Vitals Vitals Vital Signs Date Time Temp Pulse Resp B/P (MAP) Pulse Ox O2 Delivery O2 Flow Rate FiO2 01/09/20 11:00 98.1 68 18 121/78 (92) 98 Room Air 98.1 Physical Exam General: Alert, Oriented X3, Cooperative Heart: Regular rate, No murmurs Lungs: Clear Abdomen: Soft, Other (ND, drain serous ) Extremities: No edema Skin: No rashes Labs LABS Laboratory Tests Test 01/09/20 02:50 Sodium Level 141 mmol/L (136-145) Potassium Level 4.3 mmol/L (3.5-5.1) Chloride Level 105 mmol/L (98-107) Carbon Dioxide Level 26 mmol/L (21-32) Anion Gap 10 (6-14) Blood Urea Nitrogen 3 mg/dL (7-20) Creatinine 0.7 mg/dL (0.6-1.0) Estimated GFR (Cockcroft-Gault) 86.6 Glucose Level 126 mg/dL (70-99) Calcium Level 8.7 mg/dL (8.5-10.1) Review of Systems Review of Systems Mild abdominal distention, nausea. Denies vomiting. Denies fever. All other system negative. Assessment and Plan Assessmemt and Plan Problems Medical Problems: (1) Abdominal pain Status: Acute (2) Dehydration Status: Acute (3) Ileus, postoperative Status: Acute (4) Nausea and vomiting Status: Acute Comment Review of Relevant I have reviewed the following items so (where applicable) has been applied. Labs Laboratory Tests Test 01/09/20 02:50 Sodium Level 141 mmol/L (136-145) Potassium Level 4.3 mmol/L (3.5-5.1) Chloride Level 105 mmol/L (98-107) Carbon Dioxide Level 26 mmol/L (21-32) Anion Gap 10 (6-14) Blood Urea Nitrogen 3 mg/dL (7-20) Creatinine 0.7 mg/dL (0.6-1.0) Estimated GFR (Cockcroft-Gault) 86.6 Glucose Level 126 mg/dL (70-99) Calcium Level 8.7 mg/dL (8.5-10.1) Laboratory Tests Test 01/09/20 02:50 Sodium Level 141 mmol/L (136-145) Potassium Level 4.3 mmol/L (3.5-5.1) Chloride Level 105 mmol/L (98-107) Carbon Dioxide Level 26 mmol/L (21-32) Anion Gap 10 (6-14) Blood Urea Nitrogen 3 mg/dL (7-20) Creatinine 0.7 mg/dL (0.6-1.0) Estimated GFR (Cockcroft-Gault) 86.6 Glucose Level 126 mg/dL (70-99) Calcium Level 8.7 mg/dL (8.5-10.1) Microbiology 01/06/20 Blood Culture - Preliminary, Resulted NO GROWTH AFTER 3 DAYS Medications Current Medications Ondansetron HCl (Zofran) 4 mg 1X ONCE IVP Last administered on 01/05/20at 16:52; Start 01/05/20 at 16:15; Stop 01/05/20 at 16:16; Status DC Iohexol (Omnipaque 240 Mg/ml) 30 ml 1X ONCE PO Last administered on 01/05/20at 17:30; Start 01/05/20 at 16:30; Stop 01/05/20 at 16:31; Status DC Iohexol (Omnipaque 300 Mg/ml) 75 ml 1X ONCE IV Last administered on 01/05/20at 17:30; Start 01/05/20 at 16:30; Stop 01/05/20 at 16:31; Status DC Info (CONTRAST GIVEN -- Rx MONITORING) 1 each PRN DAILY PRN MC SEE COMMENTS; Start 01/05/20 at 16:30; Stop 01/07/20 at 16:29; Status DC Iohexol (Omnipaque 240 Mg/ml) 50 ml STK-MED ONCE .ROUTE ; Start 01/05/20 at 16:22; Stop 01/05/20 at 16:22; Status DC Sodium Chloride 1,000 ml @ 1,000 mls/hr 1X ONCE IV Last administered on 01/05/20at 16:52; Start 01/05/20 at 16:30; Stop 01/05/20 at 17:29; Status DC Diphenhydramine HCl (Benadryl) 25 mg 1X ONCE IVP Last administered on 01/05/20at 19:16; Start 01/05/20 at 19:00; Stop 01/05/20 at 19:01; Status DC Piperacillin Sod/ Tazobactam Sod 4.5 gm/Sodium Chloride 100 ml @ 200 mls/hr 1X ONCE IV ; Start 01/05/20 at 19:45; Stop 01/05/20 at 20:14; Status Cancel Prochlorperazine Edisylate (Compazine) 10 mg 1X ONCE IV Last administered on 01/05/20at 21:11; Start 01/05/20 at 20:00; Stop 01/05/20 at 20:01; Status DC Ondansetron HCl (Zofran) 4 mg PRN Q8HRS PRN IV NAUSEA/VOMITING 1ST CHOICE Last administered on 01/06/20at 14:42; Start 01/05/20 at 20:30; Stop 01/06/20 at 20:29; Status DC Sodium Chloride 1,000 ml @ 75 mls/hr [id number] IV Last administered on 01/05/20at 21:11; Start 01/05/20 at 21:00; Stop 01/05/20 at 21:15; Status DC Ketorolac Tromethamine (Toradol 15mg Vial) 15 mg 1X ONCE IVP Last administered on 01/05/20at 21:11; Start 01/05/20 at 21:30; Stop 01/05/20 at 21:31; Status DC Ketorolac Tromethamine (Toradol 15mg Vial) 15 mg STK-MED ONCE .ROUTE ; Start at 21:01; Stop 01/05/20 at 21:01; Status DC Potassium Chloride/Dextrose/ Sod Cl 1,000 ml @ 100 mls/hr Q10H IV Last admi nistered on 01/09/20at 00:12; Start 01/05/20 at 21:15 Famotidine (Pepcid Vial) 20 mg 1X ONCE IVP Last administered on 01/05/20at 22:40; Start 01/05/20 at 21:30; Stop 01/05/20 at 21:31; Status DC Famotidine (Pepcid Vial) 20 mg BID IVP Last administered on 01/09/20at 08:23; Start 01/06/20 at 09:00 Diphenhydramine HCl (Benadryl) 25 mg PRN Q6HRS PRN IVP ITCHING; Start 01/05/20 at 21:30 Lorazepam (Ativan Inj) 1 mg PRN Q4HRS PRN IVP nausea, agitation; Start 01/05/20 at 21:30 Pharmacy Consult (C.diff Med Screen By Rx) 1 each 1X ONCE MC Last administered on 01/06/20at 01:15; Start 01/06/20 at 01:15; Stop 01/06/20 at 01:16; Status DC Pantoprazole Sodium (Protonix) 40 mg DAILYAC PO Last administered on 01/09/20at 06:29; Start 01/07/20 at 08:00 Multi-Ingredient Mouthwash/Gargle (Gi Cocktail) 20 ml PRN QID PRN PO CHEST PAIN Last administered on 01/07/20at 15:55; Start 01/07/20 at 09:15 Calcium Carbonate/ Glycine (Tums) 500 mg PRN AFTMEALHC PRN PO INDIGESTION Last administered on 01/07/20at 21:12; Start 01/07/20 at 09:15 Ondansetron HCl (Zofran) 4 mg PRN Q8HRS PRN IVP NAUSEA/VOMITING, 1st choice Last administered on 01/09/20at 06:29; Start 01/07/20 at 09:15 Active Scripts Active Montelukast Sodium Tablet (Montelukast Sodium) 10 Mg Tablet 1 Tab PO QHS 30 Days Reported Acetaminophen 325 Mg Tablet 650 Mg PO PRN Q8-12HRS PRN [glucosamine] 1 Tab PO DAILY Probiotic (Lactobacillus Acidophilus) 1 Each Capsule 1 Each PO DAILY Barbara Allergy (Fexofenadine Hcl) 60 Mg Tablet 60 Mg PO DAILY Calcium (Calcium Carbonate) 500 Mg Tab.chew 500 Mg PO DAILY Atorvastatin Calcium 40 Mg Tablet 1 Tab PO QHS Multivitamins (Multivitamin) 1 Each Tablet 1 Tab PO DAILY Melatonin 3 Mg Tablet 1 Tab PO QHS Proair Hfa (Albuterol Sulfate) 8.5 Gm Hfa.aer.ad 1 Puff INH PRN Q6HRS PRN Flonase Allergy Relief (Fluticasone Propionate) 9.9 Ml [place].susp 2 Sprays NS DAILY Omeprazole 20 Mg Tablet.dr 1 Tab PO DAILY Vitals/I & O Vital Sign - Last 24 Hours 01/08/20 01/08/20 01/08/20 01/08/20 15:00 19:00 20:00 23:00 Temp 98.3 98.6 98.2 98.3 98.6 98.2 Pulse 72 84 71 Resp 18 18 B/P (MAP) 130/73 (92) 137/82 (100) 117/72 (87) Pulse Ox 95 96 96 O2 Delivery Room Air Room Air Room Air Room Air 01/09/20 01/09/20 01/09/20 01/09/20 03:00 07:00 07:35 11:00 Temp 98.6 98.7 98.1 98.6 98.7 98.1 Pulse 78 66 68 Resp 18 18 18 B/P (MAP) 108/65 (79) 124/75 (91) 121/78 (92) Pulse Ox 96 96 98 O2 Delivery Room Air Room Air Room Air Room Air Intake and Output 01/08/20 01/08/20 01/09/20 15:00 23:00 07:00 Intake Total 430 ml 350 ml Output Total 15 ml Balance 430 ml 335 ml Justicifation of Admission Dx: Justifications for Admission: Justification of Admission Dx: Yes DEREK FINN MD Jan 09, 2020 14:13
[2020-01-09 15:00] VITALS: BP 118/68
--- NOTE | 2020-01-09 16:58 | PDOC3 ---
Discharge Summary Visit Information Date of Admission: Jan 05, 2020 Date of Discharge: Jan 09, 2020 Admitting Diagnosis: Ileus Final Diagnosis Problems Medical Problems: (1) Abdominal pain Status: Acute (2) Dehydration Status: Acute (3) Ileus, postoperative Status: Acute (4) Nausea and vomiting Status: Acute Brief Hospital Course Allergies Allergies Coded Allergies Type Severity Reaction Last Updated Verified No Known Drug Allergies 12/26/19 No Vital Signs Vital Signs Date Time Temp Pulse Resp B/P (MAP) Pulse Ox O2 Delivery O2 Flow Rate FiO2 01/09/20 15:00 98.4 62 16 118/68 (85) 96 Room Air 98.4 Lab Results Laboratory Tests Test 01/09/20 02:50 Sodium Level 141 mmol/L (136-145) Potassium Level 4.3 mmol/L (3.5-5.1) Chloride Level 105 mmol/L (98-107) Carbon Dioxide Level 26 mmol/L (21-32) Anion Gap 10 (6-14) Blood Urea Nitrogen 3 mg/dL (7-20) Creatinine 0.7 mg/dL (0.6-1.0) Estimated GFR (Cockcroft-Gault) 86.6 Glucose Level 126 mg/dL (70-99) Calcium Level 8.7 mg/dL (8.5-10.1) Laboratory Tests Test 01/09/20 02:50 Sodium Level 141 mmol/L (136-145) Potassium Level 4.3 mmol/L (3.5-5.1) Chloride Level 105 mmol/L (98-107) Carbon Dioxide Level 26 mmol/L (21-32) Anion Gap 10 (6-14) Blood Urea Nitrogen 3 mg/dL (7-20) Creatinine 0.7 mg/dL (0.6-1.0) Estimated GFR (Cockcroft-Gault) 86.6 Glucose Level 126 mg/dL (70-99) Calcium Level 8.7 mg/dL (8.5-10.1) Brief Hospital Course Ms. Arce is a 54 old F who presented with nausea and vomiting after an open colectomy 1 week prior to admission. Consults to general surgery. She began having several small bowel movements while inpatient, and her diet was slowly advanced. Her RACHAEL drain was removed, and she was stable for discharge on 01/09/20. Discharge Information Condition at Discharge: Improved Follow Up: Weeks Disposition/Orders: D/C to Home Scheduled Atorvastatin Calcium (Atorvastatin Calcium) 40 Mg Tablet, 1 TAB PO QHS for cholesterol, #90 Ref 3 (Reported) Entered as Reported by: REZA LOUISE on 02/23/191657 Last Action: Reviewed on 01/06/20534 by MANDI TILLMAN Calcium Carbonate (Calcium) 500 Mg Tab.chew, 500 MG PO DAILY for replacement, (Reported) Entered as Reported by: REZA LOUISE on 02/23/191657 Last Action: Reviewed on 01/06/20534 by MANDI TILLMAN Fexofenadine Hcl (Barbara Allergy) 60 Mg Tablet, 60 MG PO DAILY for control allergies, (Reported) Entered as Reported by: EMMANUEL KELLER on 12/22/191705 Last Action: Reviewed on 01/06/20534 by MANDI TILLMAN Fluticasone Propionate (Flonase Allergy Relief) 9.9 Ml [place].susp, 2 SPRAYS NS DAILY for allergies, (Reported) Entered as Reported by: NAILA ESPINAL on 08/12/18815 Last Action: Reviewed on 01/06/20534 by MANDI TILLMAN Lactobacillus Acidophilus (Probiotic) 1 Each Capsule, 1 EACH PO DAILY for colon health, (Reported) Entered as Reported by: EMMANUEL KELLER on 12/22/191705 Last Action: Reviewed on 01/06/20534 by MANDI TILLMAN Melatonin (Melatonin) 3 Mg Tablet, 1 TAB PO QHS for insomnia, #30 Ref 2 (Reported) Entered as Reported by: NAILA ESPINAL on 08/12/18833 Last Action: Reviewed on 01/06/20534 by MANDI TILLMAN Montelukast Sodium (Montelukast Sodium Tablet ) 10 Mg Tablet, 1 TAB PO QHS for Allergies for 30 Days, #30 Ref 5 Prescribed by: VIKI FUENTES MD on 09/10/18 1421 Last Action: Reviewed on 01/06/20534 by MANDI TILLMAN Multivitamin (Multivitamins) 1 Each Tablet, 1 TAB PO DAILY for supplement, #90 Ref 3 (Reported) Entered as Reported by: NAILA ESPINAL on 08/12/18835 Last Action: Reviewed on 01/06/20534 by MANDI TILLMAN Omeprazole (Omeprazole) 20 Mg Tablet.dr, 1 TAB PO DAILY for reflux, #90 Ref 1 (Reported) Entered as Reported by: NAILA ESPINAL on 08/12/18814 Last Action: Reviewed on 01/06/20534 by MANDI TILLMAN [glucosamine] , 1 TAB PO DAILY for joint health, (Reported) Entered as Reported by: EMMANUEL KELLER on 12/22/191705 Last Action: Reviewed on 01/06/20534 by MANDI TILLMAN Scheduled PRN Acetaminophen (Acetaminophen) 325 Mg Tablet, 650 MG PO PRN Q8-12HRS PRN for PAIN, (Reported) Entered as Reported by: EMMANUEL KELLER on 12/22/191705 Last Action: Reviewed on 01/06/20534 by MANDI TILLMAN Albuterol Sulfate (Proair Hfa) 8.5 Gm Hfa.aer.ad, 1 PUFF INH PRN Q6HRS PRN for SHORTNESS OF BREATH, (Reported) Entered as Reported by: NAILA ESPINAL on 08/12/18832 Last Action: Reviewed on 01/06/20534 by MANDI TILLMAN Justicifation of Admission Dx: Justifications for Admission: Justification of Admission Dx: Yes DEREK FINN MD Jan 09, 2020 16:58
--- NOTE | 2020-01-09 17:22 | NUR ---
Discharge Note: TIFFANIE STANLEY Discharge instructions and discharge home medications reviewed with Patient and a copy given. All questions have been answered and understanding verbalized. The following instructions and handouts were given: information about medications, surgical care, follow up appointments, etc. Discontinued lines and drains: IV in right AC removed, catheter tip intact. RACHAEL drain removed, no complications and data analyst report writer placed small [place] dressing to area. Patient discharged to home with self care with family memeber, wheelchair used for mobility to discharge vehicle.
== END 2020-01-09 17:22 | disposition home or self-care (01) | DRG 390 ==
LOC: ER 14:41 → 4 NORTH 20:25
PROVIDERS: ADMIT Internal Medicine; ATTEND Internal Medicine
DX: K56.7 Ileus, unspecified (principal); M19.90 Unspecified osteoarthritis, unspecified site; F41.9 Anxiety disorder, unspecified; I25.10 Atherosclerotic heart disease of native coronary artery without angina pectoris; E86.0 Dehydration; J45.909 Unspecified asthma, uncomplicated; K21.9 Gastro-esophageal reflux disease without esophagitis; Z90.710 Acquired absence of both cervix and uterus; Z93.2 Ileostomy status; Z90.10 Acquired absence of unspecified breast and nipple; Z90.49 Acquired absence of other specified parts of digestive tract; Z80.9 Family history of malignant neoplasm, unspecified
CPT/HCPCS: 36415; 74177; 80048; 80053; 83605; 83690; 85025; 87040; 96361; 96374; 96375; J0780; J1200; J1885; J2405; J3480; J3490; J7030; Q9966; Q9967; 99285-25; G0378

== ENCOUNTER → 2020-01-23 | Outpatient (CLI) | payer OTHER ==
[2020-01-09 15:00] VITALS: BP 118/68
== END | disposition home or self-care (01) ==
LOC: LAB 11:07
PROVIDERS: ATTEND Surgery
DX: B96.89 Other specified bacterial agents as the cause of diseases classified elsewhere (principal)
CPT/HCPCS: 36415; 87493; 87505

== ENCOUNTER → 2020-01-25 | Outpatient (CLI) | payer OTHER ==
[2020-01-09 15:00] VITALS: BP 118/68
[~2020-01-25] MED LIST changes: +CONTRAST GIVEN. MC PRN; +IOHEXOL 240 MG/ML 50ML VIAL. PO ONE; +IOHEXOL 300 MG/ML 100ML VIAL. IV ONE
--- NOTE | 2020-01-25 17:49 | RAD ---
EXAM: CT Abdomen and Pelvis with IV contrast INDICATION: Reason: BLOODY DIARRHEA S/P ISABELLE / Spl. Instructions: INJ 75ML OMNI 300 30ML OMNI 240 PO / History: TECHNIQUE: Multi-detector row CT images were acquired from the lung bases through the abdomen and pelvis with the use of IV contrast. Sagittal and coronal images were acquired from the transaxial data. All CT scans performed at this facility utilize dose optimization techniques as appropriate to the exam, including the following: Automated exposure control and adjustment of the mA and/or KV according to patient size (this includes techniques or standardized protocols for targeted exams where dose is indication/reason for exam). IV CONTRAST: Administered ORAL CONTRAST: Administered COMPARISON: Contrast-enhanced abdomen pelvis CT of 01/05/2020 FINDINGS: LOWER CHEST: Unremarkable LIVER: Unremarkable BILIARY SYSTEM: Gallbladder is unremarkable. Bile ducts are not dilated. PANCREAS: Mild volume loss in the pancreatic head and neck is slightly more apparent of uncertain clinical significance. The pancreatic body and tail are unremarkable and there is no ductal dilation. No evidence of parenchymal necrosis, fluid collection or abnormal soft tissue gas. SPLEEN: Unremarkable ADRENALS: Unremarkable KIDNEYS & URETERS: Unremarkable BLADDER: Unremarkable REPRODUCTIVE ORGANS: Absent uterus. Ovaries not seen and may be surgically absent as well. GASTROINTESTINAL: There is persistent wall thickening in the rectosigmoid colon with pericolonic soft tissue stranding. Additional involvement of the descending colon is also noted. Extensive colonic diverticulosis is redemonstrated along with surgical changes from previous partial right colectomy. In the low pelvis, there is loss of mesorectal fat around the sigmoid colon as it abuts partly collapsed loops of small bowel. There are tiny foci of gas equivocal for extraluminal gas versus gas within fistulous connections between the small and large bowel despite absence of opacification by enteric contrast. This is best illustrated on axial image 68 of series 2, coronal image 29 of series 4. There is mild interval gaseous distention of the proximal colon, now measuring 7.5 cm in diameter. At the time of imaging (approximately 1.5 hours post oral contrast administration), enteric contrast just barely makes it through the ileocecal valve (or its functional equivalent). This lack of distal colonic enteric contrast limits detailed evaluation for obstruction in the inflamed rectosigmoid colon. The appendix is absent. MESENTERY/PERITONEUM/RETROPERITONEUM: No obvious free air is apparent and no ascites or organized fluid collection is seen. There is soft tissue stranding in the rectosigmoid mesocolon with reactive lymph nodes, including one that measures 6 mm in short axis diameter (image 75 of series 2) VASCULAR: Narrowed IVC. LYMPH NODES: Mildly reactive retroperitoneal para-aortic lymph nodes and mesenteric lymph nodes. No bulky adenopathy. OSSEOUS & SOFT TISSUES: Lumbar spinal degenerative changes. No acute or aggressive osseous lesions. IMPRESSION: Persistent findings of acute colitis involving the distal transverse and descending colon, and the rectum. Cannot exclude fistulous communication between collapsed small bowel loops and the rectosigmoid colon. This can be evaluated in follow-up with a longer oral prep and follow-up contrast enhanced CT imaging if clinically warranted. Electronically signed by: Analia Moore MD (01/25/2020 5:46 PM) [id number]
== END | disposition home or self-care (01) ==
LOC: CT 12:07
PROVIDERS: ATTEND Surgery
DX: K57.30 Diverticulosis of large intestine without perforation or abscess without bleeding (principal); K63.89 Other specified diseases of intestine; K52.89 Other specified noninfective gastroenteritis and colitis; Z90.710 Acquired absence of both cervix and uterus
CPT/HCPCS: 74177; 87493; Q9966; Q9967

== ENCOUNTER 2020-01-26 14:13 | Inpatient (IN) | payer OTHER ==
[~2020-01-26] VITALS: Ht 162.6 cm; Wt 60.8 kg
[~2020-01-26 14:13] MED LIST changes: -CONTRAST GIVEN. MC PRN; -IOHEXOL 240 MG/ML 50ML VIAL. PO ONE; -IOHEXOL 300 MG/ML 100ML VIAL. IV ONE
[2020-01-26] MEDS ORDERED: IV NORMAL SALINE 1000ML BAG 1,000 ML IV ONE (14:45)
[2020-01-26] MEDS ORDERED: fentaNYL PF VIAL 100 MCG/2 ML VIAL IVP ONE (15:00)
--- NOTE | 2020-01-26 15:03 | PHYS DOC ---
Past Medical History Past Medical History: Anxiety, Arthritis, Asthma, CAD, Diverticulitis, GERD, Other Additional Past Medical Histor: SEASONAL ALLERGIES, left CAROTID DISSECTION, Pre-Diabetes (ESMER MILLER TRA[employer]ING [employer]) Past Surgical History: Hysterectomy, Tubal ligation, Other Additional Past Surgical Histo: LEEP,CYSTO/RECTOCELE, SINUS SURGERY ([employer] TRA[employer]) Smoking Status: Never Smoker Alcohol Use: Occasionally Drug Use: None ([employer]) General Adult EDM: Chief Complaint: ABDOMINAL PAIN HPI: HPI: Patient is a 54 year old female who presents with on December 25 she was brought into the hospital for diverticulitis and colitis and rectal bleeding and Dr. Matute performed a colectomy. Patient was discharged and returned on January 04 and was readmitted for ileus postoperative. 4 days later she was discharged. She states since then when she has been having a bowel movement she has horrible abdominal pain and at times sees blood in her stool and states that is to the point where the pain is so great that she feels like she is going to pass out she is lightheaded and spikes onto a sweat. She states that her stool was sent off yesterday for C. difficile culture. She states that she had a CT abdomen pelvis done yesterday on January 24. [address] Chávez called her today and told her that she had colitis and he did come in to be checked out to the ER. Patient is rating her abdominal pain a 8 out of 10 and states is taking at this time but when she is having a bowel movement it is sharp and much worse. She states that her stools are soft and at times diarrhea. Incision is well- healed and there is no signs of infection. Abdomen is soft but very tender generalized. She denies nausea, vomiting, syncope, dizziness, headache, numbness or tingling, focal weakness, chest pain, shortness of air, vision changes. She has a history of diverticulitis, asthma, CAD, anxiety, arthritis, left carotid dissection, hysterectomy. ([employer]) Review of Systems: Review of Systems: Constitutional: Denies fever or chills. Breaking out in sweat during bowel movement [] Eyes: Denies change in visual acuity. [] HENT: Denies nasal congestion or sore throat. [] Respiratory: Denies cough or shortness of breath. [] Cardiovascular: Denies chest pain or edema. [] GI: abdominal pain, denies nausea, vomiting, + intermittent bloody stools and diarrhea. [] : Denies dysuria. [] Musculoskeletal: Denies back pain or joint pain. [] Integument: Denies rash. [] Neurologic: Denies headache, focal weakness or sensory changes. Lightheadedness [] Endocrine: Denies polyuria or polydipsia. [] Lymphatic: Denies swollen glands. [] Psychiatric: Denies depression or anxiety. [] (ESMER MLILER APRN) Heart Score: Risk Factors: Risk Factors: DM, Current or recent (<one month) smoker, HTN, HLP, family history of CAD, obesity. Risk Scores: Score 0 - 3: 2.5% MACE over next 6 weeks - Discharge Home Score 4 - 6: 20.3% MACE over next 6 weeks - Admit for Clinical Observation Score 7 - 10: 72.7% MACE over next 6 weeks - Early Invasive Strategies (ESMER MILLER APRN) Current Medications: Current Medications Medications (Trade) Dose Ordered Sig/Michael Start Time Stop Time Status Last Admin Dose Admin Fentanyl Citrate (Fentanyl 2ml Vial) 50 mcg 1X ONCE 01/26/20 15:00 01/26/20 15:01 UNV Sodium Chloride 1,000 ml @ 1,000 mls/hr 1X ONCE 01/26/20 14:45 01/26/20 15:44 (ESMER MILLER APRN) Allergies: Allergies: Allergies Coded Allergies Type Severity Reaction Last Updated Verified No Known Drug Allergies 12/26/19 No (ESMER MILLER APRN) Physical Exam: PE: Constitutional: Well developed, well nourished, no acute distress, non-toxic appearance. [] HENT: Normocephalic, atraumatic, bilateral external ears normal, oropharynx moist, no oral exudates, nose normal. [] Eyes: PERRLA, EOMI, conjunctiva normal, no discharge. [] Neck: Normal range of motion, no tenderness, supple, no stridor. [] Cardiovascular:Heart rate regular rhythm, no murmur [] Lungs & Thorax: Bilateral breath sounds clear to auscultation [] Abdomen: Bowel sounds normal, soft, generalized tenderness, no masses, no pulsatile masses. [] Skin: Warm, dry, no erythema, no rash. [] Back: No tenderness, no CVA tenderness. [] Extremities: No tenderness, no cyanosis, no clubbing, ROM intact, no edema. [] Neurologic: Alert and oriented X 3, normal motor function, normal sensory function, no focal deficits noted. [] Psychologic: Affect normal, judgement normal, mood normal. [] (ESMER MILLER APRN) Current Patient Data: Vital Signs: Vital Signs Date Time Temp Pulse Resp B/P (MAP) Pulse Ox O2 Delivery O2 Flow Rate FiO2 01/26/20 14:22 97.7 98 18 132/73 (92) 97 Room Air 97.7 (ESMER MILLER APRN) EKG: EK read by Dr. Lacy as sinus rhythm and no STEMI. [] (ESMER MILLER APRN) Radiology/Procedures: Radiology/Procedures: [] (ESMER MILLER APRN) Course & Med Decision Making: Course & Med Decision Making Pertinent Labs and Imaging studies reviewed. (See chart for details) See HPI. Ambulatory with a steady gait. Speaks in full clear sentences. Skin pink warm and dry. CT 01/25/2020 []IMPRESSION: Persistent findings of acute colitis involving the distal transverse and descending colon, and the rectum. Cannot exclude fistulous communication between collapsed small bowel loops and the rectosigmoid colon. This can be evaluated in follow-up with a longer oral prep and follow-up contrast enhanced CT imaging if clinically warranted. I have spoken to Dr. Ortiz and he states to admit the patient and start her on Flagyl and levofloxacin. I have also spoken to Dr. Herzog for admission. (ESMER MILLER APRN) Shalinion Disclaimer: Tee Disclaimer: This electronic medical record was generated, in whole or in part, using a voice recognition dictation system. (ESMER MILLER APRN) Departure Departure Impression: Primary Impression: Colitis Disposition: ADMITTED INPATIENT Admitting Physician: HELEN (ESMER MILLER APRN) Condition: STABLE Referrals: JESSICA TRAYLOR APRN (PCP) Justicifation of Admission Dx: Justifications for Admission: Justification of Admission Dx: Yes Comments: colitis (ESMER MILLER APRN) Attending Signature Attending Signature I have reviewed the PA/GOLF BALL TRIMMER's note and plan of care. I was available for consultation as needed during the patient's visit in the emergency department. I agree with the clinical impression, plan, and disposition. (ELIZABETH LACY DO) ESMER MILLER APRN Jan 26, 2020 15:02 ELIZABETH LACY DO Jan 27, 2020 07:05
[2020-01-26 15:08] LABS: BASO % 0 % (0-3); EOS # 0.2 x10^3/uL (0.0-0.7); EOS % 3 % (0-3); HEMATOCRIT 31.2 % (36.0-47.0); HEMOGLOBIN 10.2 g/dL (12.0-15.5); LYMPH # 0.9 x10^3/uL (1.0-4.8); LYMPH % 14 % (24-48); MEAN CORPUSCULAR HEMOGLOBIN 28 pg (25-35); MEAN CORPUSCULAR HGB CONC 33 g/dL (31-37); MEAN CORPUSCULAR VOLUME 86 fL (79-100); MONO # 0.8 x10^3/uL (0.0-1.1); MONO % 12 % (0-9); NEUT # 4.5 x10^3/uL (1.8-7.7); NEUT % 71 % (31-73); PLATELET COUNT 367 x10^3/uL (140-400); RED BLOOD COUNT 3.65 x10^6/uL (3.50-5.40); RED CELL DISTRIBUTION WIDTH 15.8 % (11.5-14.5); WHITE BLOOD COUNT 6.4 x10^3/uL (4.0-11.0)
[2020-01-26 15:19] LABS: PROTHROMBIN TIME PATIENT 14.6 SEC (11.7-14.0)
[2020-01-26 15:22] LABS: CALCIUM 8.6 mg/dL (8.5-10.1); CREATININE 0.7 mg/dL (0.6-1.0); GFR 86.6; POTASSIUM 3.7 mmol/L (3.5-5.1)
[2020-01-26 15:31] LABS: ALBUMIN 2.6 g/dL (3.4-5.0); ALBUMIN/GLOBULIN RATIO 0.7 (1.0-1.7); TOTAL BILIRUBIN 0.2 mg/dL (0.2-1.0); TOTAL PROTEIN 6.6 g/dL (6.4-8.2)
--- NOTE | 2020-01-26 15:52 | EKG ---
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
[2020-01-26 16:14] LABS: BILIRUBIN,URINE SMALL (NEG); NITRITE,URINE NEGATIVE (NEG); PH,URINE 5.5 (<5.0-8.0); PROTEIN,URINE 30 mg/dL (NEG-TRACE); UROBILINOGEN,URINE 0.2 mg/dL (0.2 mg/dL)
[2020-01-26 16:29] LABS: CLARITY,URINE HAZY; COLOR,URINE DK YELLOW; SQUAMOUS EPITHELIAL CELL,UR MANY /LPF
[2020-01-26 16:30] LABS: BACTERIA,URINE MODERATE /HPF (0-FEW)
[2020-01-26 16:31] LABS: RBC,URINE 0 /HPF (0-2)
[2020-01-26] MEDS ORDERED: ONDANSETRON PF 4 MG/2 ML VIAL. IV PRN (17:00)
[2020-01-26] MEDS ORDERED: fentaNYL PF VIAL 100 MCG/2 ML VIAL IV PRN (17:00)
[2020-01-26] MEDS: IV NORMAL SALINE 1000ML BAG 1,000 ML IV SCH (17:12)
[2020-01-26] MEDS ORDERED: ACETAMINOPHEN 325 MG TABLET. PO PRN (17:15)
[2020-01-26] MEDS ORDERED: ALBUTEROL SULFATE 2.5 MG/3 ML NEBU. INH PRN (17:15)
--- NOTE | 2020-01-26 17:41 | PDOC1 ---
History and Physical Date of Admission Date of Admission DATE: 01/26/20 TIME: 17:14 Identification/Chief Complaint Chief Complaint Abdominal pain Source Source: Patient History of Present Illness History of Present Illness Ms Arce is a 53-year-old female w/ PMHx seasonal allergies, asthma, pre- diabetes, CAD, GERD, Diverticulosis, mastectomy, hysterectomy, cystocele, rectocele, recent extensive bowel resection, and prior left carotid artery dissection presents to ED complaining of abdominal pain and dychezia with tenesmus and calls from her general surgeon's office about abnormal CT with colitis. Abdominal pain rated a 8 out of 10 and 10/10 when she is having a bowel movement it is sharp and much worse. She states that her stools are soft and at times diarrhea. Incision is well-healed and there is no signs of infection. Abdomen is soft but very tender generalized. She denies nausea, vomiting, syncope, dizziness, headache, numbness or tingling, focal weakness, chest pain, shortness of air, vision changes. She has a history of diverticulitis, asthma, CAD, anxiety, arthritis, left carotid dissection, hysterectomy. She is status post exploratory laparoscopy, extended left and sigmoid colectomy with splenic flexure takedown, appendectomy on 12/26/2019. Initially she was doing great and her pain improved significantly from prior, however it has gradually recurred and she has been readmitted for control of this 01/05/2020 for 4 days for ileus postoperatively She notes that ever since 01/20/2020 she has been having pain prior to bowel movement admitted to have very foul-smelling reddish stools and has been having them nearly daily pain is always initially periumbilical and perirectal and relieved with a bowel movement. CT abdomen pelvis with IV and oral contrast on 01/25/2020 reveals acute colitis involving the distal transverse and descending colon, and the rectum. Cannot ex clude fistulous communication between collapsed small bowel loops and the rectosigmoid colon. She did have an outpatient C. difficile test on 01/23/2020 which returned negative UPCR, however she notes that this was done incorrectly and she did a repeat test outpatient 01/25/2020 at the behest of Dr. Matute. EKG is NSR. Labs NA 141, K3.7, BUN 14, CR 0.7, glucose 99, INR 1.2, WBC 6.4, Hb 10.2, platelets 367, alkaline phosphatase 118, AST 11, ALT 14, bilirubin 0.2, lipase 50, lactic acid 0.9, albumin 2.6 Admitted for further treatment. Past Medical History Cardiovascular: No pertinent hx GI: Diverticulosis Heme/Onc: Cancer Past Surgical History Past Surgical History: Mastectomy, Hysterectomy, Colon Resection, Other Family History Family History: Cancer Social History Smoke: No ALCOHOL: occassional Drugs: None Current Medications Current Medications Current Medications Sodium Chloride 1,000 ml @ 1,000 mls/hr 1X ONCE IV Last administered on 01/26/20at 15:05; Start 01/26/20 at 14:45; Stop 01/26/20 at 15:44; Status DC Fentanyl Citrate (Fentanyl 2ml Vial) 50 mcg 1X ONCE IVP Last administered on 01/26/20at 15:07; Start 01/26/20 at 15:00; Stop 01/26/20 at 15:02; Status DC Ondansetron HCl (Zofran) 4 mg PRN Q8HRS PRN IV NAUSEA/VOMITING; Start 01/26/20 at 17:00; Stop 01/27/20 at 16:59 Fentanyl Citrate (Fentanyl 2ml Vial) 50 mcg PRN Q1HR PRN IV PAIN; Start 01/26/20 at 17:00; Stop 01/27/20 at 16:59 Sodium Chloride 1,000 ml @ 100 mls/hr Q10H IV Last administered on 01/26/20at 17:12; Start 01/26/20 at 16:54; Stop 01/27/20 at 16:53 Metronidazole 100 ml @ 100 mls/hr 1X ONCE IV Last administered on 01/26/20at 17:12; Start 01/26/20 at 17:00; Stop 01/26/20 at 17:59 Levofloxacin/ Dextrose 100 ml @ 100 mls/hr 1X ONCE IV ; Start 01/26/20 at 17:00; Stop 01/26/20 at 17:59 Active Scripts Active Montelukast Sodium Tablet (Montelukast Sodium) 10 Mg Tablet 1 Tab PO QHS 30 Days Reported Acetaminophen 325 Mg Tablet 650 Mg PO PRN Q8-12HRS PRN [glucosamine] 1 Tab PO DAILY Probiotic (Lactobacillus Acidophilus) 1 Each Capsule 1 Each PO DAILY Barbara Allergy (Fexofenadine Hcl) 60 Mg Tablet 60 Mg PO DAILY Calcium (Calcium Carbonate) 500 Mg Tab.chew 500 Mg PO DAILY Atorvastatin Calcium 40 Mg Tablet 1 Tab PO QHS Multivitamins (Multivitamin) 1 Each Tablet 1 Tab PO DAILY Melatonin 3 Mg Tablet 1 Tab PO QHS Proair Hfa (Albuterol Sulfate) 8.5 Gm Hfa.aer.ad 1 Puff INH PRN Q6HRS PRN Flonase Allergy Relief (Fluticasone Propionate) 9.9 Ml [place].susp 2 Sprays NS DAILY Omeprazole 20 Mg Tablet.dr 1 Tab PO DAILY Allergies Allergies: Coded Allergies: No Known Drug Allergies (Unverified , 12/26/19) ROS General: YES: Fatigue, Malaise, Appetite; No: Chills, Night Sweats, Other PSYCHOLOGICAL ROS: No: Anxiety, Behavioral Disorder, Concentration difficultie, Decreased libido, Depression, Disorientation, Hallucinations, Hostility, Irritablity, Memory difficulties, Mood Swings, Obsessive thoughts, Physical abuse, Sexual abuse, Sleep disturbances, Suicidal ideation, Other Eyes: No Blurry vision, No Decreased vision, No Double vision, No Dry eyes, No Excessive tearing, No Eye Pain, No Itchy Eyes, No Loss of vision, No Photophobia, No Scotomata, No Uses contacts, No Uses glasses, No Other HEENT: No: Heacaches, Visual Changes, Hearing change, Nasal congestion, Nasal discharge, Oral lesions, Sinus pain, Sore Throat, Epistaxis, Sneezing, Snoring, Tinnitus, Vertigo, Vocal changes, Other ALLERGY AND IMMUNOLOGY: No: Hives, Insect Bite Sensitivity, Itchy/Watery Eyes, Nasal Congestion, Post Nasal Drip, Seasonal Allergies, Other Hematological and Lymphatic: No: Bleeding Problems, Blood Clots, Blood Transfusions, Brusing, Night Sweats, Pallor, Swollen Lymph Nodes, Other ENDOCRINE: No: Breast Changes, Galactorrhea, Hair Pattern Changes, Hot Flashes, Malaise/lethargy, Mood Swings, Palpitations, Polydipsia/polyuria, Skin Changes, Temperature Intolerance, Unexpected Weight Changes, Other Breast: No New/Changing Breast Lumps, No Nipple changes, No Nipple discharge, No Other Respiratory: No: Cough, Hemoptysis, Orthopnea, Pleuritic Pain, Shortness of breath, SOB with excertion, Sputum Changes, Stridor, Tachypnea, Wheezing, Other Cardiovascular: No Chest Pain, No Palpitations, No Orthopnea, No Paroxysmal Noc. Dyspnea, No Edema, No Lt Headedness, No Other Gastrointestinal: Yes Nausea, Yes Abdominal Pain, Yes Diarrhea, Yes Constipation, Yes Hematochezia; No Vomiting, No Melena, No Other Genitourinary: No Dysuria, No Frequency, No Incontinence, No Hematuria, No Retention, No Discharge, No Urgency, No Pain, No Flank Pain, No Other, No , No , No , No , No , No , No Musculoskeletal: No Gait Disturbance, No Joint Pain, No Joint Stiffness, No Joint Swelling, No Muscle Pain, No Muscular Weakness, No Pain In:, No Swelling In:, No Other Neurological: No Behavorial Changes, No Bowel/Bladder ControlChng, No Confusion, No Dizziness, No Gait Disturbance, No Headaches, No Impaired Coord/balance, No Memory Loss, No Numbness/Tingling, No Seizures, No Speech Problems, No Tremors, No Visual Changes, No Weakness, No Other Skin: No Dry Skin, No Eczema, No Hair Changes, No Lumps, No Mole Changes, No Mottling, No Nail Changes, No Pruritus, No Rash, No Skin Lesion Changes, No Other, No Acne Physical Exam General: Alert, Oriented X3, Cooperative, mild distress HEENT: Atraumatic, PERRLA, EOMI, Mucous membr. moist/pink Lungs: Clear to auscultation, Normal air movement Heart: S1S2, RRR, no thrills, no rubs, no gallops, no murmurs Abdomen: Normal bowel sounds, Soft, No hepatosplenomegaly, No masses, Other (LLQ and RLQ tenderness) Rectal Exam: not examined Extremities: No clubbing, No cyanosis, No edema, Normal pulses, No tenderness/swelling Skin: No rashes, No breakdown, No significant lesion Neuro: Normal gait, Normal speech, Strength at 5/5 X4 ext, Normal tone, Sensation intact, Cranial nerves 3-12 NL, Reflexes 2+ Psych/Mental Status: Mental status NL, Mood NL Vitals Vitals Vital Signs Date Time Temp Pulse Resp B/P (MAP) Pulse Ox O2 Delivery O2 Flow Rate FiO2 01/26/20 16:53 82 104/68 (80) 94 Room Air 01/26/20 15:53 24 01/26/20 14:22 97.7 97.7 Labs Labs Laboratory Tests Test 01/26/20 14:35 01/26/20 16:02 White Blood Count 6.4 x10^3/uL (4.0-11.0) Red Blood Count 3.65 x10^6/uL (3.50-5.40) Hemoglobin 10.2 g/dL (12.0-15.5) Hematocrit 31.2 % (36.0-47.0) Mean Corpuscular Volume 86 fL (79-100) Mean Corpuscular Hemoglobin 28 pg (25-35) Mean Corpuscular Hemoglobin Concent 33 g/dL (31-37) Red Cell Distribution Width 15.8 % (11.5-14.5) Platelet Count 367 x10^3/uL (140-400) Neutrophils (%) (Auto) 71 % (31-73) Lymphocytes (%) (Auto) 14 % (24-48) Monocytes (%) (Auto) 12 % (0-9) Eosinophils (%) (Auto) 3 % (0-3) Basophils (%) (Auto) 0 % (0-3) Neutrophils # (Auto) 4.5 x10^3/uL (1.8-7.7) Lymphocytes # (Auto) 0.9 x10^3/uL (1.0-4.8) Monocytes # (Auto) 0.8 x10^3/uL (0.0-1.1) Eosinophils # (Auto) 0.2 x10^3/uL (0.0-0.7) Basophils # (Auto) 0.0 x10^3/uL (0.0-0.2) Prothrombin Time 14.6 SEC (11.7-14.0) Prothromb Time International Ratio 1.2 (0.8-1.1) Sodium Level 141 mmol/L (136-145) Potassium Level 3.7 mmol/L (3.5-5.1) Chloride Level 104 mmol/L (98-107) Carbon Dioxide Level 28 mmol/L (21-32) Anion Gap 9 (6-14) Blood Urea Nitrogen 14 mg/dL (7-20) Creatinine 0.7 mg/dL (0.6-1.0) Estimated GFR (Cockcroft-Gault) 86.6 BUN/Creatinine Ratio 20 (6-20) Glucose Level 99 mg/dL (70-99) Lactic Acid Level 0.9 mmol/L (0.4-2.0) Calcium Level 8.6 mg/dL (8.5-10.1) Total Bilirubin 0.2 mg/dL (0.2-1.0) Aspartate Amino Transf (AST/SGOT) 11 U/L (15-37) Alanine Aminotransferase (ALT/SGPT) 14 U/L (14-59) Alkaline Phosphatase 118 U/L (46-116) Troponin I Quantitative < 0.017 ng/mL (0.000-0.055) Total Protein 6.6 g/dL (6.4-8.2) Albumin 2.6 g/dL (3.4-5.0) Albumin/Globulin Ratio 0.7 (1.0-1.7) Lipase 50 U/L (73-393) Urine Collection Type Void Urine Color Dk yellow Urine Clarity Hazy Urine pH 5.5 (<5.0-8.0) Urine Specific [place] >=1.030 (1.000-1.030) Urine Protein 30 mg/dL (NEG-TRACE) Urine Glucose (UA) Negative mg/dL (NEG) Urine Ketones (Stick) Negative mg/dL (NEG) Urine Blood Negative (NEG) Urine Nitrite Negative (NEG) Urine Bilirubin Small (NEG) Urine Urobilinogen Dipstick 0.2 mg/dL (0.2 mg/dL) Urine Leukocyte Esterase Negative (NEG) Urine RBC 0 /HPF (0-2) Urine WBC 1-4 /HPF (0-4) Urine Squamous Epithelial Cells Many /LPF Urine Bacteria Moderate /HPF (0-FEW) Urine Mucus Marked /LPF Laboratory Tests Test 01/26/20 14:35 01/26/20 16:02 White Blood Count 6.4 x10^3/uL (4.0-11.0) Red Blood Count 3.65 x10^6/uL (3.50-5.40) Hemoglobin 10.2 g/dL (12.0-15.5) Hematocrit 31.2 % (36.0-47.0) Mean Corpuscular Volume 86 fL (79-100) Mean Corpuscular Hemoglobin 28 pg (25-35) Mean Corpuscular Hemoglobin Concent 33 g/dL (31-37) Red Cell Distribution Width 15.8 % (11.5-14.5) Platelet Count 367 x10^3/uL (140-400) Neutrophils (%) (Auto) 71 % (31-73) Lymphocytes (%) (Auto) 14 % (24-48) Monocytes (%) (Auto) 12 % (0-9) Eosinophils (%) (Auto) 3 % (0-3) Basophils (%) (Auto) 0 % (0-3) Neutrophils # (Auto) 4.5 x10^3/uL (1.8-7.7) Lymphocytes # (Auto) 0.9 x10^3/uL (1.0-4.8) Monocytes # (Auto) 0.8 x10^3/uL (0.0-1.1) Eosinophils # (Auto) 0.2 x10^3/uL (0.0-0.7) Basophils # (Auto) 0.0 x10^3/uL (0.0-0.2) Prothrombin Time 14.6 SEC (11.7-14.0) Prothromb Time International Ratio 1.2 (0.8-1.1) Sodium Level 141 mmol/L (136-145) Potassium Level 3.7 mmol/L (3.5-5.1) Chloride Level 104 mmol/L (98-107) Carbon Dioxide Level 28 mmol/L (21-32) Anion Gap 9 (6-14) Blood Urea Nitrogen 14 mg/dL (7-20) Creatinine 0.7 mg/dL (0.6-1.0) Estimated GFR (Cockcroft-Gault) 86.6 BUN/Creatinine Ratio 20 (6-20) Glucose Level 99 mg/dL (70-99) Lactic Acid Level 0.9 mmol/L (0.4-2.0) Calcium Level 8.6 mg/dL (8.5-10.1) Total Bilirubin 0.2 mg/dL (0.2-1.0) Aspartate Amino Transf (AST/SGOT) 11 U/L (15-37) Alanine Aminotransferase (ALT/SGPT) 14 U/L (14-59) Alkaline Phosphatase 118 U/L (46-116) Troponin I Quantitative < 0.017 ng/mL (0.000-0.055) Total Protein 6.6 g/dL (6.4-8.2) Albumin 2.6 g/dL (3.4-5.0) Albumin/Globulin Ratio 0.7 (1.0-1.7) Lipase 50 U/L (73-393) Urine Collection Type Void Urine Color Dk yellow Urine Clarity Hazy Urine pH 5.5 (<5.0-8.0) Urine Specific [place] >=1.030 (1.000-1.030) Urine Protein 30 mg/dL (NEG-TRACE) Urine Glucose (UA) Negative mg/dL (NEG) Urine Ketones (Stick) Negative mg/dL (NEG) Urine Blood Negative (NEG) Urine Nitrite Negative (NEG) Urine Bilirubin Small (NEG) Urine Urobilinogen Dipstick 0.2 mg/dL (0.2 mg/dL) Urine Leukocyte Esterase Negative (NEG) Urine RBC 0 /HPF (0-2) Urine WBC 1-4 /HPF (0-4) Urine Squamous Epithelial Cells Many /LPF Urine Bacteria Moderate /HPF (0-FEW) Urine Mucus Marked /LPF Images Images CT abdomen/pelvis w/ PO and IV contrast: LOWER CHEST: Unremarkable LIVER: Unremarkable BILIARY SYSTEM: Gallbladder is unremarkable. Bile ducts are not dilated. PANCREAS: Mild volume loss in the pancreatic head and neck is slightly more apparent of uncertain clinical significance. The pancreatic body and tail are unremarkable and there is no ductal dilation. No evidence of parenchymal necrosis, fluid collection or abnormal soft tissue gas. SPLEEN: Unremarkable ADRENALS: Unremarkable KIDNEYS & URETERS: Unremarkable BLADDER: Unremarkable REPRODUCTIVE ORGANS: Absent uterus. Ovaries not seen and may be surgically absent as well. GASTROINTESTINAL: There is persistent wall thickening in the rectosigmoid colon with pericolonic soft tissue stranding. Additional involvement of the descending colon is also noted. Extensive colonic diverticulosis is redemonstrated along with surgical changes from previous partial right colectomy. In the low pelvis, there is loss of mesorectal fat around the sigmoid colon as it abuts partly collapsed loops of small bowel. There are tiny foci of gas equivocal for extraluminal gas versus gas within fistulous connections between the small and large bowel despite absence of opacification by enteric contrast. This is best illustrated on axial image 68 of series 2, coronal image 29 of series 4. There is mild interval gaseous distention of the proximal colon, now measuring 7.5 cm in diameter. At the time of imaging (approximately 1.5 hours post oral contrast administration), enteric contrast just barely makes it through the ileocecal valve (or its functional equivalent). This lack of distal colonic enteric contrast limits detailed evaluation for obstruction in the inflamed rectosigmoid colon. The appendix is absent. MESENTERY/PERITONEUM/RETROPERITONEUM: No obvious free air is apparent and no ascites or organized fluid collection is seen. There is soft tissue stranding in the rectosigmoid mesocolon with reactive lymph nodes, including one that measures 6 mm in short axis diameter (image 75 of series 2) VASCULAR: Narrowed IVC. LYMPH NODES: Mildly reactive retroperitoneal para-aortic lymph nodes and mesenteric lymph nodes. No bulky adenopathy. OSSEOUS & SOFT TISSUES: Lumbar spinal degenerative changes. No acute or aggressive osseous lesions. IMPRESSION: Persistent findings of acute colitis involving the distal transverse and descending colon, and the rectum. Cannot exclude fistulous communication between collapsed small bowel loops and the rectosigmoid colon. This can be evaluated in follow-up with a longer oral prep and follow-up contrast enhanced CT imaging if clinically warranted. VTE Prophylaxis Ordered VTE Prophylaxis Devices: Contraindicated VTE Pharmacological Prophylaxi: Yes Assessment/Plan Assessment/Plan A/P: Colitis - will start empiric metronidazole, levaquin ordered per surgery and ED, will continue. Nausea - likely from colitis/enteritis. Will give IV antiemetics. Consult GI and general surgery Severe protein calorie malnutrition - likely from difficulty taking PO due to dyschezia and now fear of having a bowel movement. Abdominal pain - with colitis and h/o diverticulitis, will admit for IV antibiotics Abnormal CT - persistent colitis, will check c. diff, and GI pathogens Schatzki's ring/dilation - H/o GERD, dysphagia Constipation - with diarrhea, previously thought IBD, but no evidence of this. Will check CRP Hemorrhoids - likely etiology of blood in stool Asthma with seasonal allergies - cont meds FEN - NPO, ADAT if ok with GI and general surgery PPX - lovenox FULL CODE Dispo - inpatient for 2 midnights Justifications for Admission Other Justification VIKI FUENTES MD Jan 26, 2020 17:41
[2020-01-26] MEDS ORDERED: oxyCODONE/APAP 5/325 1 TAB TABLET PO PRN (18:15)
[2020-01-26 19:00] VITALS: BP 104/65
[2020-01-26] MEDS ORDERED: C.DIFF MED SCREEN BY RX. MC ONE (19:15)
[2020-01-26] MEDS: LACTOBACILLUS RHAMNOSUS GG 1 CAPSULE. PO SCH (20:56)
[2020-01-26] MEDS: ATORVASTATIN CALCIUM 40 MG TABLET. PO SCH (20:56)
[2020-01-26] MEDS: MONTELUKAST SODIUM 10 MG TABLET. PO SCH (20:56)
[2020-01-26] MEDS: HYDROmorphone 2 MG/ML VIAL IVP PRN (20:58)
[2020-01-26] MEDS ORDERED: NON FORMULARY ITEM (Melatonin 1 TAB) PO SCH (21:00)
[2020-01-26 23:00] VITALS: BP 118/71
[2020-01-26] MEDS ORDERED: POLYETHYLENE GLYCOL 3350 17 GM PACKET. PO PRN (23:15)
[2020-01-26] MEDS ORDERED: PHENYLEPH/MINERAL OIL/PETROLAT RECTAL OINTMENT TUBE. RC PRN (23:15)
[2020-01-26] MEDS ORDERED: PSYLLIUM HUSK (SUGAR FREE) 1 PKT PACKET PO PRN (23:15)
[2020-01-27] MEDS: HYDROmorphone 2 MG/ML VIAL IVP PRN ×3 (01:36→21:44)
[2020-01-27] MEDS: IV NORMAL SALINE 1000ML BAG 1,000 ML IV SCH ×2 (02:54→14:05)
[2020-01-27 03:00] VITALS: BP 107/66
[2020-01-27 04:47] LABS: BASO % 0 % (0-3); EOS # 0.2 x10^3/uL (0.0-0.7); EOS % 5 % (0-3); HEMATOCRIT 26.2 % (36.0-47.0); HEMOGLOBIN 8.5 g/dL (12.0-15.5); LYMPH # 0.8 x10^3/uL (1.0-4.8); LYMPH % 18 % (24-48); MEAN CORPUSCULAR HEMOGLOBIN 28 pg (25-35); MEAN CORPUSCULAR HGB CONC 33 g/dL (31-37); MEAN CORPUSCULAR VOLUME 86 fL (79-100); MONO # 0.6 x10^3/uL (0.0-1.1); MONO % 12 % (0-9); NEUT % 65 % (31-73); PLATELET COUNT 308 x10^3/uL (140-400); RED BLOOD COUNT 3.05 x10^6/uL (3.50-5.40); RED CELL DISTRIBUTION WIDTH 15.8 % (11.5-14.5); WHITE BLOOD COUNT 4.6 x10^3/uL (4.0-11.0)
[2020-01-27 05:09] LABS: ALBUMIN 2.1 g/dL (3.4-5.0); ALBUMIN/GLOBULIN RATIO 0.5 (1.0-1.7); CREATININE 0.6 mg/dL (0.6-1.0); GFR 103.4; POTASSIUM 3.1 mmol/L (3.5-5.1); TOTAL BILIRUBIN 0.2 mg/dL (0.2-1.0)
[2020-01-27] MEDS: PANTOPRAZOLE 40 MG TABLET.DR. PO SCH (05:28)
[2020-01-27] MEDS ORDERED: POTASSIUM CHLORIDE 20 MEQ TABLET.ER. PO ONE ×2 (06:45)
[2020-01-27 07:00] VITALS: BP 118/69
[2020-01-27] MEDS: LACTOBACILLUS RHAMNOSUS GG 1 CAPSULE. PO SCH (07:54)
[2020-01-27] MEDS: POTASSIUM CHLORIDE 10MEQ 100 ML IV SCH ×4 (07:54→12:09)
[2020-01-27] MEDS: MULTIVITAMIN with MINERAL TABLET. PO SCH (08:41)
[2020-01-27] MEDS: FLUTICASONE 50MCG/NASAL SPRAY 16GM BOTTLE. NS SCH (08:41)
[2020-01-27] MEDS: CETIRIZINE HCL 10 MG TABLET. PO SCH (08:41)
[2020-01-27] MEDS: CALCIUM CARBONATE 500 MG TABLET PO SCH (08:41)
--- NOTE | 2020-01-27 08:42 | PDOC2 ---
CONSULT Date of Consult Date of Consult DATE: 01/27/20 TIME: 08:39 Reason for Consult Reason for Consult: Abdominal pain recent history of extended colectomy for diverticulitis Referring Physician Referring Physician: Rosenda Identification/Chief Complaint Chief Complaint Abdominal pain with diarrhea Source Source: Patient History of Present Illness Reason for Visit: 54-year-old female well-known to the practice recently had a extended colectomy for diverticulitis. Most recently had a normal bowel movement but shortly thereafter had a significant abdominal pain and then began developing diarrhea with some blood. 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 C. difficile cultures pending Past Medical History Cardiovascular: No pertinent hx GI: Diverticulosis Heme/Onc: Cancer Past Surgical History Past Surgical History: Mastectomy, Hysterectomy, Colon Resection, Other Family History Family History: Cancer Social History No ALCOHOL: occassional Drugs: None Current Problem List Problem List Problems Medical Problems: (1) Colitis Status: Acute Current Medications Current Medications Current Medications Sodium Chloride 1,000 ml @ 1,000 mls/hr 1X ONCE IV Last administered on 01/26/20at 15:05; Start 01/26/20 at 14:45; Stop 01/26/20 at 15:44; Status DC Fentanyl Citrate (Fentanyl 2ml Vial) 50 mcg 1X ONCE IVP Last administered on 01/26/20at 15:07; Start 01/26/20 at 15:00; Stop 01/26/20 at 15:02; Status DC Ondansetron HCl (Zofran) 4 mg PRN Q8HRS PRN IV NAUSEA/VOMITING; Start 01/26/20 at 17:00; Stop 01/26/20 at 17:42; Status DC Fentanyl Citrate (Fentanyl 2ml Vial) 50 mcg PRN Q1HR PRN IV PAIN; Start 01/26/20 at 17:00; Stop 01/27/20 at 16:59 Sodium Chloride 1,000 ml @ 100 mls/hr Q10H IV Last administered on 01/27/20at 02:54; Start 01/26/20 at 16:54; Stop 01/27/20 at 16:53 Metronidazole 100 ml @ 100 mls/hr 1X ONCE IV Last administered on 01/26/20at 1 7:12; Start 01/26/20 at 17:00; Stop 01/26/20 at 17:59; Status DC Levofloxacin/ Dextrose 100 ml @ 100 mls/hr 1X ONCE IV Last administered on 01/26/20at 19:17; Start 01/26/20 at 17:00; Stop 01/26/20 at 17:59; Status DC Ondansetron HCl (Zofran) 4 mg PRN Q4HRS PRN IV NAUSEA/VOMITING; Start 01/26/20 at 17:15 Acetaminophen (Tylenol) 650 mg PRN Q6HRS PRN PO TEMP > 100.3'F; Start 01/26/20 a t 17:15 Albuterol Sulfate (Ventolin Neb Soln) 2.5 mg PRN Q6HRS PRN INH SHORTNESS OF BREATH; Start 01/26/20 at 17:15 Atorvastatin Calcium (Lipitor) 40 mg QHS PO ; Start 01/26/20 at 21:00 Montelukast Sodium (Singulair) 10 mg QHS PO ; Start 01/26/20 at 21:00 Calcium Carbonate/ Glycine (Oscal) 500 mg DAILY PO ; Start 01/27/20 at 09:00 Cetirizine HCl (ZyrTEC) 10 mg DAILY PO ; Start 01/27/20 at 09:00 Fluticasone Propionate (Flonase) 2 spray DAILY NS ; Start 01/27/20 at 09:00 Lactobacillus Rhamnosus (Culturelle) 1 cap DAILY PO ; Start 01/26/20 at 21:00 Non-Formulary Medication (Melatonin ) 1 tab QHS PO ; Start 01/26/20 at 21:00; Stop 01/26/20 at 17:45; Status DC Multivitamins (Thera M Plus) 1 tab DAILY PO ; Start 01/27/20 at 09:00 Pantoprazole Sodium (Protonix) 40 mg DAILYAC PO ; Start 01/27/20 at 07:30 Non-Formulary Medication ([glucosamine] ) 1 tab DAILY PO ; Start 01/27/20 at 09:00; Status UNV Metronidazole 100 ml @ 100 mls/hr Q8HRS IV Last administered on 01/27/20at 06:06; Start 01/26/20 at 23:00 Hydromorphone HCl (Dilaudid) 0.4 mg PRN Q4HRS PRN IVP MODERATE TO SEVERE PAIN Last administered on 01/27/20at 06:24; Start 01/26/20 at 18:15 Oxycodone/ Acetaminophen (Percocet 5/325) 1 tab PRN Q6HRS PRN PO MODERATE TO SEVERE PAIN; Start 01/26/20 at 18:15 Pharmacy Consult (C.diff Med Screen By Rx) 1 each 1X ONCE MC ; Start 01/26/20 at 19:15; Stop 01/26/20 at 19:16; Status UNV Phenyleph/Shark Oil/Min Oil/Petrol (Preparation H) 1 melissa PRN QID PRN RC RECTAL PAIN; Start 01/26/20 at 23:15 Psyllium Hydrophilic Mucilloid (Metamucil Fiber Packet) 1 pkt PRN DAILY PRN PO CONSTIPATION; Start 01/26/20 at 23:15 Polyethylene Glycol (miraLAX PACKET) 17 gm PRN DAILY PRN PO CONSTIPATION; Start 01/26/20 at 23:15 Potassium Chloride (Klor-Con) 40 meq 1X ONCE PO ; Start 01/27/20 at 06:45; Stop 01/27/20 at 06:46; Status Cancel Potassium Chloride (Klor-Con) 40 meq 0645 ONCE PO ; Start 01/27/20 at 06:45; Stop 01/27/20 at 06:46; Status UNV Potassium Chloride/Water 100 ml @ 100 mls/hr Q1H IV Last administered on 01/27/20at 07:54; Start 01/27/20 at 08:00; Stop 01/27/20 at 11:59 Active Scripts Active Montelukast Sodium Tablet (Montelukast Sodium) 10 Mg Tablet 1 Tab PO QHS 30 Days Reported Acetaminophen 325 Mg Tablet 650 Mg PO PRN Q8-12HRS PRN [glucosamine] 1 Tab PO DAILY Probiotic (Lactobacillus Acidophilus) 1 Each Capsule 1 Each PO DAILY Barbara Allergy (Fexofenadine Hcl) 60 Mg Tablet 60 Mg PO DAILY Calcium (Calcium Carbonate) 500 Mg Tab.chew 500 Mg PO DAILY Atorvastatin Calcium 40 Mg Tablet 1 Tab PO QHS Multivitamins (Multivitamin) 1 Each Tablet 1 Tab PO DAILY Melatonin 3 Mg Tablet 1 Tab PO QHS Proair Hfa (Albuterol Sulfate) 8.5 Gm Hfa.aer.ad 1 Puff INH PRN Q6HRS PRN Flonase Allergy Relief (Fluticasone Propionate) 9.9 Ml [place].susp 2 Sprays NS DAILY Omeprazole 20 Mg Tablet.dr 1 Tab PO DAILY Allergies Allergies: Coded Allergies: No Known Drug Allergies (Unverified , 12/26/19) ROS Gastrointestinal: Yes Abdominal Pain, Yes Diarrhea Physical Exam General: Alert, Oriented X3, Cooperative, moderate distress HEENT: Atraumatic Lungs: Clear to auscultation, Normal air movement Heart: Regular rate, No murmurs Abdomen: Normal bowel sounds, Soft, Other (Tender to palpation from the left lower quadrant to right lower quadrant low in the pelvis no peritoneal signs) Extremities: No edema Skin: No significant lesion Neuro: Normal speech Psych/Mental Status: Mental status NL Vitals VITALS Vital Signs Date Time Temp Pulse Resp B/P (MAP) Pulse Ox O2 Delivery O2 Flow Rate FiO2 01/27/20 07:00 98.2 85 18 118/69 (85) 96 Room Air 98.2 Labs Labs Laboratory Tests Test 01/26/20 14:35 01/26/20 16:02 01/27/20 04:10 White Blood Count 6.4 x10^3/uL (4.0-11.0) 4.6 x10^3/uL (4.0-11.0) Red Blood Count 3.65 x10^6/uL (3.50-5.40) 3.05 x10^6/uL (3.50-5.40) Hemoglobin 10.2 g/dL (12.0-15.5) 8.5 g/dL (12.0-15.5) Hematocrit 31.2 % (36.0-47.0) 26.2 % (36.0-47.0) Mean Corpuscular Volume 86 fL (79-100) 86 fL (79-100) Mean Corpuscular Hemoglobin 28 pg (25-35) 28 pg (25-35) Mean Corpuscular Hemoglobin Concent 33 g/dL (31-37) 33 g/dL (31-37) Red Cell Distribution Width 15.8 % (11.5-14.5) 15.8 % (11.5-14.5) Platelet Count 367 x10^3/uL (140-400) 308 x10^3/uL (140-400) Neutrophils (%) (Auto) 71 % (31-73) 65 % (31-73) Lymphocytes (%) (Auto) 14 % (24-48) 18 % (24-48) Monocytes (%) (Auto) 12 % (0-9) 12 % (0-9) Eosinophils (%) (Auto) 3 % (0-3) 5 % (0-3) Basophils (%) (Auto) 0 % (0-3) 0 % (0-3) Neutrophils # (Auto) 4.5 x10^3/uL (1.8-7.7) 3.0 x10^3/uL (1.8-7.7) Lymphocytes # (Auto) 0.9 x10^3/uL (1.0-4.8) 0.8 x10^3/uL (1.0-4.8) Monocytes # (Auto) 0.8 x10^3/uL (0.0-1.1) 0.6 x10^3/uL (0.0-1.1) Eosinophils # (Auto) 0.2 x10^3/uL (0.0-0.7) 0.2 x10^3/uL (0.0-0.7) Basophils # (Auto) 0.0 x10^3/uL (0.0-0.2) 0.0 x10^3/uL (0.0-0.2) Prothrombin Time 14.6 SEC (11.7-14.0) Prothromb Time International Ratio 1.2 (0.8-1.1) Sodium Level 141 mmol/L (136-145) 143 mmol/L (136-145) Potassium Level 3.7 mmol/L (3.5-5.1) 3.1 mmol/L (3.5-5.1) Chloride Level 104 mmol/L (98-107) 108 mmol/L (98-107) Carbon Dioxide Level 28 mmol/L (21-32) 25 mmol/L (21-32) Anion Gap 9 (6-14) 10 (6-14) Blood Urea Nitrogen 14 mg/dL (7-20) 8 mg/dL (7-20) Creatinine 0.7 mg/dL (0.6-1.0) 0.6 mg/dL (0.6-1.0) Estimated GFR (Cockcroft-Gault) 86.6 103.4 BUN/Creatinine Ratio 20 (6-20) 13 (6-20) Glucose Level 99 mg/dL (70-99) 92 mg/dL (70-99) Lactic Acid Level 0.9 mmol/L (0.4-2.0) Calcium Level 8.6 mg/dL (8.5-10.1) 8.0 mg/dL (8.5-10.1) Total Bilirubin 0.2 mg/dL (0.2-1.0) 0.2 mg/dL (0.2-1.0) Aspartate Amino Transf (AST/SGOT) 11 U/L (15-37) 10 U/L (15-37) Alanine Aminotransferase (ALT/SGPT) 14 U/L (14-59) 10 U/L (14-59) Alkaline Phosphatase 118 U/L (46-116) 94 U/L (46-116) Troponin I Quantitative < 0.017 ng/mL (0.000-0.055) Total Protein 6.6 g/dL (6.4-8.2) 6.0 g/dL (6.4-8.2) Albumin 2.6 g/dL (3.4-5.0) 2.1 g/dL (3.4-5.0) Albumin/Globulin Ratio 0.7 (1.0-1.7) 0.5 (1.0-1.7) Lipase 50 U/L (73-393) Urine Collection Type Void Urine Color Dk yellow Urine Clarity Hazy Urine pH 5.5 (<5.0-8.0) Urine Specific [place] >=1.030 (1.000-1.030) Urine Protein 30 mg/dL (NEG-TRACE) Urine Glucose (UA) Negative mg/dL (NEG) Urine Ketones (Stick) Negative mg/dL (NEG) Urine Blood Negative (NEG) Urine Nitrite Negative (NEG) Urine Bilirubin Small (NEG) Urine Urobilinogen Dipstick 0.2 mg/dL (0.2 mg/dL) Urine Leukocyte Esterase Negative (NEG) Urine RBC 0 /HPF (0-2) Urine WBC 1-4 /HPF (0-4) Urine Squamous Epithelial Cells Many /LPF Urine Bacteria Moderate /HPF (0-FEW) Urine Mucus Marked /LPF Magnesium Level 2.0 mg/dL (1.8-2.4) C-Reactive Protein, Quantitative 92.3 mg/L (0-3.3) Procalcitonin < 0.10 ng/mL (0.00-0.10) Laboratory Tests Test 01/26/20 14:35 01/26/20 16:02 01/27/20 04:10 White Blood Count 6.4 x10^3/uL (4.0-11.0) 4.6 x10^3/uL (4.0-11.0) Red Blood Count 3.65 x10^6/uL (3.50-5.40) 3.05 x10^6/uL (3.50-5.40) Hemoglobin 10.2 g/dL (12.0-15.5) 8.5 g/dL (12.0-15.5) Hematocrit 31.2 % (36.0-47.0) 26.2 % (36.0-47.0) Mean Corpuscular Volume 86 fL (79-100) 86 fL (79-100) Mean Corpuscular Hemoglobin 28 pg (25-35) 28 pg (25-35) Mean Corpuscular Hemoglobin Concent 33 g/dL (31-37) 33 g/dL (31-37) Red Cell Distribution Width 15.8 % (11.5-14.5) 15.8 % (11.5-14.5) Platelet Count 367 x10^3/uL (140-400) 308 x10^3/uL (140-400) Neutrophils (%) (Auto) 71 % (31-73) 65 % (31-73) Lymphocytes (%) (Auto) 14 % (24-48) 18 % (24-48) Monocytes (%) (Auto) 12 % (0-9) 12 % (0-9) Eosinophils (%) (Auto) 3 % (0-3) 5 % (0-3) Basophils (%) (Auto) 0 % (0-3) 0 % (0-3) Neutrophils # (Auto) 4.5 x10^3/uL (1.8-7.7) 3.0 x10^3/uL (1.8-7.7) Lymphocytes # (Auto) 0.9 x10^3/uL (1.0-4.8) 0.8 x10^3/uL (1.0-4.8) Monocytes # (Auto) 0.8 x10^3/uL (0.0-1.1) 0.6 x10^3/uL (0.0-1.1) Eosinophils # (Auto) 0.2 x10^3/uL (0.0-0.7) 0.2 x10^3/uL (0.0-0.7) Basophils # (Auto) 0.0 x10^3/uL (0.0-0.2) 0.0 x10^3/uL (0.0-0.2) Prothrombin Time 14.6 SEC (11.7-14.0) Prothromb Time International Ratio 1.2 (0.8-1.1) Sodium Level 141 mmol/L (136-145) 143 mmol/L (136-145) Potassium Level 3.7 mmol/L (3.5-5.1) 3.1 mmol/L (3.5-5.1) Chloride Level 104 mmol/L (98-107) 108 mmol/L (98-107) Carbon Dioxide Level 28 mmol/L (21-32) 25 mmol/L (21-32) Anion Gap 9 (6-14) 10 (6-14) Blood Urea Nitrogen 14 mg/dL (7-20) 8 mg/dL (7-20) Creatinine 0.7 mg/dL (0.6-1.0) 0.6 mg/dL (0.6-1.0) Estimated GFR (Cockcroft-Gault) 86.6 103.4 BUN/Creatinine Ratio 20 (6-20) 13 (6-20) Glucose Level 99 mg/dL (70-99) 92 mg/dL (70-99) Lactic Acid Level 0.9 mmol/L (0.4-2.0) Calcium Level 8.6 mg/dL (8.5-10.1) 8.0 mg/dL (8.5-10.1) Total Bilirubin 0.2 mg/dL (0.2-1.0) 0.2 mg/dL (0.2-1.0) Aspartate Amino Transf (AST/SGOT) 11 U/L (15-37) 10 U/L (15-37) Alanine Aminotransferase (ALT/SGPT) 14 U/L (14-59) 10 U/L (14-59) Alkaline Phosphatase 118 U/L (46-116) 94 U/L (46-116) Troponin I Quantitative < 0.017 ng/mL (0.000-0.055) Total Protein 6.6 g/dL (6.4-8.2) 6.0 g/dL (6.4-8.2) Albumin 2.6 g/dL (3.4-5.0) 2.1 g/dL (3.4-5.0) Albumin/Globulin Ratio 0.7 (1.0-1.7) 0.5 (1.0-1.7) Lipase 50 U/L (73-393) Urine Collection Type Void Urine Color Dk yellow Urine Clarity Hazy Urine pH 5.5 (<5.0-8.0) Urine Specific [place] >=1.030 (1.000-1.030) Urine Protein 30 mg/dL (NEG-TRACE) Urine Glucose (UA) Negative mg/dL (NEG) Urine Ketones (Stick) Negative mg/dL (NEG) Urine Blood Negative (NEG) Urine Nitrite Negative (NEG) Urine Bilirubin Small (NEG) Urine Urobilinogen Dipstick 0.2 mg/dL (0.2 mg/dL) Urine Leukocyte Esterase Negative (NEG) Urine RBC 0 /HPF (0-2) Urine WBC 1-4 /HPF (0-4) Urine Squamous Epithelial Cells Many /LPF Urine Bacteria Moderate /HPF (0-FEW) Urine Mucus Marked /LPF Magnesium Level 2.0 mg/dL (1.8-2.4) C-Reactive Protein, Quantitative 92.3 mg/L (0-3.3) Procalcitonin < 0.10 ng/mL (0.00-0.10) Assessment/Plan Assessment/Plan 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
[2020-01-27] MEDS ORDERED: GLUCOSAMINE PO SCH (09:00)
--- NOTE | 2020-01-27 10:04 | PDOC ---
[employer] PROGRESS NOTE Date of Service DOS: DATE: 01/27/20 TIME: 09:59 Chief Complaint Chief Complaint Abdominal pain, diarrhea History of Present Illness History of Present Illness Patient still complains of abdominal pain. Her diarrhea has improved but now she has bowel movement states it is "just blood". Nausea and vomiting has resolved. Denies fever. Vitals/I&O Vitals/I&O: Vital Signs Date Time Temp Pulse Resp B/P (MAP) Pulse Ox O2 Delivery O2 Flow Rate FiO2 01/27/20 07:00 98.2 85 18 118/69 (85) 96 Room Air 98.2 I & O 01/26/20 01/26/20 01/27/20 15:00 23:00 07:00 Intake Total 1000 ml 0 ml Balance 1000 ml 0 ml Physical Exam General: Alert, Oriented X3, Cooperative, moderate distress Heart: Regular rate, No murmurs Lungs: Clear Abdomen: Normal bowel sounds, Soft, Other (Tender to palpation from the left lower quadrant to right lower quadrant low in the pelvis no peritoneal signs) Extremities: No edema Skin: No significant lesion Labs Labs: Laboratory Tests Test 01/26/20 14:35 01/26/20 16:02 01/27/20 04:10 White Blood Count 6.4 x10^3/uL (4.0-11.0) 4.6 x10^3/uL (4.0-11.0) Red Blood Count 3.65 x10^6/uL (3.50-5.40) 3.05 x10^6/uL (3.50-5.40) Hemoglobin 10.2 g/dL (12.0-15.5) 8.5 g/dL (12.0-15.5) Hematocrit 31.2 % (36.0-47.0) 26.2 % (36.0-47.0) Mean Corpuscular Volume 86 fL (79-100) 86 fL (79-100) Mean Corpuscular Hemoglobin 28 pg (25-35) 28 pg (25-35) Mean Corpuscular Hemoglobin Concent 33 g/dL (31-37) 33 g/dL (31-37) Red Cell Distribution Width 15.8 % (11.5-14.5) 15.8 % (11.5-14.5) Platelet Count 367 x10^3/uL (140-400) 308 x10^3/uL (140-400) Neutrophils (%) (Auto) 71 % (31-73) 65 % (31-73) Lymphocytes (%) (Auto) 14 % (24-48) 18 % (24-48) Monocytes (%) (Auto) 12 % (0-9) 12 % (0-9) Eosinophils (%) (Auto) 3 % (0-3) 5 % (0-3) Basophils (%) (Auto) 0 % (0-3) 0 % (0-3) Neutrophils # (Auto) 4.5 x10^3/uL (1.8-7.7) 3.0 x10^3/uL (1.8-7.7) Lymphocytes # (Auto) 0.9 x10^3/uL (1.0-4.8) 0.8 x10^3/uL (1.0-4.8) Monocytes # (Auto) 0.8 x10^3/uL (0.0-1.1) 0.6 x10^3/uL (0.0-1.1) Eosinophils # (Auto) 0.2 x10^3/uL (0.0-0.7) 0.2 x10^3/uL (0.0-0.7) Basophils # (Auto) 0.0 x10^3/uL (0.0-0.2) 0.0 x10^3/uL (0.0-0.2) Prothrombin Time 14.6 SEC (11.7-14.0) Prothromb Time International Ratio 1.2 (0.8-1.1) Sodium Level 141 mmol/L (136-145) 143 mmol/L (136-145) Potassium Level 3.7 mmol/L (3.5-5.1) 3.1 mmol/L (3.5-5.1) Chloride Level 104 mmol/L (98-107) 108 mmol/L (98-107) Carbon Dioxide Level 28 mmol/L (21-32) 25 mmol/L (21-32) Anion Gap 9 (6-14) 10 (6-14) Blood Urea Nitrogen 14 mg/dL (7-20) 8 mg/dL (7-20) Creatinine 0.7 mg/dL (0.6-1.0) 0.6 mg/dL (0.6-1.0) Estimated GFR (Cockcroft-Gault) 86.6 103.4 BUN/Creatinine Ratio 20 (6-20) 13 (6-20) Glucose Level 99 mg/dL (70-99) 92 mg/dL (70-99) Lactic Acid Level 0.9 mmol/L (0.4-2.0) Calcium Level 8.6 mg/dL (8.5-10.1) 8.0 mg/dL (8.5-10.1) Total Bilirubin 0.2 mg/dL (0.2-1.0) 0.2 mg/dL (0.2-1.0) Aspartate Amino Transf (AST/SGOT) 11 U/L (15-37) 10 U/L (15-37) Alanine Aminotransferase (ALT/SGPT) 14 U/L (14-59) 10 U/L (14-59) Alkaline Phosphatase 118 U/L (46-116) 94 U/L (46-116) Troponin I Quantitative < 0.017 ng/mL (0.000-0.055) Total Protein 6.6 g/dL (6.4-8.2) 6.0 g/dL (6.4-8.2) Albumin 2.6 g/dL (3.4-5.0) 2.1 g/dL (3.4-5.0) Albumin/Globulin Ratio 0.7 (1.0-1.7) 0.5 (1.0-1.7) Lipase 50 U/L (73-393) Urine Collection Type Void Urine Color Dk yellow Urine Clarity Hazy Urine pH 5.5 (<5.0-8.0) Urine Specific [place] >=1.030 (1.000-1.030) Urine Protein 30 mg/dL (NEG-TRACE) Urine Glucose (UA) Negative mg/dL (NEG) Urine Ketones (Stick) Negative mg/dL (NEG) Urine Blood Negative (NEG) Urine Nitrite Negative (NEG) Urine Bilirubin Small (NEG) Urine Urobilinogen Dipstick 0.2 mg/dL (0.2 mg/dL) Urine Leukocyte Esterase Negative (NEG) Urine RBC 0 /HPF (0-2) Urine WBC 1-4 /HPF (0-4) Urine Squamous Epithelial Cells Many /LPF Urine Bacteria Moderate /HPF (0-FEW) Urine Mucus Marked /LPF Magnesium Level 2.0 mg/dL (1.8-2.4) C-Reactive Protein, Quantitative 92.3 mg/L (0-3.3) Procalcitonin < 0.10 ng/mL (0.00-0.10) Review of Systems Review of Systems: Abdominal pain, diarrhea. Denies nausea, denies vomiting, denies fever. Assessment and Plan Assessmemt and Plan Problems Medical Problems: (1) Colitis Status: Acute Plan: Given ongoing diarrhea and abdominal pain, will continue antibiotic coverage with Levaquin 500 mg qd for a total of 3 doses and metronidazole. C. difficile and stool studies pending. Comment Review of Relevant I have reviewed the following items so (where applicable) has been applied. Medications: Current Medications Medications (Trade) Dose Ordered Sig/Michael Route PRN Reason Start Time Stop Time Status Last Admin Dose Admin Sodium Chloride 1,000 ml @ 1,000 mls/hr 1X ONCE IV 01/26/20 14:45 01/26/20 15:44 DC 01/26/20 15:05 Fentanyl Citrate (Fentanyl 2ml Vial) 50 mcg 1X ONCE IVP 01/26/20 15:00 01/26/20 15:02 DC 01/26/20 15:07 Sodium Chloride 1,000 ml @ 100 mls/hr Q10H IV 01/26/20 16:54 01/27/20 16:53 01/27/20 02:54 Metronidazole 100 ml @ 100 mls/hr 1X ONCE IV 01/26/20 17:00 01/26/20 17:59 DC 01/26/20 17:12 Levofloxacin/ Dextrose 100 ml @ 100 mls/hr 1X ONCE IV 01/26/20 17:00 01/26/20 17:59 DC 01/26/20 19:17 Metronidazole 100 ml @ 100 mls/hr Q8HRS IV 01/26/20 23:00 01/27/20 06:06 Hydromorphone HCl (Dilaudid) 0.4 mg PRN Q4HRS PRN IVP MODERATE TO SEVERE PAIN 01/26/20 18:15 01/27/20 06:24 Potassium Chloride/Water 100 ml @ 100 mls/hr Q1H IV 01/27/20 08:00 01/27/20 11:59 01/27/20 09:31 Justifications for Admission Other Justification DEREK FINN MD Jan 27, 2020 10:04
--- NOTE | 2020-01-27 10:58 | PDOC2 ---
CONSULT Date of Consult Date of Consult DATE: 01/27/20 TIME: 10:56 Reason for Consult Reason for Consult: Colitis/diarrhea s/p diverticular resection Past Medical History Cardiovascular: No pertinent hx GI: Diverticulosis Heme/Onc: Cancer Past Surgical History Past Surgical History: Mastectomy, Hysterectomy, Colon Resection, Other Family History Family History: Cancer Social History No ALCOHOL: occassional Drugs: None Current Problem List Problem List Problems Medical Problems: (1) Colitis Status: Acute Current Medications Current Medications Current Medications Sodium Chloride 1,000 ml @ 1,000 mls/hr 1X ONCE IV Last administered on 01/26/20at 15:05; Start 01/26/20 at 14:45; Stop 01/26/20 at 15:44; Status DC Fentanyl Citrate (Fentanyl 2ml Vial) 50 mcg 1X ONCE IVP Last administered on 01/26/20at 15:07; Start 01/26/20 at 15:00; Stop 01/26/20 at 15:02; Status DC Ondansetron HCl (Zofran) 4 mg PRN Q8HRS PRN IV NAUSEA/VOMITING; Start 01/26/20 at 17:00; Stop 01/26/20 at 17:42; Status DC Fentanyl Citrate (Fentanyl 2ml Vial) 50 mcg PRN Q1HR PRN IV PAIN; Start 01/26/20 at 17:00; Stop 01/27/20 at 16:59 Sodium Chloride 1,000 ml @ 100 mls/hr Q10H IV Last administered on 01/27/20at 02:54; Start 01/26/20 at 16:54; Stop 01/27/20 at 16:53 Metronidazole 100 ml @ 100 mls/hr 1X ONCE IV Last administered on 01/26/20at 17:12; Start 01/26/20 at 17:00; Stop 01/26/20 at 17:59; Status DC Levofloxacin/ Dextrose 100 ml @ 100 mls/hr 1X ONCE IV Last administered on 01/26/20at 19:17; Start 01/26/20 at 17:00; Stop 01/26/20 at 17:59; Status DC Ondansetron HCl (Zofran) 4 mg PRN Q4HRS PRN IV NAUSEA/VOMITING; Start 01/26/20 at 17:15 Acetaminophen (Tylenol) 650 mg PRN Q6HRS PRN PO TEMP > 100.3'F; Start 01/26/20 at 17:15 Albuterol Sulfate (Ventolin Neb Soln) 2.5 mg PRN Q6HRS PRN INH SHORTNESS OF BREATH; Start 01/26/20 at 17:15 Atorvastatin Calcium (Lipitor) 40 mg QHS PO ; Start 01/26/20 at 21:00 Montelukast Sodium (Singulair) 10 mg QHS PO ; Start 01/26/20 at 21:00 Calcium Carbonate/ Glycine (Oscal) 500 mg DAILY PO ; Start 01/27/20 at 09:00 Cetirizine HCl (ZyrTEC) 10 mg DAILY PO ; Start 01/27/20 at 09:00 Fluticasone Propionate (Flonase) 2 spray DAILY NS ; Start 01/27/20 at 09:00 Lactobacillus Rhamnosus (Culturelle) 1 cap DAILY PO ; Start 01/26/20 at 21:00 Non-Formulary Medication (Melatonin ) 1 tab QHS PO ; Start 01/26/20 at 21:00; Stop 01/26/20 at 17:45; Status DC Multivitamins (Thera M Plus) 1 tab DAILY PO ; Start 01/27/20 at 09:00 Pantoprazole Sodium (Protonix) 40 mg DAILYAC PO ; Start 01/27/20 at 07:30 Non-Formulary Medication ([glucosamine] ) 1 tab DAILY PO ; Start 01/27/20 at 09:00; Status UNV Metronidazole 100 ml @ 100 mls/hr Q8HRS IV Last administered on 01/27/20at 06:06; Start 01/26/20 at 23:00 Hydromorphone HCl (Dilaudid) 0.4 mg PRN Q4HRS PRN IVP MODERATE TO SEVERE PAIN Last administered on 01/27/20at 06:24; Start 01/26/20 at 18:15 Oxycodone/ Acetaminophen (Percocet 5/325) 1 tab PRN Q6HRS PRN PO MODERATE TO SEVERE PAIN; Start 01/26/20 at 18:15 Pharmacy Consult (C.diff Med Screen By Rx) 1 each 1X ONCE MC ; Start 01/26/20 at 19:15; Stop 01/26/20 at 19:16; Status UNV Phenyleph/Shark Oil/Min Oil/Petrol (Preparation H) 1 melissa PRN QID PRN RC RECTAL PAIN; Start 01/26/20 at 23:15 Psyllium Hydrophilic Mucilloid (Metamucil Fiber Packet) 1 pkt PRN DAILY PRN PO CONSTIPATION; Start 01/26/20 at 23:15 Polyethylene Glycol (miraLAX PACKET) 17 gm PRN DAILY PRN PO CONSTIPATION; Start 01/26/20 at 23:15 Potassium Chloride (Klor-Con) 40 meq 1X ONCE PO ; Start 01/27/20 at 06:45; Stop 01/27/20 at 06:46; Status Cancel Potassium Chloride (Klor-Con) 40 meq 0645 ONCE PO ; Start 01/27/20 at 06:45; Stop 01/27/20 at 06:46; Status UNV Potassium Chloride/Water 100 ml @ 100 mls/hr Q1H IV Last administered on 01/27/20at 09:31; Start 01/27/20 at 08:00; Stop 01/27/20 at 11:59 Levofloxacin/ Dextrose 100 ml @ 100 mls/hr Q24H IV ; Start 01/27/20 at 10:00 Active Scripts Active Montelukast Sodium Tablet (Montelukast Sodium) 10 Mg Tablet 1 Tab PO QHS 30 Days Reported Acetaminophen 325 Mg Tablet 650 Mg PO PRN Q8-12HRS PRN [glucosamine] 1 Tab PO DAILY Probiotic (Lactobacillus Acidophilus) 1 Each Capsule 1 Each PO DAILY Barbara Allergy (Fexofenadine Hcl) 60 Mg Tablet 60 Mg PO DAILY Calcium (Calcium Carbonate) 500 Mg Tab.chew 500 Mg PO DAILY Atorvastatin Calcium 40 Mg Tablet 1 Tab PO QHS Multivitamins (Multivitamin) 1 Each Tablet 1 Tab PO DAILY Melatonin 3 Mg Tablet 1 Tab PO QHS Proair Hfa (Albuterol Sulfate) 8.5 Gm Hfa.aer.ad 1 Puff INH PRN Q6HRS PRN Flonase Allergy Relief (Fluticasone Propionate) 9.9 Ml [place].susp 2 Sprays NS DAILY Omeprazole 20 Mg Tablet.dr 1 Tab PO DAILY Allergies Allergies: Coded Allergies: No Known Drug Allergies (Unverified , 12/26/19) Vitals VITALS Vital Signs Date Time Temp Pulse Resp B/P (MAP) Pulse Ox O2 Delivery O2 Flow Rate FiO2 01/27/20 08:00 Room Air 01/27/20 07:00 98.2 85 18 118/69 (85) 96 98.2 Labs Labs Laboratory Tests Test 01/26/20 14:35 01/26/20 16:02 01/27/20 04:10 White Blood Count 6.4 x10^3/uL (4.0-11.0) 4.6 x10^3/uL (4.0-11.0) Red Blood Count 3.65 x10^6/uL (3.50-5.40) 3.05 x10^6/uL (3.50-5.40) Hemoglobin 10.2 g/dL (12.0-15.5) 8.5 g/dL (12.0-15.5) Hematocrit 31.2 % (36.0-47.0) 26.2 % (36.0-47.0) Mean Corpuscular Volume 86 fL (79-100) 86 fL (79-100) Mean Corpuscular Hemoglobin 28 pg (25-35) 28 pg (25-35) Mean Corpuscular Hemoglobin Concent 33 g/dL (31-37) 33 g/dL (31-37) Red Cell Distribution Width 15.8 % (11.5-14.5) 15.8 % (11.5-14.5) Platelet Count 367 x10^3/uL (140-400) 308 x10^3/uL (140-400) Neutrophils (%) (Auto) 71 % (31-73) 65 % (31-73) Lymphocytes (%) (Auto) 14 % (24-48) 18 % (24-48) Monocytes (%) (Auto) 12 % (0-9) 12 % (0-9) Eosinophils (%) (Auto) 3 % (0-3) 5 % (0-3) Basophils (%) (Auto) 0 % (0-3) 0 % (0-3) Neutrophils # (Auto) 4.5 x10^3/uL (1.8-7.7) 3.0 x10^3/uL (1.8-7.7) Lymphocytes # (Auto) 0.9 x10^3/uL (1.0-4.8) 0.8 x10^3/uL (1.0-4.8) Monocytes # (Auto) 0.8 x10^3/uL (0.0-1.1) 0.6 x10^3/uL (0.0-1.1) Eosinophils # (Auto) 0.2 x10^3/uL (0.0-0.7) 0.2 x10^3/uL (0.0-0.7) Basophils # (Auto) 0.0 x10^3/uL (0.0-0.2) 0.0 x10^3/uL (0.0-0.2) Prothrombin Time 14.6 SEC (11.7-14.0) Prothromb Time International Ratio 1.2 (0.8-1.1) Sodium Level 141 mmol/L (136-145) 143 mmol/L (136-145) Potassium Level 3.7 mmol/L (3.5-5.1) 3.1 mmol/L (3.5-5.1) Chloride Level 104 mmol/L (98-107) 108 mmol/L (98-107) Carbon Dioxide Level 28 mmol/L (21-32) 25 mmol/L (21-32) Anion Gap 9 (6-14) 10 (6-14) Blood Urea Nitrogen 14 mg/dL (7-20) 8 mg/dL (7-20) Creatinine 0.7 mg/dL (0.6-1.0) 0.6 mg/dL (0.6-1.0) Estimated GFR (Cockcroft-Gault) 86.6 103.4 BUN/Creatinine Ratio 20 (6-20) 13 (6-20) Glucose Level 99 mg/dL (70-99) 92 mg/dL (70-99) Lactic Acid Level 0.9 mmol/L (0.4-2.0) Calcium Level 8.6 mg/dL (8.5-10.1) 8.0 mg/dL (8.5-10.1) Total Bilirubin 0.2 mg/dL (0.2-1.0) 0.2 mg/dL (0.2-1.0) Aspartate Amino Transf (AST/SGOT) 11 U/L (15-37) 10 U/L (15-37) Alanine Aminotransferase (ALT/SGPT) 14 U/L (14-59) 10 U/L (14-59) Alkaline Phosphatase 118 U/L (46-116) 94 U/L (46-116) Troponin I Quantitative < 0.017 ng/mL (0.000-0.055) Total Protein 6.6 g/dL (6.4-8.2) 6.0 g/dL (6.4-8.2) Albumin 2.6 g/dL (3.4-5.0) 2.1 g/dL (3.4-5.0) Albumin/Globulin Ratio 0.7 (1.0-1.7) 0.5 (1.0-1.7) Lipase 50 U/L (73-393) Urine Collection Type Void Urine Color Dk yellow Urine Clarity Hazy Urine pH 5.5 (<5.0-8.0) Urine Specific [place] >=1.030 (1.000-1.030) Urine Protein 30 mg/dL (NEG-TRACE) Urine Glucose (UA) Negative mg/dL (NEG) Urine Ketones (Stick) Negative mg/dL (NEG) Urine Blood Negative (NEG) Urine Nitrite Negative (NEG) Urine Bilirubin Small (NEG) Urine Urobilinogen Dipstick 0.2 mg/dL (0.2 mg/dL) Urine Leukocyte Esterase Negative (NEG) Urine RBC 0 /HPF (0-2) Urine WBC 1-4 /HPF (0-4) Urine Squamous Epithelial Cells Many /LPF Urine Bacteria Moderate /HPF (0-FEW) Urine Mucus Marked /LPF Magnesium Level 2.0 mg/dL (1.8-2.4) C-Reactive Protein, Quantitative 92.3 mg/L (0-3.3) Procalcitonin < 0.10 ng/mL (0.00-0.10) Laboratory Tests Test 01/26/20 14:35 01/26/20 16:02 01/27/20 04:10 White Blood Count 6.4 x10^3/uL (4.0-11.0) 4.6 x10^3/uL (4.0-11.0) Red Blood Count 3.65 x10^6/uL (3.50-5.40) 3.05 x10^6/uL (3.50-5.40) Hemoglobin 10.2 g/dL (12.0-15.5) 8.5 g/dL (12.0-15.5) Hematocrit 31.2 % (36.0-47.0) 26.2 % (36.0-47.0) Mean Corpuscular Volume 86 fL (79-100) 86 fL (79-100) Mean Corpuscular Hemoglobin 28 pg (25-35) 28 pg (25-35) Mean Corpuscular Hemoglobin Concent 33 g/dL (31-37) 33 g/dL (31-37) Red Cell Distribution Width 15.8 % (11.5-14.5) 15.8 % (11.5-14.5) Platelet Count 367 x10^3/uL (140-400) 308 x10^3/uL (140-400) Neutrophils (%) (Auto) 71 % (31-73) 65 % (31-73) Lymphocytes (%) (Auto) 14 % (24-48) 18 % (24-48) Monocytes (%) (Auto) 12 % (0-9) 12 % (0-9) Eosinophils (%) (Auto) 3 % (0-3) 5 % (0-3) Basophils (%) (Auto) 0 % (0-3) 0 % (0-3) Neutrophils # (Auto) 4.5 x10^3/uL (1.8-7.7) 3.0 x10^3/uL (1.8-7.7) Lymphocytes # (Auto) 0.9 x10^3/uL (1.0-4.8) 0.8 x10^3/uL (1.0-4.8) Monocytes # (Auto) 0.8 x10^3/uL (0.0-1.1) 0.6 x10^3/uL (0.0-1.1) Eosinophils # (Auto) 0.2 x10^3/uL (0.0-0.7) 0.2 x10^3/uL (0.0-0.7) Basophils # (Auto) 0.0 x10^3/uL (0.0-0.2) 0.0 x10^3/uL (0.0-0.2) Prothrombin Time 14.6 SEC (11.7-14.0) Prothromb Time International Ratio 1.2 (0.8-1.1) Sodium Level 141 mmol/L (136-145) 143 mmol/L (136-145) Potassium Level 3.7 mmol/L (3.5-5.1) 3.1 mmol/L (3.5-5.1) Chloride Level 104 mmol/L (98-107) 108 mmol/L (98-107) Carbon Dioxide Level 28 mmol/L (21-32) 25 mmol/L (21-32) Anion Gap 9 (6-14) 10 (6-14) Blood Urea Nitrogen 14 mg/dL (7-20) 8 mg/dL (7-20) Creatinine 0.7 mg/dL (0.6-1.0) 0.6 mg/dL (0.6-1.0) Estimated GFR (Cockcroft-Gault) 86.6 103.4 BUN/Creatinine Ratio 20 (6-20) 13 (6-20) Glucose Level 99 mg/dL (70-99) 92 mg/dL (70-99) Lactic Acid Level 0.9 mmol/L (0.4-2.0) Calcium Level 8.6 mg/dL (8.5-10.1) 8.0 mg/dL (8.5-10.1) Total Bilirubin 0.2 mg/dL (0.2-1.0) 0.2 mg/dL (0.2-1.0) Aspartate Amino Transf (AST/SGOT) 11 U/L (15-37) 10 U/L (15-37) Alanine Aminotransferase (ALT/SGPT) 14 U/L (14-59) 10 U/L (14-59) Alkaline Phosphatase 118 U/L (46-116) 94 U/L (46-116) Troponin I Quantitative < 0.017 ng/mL (0.000-0.055) Total Protein 6.6 g/dL (6.4-8.2) 6.0 g/dL (6.4-8.2) Albumin 2.6 g/dL (3.4-5.0) 2.1 g/dL (3.4-5.0) Albumin/Globulin Ratio 0.7 (1.0-1.7) 0.5 (1.0-1.7) Lipase 50 U/L (73-393) Urine Collection Type Void Urine Color Dk yellow Urine Clarity Hazy Urine pH 5.5 (<5.0-8.0) Urine Specific [place] >=1.030 (1.000-1.030) Urine Protein 30 mg/dL (NEG-TRACE) Urine Glucose (UA) Negative mg/dL (NEG) Urine Ketones (Stick) Negative mg/dL (NEG) Urine Blood Negative (NEG) Urine Nitrite Negative (NEG) Urine Bilirubin Small (NEG) Urine Urobilinogen Dipstick 0.2 mg/dL (0.2 mg/dL) Urine Leukocyte Esterase Negative (NEG) Urine RBC 0 /HPF (0-2) Urine WBC 1-4 /HPF (0-4) Urine Squamous Epithelial Cells Many /LPF Urine Bacteria Moderate /HPF (0-FEW) Urine Mucus Marked /LPF Magnesium Level 2.0 mg/dL (1.8-2.4) C-Reactive Protein, Quantitative 92.3 mg/L (0-3.3) Procalcitonin < 0.10 ng/mL (0.00-0.10) Assessment/Plan Assessment/Plan Diarrhea-with rectal bleed s/p resection, ischemic, Crohns, and/or infectious colitis in differential. Plan gut rest await stool cultures interval Ct scan to reassess possible fistula Full note dictated FRANSICO FLORES MD Jan 27, 2020 10:57
[2020-01-27 11:00] VITALS: BP 120/71
--- NOTE | 2020-01-27 13:32 | CONS ---
DATE OF CONSULTATION: 01/27/2020 REASON FOR CONSULTATION: Diarrhea, rectal bleeding, abdominal pain. HISTORY OF PRESENT ILLNESS: A 54-year-old female whose past medical history is significant for glucose intolerance, asthma, GERD, diverticulosis, status post mastectomy, hysterectomy, cystocele and rectocele repair, and carotid artery dissection, is admitted to the hospital with colitis. She had previously undergone a diverticular resection for advanced disease and postoperative course was uncomplicated until 01/20/2020 with acute onset of pain began. On CT scan, now suggests possible fistula. She otherwise denies additional complaints. PAST MEDICAL HISTORY: Diverticular disease, breast cancer, mastectomy, hysterectomy, colon resection. ALLERGIES: None. MEDICATIONS: Include levofloxacin, multivitamins, Flonase, Zyrtec, calcium, potassium, polyethylene glycol, metronidazole, lactobacillus, atorvastatin. 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 Does not drink or smoke. FAMILY HISTORY: Noncontributory. REVIEW OF SYSTEMS: Per records. PHYSICAL EXAMINATION: VITAL SIGNS: Temp is 98.2, pulse 85, respiratory rate 18, blood pressure is 118/69. LUNGS: Clear. CARDIOVASCULAR: Reveals an S1, S2 without S3, S4 or appreciable murmur. ABDOMEN: Reveals hypoactive bowel sounds and intact surgical incisions with mild diffuse tenderness infraumbilically. EXTREMITIES: Reveals no cyanosis, clubbing, or edema. LABORATORY STUDIES: Hemoglobin is 8.5; hematocrit 26.2; white count 4.6; platelet count is 303,000. Sodium 142, potassium 3.1, chloride 108, BUN is 8, creatinine 0.6, glucose is 92, calcium is 8.0, magnesium is 2.0. Total bili 0.2, AST of 10, ALT of 10, alk phos of 94. Total protein is 6.0, albumin 2.1. CT scan reveals colitis, possible fistula, and some mild reactive retroperitoneal and periaortic lymph nodes. IMPRESSION: Diarrhea, rectal bleeding with recent resection. Differential includes Crohn's, ischemic colitis, infectious colitis, and/or possible anastomotic leak with a fistula. Therefore, recommend gut rest, fluids, antibiotics, and interval CT scan to reassess symptoms if she does not improve as clinically expected. FRANSICO FLORES MD DR: SINDY/mer JOB#: [id number] / [id number] FRANSICO Adams MDhilary,, BHAVIN Matos MD, MD
[2020-01-27 15:00] VITALS: BP 116/65
[2020-01-27] MEDS: ONDANSETRON PF 4 MG/2 ML VIAL. IV PRN (15:56)
[2020-01-27 19:00] VITALS: BP 116/68
[2020-01-27] MEDS: MONTELUKAST SODIUM 10 MG TABLET. PO SCH (21:00)
[2020-01-27] MEDS: ATORVASTATIN CALCIUM 40 MG TABLET. PO SCH (21:00)
[2020-01-27 23:00] VITALS: BP 105/66
[2020-01-28] MEDS: HYDROmorphone 2 MG/ML VIAL IVP PRN ×5 (01:55→20:52)
[2020-01-28 03:00] VITALS: BP 113/65
[2020-01-28 05:01] LABS: BASO % 0 % (0-3); EOS # 0.1 x10^3/uL (0.0-0.7); EOS % 1 % (0-3); HEMATOCRIT 26.9 % (36.0-47.0); HEMOGLOBIN 8.7 g/dL (12.0-15.5); LYMPH # 0.7 x10^3/uL (1.0-4.8); LYMPH % 12 % (24-48); MEAN CORPUSCULAR HEMOGLOBIN 28 pg (25-35); MEAN CORPUSCULAR HGB CONC 32 g/dL (31-37); MEAN CORPUSCULAR VOLUME 86 fL (79-100); MONO # 0.7 x10^3/uL (0.0-1.1); MONO % 12 % (0-9); NEUT # 4.6 x10^3/uL (1.8-7.7); NEUT % 75 % (31-73); PLATELET COUNT 353 x10^3/uL (140-400); RED BLOOD COUNT 3.15 x10^6/uL (3.50-5.40); RED CELL DISTRIBUTION WIDTH 15.7 % (11.5-14.5); WHITE BLOOD COUNT 6.1 x10^3/uL (4.0-11.0)
[2020-01-28 05:07] LABS: CREATININE 0.6 mg/dL (0.6-1.0); GFR 103.4; POTASSIUM 3.2 mmol/L (3.5-5.1)
[2020-01-28 07:00] VITALS: BP 113/65
[2020-01-28] MEDS: FLUTICASONE 50MCG/NASAL SPRAY 16GM BOTTLE. NS SCH (07:30)
[2020-01-28] MEDS: PANTOPRAZOLE 40 MG TABLET.DR. PO SCH (07:30)
[2020-01-28] MEDS: CALCIUM CARBONATE 500 MG TABLET PO SCH (07:30)
[2020-01-28] MEDS: LACTOBACILLUS RHAMNOSUS GG 1 CAPSULE. PO SCH (07:30)
[2020-01-28] MEDS: MULTIVITAMIN with MINERAL TABLET. PO SCH (07:31)
[2020-01-28] MEDS: CETIRIZINE HCL 10 MG TABLET. PO SCH (07:31)
--- NOTE | 2020-01-28 08:31 | PDOC ---
SURGICAL PROGRESS NOTE DATE: 01/28/20 TIME: 08:29 Subjective Patient states she is been a little better this morning did have a bowel movement with very little blood as compared to her previous bowel movement Vital Signs Vital Signs Date Time Temp Pulse Resp B/P (MAP) Pulse Ox O2 Delivery O2 Flow Rate FiO2 01/28/20 08:15 16 Room Air 01/28/20 03:00 99.4 100 113/65 (81) 91 99.4 I&O Intake and Output 01/28/20 07:00 # Voids 2 PATIENT HAS A HARMON: No General: Alert, Oriented X3, Cooperative, mild distress Abdomen: Normal bowel sounds, Soft, Other (Mild incisional tenderness wounds clean dry and intact) Labs Laboratory Tests Test 01/26/20 14:35 01/26/20 16:02 01/27/20 01:52 01/27/20 04:10 White Blood Count 6.4 x10^3/uL (4.0-11.0) 4.6 x10^3/uL (4.0-11.0) Red Blood Count 3.65 x10^6/uL (3.50-5.40) 3.05 x10^6/uL (3.50-5.40) Hemoglobin 10.2 g/dL (12.0-15.5) 8.5 g/dL (12.0-15.5) Hematocrit 31.2 % (36.0-47.0) 26.2 % (36.0-47.0) Mean Corpuscular Volume 86 fL (79-100) 86 fL (79-100) Mean Corpuscular Hemoglobin 28 pg (25-35) 28 pg (25-35) Mean Corpuscular Hemoglobin Concent 33 g/dL (31-37) 33 g/dL (31-37) Red Cell Distribution Width 15.8 % (11.5-14.5) 15.8 % (11.5-14.5) Platelet Count 367 x10^3/uL (140-400) 308 x10^3/uL (140-400) Neutrophils (%) (Auto) 71 % (31-73) 65 % (31-73) Lymphocytes (%) (Auto) 14 % (24-48) 18 % (24-48) Monocytes (%) (Auto) 12 % (0-9) 12 % (0-9) Eosinophils (%) (Auto) 3 % (0-3) 5 % (0-3) Basophils (%) (Auto) 0 % (0-3) 0 % (0-3) Neutrophils # (Auto) 4.5 x10^3/uL (1.8-7.7) 3.0 x10^3/uL (1.8-7.7) Lymphocytes # (Auto) 0.9 x10^3/uL (1.0-4.8) 0.8 x10^3/uL (1.0-4.8) Monocytes # (Auto) 0.8 x10^3/uL (0.0-1.1) 0.6 x10^3/uL (0.0-1.1) Eosinophils # (Auto) 0.2 x10^3/uL (0.0-0.7) 0.2 x10^3/uL (0.0-0.7) Basophils # (Auto) 0.0 x10^3/uL (0.0-0.2) 0.0 x10^3/uL (0.0-0.2) Prothrombin Time 14.6 SEC (11.7-14.0) Prothromb Time International Ratio 1.2 (0.8-1.1) Sodium Level 141 mmol/L (136-145) 143 mmol/L (136-145) Potassium Level 3.7 mmol/L (3.5-5.1) 3.1 mmol/L (3.5-5.1) Chloride Level 104 mmol/L (98-107) 108 mmol/L (98-107) Carbon Dioxide Level 28 mmol/L (21-32) 25 mmol/L (21-32) Anion Gap 9 (6-14) 10 (6-14) Blood Urea Nitrogen 14 mg/dL (7-20) 8 mg/dL (7-20) Creatinine 0.7 mg/dL (0.6-1.0) 0.6 mg/dL (0.6-1.0) Estimated GFR (Cockcroft-Gault) 86.6 103.4 BUN/Creatinine Ratio 20 (6-20) 13 (6-20) Glucose Level 99 mg/dL (70-99) 92 mg/dL (70-99) Lactic Acid Level 0.9 mmol/L (0.4-2.0) Calcium Level 8.6 mg/dL (8.5-10.1) 8.0 mg/dL (8.5-10.1) Total Bilirubin 0.2 mg/dL (0.2-1.0) 0.2 mg/dL (0.2-1.0) Aspartate Amino Transf (AST/SGOT) 11 U/L (15-37) 10 U/L (15-37) Alanine Aminotransferase (ALT/SGPT) 14 U/L (14-59) 10 U/L (14-59) Alkaline Phosphatase 118 U/L (46-116) 94 U/L (46-116) Troponin I Quantitative < 0.017 ng/mL (0.000-0.055) Total Protein 6.6 g/dL (6.4-8.2) 6.0 g/dL (6.4-8.2) Albumin 2.6 g/dL (3.4-5.0) 2.1 g/dL (3.4-5.0) Albumin/Globulin Ratio 0.7 (1.0-1.7) 0.5 (1.0-1.7) Lipase 50 U/L (73-393) Urine Collection Type Void Urine Color Dk yellow Urine Clarity Hazy Urine pH 5.5 (<5.0-8.0) Urine Specific [place] >=1.030 (1.000-1.030) Urine Protein 30 mg/dL (NEG-TRACE) Urine Glucose (UA) Negative mg/dL (NEG) Urine Ketones (Stick) Negative mg/dL (NEG) Urine Blood Negative (NEG) Urine Nitrite Negative (NEG) Urine Bilirubin Small (NEG) Urine Urobilinogen Dipstick 0.2 mg/dL (0.2 mg/dL) Urine Leukocyte Esterase Negative (NEG) Urine RBC 0 /HPF (0-2) Urine WBC 1-4 /HPF (0-4) Urine Squamous Epithelial Cells Many /LPF Urine Bacteria Moderate /HPF (0-FEW) Urine Mucus Marked /LPF Stool Campylobacter PCR Negative (NEGATIVE) Stool E. coli Shiga Toxins (PCR) Negative (NEGATIVE) Stool Salmonella PCR Negative (NEGATIVE) Stool Shigella PCR Negative (NEGATIVE) Clostridium difficile Toxin (PCR) Negative (NEGATIVE) Magnesium Level 2.0 mg/dL (1.8-2.4) C-Reactive Protein, Quantitative 92.3 mg/L (0-3.3) Procalcitonin < 0.10 ng/mL (0.00-0.10) Test 01/28/20 04:30 White Blood Count 6.1 x10^3/uL (4.0-11.0) Red Blood Count 3.15 x10^6/uL (3.50-5.40) Hemoglobin 8.7 g/dL (12.0-15.5) Hematocrit 26.9 % (36.0-47.0) Mean Corpuscular Volume 86 fL (79-100) Mean Corpuscular Hemoglobin 28 pg (25-35) Mean Corpuscular Hemoglobin Concent 32 g/dL (31-37) Red Cell Distribution Width 15.7 % (11.5-14.5) Platelet Count 353 x10^3/uL (140-400) Neutrophils (%) (Auto) 75 % (31-73) Lymphocytes (%) (Auto) 12 % (24-48) Monocytes (%) (Auto) 12 % (0-9) Eosinophils (%) (Auto) 1 % (0-3) Basophils (%) (Auto) 0 % (0-3) Neutrophils # (Auto) 4.6 x10^3/uL (1.8-7.7) Lymphocytes # (Auto) 0.7 x10^3/uL (1.0-4.8) Monocytes # (Auto) 0.7 x10^3/uL (0.0-1.1) Eosinophils # (Auto) 0.1 x10^3/uL (0.0-0.7) Basophils # (Auto) 0.0 x10^3/uL (0.0-0.2) Sodium Level 140 mmol/L (136-145) Potassium Level 3.2 mmol/L (3.5-5.1) Chloride Level 106 mmol/L (98-107) Carbon Dioxide Level 24 mmol/L (21-32) Anion Gap 10 (6-14) Blood Urea Nitrogen 5 mg/dL (7-20) Creatinine 0.6 mg/dL (0.6-1.0) Estimated GFR (Cockcroft-Gault) 103.4 Glucose Level 89 mg/dL (70-99) Calcium Level 8.0 mg/dL (8.5-10.1) Laboratory Tests Test 01/28/20 04:30 White Blood Count 6.1 x10^3/uL (4.0-11.0) Red Blood Count 3.15 x10^6/uL (3.50-5.40) Hemoglobin 8.7 g/dL (12.0-15.5) Hematocrit 26.9 % (36.0-47.0) Mean Corpuscular Volume 86 fL (79-100) Mean Corpuscular Hemoglobin 28 pg (25-35) Mean Corpuscular Hemoglobin Concent 32 g/dL (31-37) Red Cell Distribution Width 15.7 % (11.5-14.5) Platelet Count 353 x10^3/uL (140-400) Neutrophils (%) (Auto) 75 % (31-73) Lymphocytes (%) (Auto) 12 % (24-48) Monocytes (%) (Auto) 12 % (0-9) Eosinophils (%) (Auto) 1 % (0-3) Basophils (%) (Auto) 0 % (0-3) Neutrophils # (Auto) 4.6 x10^3/uL (1.8-7.7) Lymphocytes # (Auto) 0.7 x10^3/uL (1.0-4.8) Monocytes # (Auto) 0.7 x10^3/uL (0.0-1.1) Eosinophils # (Auto) 0.1 x10^3/uL (0.0-0.7) Basophils # (Auto) 0.0 x10^3/uL (0.0-0.2) Sodium Level 140 mmol/L (136-145) Potassium Level 3.2 mmol/L (3.5-5.1) Chloride Level 106 mmol/L (98-107) Carbon Dioxide Level 24 mmol/L (21-32) Anion Gap 10 (6-14) Blood Urea Nitrogen 5 mg/dL (7-20) Creatinine 0.6 mg/dL (0.6-1.0) Estimated GFR (Cockcroft-Gault) 103.4 Glucose Level 89 mg/dL (70-99) Calcium Level 8.0 mg/dL (8.5-10.1) Problem List Problems Medical Problems: (1) Colitis Status: Acute Assessment/Plan Colitis, stool cultures all negative. Continue IV antibiotics bowel rest. Justicifation of Admission Dx: Justifications for Admission: Justification of Admission Dx: Yes JUVENCIO CRANE MD Jan 28, 2020 08:31
[2020-01-28 11:00] VITALS: BP 112/62
[2020-01-28] MEDS: PIPERACILLIN/TAZOBACTAM 3.375 GM in IV NORMAL SALINE 50ML 50 ML IV SCH ×3 (11:45→23:59)
--- NOTE | 2020-01-28 13:08 | PDOC ---
[facility]GRESS NOTE Date of Service DOS: DATE: 01/28/20 TIME: 13:07 Chief Complaint Chief Complaint Abdominal pain, diarrhea History of Present Illness History of Present Illness Patient evaluated at bedside. Pain is slightly improved. The blood in her bowel movements has significantly improved. Discussed with patient, will continue bowel rest and IV antibiotics. Vitals/I&O Vitals/I&O: Vital Signs Date Time Temp Pulse Resp B/P (MAP) Pulse Ox O2 Delivery O2 Flow Rate FiO2 01/28/20 12:18 16 Room Air 01/28/20 11:00 98.0 102 112/62 (79) 96 98.0 Physical Exam General: Alert, Oriented X3, Cooperative, mild distress Heart: Regular rate, No murmurs Lungs: Clear Abdomen: Normal bowel sounds, Soft, Other (Mild incisional tenderness wounds clean dry and intact) Extremities: No edema Skin: No significant lesion Labs Labs: Laboratory Tests Test 01/28/20 04:30 White Blood Count 6.1 x10^3/uL (4.0-11.0) Red Blood Count 3.15 x10^6/uL (3.50-5.40) Hemoglobin 8.7 g/dL (12.0-15.5) Hematocrit 26.9 % (36.0-47.0) Mean Corpuscular Volume 86 fL (79-100) Mean Corpuscular Hemoglobin 28 pg (25-35) Mean Corpuscular Hemoglobin Concent 32 g/dL (31-37) Red Cell Distribution Width 15.7 % (11.5-14.5) Platelet Count 353 x10^3/uL (140-400) Neutrophils (%) (Auto) 75 % (31-73) Lymphocytes (%) (Auto) 12 % (24-48) Monocytes (%) (Auto) 12 % (0-9) Eosinophils (%) (Auto) 1 % (0-3) Basophils (%) (Auto) 0 % (0-3) Neutrophils # (Auto) 4.6 x10^3/uL (1.8-7.7) Lymphocytes # (Auto) 0.7 x10^3/uL (1.0-4.8) Monocytes # (Auto) 0.7 x10^3/uL (0.0-1.1) Eosinophils # (Auto) 0.1 x10^3/uL (0.0-0.7) Basophils # (Auto) 0.0 x10^3/uL (0.0-0.2) Sodium Level 140 mmol/L (136-145) Potassium Level 3.2 mmol/L (3.5-5.1) Chloride Level 106 mmol/L (98-107) Carbon Dioxide Level 24 mmol/L (21-32) Anion Gap 10 (6-14) Blood Urea Nitrogen 5 mg/dL (7-20) Creatinine 0.6 mg/dL (0.6-1.0) Estimated GFR (Cockcroft-Gault) 103.4 Glucose Level 89 mg/dL (70-99) Calcium Level 8.0 mg/dL (8.5-10.1) Assessment and Plan Assessmemt and Plan Problems Medical Problems: (1) Colitis Status: Acute Plan: Bowel rest, IV antibiotics. With resolution of blood in stool, may try clears tomorrow. Comment Review of Relevant I have reviewed the following items so (where applicable) has been applied. Medications: Current Medications Medications (Trade) Dose Ordered Sig/Michael Route PRN Reason Start Time Stop Time Status Last Admin Dose Admin Piperacillin Sod/ Tazobactam Sod 3.375 gm/Sodium Chloride 50 ml @ 100 mls/hr Q6HRS IV 01/28/20 12:00 01/28/20 11:45 Justifications for Admission Other Justification DEREK FINN MD Jan 28, 2020 13:08
--- NOTE | 2020-01-28 14:21 | PDOC ---
G I PROGRESS NOTE Reason for Follow-up Abd pain/colitisa Subjective Pain persists Physical Exam Lungs clear CV S1 S2 ABD +BS, soft, +LLQ tenderness Review of Relevant I have reviewed the following items so (where applicable) has been applied. Labs Laboratory Tests Test 01/26/20 14:35 01/26/20 16:02 01/27/20 01:52 01/27/20 04:10 White Blood Count 6.4 x10^3/uL (4.0-11.0) 4.6 x10^3/uL (4.0-11.0) Red Blood Count 3.65 x10^6/uL (3.50-5.40) 3.05 x10^6/uL (3.50-5.40) Hemoglobin 10.2 g/dL (12.0-15.5) 8.5 g/dL (12.0-15.5) Hematocrit 31.2 % (36.0-47.0) 26.2 % (36.0-47.0) Mean Corpuscular Volume 86 fL (79-100) 86 fL (79-100) Mean Corpuscular Hemoglobin 28 pg (25-35) 28 pg (25-35) Mean Corpuscular Hemoglobin Concent 33 g/dL (31-37) 33 g/dL (31-37) Red Cell Distribution Width 15.8 % (11.5-14.5) 15.8 % (11.5-14.5) Platelet Count 367 x10^3/uL (140-400) 308 x10^3/uL (140-400) Neutrophils (%) (Auto) 71 % (31-73) 65 % (31-73) Lymphocytes (%) (Auto) 14 % (24-48) 18 % (24-48) Monocytes (%) (Auto) 12 % (0-9) 12 % (0-9) Eosinophils (%) (Auto) 3 % (0-3) 5 % (0-3) Basophils (%) (Auto) 0 % (0-3) 0 % (0-3) Neutrophils # (Auto) 4.5 x10^3/uL (1.8-7.7) 3.0 x10^3/uL (1.8-7.7) Lymphocytes # (Auto) 0.9 x10^3/uL (1.0-4.8) 0.8 x10^3/uL (1.0-4.8) Monocytes # (Auto) 0.8 x10^3/uL (0.0-1.1) 0.6 x10^3/uL (0.0-1.1) Eosinophils # (Auto) 0.2 x10^3/uL (0.0-0.7) 0.2 x10^3/uL (0.0-0.7) Basophils # (Auto) 0.0 x10^3/uL (0.0-0.2) 0.0 x10^3/uL (0.0-0.2) Prothrombin Time 14.6 SEC (11.7-14.0) Prothromb Time International Ratio 1.2 (0.8-1.1) Sodium Level 141 mmol/L (136-145) 143 mmol/L (136-145) Potassium Level 3.7 mmol/L (3.5-5.1) 3.1 mmol/L (3.5-5.1) Chloride Level 104 mmol/L (98-107) 108 mmol/L (98-107) Carbon Dioxide Level 28 mmol/L (21-32) 25 mmol/L (21-32) Anion Gap 9 (6-14) 10 (6-14) Blood Urea Nitrogen 14 mg/dL (7-20) 8 mg/dL (7-20) Creatinine 0.7 mg/dL (0.6-1.0) 0.6 mg/dL (0.6-1.0) Estimated GFR (Cockcroft-Gault) 86.6 103.4 BUN/Creatinine Ratio 20 (6-20) 13 (6-20) Glucose Level 99 mg/dL (70-99) 92 mg/dL (70-99) Lactic Acid Level 0.9 mmol/L (0.4-2.0) Calcium Level 8.6 mg/dL (8.5-10.1) 8.0 mg/dL (8.5-10.1) Total Bilirubin 0.2 mg/dL (0.2-1.0) 0.2 mg/dL (0.2-1.0) Aspartate Amino Transf (AST/SGOT) 11 U/L (15-37) 10 U/L (15-37) Alanine Aminotransferase (ALT/SGPT) 14 U/L (14-59) 10 U/L (14-59) Alkaline Phosphatase 118 U/L (46-116) 94 U/L (46-116) Troponin I Quantitative < 0.017 ng/mL (0.000-0.055) Total Protein 6.6 g/dL (6.4-8.2) 6.0 g/dL (6.4-8.2) Albumin 2.6 g/dL (3.4-5.0) 2.1 g/dL (3.4-5.0) Albumin/Globulin Ratio 0.7 (1.0-1.7) 0.5 (1.0-1.7) Lipase 50 U/L (73-393) Urine Collection Type Void Urine Color Dk yellow Urine Clarity Hazy Urine pH 5.5 (<5.0-8.0) Urine Specific [place] >=1.030 (1.000-1.030) Urine Protein 30 mg/dL (NEG-TRACE) Urine Glucose (UA) Negative mg/dL (NEG) Urine Ketones (Stick) Negative mg/dL (NEG) Urine Blood Negative (NEG) Urine Nitrite Negative (NEG) Urine Bilirubin Small (NEG) Urine Urobilinogen Dipstick 0.2 mg/dL (0.2 mg/dL) Urine Leukocyte Esterase Negative (NEG) Urine RBC 0 /HPF (0-2) Urine WBC 1-4 /HPF (0-4) Urine Squamous Epithelial Cells Many /LPF Urine Bacteria Moderate /HPF (0-FEW) Urine Mucus Marked /LPF Stool Campylobacter PCR Negative (NEGATIVE) Stool E. coli Shiga Toxins (PCR) Negative (NEGATIVE) Stool Salmonella PCR Negative (NEGATIVE) Stool Shigella PCR Negative (NEGATIVE) Clostridium difficile Toxin (PCR) Negative (NEGATIVE) Magnesium Level 2.0 mg/dL (1.8-2.4) C-Reactive Protein, Quantitative 92.3 mg/L (0-3.3) Procalcitonin < 0.10 ng/mL (0.00-0.10) Test 01/28/20 04:30 White Blood Count 6.1 x10^3/uL (4.0-11.0) Red Blood Count 3.15 x10^6/uL (3.50-5.40) Hemoglobin 8.7 g/dL (12.0-15.5) Hematocrit 26.9 % (36.0-47.0) Mean Corpuscular Volume 86 fL (79-100) Mean Corpuscular Hemoglobin 28 pg (25-35) Mean Corpuscular Hemoglobin Concent 32 g/dL (31-37) Red Cell Distribution Width 15.7 % (11.5-14.5) Platelet Count 353 x10^3/uL (140-400) Neutrophils (%) (Auto) 75 % (31-73) Lymphocytes (%) (Auto) 12 % (24-48) Monocytes (%) (Auto) 12 % (0-9) Eosinophils (%) (Auto) 1 % (0-3) Basophils (%) (Auto) 0 % (0-3) Neutrophils # (Auto) 4.6 x10^3/uL (1.8-7.7) Lymphocytes # (Auto) 0.7 x10^3/uL (1.0-4.8) Monocytes # (Auto) 0.7 x10^3/uL (0.0-1.1) Eosinophils # (Auto) 0.1 x10^3/uL (0.0-0.7) Basophils # (Auto) 0.0 x10^3/uL (0.0-0.2) Sodium Level 140 mmol/L (136-145) Potassium Level 3.2 mmol/L (3.5-5.1) Chloride Level 106 mmol/L (98-107) Carbon Dioxide Level 24 mmol/L (21-32) Anion Gap 10 (6-14) Blood Urea Nitrogen 5 mg/dL (7-20) Creatinine 0.6 mg/dL (0.6-1.0) Estimated GFR (Cockcroft-Gault) 103.4 Glucose Level 89 mg/dL (70-99) Calcium Level 8.0 mg/dL (8.5-10.1) Laboratory Tests Test 01/28/20 04:30 White Blood Count 6.1 x10^3/uL (4.0-11.0) Red Blood Count 3.15 x10^6/uL (3.50-5.40) Hemoglobin 8.7 g/dL (12.0-15.5) Hematocrit 26.9 % (36.0-47.0) Mean Corpuscular Volume 86 fL (79-100) Mean Corpuscular Hemoglobin 28 pg (25-35) Mean Corpuscular Hemoglobin Concent 32 g/dL (31-37) Red Cell Distribution Width 15.7 % (11.5-14.5) Platelet Count 353 x10^3/uL (140-400) Neutrophils (%) (Auto) 75 % (31-73) Lymphocytes (%) (Auto) 12 % (24-48) Monocytes (%) (Auto) 12 % (0-9) Eosinophils (%) (Auto) 1 % (0-3) Basophils (%) (Auto) 0 % (0-3) Neutrophils # (Auto) 4.6 x10^3/uL (1.8-7.7) Lymphocytes # (Auto) 0.7 x10^3/uL (1.0-4.8) Monocytes # (Auto) 0.7 x10^3/uL (0.0-1.1) Eosinophils # (Auto) 0.1 x10^3/uL (0.0-0.7) Basophils # (Auto) 0.0 x10^3/uL (0.0-0.2) Sodium Level 140 mmol/L (136-145) Potassium Level 3.2 mmol/L (3.5-5.1) Chloride Level 106 mmol/L (98-107) Carbon Dioxide Level 24 mmol/L (21-32) Anion Gap 10 (6-14) Blood Urea Nitrogen 5 mg/dL (7-20) Creatinine 0.6 mg/dL (0.6-1.0) Estimated GFR (Cockcroft-Gault) 103.4 Glucose Level 89 mg/dL (70-99) Calcium Level 8.0 mg/dL (8.5-10.1) Microbiology 01/26/20 Fecal Leukocyte Stain - Final, Complete 01/26/20 Urine Culture - Final, Complete Medications Current Medications Sodium Chloride 1,000 ml @ 1,000 mls/hr 1X ONCE IV Last administered on 01/26/20at 15:05; Start 01/26/20 at 14:45; Stop 01/26/20 at 15:44; Status DC Fentanyl Citrate (Fentanyl 2ml Vial) 50 mcg 1X ONCE IVP Last administered on 01/26/20at 15:07; Start 01/26/20 at 15:00; Stop 01/26/20 at 15:02; Status DC Ondansetron HCl (Zofran) 4 mg PRN Q8HRS PRN IV NAUSEA/VOMITING; Start 01/26/20 at 17:00; Stop 01/26/20 at 17:42; Status DC Fentanyl Citrate (Fentanyl 2ml Vial) 50 mcg PRN Q1HR PRN IV PAIN Last administered on 01/27/20at 13:05; Start 01/26/20 at 17:00; Stop 01/27/20 at 16:59; Status DC Sodium Chloride 1,000 ml @ 100 mls/hr Q10H IV Last administered on 01/27/20at 14:05; Start 01/26/20 at 16:54; Stop 01/27/20 at 16:53; Status DC Metronidazole 100 ml @ 100 mls/hr 1X ONCE IV Last administered on 01/26/20at 17:12; Start 01/26/20 at 17:00; Stop 01/26/20 at 17:59; Status DC Levofloxacin/ Dextrose 100 ml @ 100 mls/hr 1X ONCE IV Last administered on 01/26/20at 19:17; Start 01/26/20 at 17:00; Stop 01/26/20 at 17:59; Status DC Ondansetron HCl (Zofran) 4 mg PRN Q4HRS PRN IV NAUSEA/VOMITING Last administered on 01/27/20at 15:56; Start 01/26/20 at 17:15 Acetaminophen (Tylenol) 650 mg PRN Q6HRS PRN PO TEMP > 100.3'F; Start 01/26/20 at 17:15 Albuterol Sulfate (Ventolin Neb Soln) 2.5 mg PRN Q6HRS PRN INH SHORTNESS OF BREATH; Start 01/26/20 at 17:15 Atorvastatin Calcium (Lipitor) 40 mg QHS PO ; Start 01/26/20 at 21:00 Montelukast Sodium (Singulair) 10 mg QHS PO ; Start 01/26/20 at 21:00 Calcium Carbonate/ Glycine (Oscal) 500 mg DAILY PO ; Start 01/27/20 at 09:00 Cetirizine HCl (ZyrTEC) 10 mg DAILY PO ; Start 01/27/20 at 09:00 Fluticasone Propionate (Flonase) 2 spray DAILY NS ; Start 01/27/20 at 09:00 Lactobacillus Rhamnosus (Culturelle) 1 cap DAILY PO ; Start 01/26/20 at 21:00 Non-Formulary Medication (Melatonin ) 1 tab QHS PO ; Start 01/26/20 at 21:00; Stop 01/26/20 at 17:45; Status DC Multivitamins (Thera M Plus) 1 tab DAILY PO ; Start 01/27/20 at 09:00 Pantoprazole Sodium (Protonix) 40 mg DAILYAC PO ; Start 01/27/20 at 07:30 Non-Formulary Medication ([glucosamine] ) 1 tab DAILY PO ; Start 01/27/20 at 09:00; Status UNV Metronidazole 100 ml @ 100 mls/hr Q8HRS IV Last administered on 01/28/20at 05:30; Start 01/26/20 at 23:00; Stop 01/28/20 at 08:40; Status DC Hydromorphone HCl (Dilaudid) 0.4 mg PRN Q4HRS PRN IVP MODERATE TO SEVERE PAIN Last administered on 01/28/20at 11:45; Start 01/26/20 at 18:15 Oxycodone/ Acetaminophen (Percocet 5/325) 1 tab PRN Q6HRS PRN PO MODERATE TO SEVERE PAIN; Start 01/26/20 at 18:15 Pharmacy Consult (C.diff Med Screen By Rx) 1 each 1X ONCE MC ; Start 01/26/20 at 19:15; Stop 01/26/20 at 19:16; Status UNV Phenyleph/Shark Oil/Min Oil/Petrol (Preparation H) 1 melissa PRN QID PRN RC RECTAL PAIN; Start 01/26/20 at 23:15 Psyllium Hydrophilic Mucilloid (Metamucil Fiber Packet) 1 pkt PRN DAILY PRN PO CONSTIPATION, 1st choice; Start 01/26/20 at 23:15 Polyethylene Glycol (miraLAX PACKET) 17 gm PRN DAILY PRN PO CONSTIPATION, 2nd choice; Start 01/26/20 at 23:15 Potassium Chloride (Klor-Con) 40 meq 1X ONCE PO ; Start 01/27/20 at 06:45; Stop 01/27/20 at 06:46; Status Cancel Potassium Chloride (Klor-Con) 40 meq 0645 ONCE PO ; Start 01/27/20 at 06:45; Stop 01/27/20 at 06:46; Status UNV Potassium Chloride/Water 100 ml @ 100 mls/hr Q1H IV Last administered on 01/27/20at 12:09; Start 01/27/20 at 08:00; Stop 01/27/20 at 11:59; Status DC Levofloxacin/ Dextrose 100 ml @ 100 mls/hr Q24H IV Last administered on 01/27/20at 14:05; Start 01/27/20 at 10:00; Stop 01/28/20 at 08:40; Status DC Piperacillin Sod/ Tazobactam Sod 3.375 gm/Sodium Chloride 50 ml @ 100 mls/hr Q6HRS IV Last administered on 01/28/20at 11:45; Start 01/28/20 at 12:00 Active Scripts Active Montelukast Sodium Tablet (Montelukast Sodium) 10 Mg Tablet 1 Tab PO QHS 30 Days Reported Acetaminophen 325 Mg Tablet 650 Mg PO PRN Q8-12HRS PRN [glucosamine] 1 Tab PO DAILY Probiotic (Lactobacillus Acidophilus) 1 Each Capsule 1 Each PO DAILY Barbara Allergy (Fexofenadine Hcl) 60 Mg Tablet 60 Mg PO DAILY Calcium (Calcium Carbonate) 500 Mg Tab.chew 500 Mg PO DAILY Atorvastatin Calcium 40 Mg Tablet 1 Tab PO QHS Multivitamins (Multivitamin) 1 Each Tablet 1 Tab PO DAILY Melatonin 3 Mg Tablet 1 Tab PO QHS Proair Hfa (Albuterol Sulfate) 8.5 Gm Hfa.aer.ad 1 Puff INH PRN Q6HRS PRN Flonase Allergy Relief (Fluticasone Propionate) 9.9 Ml [place].susp 2 Sprays NS DAILY Omeprazole 20 Mg Tablet. 1 Tab PO DAILY Vitals/I & O Vital Sign - Last 24 Hours 01/27/20 01/27/20 01/27/20 01/27/20 15:00 19:00 20:00 21:44 Temp 98.2 98.8 98.2 98.8 Pulse 88 96 Resp 18 18 16 B/P (MAP) 116/65 (82) 116/68 (84) Pulse Ox 96 94 94 O2 Delivery Room Air Room Air Room Air Room Air 01/27/20 01/27/20 01/28/20 01/28/20 22:14 23:00 01:55 02:25 Temp 99.4 99.4 Pulse 89 Resp 16 18 16 16 B/P (MAP) 105/66 (79) Pulse Ox 94 94 94 94 O2 Delivery Room Air Room Air Room Air Room Air 01/28/20 01/28/20 01/28/20 01/28/20 03:00 07:00 07:42 08:00 Temp 99.4 98.5 99.4 98.5 Pulse 100 99 Resp 18 18 16 B/P (MAP) 113/65 (81) 113/65 (81) Pulse Ox 91 95 O2 Delivery Room Air Room Air Room Air Room Air 01/28/20 01/28/20 01/28/20 01/28/20 08:15 11:00 11:45 12:18 Temp 98.0 98.0 Pulse 102 Resp 16 18 16 16 B/P (MAP) 112/62 (79) Pulse Ox 96 O2 Delivery Room Air Room Air Room Air Room Air Problem List Problems Medical Problems: (1) Colitis Status: Acute Assessment LLQ pain- with recent resection, most likely infectious and/or ischeimc colitis, possible fistula in differential as well. plan medical therapy/gut rest interval Ct scan if symptoms persist Justicifation of Admission Dx: Justifications for Admission: Justification of Admission Dx: Yes FRANSICO FLORES MD Jan 28, 2020 14:21
[2020-01-28 15:00] VITALS: BP 114/75
[2020-01-28] MEDS: ONDANSETRON PF 4 MG/2 ML VIAL. IV PRN (16:47)
[2020-01-28 19:00] VITALS: BP 116/76
[2020-01-28] MEDS: MONTELUKAST SODIUM 10 MG TABLET. PO SCH (21:00)
[2020-01-28] MEDS: ATORVASTATIN CALCIUM 40 MG TABLET. PO SCH (21:00)
[2020-01-28 23:00] VITALS: BP 109/62
[2020-01-29] MEDS: ONDANSETRON PF 4 MG/2 ML VIAL. IV PRN ×5 (01:16→22:27)
[2020-01-29] MEDS: HYDROmorphone 2 MG/ML VIAL IVP PRN ×5 (01:17→22:30)
[2020-01-29 03:00] VITALS: BP 97/58
[2020-01-29] MEDS: PIPERACILLIN/TAZOBACTAM 3.375 GM in IV NORMAL SALINE 50ML 50 ML IV SCH ×3 (05:52→18:16)
[2020-01-29 07:00] VITALS: BP 104/59
[2020-01-29] MEDS: PANTOPRAZOLE 40 MG TABLET.DR. PO SCH (07:30)
--- NOTE | 2020-01-29 08:40 | PDOC ---
SURGICAL PROGRESS NOTE DATE: 01/29/20 TIME: 08:39 Subjective Patient feeling better less abdominal pain still passing a little mucus stool with blood Vital Signs Vital Signs Date Time Temp Pulse Resp B/P (MAP) Pulse Ox O2 Delivery O2 Flow Rate FiO2 01/29/20 07:00 98.3 57 16 104/59 (74) 95 Room Air 98.3 I&O Intake and Output 01/29/20 07:00 Intake Total 1400 ml Balance 1400 ml Intake Oral 0 ml IV Total 200 ml Other 1200 ml # Voids 2 PATIENT HAS A HARMON: No General: Alert, Oriented X3, Cooperative, mild distress Abdomen: Normal bowel sounds, Soft, Other (Mildly tender to palpation over the midline low in the pelvis) Labs Laboratory Tests Test 01/28/20 04:30 White Blood Count 6.1 x10^3/uL (4.0-11.0) Red Blood Count 3.15 x10^6/uL (3.50-5.40) Hemoglobin 8.7 g/dL (12.0-15.5) Hematocrit 26.9 % (36.0-47.0) Mean Corpuscular Volume 86 fL (79-100) Mean Corpuscular Hemoglobin 28 pg (25-35) Mean Corpuscular Hemoglobin Concent 32 g/dL (31-37) Red Cell Distribution Width 15.7 % (11.5-14.5) Platelet Count 353 x10^3/uL (140-400) Neutrophils (%) (Auto) 75 % (31-73) Lymphocytes (%) (Auto) 12 % (24-48) Monocytes (%) (Auto) 12 % (0-9) Eosinophils (%) (Auto) 1 % (0-3) Basophils (%) (Auto) 0 % (0-3) Neutrophils # (Auto) 4.6 x10^3/uL (1.8-7.7) Lymphocytes # (Auto) 0.7 x10^3/uL (1.0-4.8) Monocytes # (Auto) 0.7 x10^3/uL (0.0-1.1) Eosinophils # (Auto) 0.1 x10^3/uL (0.0-0.7) Basophils # (Auto) 0.0 x10^3/uL (0.0-0.2) Sodium Level 140 mmol/L (136-145) Potassium Level 3.2 mmol/L (3.5-5.1) Chloride Level 106 mmol/L (98-107) Carbon Dioxide Level 24 mmol/L (21-32) Anion Gap 10 (6-14) Blood Urea Nitrogen 5 mg/dL (7-20) Creatinine 0.6 mg/dL (0.6-1.0) Estimated GFR (Cockcroft-Gault) 103.4 Glucose Level 89 mg/dL (70-99) Calcium Level 8.0 mg/dL (8.5-10.1) Problem List Problems Medical Problems: (1) Colitis Status: Acute Assessment/Plan Colitis continue with medical treatment Dr. Matute to return tomorrow Justicifation of Admission Dx: Justifications for Admission: Justification of Admission Dx: Yes JUVENCIO CRANE MD Jan 29, 2020 08:40
[2020-01-29] MEDS: MULTIVITAMIN with MINERAL TABLET. PO SCH (09:00)
[2020-01-29] MEDS: CALCIUM CARBONATE 500 MG TABLET PO SCH (09:00)
[2020-01-29] MEDS: LACTOBACILLUS RHAMNOSUS GG 1 CAPSULE. PO SCH (09:00)
[2020-01-29] MEDS: CETIRIZINE HCL 10 MG TABLET. PO SCH (09:00)
[2020-01-29] MEDS: FLUTICASONE 50MCG/NASAL SPRAY 16GM BOTTLE. NS SCH (09:00)
[2020-01-29] MEDS: IV NORMAL SALINE 1000ML BAG 1,000 ML IV SCH ×2 (09:50→18:21)
[2020-01-29 11:00] VITALS: BP 102/60
--- NOTE | 2020-01-29 13:19 | PDOC ---
[facility] PROGRESS NOTE Date of Service DOS: DATE: 01/29/20 TIME: 13:12 Chief Complaint Chief Complaint Acute abdominal pain likely due to infectious versus inflammatory colitis colitis -rule out fistula Severe protein calorie malnutrition - likely from difficulty taking PO due to dyschezia and now fear of having a bowel movement. Schatzki's ring/dilation - H/o GERD, dysphagia Hemorrhoid Asthma with seasonal allergies Appreciate surgery recommendationsno planned procedures for now Appreciate GI recommendations Bowel rest keep n.p.o. for now Obtain serial abdominal imaging if symptoms worsen Continue with IV antibiotics Contraindicated due to bloody stools for DVT prophylaxis N.p.o. Full code Discussed with RN and STACY Disposition pending surgical evaluation Surrogate decision maker is the History of Present Illness History of Present Illness 53-year-old female w/ PMHx seasonal allergies, asthma, pre-diabetes, CAD, GERD, Diverticulosis, mastectomy, hysterectomy, cystocele, rectocele, recent extensive bowel resection, and prior left carotid artery dissection presents to ED complaining of abdominal pain and dychezia with tenesmus and calls from her general surgeon's office about abnormal CT with colitis. Abdominal pain rated a 8 out of 10 and 10/10 when she is having a bowel movement it is sharp and much worse. She states that her stools are soft and at times diarrhea. Incision is well-healed and there is no signs of infection. Abdomen is soft but very tender generalized. She denies nausea, vomiting, syncope, dizz iness, headache, numbness or tingling, focal weakness, chest pain, shortness of air, vision changes. She has a history of diverticulitis, asthma, CAD, anxiety, arthritis, left carotid dissection, hysterectomy. 01/29/2020 No acute events overnight. Patient continues to pass some mucus and small amounts of bloody stool. Discussed with patient, will continue bowel rest and IV antibiotics. Patient's chart, labs, images were reviewed and discussed with RN Vitals/I&O Vitals/I&O: Vital Signs Date Time Temp Pulse Resp B/P (MAP) Pulse Ox O2 Delivery O2 Flow Rate FiO2 01/29/20 12:31 Room Air 01/29/20 11:00 97.8 60 18 102/60 (74) 94 97.8 I & O 01/28/20 01/28/20 01/29/20 15:00 23:00 07:00 Intake Total 200 ml 0 ml 1200 ml Balance 200 ml 0 ml 1200 ml Physical Exam Physical Exam: GEN: No apparent distress. Alert and oriented HEENT: Normal cephalic, atraumatic, external auditory canals are patent NECK: Supple, no JVD, no thyromegaly was noted LUNGS: Bilateral crackles HEART: RRR, S1, S2 present. Peripheral pulses intact, no obvious murmurs noted ABDOMEN: Soft, diffuse minimal tenderness throughout all quadrants especially in the lower left quadrant. Positive bowel sounds, no organomegaly, normal bowel sounds EXTREMITIES: Without clubbing, cyanosis, or edema. Pedal pulses intact. Negative Homans sign General: Alert, Oriented X3, Cooperative, mild distress Heart: Regular rate, No murmurs Lungs: Clear Abdomen: Normal bowel sounds, Soft, Other (Mildly tender to palpation over the midline low in the pelvis) Extremities: No edema Skin: No significant lesion Assessment and Plan Assessmemt and Plan Problems Medical Problems: (1) Colitis Status: Acute Comment Review of Relevant I have reviewed the following items so (where applicable) has been applied. Medications: Current Medications Medications (Trade) Dose Ordered Sig/Michael Route PRN Reason Start Time Stop Time Status Last Admin Dose Admin Sodium Chloride 1,000 ml @ 100 mls/hr Q10H IV 01/29/20 09:15 01/29/20 09:50 Justifications for Admission Other Justification BREENICE WELLS MD Jan 29, 2020 13:19
[2020-01-29 15:00] VITALS: BP 112/62
[2020-01-29 19:00] VITALS: BP 96/48
[2020-01-29] MEDS: MONTELUKAST SODIUM 10 MG TABLET. PO SCH (21:00)
[2020-01-29] MEDS: ATORVASTATIN CALCIUM 40 MG TABLET. PO SCH (21:00)
[2020-01-29 23:00] VITALS: BP 96/53
[2020-01-30 03:00] VITALS: BP 102/57
[2020-01-30] MEDS: HYDROmorphone 2 MG/ML VIAL IVP PRN ×5 (04:23→22:45)
[2020-01-30] MEDS: PIPERACILLIN/TAZOBACTAM 3.375 GM in IV NORMAL SALINE 50ML 50 ML IV SCH ×5 (05:56→17:24)
[2020-01-30] MEDS: IV NORMAL SALINE 1000ML BAG 1,000 ML IV SCH ×2 (06:40→15:15)
[2020-01-30 07:00] VITALS: BP 107/56
[2020-01-30 08:58] LABS: CALCIUM 8.3 mg/dL (8.5-10.1); CREATININE 0.6 mg/dL (0.6-1.0); GFR 103.4; MAGNESIUM 2.1 mg/dL (1.8-2.4); POTASSIUM 3.1 mmol/L (3.5-5.1)
[2020-01-30] MEDS: CALCIUM CARBONATE 500 MG TABLET PO SCH (09:00)
[2020-01-30] MEDS: LACTOBACILLUS RHAMNOSUS GG 1 CAPSULE. PO SCH (09:00)
[2020-01-30] MEDS: MULTIVITAMIN with MINERAL TABLET. PO SCH (09:00)
[2020-01-30] MEDS: CETIRIZINE HCL 10 MG TABLET. PO SCH (09:00)
[2020-01-30] MEDS: FLUTICASONE 50MCG/NASAL SPRAY 16GM BOTTLE. NS SCH (09:00)
--- NOTE | 2020-01-30 09:12 | PDOC ---
CALEB BOOTH MADELINE 01/30/20 0912: SURGICAL PROGRESS NOTE DATE: 01/30/20 TIME: 09:05 Subjective still with watery loose stools, blood at times was eating ok at home until some pressure when urinates no emesis Vital Signs Vital Signs Date Time Temp Pulse Resp B/P (MAP) Pulse Ox O2 Delivery O2 Flow Rate FiO2 01/30/20 07:00 98.5 87 16 107/56 (73) 95 Room Air 98.5 I&O Intake and Output 01/30/20 06:59 Intake Total 2460 ml Balance 2460 ml Intake Oral 60 ml IV Total 1200 ml Other 1200 ml # Voids 6 General: Alert, Oriented X3, Cooperative Abdomen: Soft, Other (mild distention, no sigificant pain on exam ) Labs Laboratory Tests Test 01/30/20 08:37 Sodium Level 140 mmol/L (136-145) Potassium Level 3.1 mmol/L (3.5-5.1) Chloride Level 108 mmol/L (98-107) Carbon Dioxide Level 13 mmol/L (21-32) Anion Gap 19 (6-14) Blood Urea Nitrogen 3 mg/dL (7-20) Creatinine 0.6 mg/dL (0.6-1.0) Estimated GFR (Cockcroft-Gault) 103.4 Glucose Level 62 mg/dL (70-99) Calcium Level 8.3 mg/dL (8.5-10.1) Magnesium Level 2.1 mg/dL (1.8-2.4) Laboratory Tests Test 01/30/20 08:37 Sodium Level 140 mmol/L (136-145) Potassium Level 3.1 mmol/L (3.5-5.1) Chloride Level 108 mmol/L (98-107) Carbon Dioxide Level 13 mmol/L (21-32) Anion Gap 19 (6-14) Blood Urea Nitrogen 3 mg/dL (7-20) Creatinine 0.6 mg/dL (0.6-1.0) Estimated GFR (Cockcroft-Gault) 103.4 Glucose Level 62 mg/dL (70-99) Calcium Level 8.3 mg/dL (8.5-10.1) Magnesium Level 2.1 mg/dL (1.8-2.4) Problem List Problems Medical Problems: (1) Colitis Status: Acute Assessment/Plan reviewed with Dr Matute--unlikely EC fistula ? ongoing watery stools, blood--CPR elevated he will review with GI, path--? inflammatory disease will start PPN, sips of clears Justicifation of Admission Dx: Justifications for Admission: Justification of Admission Dx: Yes FRANSICO MATUTE MD 01/30/20 1247: SURGICAL PROGRESS NOTE Assessment/Plan Above reviewed, patient seen and examined; some clinical improvement, currently comfortable; clinical progression and prior intraoperative findings raise question of diagnosis of simple diverticulitis; will review with pathology regarding possibility of inflammatory bowel disease, discussed with CALEB Wilder APRN Jan 30, 2020 09:12 FRANSICO MATUTE MD Jan 30, 2020 12:47
[2020-01-30] MEDS: AMINO AC 3%/ELECTROLYTE/GLYCER 1,000 ML IV SCH ×2 (09:15→14:39)
--- NOTE | 2020-01-30 09:45 | NUR ---
SW following. Discussed with RN, pt from home with , room air, NPO -bowel rest. GI following. SW will continue to follow.
--- NOTE | 2020-01-30 10:10 | PDOC ---
Date of Service: DATE: 01/30/20 TIME: 09:58 Subjective: Subjective: Feels a little better. Watery stools w/ some bleeding. Lower abdominal discomfort w/ intermittent sharp pain in LLQ. Also discomfort ("pressure") when urinating. Taking ice chips. Objective: Objective: D/w Sherly/surgery - wondering about possibility of IBD or some autoimmune process (though path not indicative of this) - CRP elevated, fistula unlikely. Vital Signs: Vital Signs Date Time Temp Pulse Resp B/P (MAP) Pulse Ox O2 Delivery O2 Flow Rate FiO2 01/30/20 09:33 Room Air 01/30/20 07:00 98.5 87 16 107/56 (73) 95 98.5 Labs: Laboratory Tests Test 01/30/20 08:37 Sodium Level 140 mmol/L Potassium Level 3.1 mmol/L Chloride Level 108 mmol/L Carbon Dioxide Level 13 mmol/L Anion Gap 19 Blood Urea Nitrogen 3 mg/dL Creatinine 0.6 mg/dL Estimated GFR (Cockcroft-Gault) 103.4 Glucose Level 62 mg/dL Calcium Level 8.3 mg/dL Magnesium Level 2.1 mg/dL Material submitted: . PART A: colon - DESCENDING AND SIGMOID COLON AND OMENTUM. Modifiers: descending, sigmoid PART B: colon - SEGMENT OF TRANSVERSE COLON. Modifiers: transverse PART C: appendix - APPENDIX Clinical history: . diverticulitis Diagnosis: A. Segment of colon with attached mesocolon and separate portion of omentum, descending and sigmoid colon resection: - Diverticulosis. - Acute and chronic diverticulitis with pericolic abscesses, and with pericolic scarring, chronic inflammation, and focal foreign body giant cell reaction, and resulting in luminal narrowing. 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 - Serosal adhesions. - Omentum showing focal recent hemorrhage. B. Segment of colon with attached mesocolon and omental apron, transverse colon segmental resection: - Diverticulosis. - Acute and chronic diverticulitis with focal pericolic scarring and inflammation. - Small tubular adenoma. - Omentum showing focal recent hemorrhage. C. Appendix, appendectomy: - No significant pathologic abnormalities. Gross description: . A. The specimen is received in formalin, labeled "Nini Arce, descending and sigmoid colon and omentum" and consists of a segment of colon measuring approximate 33 cm in length and ranging from 3.1 cm to 5.0 cm in diameter with pericolic fat measuring up to 8.8 cm. Both margins are stapled closed. The serosa is pink-adhikari with multifocal hemorrhage and thin adhesions. The lumen at one margin is dilated, with the remaining colon showing narrowing and stenosis. The mucosa is pink-correa to brown with no mass lesions. Sectioning reveals multiple (more than 10) diverticula forming smooth mucosal lined out pouches as well as inflamed abscess formation. No perforation is grossly identified. Also received is a segment of omentum measuring 20.7 x 9.8 x 3.5 cm. Upon sectioning there is focal congestion and no masses or lesions. B. The specimen is received in formalin, labeled "Nini Arce, segment of transverse colon" and consists of an unoriented segment of colon measuring approximately 24.0 cm in length and 4.0 cm in diameter with pericolic fat measuring up to 4.0 cm. Both margins are stapled closed. Attached is the omental apron measuring 59.9 x 21.5 cm. The colon serosa is pink-correa smooth shiny. The mucosa is pink-correa with a single 0.3 x 0.3 cm polyp. Sectioning reveals multiple (more than 10) diverticula showing smooth mucosal lined out pouches. No perforation is grossly identified The omentum reveals no gross lesions. C. The specimen is received in formalin, labeled "Nini Arce, appendix" and consists of an appendix measuring 12.5 cm in length and up to 0.6 cm in diameter with mesoappendix measuring 3.3 cm thick. The serosa is pink smooth shiny. The margin is closed with a line of jaydon and inked black. Sectioning reveals a pinpoint to dilated lumen containing brown fecal material. PE: GEN: NAD LUNGS: CTAB HEART: RRR ABD: abd binder, lower discomfort NEURO/PSYCH: A & O 3 A/P: H/o recurrent diverticulitis, recent sigmoidectomy Diarrhea, lower abd pain - stool tests negative Normocytic anemia, hypokalemia Abnormal CT - persistent findings of acute colitis involving the distal transverse and descending colon, and the rectum CRC screen - UTD (11/2019) -- Will review surgery concerns (above) w/ Dr. Sears. D/w Dr. Killian - ?eventual outpt colonoscopy w/ biopsy? Justicifation of Admission Dx: Justifications for Admission: Justification of Admission Dx: Yes ABDON WHEELER Jan 30, 2020 10:10
[2020-01-30 11:00] VITALS: BP 112/60
[2020-01-30] MEDS: PANTOPRAZOLE IV PUSH 40 MG VIAL. IVP SCH (11:44)
--- NOTE | 2020-01-30 14:38 | PDOC ---
[facility] PROGRESS NOTE Date of Service DOS: DATE: 01/30/20 TIME: 14:36 Chief Complaint Chief Complaint Acute abdominal pain likely due to infectious versus inflammatory colitis colitis -rule out fistula Severe protein calorie malnutrition - likely from difficulty taking PO due to dyschezia and now fear of having a bowel movement. Schatzki's ring/dilation - H/o GERD, dysphagia Hemorrhoid Asthma with seasonal allergies Hypokalemia IV potassium replacement Appreciate surgery recommendationsno planned procedures for now Appreciate GI recommendations-will advance diet as tolerated Bowel rest keep n.p.o. for now Obtain serial abdominal imaging if symptoms worsen Continue with IV antibiotics Contraindicated due to bloody stools for DVT prophylaxis N.p.o. Full code Discussed with RN and SW Disposition pending surgical evaluation Surrogate decision maker is the History of Present Illness History of Present Illness 53-year-old female w/ PMHx seasonal allergies, asthma, pre-diabetes, CAD, GERD, Diverticulosis, mastectomy, hysterectomy, cystocele, rectocele, recent extensive bowel resection, and prior left carotid artery dissection presents to ED com plaining of abdominal pain and dychezia with tenesmus and calls from her general surgeon's office about abnormal CT with colitis. Abdominal pain rated a 8 out of 10 and 10/10 when she is having a bowel movement it is sharp and much worse. She states that her stools are soft and at times diarrhea. Incision is well-healed and there is no signs of infection. Abdomen is soft but very tender generalized. She denies nausea, vomiting, syncope, dizziness, headache, numbness or tingling, focal weakness, chest pain, shortness of air, vision changes. She has a history of diverticulitis, asthma, CAD, anxiety, arthritis, left carotid dissection, hysterectomy. 01/29/2020 No acute events overnight. Patient continues to pass some mucus and small amounts of bloody stool. Discussed with patient, will continue bowel rest and IV antibiotics. Patient's chart, labs, images were reviewed and discussed with RN 01/30/2020 No acute events overnight. No complaints at this time. Patient's chart, labs, images were reviewed and discussed with RN Vitals/I&O Vitals/I&O: Vital Signs Date Time Temp Pulse Resp B/P (MAP) Pulse Ox O2 Delivery O2 Flow Rate FiO2 01/30/20 11:36 Room Air 01/30/20 11:00 98.3 82 16 112/60 (77) 98 98.3 I & O 01/29/20 01/29/20 01/30/20 15:00 23:00 07:00 Intake Total 2460 ml Balance 2460 ml Physical Exam Physical Exam: GEN: No apparent distress. Alert and oriented HEENT: Normal cephalic, atraumatic, external auditory canals are patent NECK: Supple, no JVD, no thyromegaly was noted LUNGS: Bilateral crackles HEART: RRR, S1, S2 present. Peripheral pulses intact, no obvious murmurs noted ABDOMEN: Soft, diffuse minimal tenderness throughout all quadrants especially in the lower left quadrant. Positive bowel sounds, no organomegaly, normal bowel sounds EXTREMITIES: Without clubbing, cyanosis, or edema. Pedal pulses intact. Negative Homans sign General: Alert, Oriented X3, Cooperative Heart: Regular rate, No murmurs Lungs: Clear Abdomen: Soft, Other (mild distention, no sigificant pain on exam ) Extremities: No edema Skin: No significant lesion Labs Labs: Laboratory Tests Test 01/30/20 08:37 Sodium Level 140 mmol/L (136-145) Potassium Level 3.1 mmol/L (3.5-5.1) Chloride Level 108 mmol/L (98-107) Carbon Dioxide Level 13 mmol/L (21-32) Anion Gap 19 (6-14) Blood Urea Nitrogen 3 mg/dL (7-20) Creatinine 0.6 mg/dL (0.6-1.0) Estimated GFR (Cockcroft-Gault) 103.4 Glucose Level 62 mg/dL (70-99) Calcium Level 8.3 mg/dL (8.5-10.1) Magnesium Level 2.1 mg/dL (1.8-2.4) Assessment and Plan Assessmemt and Plan Problems Medical Problems: (1) Colitis Status: Acute Comment Review of Relevant I have reviewed the following items so (where applicable) has been applied. Medications: Current Medications Medications (Trade) Dose Ordered Sig/Michael Route PRN Reason Start Time Stop Time Status Last Admin Dose Admin Pantoprazole Sodium (PROTONIX VIAL for IV PUSH) 40 mg DAILYAC IVP 01/30/20 12:30 01/30/20 11:44 Justifications for Admission Other Justification BERENICE WELLS MD Jan 30, 2020 14:38
[2020-01-30] MEDS: POTASSIUM CHLORIDE 10MEQ 100 ML IV SCH ×4 (14:40→21:58)
[2020-01-30 15:00] VITALS: BP 120/62
[2020-01-30] MEDS: predniSONE 20 MG TABLET PO SCH (17:24)
[2020-01-30] MEDS: MESALAMINE ER 250 MG CAPSULE.ER PO SCH ×2 (17:36→21:56)
[2020-01-30 19:00] VITALS: BP 109/53
[2020-01-30] MEDS: ATORVASTATIN CALCIUM 40 MG TABLET. PO SCH (21:00)
[2020-01-30] MEDS: MONTELUKAST SODIUM 10 MG TABLET. PO SCH (21:00)
[2020-01-30 23:00] VITALS: BP 115/70
[2020-01-31] MEDS: PIPERACILLIN/TAZOBACTAM 3.375 GM in IV NORMAL SALINE 50ML 50 ML IV SCH ×5 (00:09→23:31)
[2020-01-31] MEDS: IV NORMAL SALINE 1000ML BAG 1,000 ML IV SCH ×3 (01:15→21:15)
[2020-01-31 03:00] VITALS: BP 107/43
[2020-01-31] MEDS: AMINO AC 3%/ELECTROLYTE/GLYCER 1,000 ML IV SCH ×2 (06:58→21:48)
[2020-01-31 07:00] VITALS: BP 119/76
[2020-01-31] MEDS: HYDROmorphone 2 MG/ML VIAL IVP PRN ×3 (07:04→21:58)
[2020-01-31] MEDS: PANTOPRAZOLE IV PUSH 40 MG VIAL. IVP SCH (07:06)
[2020-01-31] MEDS ORDERED: PANTOPRAZOLE IV PUSH 40 MG VIAL. IVP SCH (07:30)
[2020-01-31] MEDS ORDERED: POTASSIUM CHLORIDE 10MEQ 100 ML IV PRN ×2 (08:30)
[2020-01-31] MEDS ORDERED: POTASSIUM CHLORIDE 20 MEQ TABLET.ER. PO PRN (08:30)
[2020-01-31] MEDS ORDERED: MAGNESIUM SULFATE 2GM 50 ML IV PRN (08:33)
[2020-01-31] MEDS: FLUTICASONE 50MCG/NASAL SPRAY 16GM BOTTLE. NS SCH ×2 (08:54→08:57)
[2020-01-31] MEDS: predniSONE 20 MG TABLET PO SCH ×2 (08:55→21:51)
[2020-01-31] MEDS: LACTOBACILLUS RHAMNOSUS GG 1 CAPSULE. PO SCH (08:55)
[2020-01-31] MEDS: MULTIVITAMIN with MINERAL TABLET. PO SCH (08:55)
[2020-01-31] MEDS: MESALAMINE ER 250 MG CAPSULE.ER PO SCH ×4 (08:55→21:50)
[2020-01-31] MEDS: CALCIUM CARBONATE 500 MG TABLET PO SCH (08:55)
[2020-01-31] MEDS: CETIRIZINE HCL 10 MG TABLET. PO SCH (08:56)
[2020-01-31] MEDS ORDERED: MAGNESIUM OXIDE 400 MG TABLET PO PRN (09:00)
[2020-01-31 09:18] LABS: CALCIUM 9.1 mg/dL (8.5-10.1); CREATININE 0.5 mg/dL (0.6-1.0); GFR 127.6; MAGNESIUM 2.4 mg/dL (1.8-2.4); POTASSIUM 3.7 mmol/L (3.5-5.1)
--- NOTE | 2020-01-31 09:31 | NUR ---
SW following. Discussed with RN, pt still NPO, PPN. SW will continue to follow.
--- NOTE | 2020-01-31 09:36 | PDOC ---
CALEB BOOTH [employer] 01/31/20 0936: SURGICAL PROGRESS NOTE DATE: 01/31/20 TIME: 09:36 Subjective feeling a little better pain improved Vital Signs Vital Signs Date Time Temp Pulse Resp B/P (MAP) Pulse Ox O2 Delivery O2 Flow Rate FiO2 01/31/20 07:45 Room Air 01/31/20 07:00 97.6 101 18 119/76 (90) 97 97.6 I&O Intake and Output 01/31/20 07:00 Intake Total 1920 ml Output Total 0 ml Balance 1920 ml IV Total 960 ml Other 960 ml Output Urine Total 0 ml # Voids 3 General: Alert, Oriented X3, Cooperative Abdomen: Soft, Other (mildly distended, mild pain lower abdomen ) Labs Laboratory Tests Test 01/30/20 08:37 01/31/20 08:41 Sodium Level 140 mmol/L (136-145) 139 mmol/L (136-145) Potassium Level 3.1 mmol/L (3.5-5.1) 3.7 mmol/L (3.5-5.1) Chloride Level 108 mmol/L (98-107) 105 mmol/L (98-107) Carbon Dioxide Level 13 mmol/L (21-32) 12 mmol/L (21-32) Anion Gap 19 (6-14) 22 (6-14) Blood Urea Nitrogen 3 mg/dL (7-20) 5 mg/dL (7-20) Creatinine 0.6 mg/dL (0.6-1.0) 0.5 mg/dL (0.6-1.0) Estimated GFR (Cockcroft-Gault) 103.4 127.6 Glucose Level 62 mg/dL (70-99) 147 mg/dL (70-99) Calcium Level 8.3 mg/dL (8.5-10.1) 9.1 mg/dL (8.5-10.1) Magnesium Level 2.1 mg/dL (1.8-2.4) 2.4 mg/dL (1.8-2.4) Laboratory Tests Test 01/31/20 08:41 Sodium Level 139 mmol/L (136-145) Potassium Level 3.7 mmol/L (3.5-5.1) Chloride Level 105 mmol/L (98-107) Carbon Dioxide Level 12 mmol/L (21-32) Anion Gap 22 (6-14) Blood Urea Nitrogen 5 mg/dL (7-20) Creatinine 0.5 mg/dL (0.6-1.0) Estimated GFR (Cockcroft-Gault) 127.6 Glucose Level 147 mg/dL (70-99) Calcium Level 9.1 mg/dL (8.5-10.1) Magnesium Level 2.4 mg/dL (1.8-2.4) Problem List Problems Medical Problems: (1) Colitis Status: Acute Assessment/Plan clears steroids Justicifation of Admission Dx: Justifications for Admission: Justification of Admission Dx: Yes FRANSICO LIU MD 01/31/20 1002: SURGICAL PROGRESS NOTE Assessment/Plan Reviewed, agree with above; await reevaluation by pathology CALEB BOOTH APRN Jan 31, 2020 09:36 FRANSICO LIU MD Jan 31, 2020 10:02
--- NOTE | 2020-01-31 10:59 | PDOC ---
Date of Service: DATE: 01/31/20 TIME: 10:55 Subjective: Subjective: Better today - no bleeding, still some liquid stools, abd pain and urinary symptoms better. Feels hungry. Tells me her father had diverticulitis, her grandmother had a perforated colon, and her aunt and her aunt's sons had colon problems - maybe IBS. Objective: Objective: Possible FH of Crohn's per pt discussion w/ Dr. Sears - mesalamine and prednisone started yesterday. Vital Signs: Vital Signs Date Time Temp Pulse Resp B/P (MAP) Pulse Ox O2 Delivery O2 Flow Rate FiO2 01/31/20 07:45 Room Air 01/31/20 07:00 97.6 101 18 119/76 (90) 97 97.6 Labs: Laboratory Tests Test 01/31/20 08:41 Sodium Level 139 mmol/L Potassium Level 3.7 mmol/L Chloride Level 105 mmol/L Carbon Dioxide Level 12 mmol/L Anion Gap 22 Blood Urea Nitrogen 5 mg/dL Creatinine 0.5 mg/dL Estimated GFR (Cockcroft-Gault) 127.6 Glucose Level 147 mg/dL Calcium Level 9.1 mg/dL Magnesium Level 2.4 mg/dL PE: GEN: NAD LUNGS: CTAB HEART: RRR ABD: NABS, S/ND/NT NEURO/PSYCH: A & O 3 A/P: H/o recurrent diverticulitis, recent sigmoidectomy - last colonoscopy 11/2019 Diarrhea, abd pain, hematochezia - better Abnormal CT - persistent findings of acute colitis involving the distal transverse and descending colon, and the rectum -- Reviewed w/ Dr. Sears - okay to ADAT per GI. Justicifation of Admission Dx: Justifications for Admission: Justification of Admission Dx: Yes ABDON WHEELER Jan 31, 2020 10:59
[2020-01-31 11:00] VITALS: BP 111/74
--- NOTE | 2020-01-31 13:17 | PDOC ---
[facility] [facility] PROGRESS NOTE Date of Service DOS: DATE: 01/31/20 TIME: 13:16 Chief Complaint Chief Complaint Acute abdominal pain likely due to infectious versus inflammatory colitis colitis -rule out fistula Severe protein calorie malnutrition - likely from difficulty taking PO due to dyschezia and now fear of having a bowel movement. Schatzki's ring/dilation - H/o GERD, dysphagia Hemorrhoid Asthma with seasonal allergies Hypokalemia Continue IV potassium replacement x1 again today Appreciate surgery recommendationsno planned procedures for now Appreciate GI recommendations-will advance diet as tolerated Obtain serial abdominal imaging if symptoms worsen Continue with IV antibiotics Contraindicated due to bloody stools for DVT prophylaxis Advance diet as tolerated Full code Discussed with RN and SW Disposition pending surgical evaluation Surrogate decision maker is the History of Present Illness History of Present Illness 53-year-old female w/ PMHx seasonal allergies, asthma, pre-diabetes, CAD, GERD, Diverticulosis, mastectomy, hysterectomy, cystocele, rectocele, recent extensive bowel resection, and prior left carotid artery dissection presents to ED complaining of abdominal pain and dychezia with tenesmus and calls from her general surgeon's office about abnormal CT with colitis. Abdominal pain rated a 8 out of 10 and 10/10 when she is having a bowel movement it is sharp and much worse. She states that her stools are soft and at times diarrhea. Incision is well-healed and there is no signs of infection. Abdomen is soft but very tender generalized. She denies nausea, vomiting, syncope, dizziness, headache, numbness or tingling, focal weakness, chest pain, shortness of air, vision changes. She has a history of diverticulitis, asthma, CAD, anxiety, arthritis, left carotid dissection, hysterectomy. 01/29/2020 No acute events overnight. Patient continues to pass some mucus and small amounts of bloody stool. Discussed with patient, will continue bowel rest and IV antibiotics. Patient's chart, labs, images were reviewed and discussed with RN 01/30/2020 No acute events overnight. No complaints at this time. Patient's chart, labs, images were reviewed and discussed with RN 01/31/2020 No acute events overnight. Patient endorses improvement in abdominal pain and feels better. Has been tolerating some water and will be advanced to a clear liquid diet Vitals/I&O Vitals/I&O: Vital Signs Date Time Temp Pulse Resp B/P (MAP) Pulse Ox O2 Delivery O2 Flow Rate FiO2 01/31/20 11:00 97.7 81 18 111/74 (86) 97 Room Air 97.7 I & O 01/30/20 01/30/20 01/31/20 15:00 23:00 07:00 Intake Total 1920 ml Output Total 0 ml 0 ml Balance 0 ml 1920 ml Physical Exam Physical Exam: GEN: No apparent distress. Alert and oriented HEENT: Normal cephalic, atraumatic, external auditory canals are patent NECK: Supple, no JVD, no thyromegaly was noted LUNGS: Bilateral crackles HEART: RRR, S1, S2 present. Peripheral pulses intact, no obvious murmurs noted ABDOMEN: Soft, diffuse minimal tenderness throughout all quadrants especially in the lower left quadrant. Positive bowel sounds, no organomegaly, normal bowel sounds EXTREMITIES: Without clubbing, cyanosis, or edema. Pedal pulses intact. Negative Homans sign General: Alert, Oriented X3, Cooperative Heart: Regular rate, No murmurs Lungs: Clear Abdomen: Soft, Other (mildly distended, mild pain lower abdomen ) Extremities: No edema Skin: No significant lesion Labs Labs: Laboratory Tests Test 01/31/20 08:41 Sodium Level 139 mmol/L (136-145) Potassium Level 3.7 mmol/L (3.5-5.1) Chloride Level 105 mmol/L (98-107) Carbon Dioxide Level 12 mmol/L (21-32) Anion Gap 22 (6-14) Blood Urea Nitrogen 5 mg/dL (7-20) Creatinine 0.5 mg/dL (0.6-1.0) Estimated GFR (Cockcroft-Gault) 127.6 Glucose Level 147 mg/dL (70-99) Calcium Level 9.1 mg/dL (8.5-10.1) Magnesium Level 2.4 mg/dL (1.8-2.4) Assessment and Plan Assessmemt and Plan Problems Medical Problems: (1) Colitis Status: Acute Comment Review of Relevant I have reviewed the following items so (where applicable) has been applied. Medications: Current Medications Medications (Trade) Dose Ordered Sig/Michael Route PRN Reason Start Time Stop Time Status Last Admin Dose Admin Potassium Chloride/Water 100 ml @ 100 mls/hr Q1H IV 01/30/20 14:30 9/8/20 18:29 DC 01/30/20 21:58 Prednisone (Prednisone) 20 mg BID PO 01/30/20 17:15 01/31/20 08:55 Mesalamine (Pentasa) 250 mg [id number] PO 01/30/20 17:30 01/31/20 12:23 Justifications for Admission Other Justification BERENICE WELLS MD Jan 31, 2020 13:17
[2020-01-31] MEDS: POTASSIUM CL 40MEQ IN 0.9%NACL 1,000 ML IV SCH (13:56)
[2020-01-31 15:00] VITALS: BP 123/73
[2020-01-31 19:00] VITALS: BP 104/45
[2020-01-31] MEDS: MONTELUKAST SODIUM 10 MG TABLET. PO SCH (21:00)
[2020-01-31] MEDS: ATORVASTATIN CALCIUM 40 MG TABLET. PO SCH (21:00)
[2020-01-31 23:00] VITALS: BP 119/63
[2020-02-01] MEDS: POTASSIUM CL 40MEQ IN 0.9%NACL 1,000 ML IV SCH (00:43)
[2020-02-01 03:00] VITALS: BP 110/67
[2020-02-01] MEDS: HYDROmorphone 2 MG/ML VIAL IVP PRN ×4 (03:49→23:40)
[2020-02-01] MEDS: PIPERACILLIN/TAZOBACTAM 3.375 GM in IV NORMAL SALINE 50ML 50 ML IV SCH ×3 (05:11→18:11)
[2020-02-01 06:13] LABS: CALCIUM 8.8 mg/dL (8.5-10.1); CREATININE 0.4 mg/dL (0.6-1.0); GFR 165.1; POTASSIUM 4.1 mmol/L (3.5-5.1)
[2020-02-01] MEDS: PANTOPRAZOLE 40 MG TABLET.DR. PO SCH (06:22)
[2020-02-01 07:00] VITALS: BP 111/68
[2020-02-01] MEDS: LACTOBACILLUS RHAMNOSUS GG 1 CAPSULE. PO SCH ×2 (07:57→21:29)
[2020-02-01] MEDS: predniSONE 20 MG TABLET PO SCH ×2 (07:57→10:30)
[2020-02-01] MEDS: MESALAMINE ER 250 MG CAPSULE.ER PO SCH ×4 (07:57→21:29)
[2020-02-01] MEDS: MULTIVITAMIN with MINERAL TABLET. PO SCH (08:01)
[2020-02-01] MEDS: CETIRIZINE HCL 10 MG TABLET. PO SCH (08:01)
[2020-02-01] MEDS: FLUTICASONE 50MCG/NASAL SPRAY 16GM BOTTLE. NS SCH (08:01)
[2020-02-01] MEDS: CALCIUM CARBONATE 500 MG TABLET PO SCH (08:01)
--- NOTE | 2020-02-01 09:25 | PDOC ---
CALEB BOOTH [employer] 02/01/20 0925: SURGICAL PROGRESS NOTE DATE: 02/01/20 TIME: 09:24 Subjective continues to feel better pain improving no blood in stool, still loose would like to try soft diet did have some trouble with swallowing pills yesterday, no problem today Vital Signs Vital Signs Date Time Temp Pulse Resp B/P (MAP) Pulse Ox O2 Delivery O2 Flow Rate FiO2 02/01/20 07:59 12 97 Room Air 02/01/20 07:00 97.6 86 111/68 (82) 97.6 I&O Intake and Output 02/01/20 07:00 Intake Total 2630 ml Balance 2630 ml Intake Oral 980 ml IV Total 1650 ml # Voids 2 General: Alert, Oriented X3, Cooperative, No acute distress Abdomen: Soft, Other (mild TTP LLQ) Labs Laboratory Tests Test 01/31/20 08:41 02/01/20 03:48 Sodium Level 139 mmol/L (136-145) 142 mmol/L (136-145) Potassium Level 3.7 mmol/L (3.5-5.1) 4.1 mmol/L (3.5-5.1) Chloride Level 105 mmol/L (98-107) 111 mmol/L (98-107) Carbon Dioxide Level 12 mmol/L (21-32) 21 mmol/L (21-32) Anion Gap 22 (6-14) 10 (6-14) Blood Urea Nitrogen 5 mg/dL (7-20) 4 mg/dL (7-20) Creatinine 0.5 mg/dL (0.6-1.0) 0.4 mg/dL (0.6-1.0) Estimated GFR (Cockcroft-Gault) 127.6 165.1 Glucose Level 147 mg/dL (70-99) 171 mg/dL (70-99) Calcium Level 9.1 mg/dL (8.5-10.1) 8.8 mg/dL (8.5-10.1) Magnesium Level 2.4 mg/dL (1.8-2.4) Laboratory Tests Test 02/01/20 03:48 Sodium Level 142 mmol/L (136-145) Potassium Level 4.1 mmol/L (3.5-5.1) Chloride Level 111 mmol/L (98-107) Carbon Dioxide Level 21 mmol/L (21-32) Anion Gap 10 (6-14) Blood Urea Nitrogen 4 mg/dL (7-20) Creatinine 0.4 mg/dL (0.6-1.0) Estimated GFR (Cockcroft-Gault) 165.1 Glucose Level 171 mg/dL (70-99) Calcium Level 8.8 mg/dL (8.5-10.1) Problem List Problems Medical Problems: (1) Colitis Status: Acute Assessment/Plan improving soft diet await path review Justicifation of Admission Dx: Justifications for Admission: Justification of Admission Dx: Yes FRANSICO LIU MD 02/01/20 1222: SURGICAL PROGRESS NOTE Assessment/Plan Agree with above; await to hear from pathology for second opinion CALEB BOOTH APRN Feb 01, 2020 09:25 FRANSICO LIU MD Feb 01, 2020 12:22
--- NOTE | 2020-02-01 09:46 | NUR ---
SW following. Discussed with RN, pt from home with , room air, has been advanced to GI soft diet. Anticipate discharge home tomorrow (02/02/2020), per surgery. SW will continue to follow.
--- NOTE | 2020-02-01 10:02 | PDOC ---
Date of Service: DATE: 02/01/20 TIME: 09:59 Subjective: Subjective: Feeling better. No bleeding, still watery stools, wants to eat more. Objective: Objective: D/w Sherly/surgery after I saw - pt reported difficulty swallowing pills yesterday. D/w Dr. Killian - DC today? Vital Signs: Vital Signs Date Time Temp Pulse Resp B/P (MAP) Pulse Ox O2 Delivery O2 Flow Rate FiO2 02/01/20 07:59 12 97 Room Air 02/01/20 07:00 97.6 86 111/68 (82) 97.6 Labs: Laboratory Tests Test 02/01/20 03:48 Sodium Level 142 mmol/L Potassium Level 4.1 mmol/L Chloride Level 111 mmol/L Carbon Dioxide Level 21 mmol/L Anion Gap 10 Blood Urea Nitrogen 4 mg/dL Creatinine 0.4 mg/dL Estimated GFR (Cockcroft-Gault) 165.1 Glucose Level 171 mg/dL Calcium Level 8.8 mg/dL PE: GEN: NAD LUNGS: CTAB HEART: RRR ABD: abd binder, quiet BS, less tender NEURO/PSYCH: A & O 3 A/P: H/o recurrent diverticulitis, recent sigmoidectomy - last colonoscopy 11/[address] - persistent findings of acute colitis involving the distal transverse and descending colon, and the rectum -- ADAT. Dc per primary - would send on prednisone 20mg QD and Pentasa - our office will arrange follow-up. Justicifation of Admission Dx: Justifications for Admission: Justification of Admission Dx: Yes ABDON WHEELER Feb 01, 2020 10:02
[2020-02-01 11:00] VITALS: BP 121/82
--- NOTE | 2020-02-01 11:15 | PDOC ---
[facility] PROGRESS NOTE Date of Service DOS: DATE: 02/01/20 TIME: 11:10 Chief Complaint Chief Complaint Acute abdominal pain likely due to infectious versus inflammatory colitis colitis -rule out fistula Severe protein calorie malnutrition - likely from difficulty taking PO due to dyschezia and now fear of having a bowel movement. Schatzki's ring/dilation - H/o GERD, dysphagia Hemorrhoid Asthma with seasonal allergies Hypokalemia Start prednisone 20 mg p.o. per GI Advance to soft GI diet Continue IV potassium replacement as needed Appreciate surgery recommendationsno planned procedures for now Appreciate GI recommendations-will advance diet as tolerated Obtain serial abdominal imaging if symptoms worsen Continue with IV antibiotics Contraindicated due to bloody stools for DVT prophylaxis Advance diet as tolerated Full code Discussed with RN and SW Disposition pending surgical evaluation Surrogate decision maker is the History of Present Illness History of Present Illness 53-year-old female w/ PMHx seasonal allergies, asthma, pre-diabetes, CAD, GERD, Diverticulosis, mastectomy, hysterectomy, cystocele, rectocele, recent extensive bowel resection, and prior left carotid artery dissection presents to ED complaining of abdominal pain and dychezia with tenesmus and calls from her general surgeon's office about abnormal CT with colitis. Abdominal pain rated a 8 out of 10 and 10/10 when she is having a bowel movement it is sharp and much worse. She states that her stools are soft and at times diarrhea. Incision is well-healed and there is no signs of infection. Abdomen is soft but very tender generalized. She denies nausea, vomiting, syncope, dizziness, headache, numbness or tingling, focal weakness, chest pain, shortness of air, vision changes. She has a history of diverticulitis, asthma, CAD, anxiety, arthritis, left carotid dissection, hysterectomy. 01/29/2020 No acute events overnight. Patient continues to pass some mucus and small amounts of bloody stool. Discussed with patient, will continue bowel rest and IV antibiotics. Patient's chart, labs, images were reviewed and discussed with RN 01/30/2020 No acute events overnight. No complaints at this time. Patient's chart, labs, images were reviewed and discussed with RN 01/31/2020 No acute events overnight. Patient endorses improvement in abdominal pain and feels better. Has been tolerating some water and will be advanced to a clear liquid diet 02/01/2020 No acute events overnight. Will advance to soft GI diet. Patient has improvement in abdominal pain continues to have watery stools at this time. Prednisone 20 mg was started per GI. Patient's chart, labs, images were reviewed and discussed with RN Vitals/I&O Vitals/I&O: Vital Signs Date Time Temp Pulse Resp B/P (MAP) Pulse Ox O2 Delivery O2 Flow Rate FiO2 02/01/20 07:59 12 97 Room Air 02/01/20 07:00 97.6 86 111/68 (82) 97.6 I & O 01/31/20 01/31/20 02/01/20 14:59 22:59 06:59 Intake Total 1340 ml 1290 ml Balance 1340 ml 1290 ml Physical Exam Physical Exam: GEN: No apparent distress. Alert and oriented HEENT: Normal cephalic, atraumatic, external auditory canals are patent NECK: Supple, no JVD, no thyromegaly was noted LUNGS: Bilateral crackles HEART: RRR, S1, S2 present. Peripheral pulses intact, no obvious murmurs noted ABDOMEN: Soft, diffuse minimal tenderness throughout all quadrants especially in the lower left quadrant. Positive bowel sounds, no organomegaly, normal bowel sounds EXTREMITIES: Without clubbing, cyanosis, or edema. Pedal pulses intact. Negative Homans sign General: Alert, Oriented X3, Cooperative, No acute distress Heart: Regular rate, No murmurs Lungs: Clear Abdomen: Soft, Other (mild TTP LLQ) Extremities: No edema Skin: No significant lesion Labs Labs: Laboratory Tests Test 02/01/20 03:48 Sodium Level 142 mmol/L (136-145) Potassium Level 4.1 mmol/L (3.5-5.1) Chloride Level 111 mmol/L (98-107) Carbon Dioxide Level 21 mmol/L (21-32) Anion Gap 10 (6-14) Blood Urea Nitrogen 4 mg/dL (7-20) Creatinine 0.4 mg/dL (0.6-1.0) Estimated GFR (Cockcroft-Gault) 165.1 Glucose Level 171 mg/dL (70-99) Calcium Level 8.8 mg/dL (8.5-10.1) Assessment and Plan Assessmemt and Plan Problems Medical Problems: (1) Colitis Status: Acute Comment Review of Relevant I have reviewed the following items so (where applicable) has been applied. Medications: Current Medications Medications (Trade) Dose Ordered Sig/Michael Route PRN Reason Start Time Stop Time Status Last Admin Dose Admin Pantoprazole Sodium (Protonix) 40 mg DAILYAC PO 02/01/20 07:30 02/01/20 06:22 Potassium Chloride/Sodium Chloride 1,000 ml @ 75 mls/hr [id number] IV 01/31/20 13:15 02/01/20 00:43 Justifications for Admission Other Justification BERENICE WELLS MD Feb 01, 2020 11:15
[2020-02-01] MEDS: AMINO AC 3%/ELECTROLYTE/GLYCER 1,000 ML IV SCH ×2 (12:04→23:45)
[2020-02-01 15:00] VITALS: BP 112/68
[2020-02-01 19:00] VITALS: BP 114/65
[2020-02-01] MEDS: ATORVASTATIN CALCIUM 40 MG TABLET. PO SCH (19:51)
[2020-02-01] MEDS: MONTELUKAST SODIUM 10 MG TABLET. PO SCH (19:53)
[2020-02-01 23:00] VITALS: BP 120/66
[2020-02-02] MEDS: PIPERACILLIN/TAZOBACTAM 3.375 GM in IV NORMAL SALINE 50ML 50 ML IV SCH ×3 (02:25→12:30)
[2020-02-02 03:00] VITALS: BP 109/67
[2020-02-02 05:51] LABS: CALCIUM 8.2 mg/dL (8.5-10.1); CREATININE 0.6 mg/dL (0.6-1.0); GFR 103.4; POTASSIUM 3.1 mmol/L (3.5-5.1)
[2020-02-02] MEDS: PANTOPRAZOLE 40 MG TABLET.DR. PO SCH (05:58)
[2020-02-02] MEDS: HYDROmorphone 2 MG/ML VIAL IVP PRN (06:00)
[2020-02-02 07:00] VITALS: BP 126/70
[2020-02-02] MEDS: MESALAMINE ER 250 MG CAPSULE.ER PO SCH (08:50)
[2020-02-02] MEDS: predniSONE 20 MG TABLET PO SCH (08:51)
[2020-02-02] MEDS: CALCIUM CARBONATE 500 MG TABLET PO SCH (08:53)
[2020-02-02] MEDS: FLUTICASONE 50MCG/NASAL SPRAY 16GM BOTTLE. NS SCH (08:53)
[2020-02-02] MEDS: CETIRIZINE HCL 10 MG TABLET. PO SCH (08:53)
[2020-02-02] MEDS: MULTIVITAMIN with MINERAL TABLET. PO SCH (08:53)
--- NOTE | 2020-02-02 09:04 | PDOC ---
SURGICAL PROGRESS NOTE DATE: 02/02/20 TIME: 09:03 Subjective continues to feel better tolerating diet no blood in stool, still some diarrhea pain improved Vital Signs Vital Signs Date Time Temp Pulse Resp B/P (MAP) Pulse Ox O2 Delivery O2 Flow Rate FiO2 02/02/20 07:00 98.3 74 18 126/70 (88) 96 Room Air 98.3 I&O Intake and Output 02/02/20 07:00 Intake Total 800 ml Balance 800 ml Intake Oral 800 ml # Voids 6 General: Alert, Oriented X3, Cooperative Abdomen: Soft, Other (mild ttp LLQ) Labs Laboratory Tests Test 02/01/20 03:48 02/02/20 04:05 Sodium Level 142 mmol/L (136-145) 145 mmol/L (136-145) Potassium Level 4.1 mmol/L (3.5-5.1) 3.1 mmol/L (3.5-5.1) Chloride Level 111 mmol/L (98-107) 110 mmol/L (98-107) Carbon Dioxide Level 21 mmol/L (21-32) 26 mmol/L (21-32) Anion Gap 10 (6-14) 9 (6-14) Blood Urea Nitrogen 4 mg/dL (7-20) 8 mg/dL (7-20) Creatinine 0.4 mg/dL (0.6-1.0) 0.6 mg/dL (0.6-1.0) Estimated GFR (Cockcroft-Gault) 165.1 103.4 Glucose Level 171 mg/dL (70-99) 101 mg/dL (70-99) Calcium Level 8.8 mg/dL (8.5-10.1) 8.2 mg/dL (8.5-10.1) Laboratory Tests Test 02/02/20 04:05 Sodium Level 145 mmol/L (136-145) Potassium Level 3.1 mmol/L (3.5-5.1) Chloride Level 110 mmol/L (98-107) Carbon Dioxide Level 26 mmol/L (21-32) Anion Gap 9 (6-14) Blood Urea Nitrogen 8 mg/dL (7-20) Creatinine 0.6 mg/dL (0.6-1.0) Estimated GFR (Cockcroft-Gault) 103.4 Glucose Level 101 mg/dL (70-99) Calcium Level 8.2 mg/dL (8.5-10.1) Problem List Problems Medical Problems: (1) Colitis Status: Acute Assessment/Plan ok to dc, FU with Dr Matute 1 week FU with GI Justicifation of Admission Dx: Justifications for Admission: Justification of Admission Dx: Yes CALEB BOOTH APRN Feb 02, 2020 09:04
--- NOTE | 2020-02-02 09:29 | NUR ---
SW following. Discussed with RN. Pt discharging home today, per RN. Pt is a high risk readmission due to having readmitted multiple times recently. RN advised no SW needs.
--- NOTE | 2020-02-02 09:41 | PDOC ---
Date of Service: DATE: 02/02/20 TIME: 09:39 Subjective: Subjective: Better - tolerating advanced diet, diarrhea improved - only two stools yesterday, no bleeding. Objective: Vital Signs: Vital Signs Date Time Temp Pulse Resp B/P (MAP) Pulse Ox O2 Delivery O2 Flow Rate FiO2 02/02/20 08:00 Room Air 02/02/20 07:00 98.3 74 18 126/70 (88) 96 98.3 Labs: Laboratory Tests Test 02/02/20 04:05 Sodium Level 145 mmol/L Potassium Level 3.1 mmol/L Chloride Level 110 mmol/L Carbon Dioxide Level 26 mmol/L Anion Gap 9 Blood Urea Nitrogen 8 mg/dL Creatinine 0.6 mg/dL Estimated GFR (Cockcroft-Gault) 103.4 Glucose Level 101 mg/dL Calcium Level 8.2 mg/dL PE: GEN: NAD LUNGS: CTAB HEART: RRR ABD: S/ND/NT NEURO/PSYCH: A & O 3 A/P: H/o recurrent diverticulitis, recent sigmoidectomy - last colonoscopy 11/2019 Diarrhea - better Colitis (distal transverse, descending colon, rectum) on CT -- DC per primary on prednisone and Pentasa. Await review of path, and our office will arrange follow-up. Justicifation of Admission Dx: Justifications for Admission: Justification of Admission Dx: Yes ABDON WHEELER Feb 02, 2020 09:41
[2020-02-02] MEDS ORDERED: MESA250C PO (10:18)
[2020-02-02] MEDS ORDERED: PRED20TA PO (10:18)
--- NOTE | 2020-02-02 10:20 | DISCH ---
DISCHARGE INSTRUCTIONS Condition on Discharge Condition on Discharge: Stable Activity After Discharge Activity Instructions for Disc: Activity as tolerated Lifting Instructions after Dis: No heavy lifting, No pulling or pushing, Do not lift >10 pounds Exercise Instruction after Dis: Progress as tolerated Driving Instructions after Dis: Do not drive today Weight Bearing Status after Di: As tolerated Diet after Discharge Diet after Discharge: GI Soft Diet Texture: Regular Liquid Texture: Thin Liquid Swallowing Supervision: None needed Wound Incision Care Wound/Incision Care: May get incision wet Contacting the DR. after DC Call your doctor for: If your condition worsens Follow-Up Follow up with: PCP within 1 week of discharge Follow Up With: GI and surgery. Need to follow-up with pathology results Treatment/Equipment after DC Adaptive Equipment Issued: None BERENICE WELLS MD Feb 02, 2020 10:20
[2020-02-02 11:00] VITALS: BP 120/68
--- NOTE | 2020-02-02 13:50 | NUR ---
Pt discharged home with self care. Discharge instructions and prescriptions discussed. Pt verbalized understanding and denied questions. IV removed. Pt assisted to wheelchair and was taken to main entrance and secured in car with son.
--- NOTE | 2020-02-02 14:43 | PDOC3 ---
[facility]-Discharge Summary Date of Admission: Date of Admission: Jan 26, 2020 Date of Discharge: Date of Discharge: Feb 02, 2020 Admission Diagnosis: Admitting Diagnosis: Colitis - will start empiric metronidazole, levaquin ordered per surgery and ED, will continue. Nausea - likely from colitis/enteritis. Will give IV antiemetics. Consult GI and general surgery Severe protein calorie malnutrition - likely from difficulty taking PO due to dyschezia and now fear of having a bowel movement. Abdominal pain - with colitis and h/o diverticulitis, will admit for IV antibiotics Abnormal CT - persistent colitis, will check c. diff, and GI pathogens Schatzki's ring/dilation - H/o GERD, dysphagia Constipation - with diarrhea, previously thought IBD, but no evidence of this. Will check CRP Hemorrhoids - likely etiology of blood in stool Asthma with seasonal allergies - cont meds Discharge Diagnosis: Discharge Diagnosis: Acute abdominal pain likely due to infectious versus inflammatory colitis colitis -rule out fistula Severe protein calorie malnutrition - likely from difficulty taking PO due to dyschezia and now fear of having a bowel movement. Schatzki's ring/dilation - H/o GERD, dysphagia Hemorrhoid Asthma with seasonal allergies Hypokalemia Consults: Consults: Gastroenterology General surgery Hospital Course: Hospital Course: 53-year-old female w/ PMHx seasonal allergies, asthma, pre-diabetes, CAD, GERD, Diverticulosis, mastectomy, hysterectomy, cystocele, rectocele, recent extensive bowel resection, and prior left carotid artery dissection presents to ED compla ining of abdominal pain and dychezia with tenesmus and calls from her general surgeon's office about abnormal CT with colitis. Abdominal pain rated a 8 out of 10 and 10/10 when she is having a bowel movement it is sharp and much worse. She states that her stools are soft and at times diarrhea. Incision is well-healed and there is no signs of infection. Abdomen is soft but very tender generalized. She denies nausea, vomiting, syncope, dizziness, headache, numbness or tingling, focal weakness, chest pain, shortness of air, vision changes. She has a history of diverticulitis, asthma, CAD, anxiety, arthritis, left carotid dissection, hysterectomy. She is status post exploratory laparoscopy, extended left and sigmoid colectomy with splenic flexure takedown, appendectomy on 12/26/2019. Initially she was doing great and her pain improved significantly from prior, however it has gradually recurred and she has been readmitted for control of this 01/05/2020 for 4 days for ileus postoperatively She notes that ever since 01/20/2020 she has been having pain prior to bowel movement admitted to have very foul-smelling reddish stools and has been having them nearly daily pain is always initially periumbilical and perirectal and relieved with a bowel movement. CT abdomen pelvis with IV and oral contrast on 01/25/2020 reveals acute colitis involving the distal transverse and descending colon, and the rectum. Cannot exclude fistulous communication between collapsed small bowel loops and the rectosigmoid colon. She did have an outpatient C. difficile test on 01/23/2020 which returned negative UPCR, however she notes that this was done incorrectly and she did a repeat test outpatient 01/25/2020 at the behest of Dr. Matute. EKG is NSR. Labs NA 141, K3.7, BUN 14, CR 0.7, glucose 99, INR 1.2, WBC 6.4, Hb 10.2, platelets 367, alkaline phosphatase 118, AST 11, ALT 14, bilirubin 0.2, lipase 50, lactic acid 0.9, albumin 2.6 Admitted for further treatment. Patient was evaluated by GI and surgery. She was kept NPO until her bowel movements normalized and her N/V improved. Her diet was advanced to soft GI and she tolerated. She was started on prednisone and mesalamine. The rest of her hospital course was uneventful. Disposition: Disposition/Orders: D/C to Home Activity: Activity: Resume previous activity Diet: Diet: Soft Medications: Home Meds Active Scripts Prednisone (PREDNISONE) 20 Mg Tablet, 20 MG PO DAILY for colitis for 30 Days, #30 TAB Prov:BEERNICE WELLS MD 02/02/20 Mesalamine (PENTASA) 250 Mg Capsule.er, 250 MG PO [id number] for colitis for 30 Days, #120 CAP.SR Prov:BERENICE WELLS MD 02/02/20 Montelukast Sodium (MONTELUKAST SODIUM TABLET ) 10 Mg Tablet, 1 TAB PO QHS for Allergies for 30 Days, #30 TAB 5 Refills Prov:VIKI FUENTES MD 09/10/18 Reported Medications Acetaminophen (ACETAMINOPHEN) 325 Mg Tablet, 650 MG PO PRN Q8-12HRS PRN for PA IN, TAB 12/22/19 Fexofenadine Hcl (LICHA ALLERGY) 60 Mg Tablet, 60 MG PO DAILY for control allergies, TAB 12/22/19 Calcium Carbonate (CALCIUM) 500 Mg Tab.chew, 500 MG PO DAILY for replacement, TAB.CHEW 02/23/19 Atorvastatin Calcium (ATORVASTATIN CALCIUM) 40 Mg Tablet, 1 TAB PO QHS for cholesterol, #90 TAB 3 Refills 02/23/19 Multivitamin (MULTIVITAMINS) 1 Each Tablet, 1 TAB PO DAILY for supplement, #90 TAB 3 Refills 08/12/18 Melatonin (MELATONIN) 3 Mg Tablet, 1 TAB PO QHS for insomnia, #30 TAB 2 Refills 08/12/18 Albuterol Sulfate (Proair Hfa) 8.5 Gm Hfa.aer.ad, 1 PUFF INH PRN Q6HRS PRN for SHORTNESS OF BREATH, INHALER 08/12/18 Fluticasone Propionate (Flonase Allergy Relief) 9.9 Ml [place].susp, 2 SPRAYS NS DAILY for allergies, BOTTLE 08/12/18 Omeprazole (OMEPRAZOLE) 20 Mg Tablet.dr, 1 TAB PO DAILY for reflux, #90 TAB 1 Refill 08/12/18 Discontinued Reported Medications [glucosamine] No Conflict Check, 1 TAB PO DAILY for joint health 12/22/19 Lactobacillus Acidophilus (PROBIOTIC) 1 Each Capsule, 1 EACH PO DAILY for colon health, CAP 12/22/19 Scheduled Atorvastatin Calcium (Atorvastatin Calcium), 1 TAB PO QHS, (Reported) Calcium Carbonate (Calcium), 500 MG PO DAILY, (Reported) Fexofenadine Hcl (Licha Allergy), 60 MG PO DAILY, (Reported) Fluticasone Propionate (Flonase Allergy Relief), 2 SPRAYS NS DAILY, (Reported) Melatonin (Melatonin), 1 TAB PO QHS, (Reported) Mesalamine (Pentasa), 250 MG PO [id number] Montelukast Sodium (Montelukast Sodium Tablet ), 1 TAB PO QHS Multivitamin (Multivitamins), 1 TAB PO DAILY, (Reported) Omeprazole (Omeprazole), 1 TAB PO DAILY, (Reported) Prednisone (Prednisone), 20 MG PO DAILY Scheduled PRN Acetaminophen (Acetaminophen), 650 MG PO PRN Q8-12HRS PRN for PAIN, (Reported) Albuterol Sulfate (Proair Hfa), 1 PUFF INH PRN Q6HRS PRN for SHORTNESS OF BREATH, (Reported) Discontinued Medications Lactobacillus Acidophilus (Probiotic), 1 EACH PO DAILY, (Reported) [glucosamine], 1 TAB PO DAILY, (Reported) Total Time: Total Time: Total time spent was 45 minutes in preparing scripts, discharge planning with SW and RN, and preparing this discharge summary. Justicifation of Admission Dx: Justifications for Admission: Justification of Admission Dx: Yes BERENICE WELLS MD Feb 02, 2020 14:43
== END 2020-02-02 13:30 | disposition home or self-care (01) | DRG 391 ==
LOC: ER 14:13 → 4 NORTH 16:57
PROVIDERS: ADMIT Internal Medicine; ATTEND Internal Medicine
DX: A09 Infectious gastroenteritis and colitis, unspecified (principal); E43 Unspecified severe protein-calorie malnutrition; I77.71 Dissection of carotid artery; E87.6 Hypokalemia; D64.9 Anemia, unspecified; K21.9 Gastro-esophageal reflux disease without esophagitis; Z68.23 Body mass index [BMI] 23.0-23.9, adult; J45.909 Unspecified asthma, uncomplicated; R13.10 Dysphagia, unspecified; K59.00 Constipation, unspecified; I25.10 Atherosclerotic heart disease of native coronary artery without angina pectoris; K57.90 Diverticulosis of intestine, part unspecified, without perforation or abscess without bleeding; R73.03 Prediabetes; Z90.10 Acquired absence of unspecified breast and nipple; Z90.710 Acquired absence of both cervix and uterus; M19.90 Unspecified osteoarthritis, unspecified site; F41.9 Anxiety disorder, unspecified; Z90.49 Acquired absence of other specified parts of digestive tract
CPT/HCPCS: 36415; 80048; 80053; 81001; 83605; 83690; 83735; 84145; 84484; 85025; 85610; 86140; 86850; 86900; 86901; 87086; 87205; 87493; 87505; 93005; 96361; 96365; 96375; 99285; C9113; J1170; J1956; J2405; J2543; J3010; J3480; J3490; J7030; J7512; G0378

== ENCOUNTER → 2020-02-22 | Outpatient (CLI) | payer OTHER ==
[2020-02-02 11:00] VITALS: BP 120/68
[~2020-02-22] MED LIST changes: +MESA250C PO; +PRED20TA PO
[2020-02-22 15:01] LABS: BASO % 0 % (0-3); EOS % 0 % (0-3); HEMATOCRIT 35.3 % (36.0-47.0); HEMOGLOBIN 11.6 g/dL (12.0-15.5); LYMPH # 0.5 x10^3/uL (1.0-4.8); LYMPH % 5 % (24-48); MEAN CORPUSCULAR HEMOGLOBIN 27 pg (25-35); MEAN CORPUSCULAR HGB CONC 33 g/dL (31-37); MEAN CORPUSCULAR VOLUME 83 fL (79-100); MONO # 0.2 x10^3/uL (0.0-1.1); MONO % 2 % (0-9); NEUT # 10.1 x10^3/uL (1.8-7.7); NEUT % 94 % (31-73); PLATELET COUNT 385 x10^3/uL (140-400); RED BLOOD COUNT 4.28 x10^6/uL (3.50-5.40); RED CELL DISTRIBUTION WIDTH 17.1 % (11.5-14.5); WHITE BLOOD COUNT 10.8 x10^3/uL (4.0-11.0)
[2020-02-22 15:42] LABS: ALBUMIN 3.5 g/dL (3.4-5.0); ALBUMIN/GLOBULIN RATIO 0.9 (1.0-1.7); CALCIUM 9.3 mg/dL (8.5-10.1); CREATININE 0.6 mg/dL (0.6-1.0); GFR 103.4; POTASSIUM 4.2 mmol/L (3.5-5.1); TOTAL BILIRUBIN 0.3 mg/dL (0.2-1.0); TOTAL PROTEIN 7.6 g/dL (6.4-8.2)
[2020-02-22 17:31] LABS: % BANDS 2 % (0-9); % LYMPHS 6 % (24-48); % SEGS 92 % (35-66); PLT ESTIMATE ADEQUATE (ADEQUATE)
[2020-02-22 17:32] LABS: ANISOCYTOSIS SLIGHT; OVALOCYTES OCC; POIKILOCYTOSIS SLIGHT; POLYCHROMASIA PRESENT
[2020-02-22 17:33] LABS: STOMATOCYTES FEW
== END | disposition home or self-care (01) ==
LOC: LAB 14:29
PROVIDERS: ATTEND Nurse Practitioner
DX: Z90.49 Acquired absence of other specified parts of digestive tract (principal)
CPT/HCPCS: 36415; 80053; 82728; 85007; 85025

== ENCOUNTER → 2020-05-21 | Outpatient (CLI) | payer OTHER | LOC: LAB 11:17 | PROVIDERS: ATTEND Internal Medicine Pulmonary Disease | DX: Z20.828 Contact with and (suspected) exposure to other viral communicable diseases (principal) | CPT/HCPCS: U0003 ==

== ENCOUNTER → 2020-06-06 | Outpatient (CLI) | payer OTHER ==
[2020-06-06 15:54] LABS: BASO # 0.1 x10^3/uL (0.0-0.2); BASO % 1 % (0-3); EOS # 0.1 x10^3/uL (0.0-0.7); EOS % 1 % (0-3); HEMOGLOBIN 13.4 g/dL (12.0-15.5); LYMPH # 2.2 x10^3/uL (1.0-4.8); LYMPH % 29 % (24-48); MEAN CORPUSCULAR HEMOGLOBIN 25 pg (25-35); MEAN CORPUSCULAR HGB CONC 32 g/dL (31-37); MEAN CORPUSCULAR VOLUME 80 fL (79-100); MONO # 0.8 x10^3/uL (0.0-1.1); MONO % 10 % (0-9); NEUT # 4.6 x10^3/uL (1.8-7.7); NEUT % 59 % (31-73); PLATELET COUNT 300 x10^3/uL (140-400); RED BLOOD COUNT 5.27 x10^6/uL (3.50-5.40); RED CELL DISTRIBUTION WIDTH 18.6 % (11.5-14.5); WHITE BLOOD COUNT 7.8 x10^3/uL (4.0-11.0)
[2020-06-06 16:14] LABS: ALBUMIN 4.2 g/dL (3.4-5.0); ALBUMIN/GLOBULIN RATIO 1.1 (1.0-1.7); CALCIUM 9.5 mg/dL (8.5-10.1); CREATININE 0.6 mg/dL (0.6-1.0); POTASSIUM 4.2 mmol/L (3.5-5.1); TOTAL BILIRUBIN 0.2 mg/dL (0.2-1.0); TOTAL PROTEIN 7.9 g/dL (6.4-8.2)
[2020-06-06 16:17] LABS: CHOLESTEROL/HDL RATIO 2.9
[2020-06-07 02:12] LABS: HEMOGLOBIN A1C 6.3 % (4.8-5.6)
== END ==
LOC: LAB 15:30
PROVIDERS: ATTEND Nurse Practitioner
DX: Z13.1 Encounter for screening for diabetes mellitus (principal); K50.10 Crohn's disease of large intestine without complications
CPT/HCPCS: 36415; 80053; 80061; 83036; 84443; 85025

== ENCOUNTER → 2020-08-01 | Outpatient (CLI) | payer OTHER ==
[~2020-08-01] MED LIST changes: -CIPR500T PO; +CIPR500T2 PO
== END ==
LOC: LAB 10:58
PROVIDERS: ATTEND Internal Medicine Gastroenterology
DX: K50.80 Crohn's disease of both small and large intestine without complications (principal)
CPT/HCPCS: 36415

== ENCOUNTER → 2020-10-02 | Outpatient (CLI) | payer OTHER ==
[2020-10-02 15:52] LABS: BASO % 0 % (0-3); EOS % 1 % (0-3); HEMATOCRIT 41.5 % (36.0-47.0); HEMOGLOBIN 13.6 g/dL (12.0-15.5); LYMPH # 1.1 x10^3/uL (1.0-4.8); LYMPH % 15 % (24-48); MEAN CORPUSCULAR HEMOGLOBIN 27 pg (25-35); MEAN CORPUSCULAR HGB CONC 33 g/dL (31-37); MEAN CORPUSCULAR VOLUME 82 fL (79-100); MONO # 0.5 x10^3/uL (0.0-1.1); MONO % 8 % (0-9); NEUT # 5.6 x10^3/uL (1.8-7.7); NEUT % 76 % (31-73); PLATELET COUNT 286 x10^3/uL (140-400); RED BLOOD COUNT 5.07 x10^6/uL (3.50-5.40); RED CELL DISTRIBUTION WIDTH 19.4 % (11.5-14.5); WHITE BLOOD COUNT 7.3 x10^3/uL (4.0-11.0)
[2020-10-02 15:56] LABS: BILIRUBIN,URINE NEGATIVE (NEG); CLARITY,URINE CLEAR; COLOR,URINE YELLOW; NITRITE,URINE NEGATIVE (NEG); PROTEIN,URINE NEGATIVE (NEG-TRACE); UROBILINOGEN,URINE 0.2 mg/dL (0.2 mg/dL)
[2020-10-02 16:08] LABS: AMORPHOUS SEDIMENT,UR PRESENT /HPF
[2020-10-02 16:09] LABS: RBC,URINE OCC /HPF (0-2); WBC,URINE OCC /HPF (0-4)
[2020-10-02 16:10] LABS: BACTERIA,URINE 0 /HPF (0-FEW)
[2020-10-02 16:12] LABS: ALBUMIN 4.2 g/dL (3.4-5.0); ALBUMIN/GLOBULIN RATIO 1.2 (1.0-1.7); CALCIUM 9.5 mg/dL (8.5-10.1); CREATININE 0.6 mg/dL (0.6-1.0); POTASSIUM 3.8 mmol/L (3.5-5.1); TOTAL BILIRUBIN 0.2 mg/dL (0.2-1.0); TOTAL PROTEIN 7.6 g/dL (6.4-8.2)
--- NOTE | 2020-10-02 16:12 | RAD ---
EXAM: Chest, 2 views. HISTORY: Chest pain. COMPARISON: 08/15/2019 FINDINGS: 2 views of the chest are obtained. There is no infiltrate, pleural effusion or pneumothorax . The heart is normal in size. IMPRESSION: No acute pulmonary finding. Electronically signed by: Rachell Galeana MD (10/02/2020 4:10 PM) [facility]
== END ==
LOC: RAD 15:27
PROVIDERS: ATTEND Nurse Practitioner
DX: R07.9 Chest pain, unspecified (principal); R10.9 Unspecified abdominal pain
CPT/HCPCS: 36415; 71046; 80053; 81001; 83690; 85025

== ENCOUNTER → 2020-10-17 | Outpatient (CLI) | payer OTHER ==
--- NOTE | 2020-10-17 08:51 | KCIC ---
EXAM: Abdomen sonogram. HISTORY: Pain. TECHNIQUE: Sonographic imaging of the abdomen was performed. COMPARISON: None. FINDINGS: The liver is normal in size. There is hepatic steatosis. No focal hepatic lesion is seen. T he common bile duct is normal in caliber. The gallbladder, kidneys, and spleen are unremarkable. The aorta, inferior vena cava and pancreas are partially obscured due to bowel gas. IMPRESSION: 1. Hepatic steatosis. 2. No acute sonographic finding. Electronically signed by: Rachell Galeana MD (10/17/2020 8:49 AM) [id number]
--- NOTE | 2020-10-17 12:15 | KCIC ---
Bilateral digital screening mammograms with 3-D tomosynthesis: Reason for examination: Routine screening. Comparison is made to previous studies dated back to 01/17/2014. Bilateral mammograms in CC and oblique projections were obtained with 2-D imaging and 3-D tomosynthes is imaging on a Siemens Inspiration unit and reviewed on the workstation. Interpretation was made wit h the benefit of CAD. The skin and nipples show no abnormalities. No abnormal axillary lymph nodes are seen. The breast par enchyma shows scattered fatty and fibroglandular density. (Breast density: Category B.) There continu e to be small nodular parenchymal asymmetries bilaterally which are stable. There are no new dominant masses, suspicious calcifications or architectural distortion. Impression: No evidence of malignancy. Recommend routine screening. BI-RAD Category 2: Benign. "Our facility is accredited by the [employer] Mammography Program." This patient's information has been entered into a reminder system for the patient to be notified wit h the results of her examination and a target date for the next mammogram. Electronically signed by: Christy Porter MD (10/17/2020 12:12 PM) [id number]
== END ==
LOC: KCIC US 08:08
PROVIDERS: ATTEND Internal Medicine
DX: Z12.31 Encounter for screening mammogram for malignant neoplasm of breast (principal); K76.0 Fatty (change of) liver, not elsewhere classified
CPT/HCPCS: 76700; 77063; 77067

== ENCOUNTER → 2020-10-17 | Outpatient (CLI) | payer OTHER ==
--- NOTE | 2020-10-17 09:51 | EKG ---
[facility] [address] [place] [address] Test Date: 2020-10-17 Test Time: 09:47:41 Pat Name: TIFFANIE STANLEY Department: Room: Gender: F Coke Inspector: JAMIE : 1965 Requested By: JESSICA TRAYLOR Order Number: [id number] Reading MD: Robinson Yadav MD Measurements Intervals [place] Rate: 79 P: 28 [place]: 126 QRS: 8 QRSD: 84 T: 14 QT: 366 QTc: 421 Interpretive Statements SINUS RHYTHM Electronically Signed On 10-17-2020 11:17:27 CDT by Robinson Yadav MD
== END ==
LOC: EKG 09:24
PROVIDERS: ATTEND Nurse Practitioner
DX: R07.9 Chest pain, unspecified (principal); R94.31 Abnormal electrocardiogram [ECG] [EKG]
CPT/HCPCS: 93005

== ENCOUNTER → 2020-10-17 | Outpatient (CLI) | payer OTHER | LOC: LAB 09:32 | PROVIDERS: ATTEND Internal Medicine Gastroenterology | DX: K57.92 Diverticulitis of intestine, part unspecified, without perforation or abscess without bleeding (principal); R19.7 Diarrhea, unspecified | CPT/HCPCS: 86481; 86706; 87340 ==

== ENCOUNTER → 2020-11-19 | Outpatient (CLI) | payer OTHER ==
--- NOTE | 2020-11-19 12:53 | RAD ---
EXAM: NUCLEAR GASTRIC EMPTYING SCAN. HISTORY: Nausea/bloating. COMPARISON: None. TECHNIQUE: Serial static images were obtained over the stomach following oral administration of 2.1 m Ci of 99m-Tc sulfur colloid in a solid meal. FINDINGS: The stomach appears normal in contour. There is clearance of activity into the small bowel. The remaining fraction of gastric activity is as follows. 1 hour 64% (normal range 34.8-91%) 2 hour 52% (normal range 2.7-60%) 3 hour 38% (normal range 0.5-28%) 4 hour 22% (normal range 0-10%) IMPRESSION: 1. Delayed gastric emptying. Electronically signed by: Morales Meyers MD (11/19/2020 12:50 PM) [id number]
== END ==
LOC: NM 08:46
PROVIDERS: ATTEND Physician Assistant
DX: K30 Functional dyspepsia (principal); R14.0 Abdominal distension (gaseous); R68.81 Early satiety
CPT/HCPCS: 78264; A9541

== ENCOUNTER → 2020-12-04 | Day surgery (SDC) | payer OTHER ==
[~2020-12-04] VITALS: Ht 165.1 cm; Wt 72.0 kg
[~2020-12-04] MED LIST changes: +IV RINGERS,LACTATED 1000ML 1,000 ML IV SCH; +PRED-220 PO
[2020-12-04 07:16] VITALS: BP 135/98
--- NOTE | 2020-12-05 05:19 | CONS ---
DATE OF CONSULTATION: 12/04/2020 REFERRING PHYSICIAN: Mikayla Soto MD REASON FOR CONSULTATION: Nausea and dysphagia. HISTORY OF PRESENT ILLNESS: A 55-year-old female with past medical history significant for Crohn's, hyperlipidemia, status post colon resection who is seen with dysphagia, mainly for solids and pills. In the distal esophagus, minimal heartburn was encountered, which was controlled with omeprazole 20 mg daily. Risk factors include caffeine use, but no alcohol or tobacco at this time. PAST MEDICAL HISTORY: Hyperlipidemia, gastroesophageal reflux disease. ALLERGIES: None. MEDICATIONS: Include acetaminophen, albuterol, atorvastatin, Barbara, Flonase, melatonin, montelukast, multivitamins, omeprazole. SOCIAL HISTORY: She is retired. Does not drink or smoke at this time. FAMILY HISTORY: Noncontributory. REVIEW OF SYSTEMS: Per records. PHYSICAL EXAMINATION: GENERAL: Reveals a well-nourished, well-developed female, alert, cooperative, in no acute distress. VITAL SIGNS: The temp is 98.3, pulse 89, respiratory rate is 20, pulse ox sat 96%. LUNGS: Clear. CARDIOVASCULAR: Reveals an S1, S2, without S3, S4 or appreciable murmur. ABDOMEN: Soft, distended abdomen, normal bowel sounds, without appreciable hepatosplenomegaly. EXTREMITIES: Reveals no cyanosis, clubbing or edema. IMPRESSION AND RECOMMENDATION: Dysphagia with nausea and a borderline abnormal gastric emptying study. Differential includes peptic ulcer disease, gastroparesis, outlet obstruction. Therefore, recommend upper endoscopy with possible biopsy or dilatation. Risks and benefits of procedure were discussed. The patient is willing to proceed at this time. SINDY/JAROD/CARMEN DR: Sherrie TID: [id number]
== END | disposition home or self-care (01) ==
LOC: ENDOS 06:58
PROVIDERS: ATTEND Internal Medicine Gastroenterology
DX: R13.10 Dysphagia, unspecified (principal); Z53.8 Procedure and treatment not carried out for other reasons; K21.9 Gastro-esophageal reflux disease without esophagitis; I25.10 Atherosclerotic heart disease of native coronary artery without angina pectoris; E78.00 Pure hypercholesterolemia, unspecified; M19.90 Unspecified osteoarthritis, unspecified site; G47.30 Sleep apnea, unspecified; J45.909 Unspecified asthma, uncomplicated; E66.9 Obesity, unspecified; F41.9 Anxiety disorder, unspecified; Z86.73 Personal history of transient ischemic attack (TIA), and cerebral infarction without residual deficits; Z90.710 Acquired absence of both cervix and uterus; Z98.890 Other specified postprocedural states; Z79.899 Other long term (current) drug therapy; Z20.822 Contact with and (suspected) exposure to COVID-19
CPT/HCPCS: 87426

== ENCOUNTER 2020-12-10 13:22 | Inpatient (IN) | payer OTHER ==
[~2020-12-10] VITALS: Ht 163.8 cm; Wt 74.8 kg
[~2020-12-10 13:22] MED LIST changes: -IV RINGERS,LACTATED 1000ML 1,000 ML IV SCH; -PRED-220 PO
--- NOTE | 2020-12-10 14:08 | RAD ---
XR CHEST 1V History: Reason: SHORTNESS OF BREATH / Spl. Instructions: / History: Comparison: October 02, 2020 Findings: Multifocal ill-defined opacities bilaterally. No pleural effusion. No pneumothorax. Normal heart size . Impression: 1. Multifocal ill-defined opacities bilaterally, concerning for pneumonia including viral pneumonia. Electronically signed by: Lemuel Donovan DO (12/10/2020 2:06 PM) [id number]
[2020-12-10 14:12] LABS: BASO % 0 % (0-3); EOS % 0 % (0-3); HEMATOCRIT 36.1 % (36.0-47.0); HEMOGLOBIN 12.1 g/dL (12.0-15.5); LYMPH # 0.5 x10^3/uL (1.0-4.8); LYMPH % 11 % (24-48); MEAN CORPUSCULAR HEMOGLOBIN 27 pg (25-35); MEAN CORPUSCULAR HGB CONC 33 g/dL (31-37); MEAN CORPUSCULAR VOLUME 82 fL (79-100); MONO # 0.2 x10^3/uL (0.0-1.1); MONO % 4 % (0-9); NEUT # 3.9 x10^3/uL (1.8-7.7); NEUT % 84 % (31-73); PLATELET COUNT 196 x10^3/uL (140-400); RED BLOOD COUNT 4.41 x10^6/uL (3.50-5.40); RED CELL DISTRIBUTION WIDTH 17.7 % (11.5-14.5); WHITE BLOOD COUNT 4.7 x10^3/uL (4.0-11.0)
[2020-12-10 14:33] LABS: CALCIUM 8.4 mg/dL (8.5-10.1); CREATININE 0.5 mg/dL (0.6-1.0); GFR 127.2; POTASSIUM 3.5 mmol/L (3.5-5.1)
[2020-12-10 14:37] LABS: ALBUMIN/GLOBULIN RATIO 0.8 (1.0-1.7); TOTAL BILIRUBIN 0.3 mg/dL (0.2-1.0); TOTAL PROTEIN 6.9 g/dL (6.4-8.2)
--- NOTE | 2020-12-10 15:13 | ED.ADGEN ---
Past Medical History Past Medical History: Anxiety, Arthritis, Asthma, CAD, Diverticulitis, GERD, Other Additional Past Medical Histor: SEASONAL ALLERGIES, left CAROTID DISSECTION,COLITIS,CHRON'S Past Surgical History: Hysterectomy, Tubal ligation, Other Additional Past Surgical Histo: LEEP,CYSTO/RECTOCELE,SINUS SURGERY,SIGMOID COLECTOMY Smoking Status: Never Smoker Alcohol Use: None Drug Use: None General Adult EDM: Chief Complaint: SHORTNESS OF BREATH HPI: HPI: Patient is a 55-year-old female who presents to the emergency room with hypoxia. Patient was diagnosed with COVID-19 last Wednesday while getting an EGD.. Patient states she has had some shortness of breath and cough. She gets intermittent fevers and body aches. She has not yet had her COVID-19 vaccine. 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 She was instructed by her nurse practiti thiago that if her pulse ox got under 90 she should come to the emergency room. Patient had a pulse ox of 85 this morning so she came in. Review of Systems: Review of Systems: Complete ROS is negative unless otherwise documented in HPI Current Medications: Current Medications Medications (Trade) Dose Ordered Sig/Michael Start Time Stop Time Status Last Admin Dose Admin Ceftriaxone Sodium (Rocephin) 1 gm 1X ONCE 12/10/20 15:15 12/10/20 15:16 DC 12/10/20 15:44 1 GM Dexamethasone Sodium Phosphate (Decadron) 10 mg 1X ONCE 12/10/20 15:15 12/10/20 15:16 DC 12/10/20 15:44 10 MG Ondansetron HCl (Zofran) 4 mg STK-MED ONCE 12/10/20 15:38 12/10/20 15:39 DC Allergies: Allergies: Allergies Coded Allergies Type Severity Reaction Last Updated Verified No Known Drug Allergies 12/04/20 No Physical Exam: PE: General: Awake, alert, NAD. Well Nourished, well hydrated. Cooperative HEENT: Atraumatic, EOMI, PERRL, airway patent, moist oral mucosa Neck: Supple, trachea midline Respiratory: Normal effort, decreased breath sounds bilaterally, diffuse crackles CV: RRR, no murmur, cap refill <2 GI: Soft, nondistended, nontender, no masses MSK: No obvious deformities Skin: Warm, dry, intact Neuro: A&O x3, speech NL, sensory and motor grossly intact, no focal deficits Psych: Normal affect, normal mood, not suicidal or homicidal Current Patient Data: Labs: Laboratory Tests Test 12/10/20 14:04 12/10/20 15:05 White Blood Count 4.7 x10^3/uL (4.0-11.0) Red Blood Count 4.41 x10^6/uL (3.50-5.40) Hemoglobin 12.1 g/dL (12.0-15.5) Hematocrit 36.1 % (36.0-47.0) Mean Corpuscular Volume 82 fL (79-100) Mean Corpuscular Hemoglobin 27 pg (25-35) Mean Corpuscular Hemoglobin Concent 33 g/dL (31-37) Red Cell Distribution Width 17.7 % (11.5-14.5) H Platelet Count 196 x10^3/uL (140-400) Neutrophils (%) (Auto) 84 % (31-73) H Lymphocytes (%) (Auto) 11 % (24-48) L Monocytes (%) (Auto) 4 % (0-9) Eosinophils (%) (Auto) 0 % (0-3) Basophils (%) (Auto) 0 % (0-3) Neutrophils # (Auto) 3.9 x10^3/uL (1.8-7.7) Lymphocytes # (Auto) 0.5 x10^3/uL (1.0-4.8) L Monocytes # (Auto) 0.2 x10^3/uL (0.0-1.1) Eosinophils # (Auto) 0.0 x10^3/uL (0.0-0.7) Basophils # (Auto) 0.0 x10^3/uL (0.0-0.2) Sodium Level 141 mmol/L (136-145) Potassium Level 3.5 mmol/L (3.5-5.1) Chloride Level 104 mmol/L (98-107) Carbon Dioxide Level 27 mmol/L (21-32) Anion Gap 10 (6-14) Blood Urea Nitrogen 8 mg/dL (7-20) Creatinine 0.5 mg/dL (0.6-1.0) L Estimated GFR (Cockcroft-Gault) 127.2 BUN/Creatinine Ratio 16 (6-20) Glucose Level 112 mg/dL (70-99) H Calcium Level 8.4 mg/dL (8.5-10.1) L Total Bilirubin 0.3 mg/dL (0.2-1.0) Aspartate Amino Transferase (AST) 33 U/L (15-37) Alanine Aminotransferase (ALT) 34 U/L (14-59) Alkaline Phosphatase 94 U/L (46-116) Troponin I Quantitative < 0.017 ng/mL (0.000-0.055) AY-Tqc-U-Type Natriuretic Peptide 118 pg/mL (0-124) Total Protein 6.9 g/dL (6.4-8.2) Albumin 3.0 g/dL (3.4-5.0) L Albumin/Globulin Ratio 0.8 (1.0-1.7) L D-Dimer (Johanna) 0.56 ug/mlFEU (0.00-0.50) H Laboratory Tests 12/10/20 14:04 Laboratory Tests 12/10/20 14:04 Vital Signs: Vital Signs Date Time Temp Pulse Resp B/P (MAP) Pulse Ox O2 Delivery O2 Flow Rate FiO2 12/10/20 15:36 94 27 101/67 (78) 93 Nasal Cannula 6.0 12/10/20 13:29 101.0 101.0 EKG: EKG: [] Heart Score: C/O Chest Pain: N/A Risk Factors: Risk Factors: DM, Current or recent (<one month) smoker, HTN, HLP, family history of CAD, obesity. Risk Scores: Score 0 - 3: 2.5% MACE over next 6 weeks - Discharge Home Score 4 - 6: 20.3% MACE over next 6 weeks - Admit for Clinical Observation Score 7 - 10: 72.7% MACE over next 6 weeks - Early Invasive Strategies Radiology/Procedures: Radiology/Procedures: [] Course & Med Decision Making: Course & Med Decision Making Pertinent Labs and Imaging studies reviewed. (See chart for details) Patient is a 55-year-old female who presents to the emergency room with shortness of breath. At this time there is concern for the novel coronavirus 19. Patient's risk factors include age. Risk stratifying work-up was ordered including chest x-ray, d-dimer, CPK, CRP, LDH, troponin, ferritin, CBC, CMP. At this time, patients labs, vitals, and exam are significant for hypoxia. Due to patient's risk and clinical picture, they will need to be admitted at this time. IVFs will be limited due to concern for fluid overload in COVID-19 patients. Patient will be given empiric antibiotics due to infiltrates and risk of co-ba cterial infection. Further treatment will be dictated by the inpatient team. Tee Disclaimer: Tee Disclaimer: This electronic medical record was generated, in whole or in part, using a voice recognition dictation system. Departure Departure Impression: Primary Impression: COVID-19 Additional Impression: Hypoxia Disposition: ADMITTED INPATIENT Condition: STABLE Referrals: JESSICA TRAYLOR APRN (PCP) Problem Qualifiers BRIELLE VILLALOBOS MD Dec 10, 2020 15:12
[2020-12-10] MEDS ORDERED: DEXAMETHASONE SOD PHOS 4 MG/ML VIAL IVP ONE (15:15)
[2020-12-10] MEDS ORDERED: cefTRIAXone IV Push 1 GM VIAL. IVP ONE (15:15)
--- NOTE | 2020-12-10 15:31 | PDOC1 ---
History and Physical Date of Admission Date of Admission DATE: 12/10/20 TIME: 15:30 Identification/Chief Complaint Chief Complaint Shortness of breath Source Source: Patient History of Present Illness History of Present Illness Ms Arce is a 53-year-old female w/ PMHx seasonal allergies, asthma, pre- diabetes, CAD, GERD, Diverticulosis, mastectomy, hysterectomy, cystocele, rectocele, Crohns disease, h/o extensive bowel resection, and prior left carotid artery dissection presents to ED complaining of Positive for COVID-19 on 12/04/2020 as pre-operative testing for endoscopy. With fever cough shortness of breath nausea vomiting diarrhea as well as loss of taste and smell. Today her O2 saturations were 82% and she was instructed to come to the ED. O2 INCREASED TO 6L/NC, O2 SATURATION IMPROVES TO 94%. EKG is NSR. Chest radiograph with multifocal opacities Labs WBC 4.7, Hb 12.1, platelets 196, D-dimer 0.56, NA 141, K3.5, BUN 8, CR 0.5, glucose 112, calcium 8.1, bilirubin 0.3, AST 33, ALT 34, alk phos 94, albumin 3, NT proBNP 818, troponin 0 Admitted for further treatment. Past Medical History Cardiovascular: No pertinent hx GI: Diverticulosis, Irritable bowel disease Heme/Onc: Cancer Past Surgical History Past Surgical History: Mastectomy, Hysterectomy, Colon Resection, Other Family History Family History: Cancer Social History Smoke: No ALCOHOL: occassional Drugs: None Current Problem List Problem List Problems Medical Problems: (1) COVID-19 Status: Acute (2) Hypoxia Status: Acute Current Medications Current Medications Current Medications Dexamethasone Sodium Phosphate (Decadron) 10 mg 1X ONCE IVP ; Start 12/10/20 at 15:15; Stop 12/10/20 at 15:16; Status DC Ceftriaxone Sodium (Rocephin) 1 gm 1X ONCE IVP ; Start 12/10/20 at 15:15; Stop 12/10/20 at 15:16; Status DC Active Scripts Active Montelukast Sodium Tablet (Montelukast Sodium) 10 Mg Tablet 1 Tab PO QHS 30 Days Reported Acetaminophen 325 Mg Tablet 650 Mg PO PRN Q8-12HRS PRN Barbara Allergy (Fexofenadine Hcl) 60 Mg Tablet 60 Mg PO DAILY Atorvastatin Calcium 40 Mg Tablet 1 Tab PO QHS Multivitamins (Multivitamin) 1 Each Tablet 1 Tab PO DAILY Melatonin 3 Mg Tablet 1 Tab PO QHS Proair Hfa (Albuterol Sulfate) 8.5 Gm Hfa.aer.ad 1 Puff INH PRN Q6HRS PRN Flonase Allergy Relief (Fluticasone Propionate) 9.9 Ml [place].susp 2 Sprays NS DAILY Omeprazole 20 Mg Tablet.dr 1 Tab PO DAILY Allergies Allergies: Coded Allergies: No Known Drug Allergies (Unverified , 12/04/20) ROS General: YES: Chills, Night Sweats, Fatigue, Malaise, Appetite; No: Other PSYCHOLOGICAL ROS: YES: Anxiety; No: Behavioral Disorder, Concentration difficultie, Decreased libido, Depression, Disorientation, Hallucinations, Hostility, Irritablity, Memory difficulties, Mood Swings, Obsessive thoughts, Physical abuse, Sexual abuse, Sleep disturbances, Suicidal ideation, Other Eyes: No Blurry vision, No Decreased vision, No Double vision, No Dry eyes, No Excessive tearing, No Eye Pain, No Itchy Eyes, No Loss of vision, No Photophobia, No Scotomata, No Uses contacts, No Uses glasses, No Other HEENT: YES: Heacaches, Nasal congestion, Sore Throat; No: Visual Changes, Hearing change, Nasal discharge, Oral lesions, Sinus pain, Epistaxis, Sneezing, Snoring, Tinnitus, Vertigo, Vocal changes, Other ALLERGY AND IMMUNOLOGY: YES: Nasal Congestion; No: Hives, Insect Bite Sensitivity, Itchy/Watery Eyes, Post Nasal Drip, Seasonal Allergies, Other Hematological and Lymphatic: No: Bleeding Problems, Blood Clots, Blood Transfusions, Brusing, Night Sweats, Pallor, Swollen Lymph Nodes, Other ENDOCRINE: No: Breast Changes, Galactorrhea, Hair Pattern Changes, Hot Flashes, Malaise/lethargy, Mood Swings, Palpitations, Polydipsia/polyuria, Skin Changes, Temperature Intolerance, Unexpected Weight Changes, Other Breast: No New/Changing Breast Lumps, No Nipple changes, No Nipple discharge, No Other Respiratory: YES: Cough, Shortness of breath, SOB with excertion, Tachypnea, W heezing; No: Hemoptysis, Orthopnea, Pleuritic Pain, Sputum Changes, Stridor, Other Cardiovascular: No Chest Pain, No Palpitations, No Orthopnea, No Paroxysmal Noc. Dyspnea, No Edema, No Lt Headedness, No Other Gastrointestinal: Yes Nausea; No Vomiting, No Abdominal Pain, No Diarrhea, No Constipation, No Melena, No Hematochezia, No Other Genitourinary: No Dysuria, No Frequency, No Incontinence, No Hematuria, No Retention, No Discharge, No Urgency, No Pain, No Flank Pain, No Other, No , No , No , No , No , No , No Musculoskeletal: No Gait Disturbance, No Joint Pain, No Joint Stiffness, No Joint Swelling, No Muscle Pain, No Muscular Weakness, No Pain In:, No Swelling In:, No Other Neurological: No Behavorial Changes, No Bowel/Bladder ControlChng, No Confusion, No Dizziness, No Gait Disturbance, No Headaches, No Impaired Coord/balance, No Memory Loss, No Numbness/Tingling, No Seizures, No Speech Problems, No Tremors, No Visual Changes, No Weakness, No Other Skin: No Dry Skin, No Eczema, No Hair Changes, No Lumps, No Mole Changes, No Mottling, No Nail Changes, No Pruritus, No Rash, No Skin Lesion Changes, No Other, No Acne Physical Exam General: Alert, Oriented X3, Cooperative, moderate distress HEENT: Atraumatic, PERRLA, EOMI, Mucous membr. moist/pink Lungs: Other (Bibasilar crackles) Heart: S1S2, RRR, no thrills, no rubs, no gallops, no murmurs Abdomen: Normal bowel sounds, Soft, No tenderness, No hepatosplenomegaly, No masses Rectal Exam: not examined Extremities: No clubbing, No cyanosis, No edema, Normal pulses, No tenderness/swelling Skin: No rashes, No breakdown, No significant lesion Neuro: Normal gait, Normal speech, Strength at 5/5 X4 ext, Normal tone, Sensation intact, Cranial nerves 3-12 NL, Reflexes 2+ Psych/Mental Status: Mental status NL, Mood NL Vitals Vitals Vital Signs Date Time Temp Pulse Resp B/P (MAP) Pulse Ox O2 Delivery O2 Flow Rate FiO2 12/10/20 13:29 101.0 101 24 106/59 (85) 86 Room Air 101.0 Labs Labs Laboratory Tests Test 12/10/20 14:04 White Blood Count 4.7 x10^3/uL (4.0-11.0) Red Blood Count 4.41 x10^6/uL (3.50-5.40) Hemoglobin 12.1 g/dL (12.0-15.5) Hematocrit 36.1 % (36.0-47.0) Mean Corpuscular Volume 82 fL (79-100) Mean Corpuscular Hemoglobin 27 pg (25-35) Mean Corpuscular Hemoglobin Concent 33 g/dL (31-37) Red Cell Distribution Width 17.7 % (11.5-14.5) Platelet Count 196 x10^3/uL (140-400) Neutrophils (%) (Auto) 84 % (31-73) Lymphocytes (%) (Auto) 11 % (24-48) Monocytes (%) (Auto) 4 % (0-9) Eosinophils (%) (Auto) 0 % (0-3) Basophils (%) (Auto) 0 % (0-3) Neutrophils # (Auto) 3.9 x10^3/uL (1.8-7.7) Lymphocytes # (Auto) 0.5 x10^3/uL (1.0-4.8) Monocytes # (Auto) 0.2 x10^3/uL (0.0-1.1) Eosinophils # (Auto) 0.0 x10^3/uL (0.0-0.7) Basophils # (Auto) 0.0 x10^3/uL (0.0-0.2) Sodium Level 141 mmol/L (136-145) Potassium Level 3.5 mmol/L (3.5-5.1) Chloride Level 104 mmol/L (98-107) Carbon Dioxide Level 27 mmol/L (21-32) Anion Gap 10 (6-14) Blood Urea Nitrogen 8 mg/dL (7-20) Creatinine 0.5 mg/dL (0.6-1.0) Estimated GFR (Cockcroft-Gault) 127.2 BUN/Creatinine Ratio 16 (6-20) Glucose Level 112 mg/dL (70-99) Calcium Level 8.4 mg/dL (8.5-10.1) Total Bilirubin 0.3 mg/dL (0.2-1.0) Aspartate Amino Transf (AST/SGOT) 33 U/L (15-37) Alanine Aminotransferase (ALT/SGPT) 34 U/L (14-59) Alkaline Phosphatase 94 U/L (46-116) Troponin I Quantitative < 0.017 ng/mL (0.000-0.055) UQ-Bgi-P-Type Natriuretic Peptide 118 pg/mL (0-124) Total Protein 6.9 g/dL (6.4-8.2) Albumin 3.0 g/dL (3.4-5.0) Albumin/Globulin Ratio 0.8 (1.0-1.7) Laboratory Tests Test 12/10/20 14:04 White Blood Count 4.7 x10^3/uL (4.0-11.0) Red Blood Count 4.41 x10^6/uL (3.50-5.40) Hemoglobin 12.1 g/dL (12.0-15.5) Hematocrit 36.1 % (36.0-47.0) Mean Corpuscular Volume 82 fL (79-100) Mean Corpuscular Hemoglobin 27 pg (25-35) Mean Corpuscular Hemoglobin Concent 33 g/dL (31-37) Red Cell Distribution Width 17.7 % (11.5-14.5) Platelet Count 196 x10^3/uL (140-400) Neutrophils (%) (Auto) 84 % (31-73) Lymphocytes (%) (Auto) 11 % (24-48) Monocytes (%) (Auto) 4 % (0-9) Eosinophils (%) (Auto) 0 % (0-3) Basophils (%) (Auto) 0 % (0-3) Neutrophils # (Auto) 3.9 x10^3/uL (1.8-7.7) Lymphocytes # (Auto) 0.5 x10^3/uL (1.0-4.8) Monocytes # (Auto) 0.2 x10^3/uL (0.0-1.1) Eosinophils # (Auto) 0.0 x10^3/uL (0.0-0.7) Basophils # (Auto) 0.0 x10^3/uL (0.0-0.2) Sodium Level 141 mmol/L (136-145) Potassium Level 3.5 mmol/L (3.5-5.1) Chloride Level 104 mmol/L (98-107) Carbon Dioxide Level 27 mmol/L (21-32) Anion Gap 10 (6-14) Blood Urea Nitrogen 8 mg/dL (7-20) Creatinine 0.5 mg/dL (0.6-1.0) Estimated GFR (Cockcroft-Gault) 127.2 BUN/Creatinine Ratio 16 (6-20) Glucose Level 112 mg/dL (70-99) Calcium Level 8.4 mg/dL (8.5-10.1) Total Bilirubin 0.3 mg/dL (0.2-1.0) Aspartate Amino Transf (AST/SGOT) 33 U/L (15-37) Alanine Aminotransferase (ALT/SGPT) 34 U/L (14-59) Alkaline Phosphatase 94 U/L (46-116) Troponin I Quantitative < 0.017 ng/mL (0.000-0.055) KI-Krr-N-Type Natriuretic Peptide 118 pg/mL (0-124) Total Protein 6.9 g/dL (6.4-8.2) Albumin 3.0 g/dL (3.4-5.0) Albumin/Globulin Ratio 0.8 (1.0-1.7) Images Images Chest radiograph: Multifocal ill-defined opacities bilaterally. No pleural effusion. No pneumothorax. Normal heart size. Impression: 1. Multifocal ill-defined opacities bilaterally, concerning for pneumonia including viral pneumonia. VTE Prophylaxis Ordered VTE Prophylaxis Devices: No VTE Pharmacological Prophylaxi: Yes Assessment/Plan Assessment/Plan A/P: Acute respiratory failure with hypoxia - due to COVID 19. empiric steroids, remdesivir COVID 19 diagnosis 12/04/2020 on rapid. We will treat aggressively with remdesivir daily Decadron. Crohns disease - sees GI outpatient. Previously intolerant to Pentasa has been on prednisone. Was plan answered immunomodulatory therapy in the near future. Nausea - likely from crohns vs mild gastroparesis Severe protein calorie malnutrition - likely from difficulty taking PO due to crohns Abdominal pain - with colitis and h/o diverticulitis, will admit for IV antibiotics Schatzki's ring/dilation - H/o GERD, dysphagia Asthma with seasonal allergies - cont meds FEN - General diet PPX - lovenox FULL CODE Dispo - inpatient for at least 2 midnights Justifications for Admission Other Justification VIKI FUENTES MD Dec 10, 2020 15:31
[2020-12-10] MEDS ORDERED: ONDANSETRON PF 4 MG/2 ML VIAL. ONE (15:38)
[2020-12-10] MEDS ORDERED: ACETAMINOPHEN 500 MG TABLET PO ONE (15:45)
[2020-12-10] MEDS ORDERED: ACETAMINOPHEN 325 MG TABLET. PO PRN (15:45)
[2020-12-10] MEDS ORDERED: fentaNYL PF VIAL 100 MCG/2 ML VIAL IVP PRN (15:45)
[2020-12-10] MEDS ORDERED: ONDANSETRON PF 4 MG/2 ML VIAL. IVP ONE (15:45)
[2020-12-10] MEDS ORDERED: ONDANSETRON PF 4 MG/2 ML VIAL. IVP PRN (15:45)
[2020-12-10] MEDS ORDERED: REMDESIVIR LOAD in IV NORMAL SALINE 250ML TV IV ONE (16:00)
[2020-12-10] MEDS: ZINC SULFATE 220 MG CAPSULE. PO SCH (17:03)
--- NOTE | 2020-12-10 17:05 | EKG ---
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
[2020-12-10 20:01] VITALS: BP 104/64
[2020-12-10] MEDS ORDERED: ZOLPIDEM 5 MG TABLET. PO PRN (21:00)
[2020-12-10] MEDS: MONTELUKAST SODIUM 10 MG TABLET. PO SCH (21:34)
[2020-12-10] MEDS: ATORVASTATIN CALCIUM 40 MG TABLET. PO SCH (21:34)
[2020-12-10] MEDS: PSYLLIUM HUSK (SUGAR FREE) 1 PKT PACKET PO SCH (21:34)
[2020-12-10] MEDS: ENOXAPARIN 40 MG/0.4 ML SYRINGE. SQ SCH (21:35)
[2020-12-10] MEDS: guaiFENesin DM 200MG/20MG 10 ML SYRUP PO PRN (21:35)
[2020-12-10] MEDS: LORazepam 0.5 MG TABLET PO PRN (21:57)
[2020-12-10 23:00] VITALS: BP 111/64
[2020-12-11 03:00] VITALS: BP 106/65
[2020-12-11 04:21] LABS: ALBUMIN 2.8 g/dL (3.4-5.0); ALBUMIN/GLOBULIN RATIO 0.7 (1.0-1.7); CALCIUM 8.8 mg/dL (8.5-10.1); CREATININE 0.6 mg/dL (0.6-1.0); POTASSIUM 3.9 mmol/L (3.5-5.1); TOTAL BILIRUBIN 0.2 mg/dL (0.2-1.0); TOTAL PROTEIN 6.9 g/dL (6.4-8.2)
[2020-12-11 07:00] VITALS: BP 112/74
[2020-12-11] MEDS: PANTOPRAZOLE 40 MG TABLET.DR. PO SCH (08:46)
[2020-12-11] MEDS: FLUTICASONE 50MCG/NASAL SPRAY 16GM BOTTLE. NS SCH (08:47)
[2020-12-11] MEDS: ZINC SULFATE 220 MG CAPSULE. PO SCH (08:47)
[2020-12-11] MEDS: DEXAMETHASONE SOD PHOS 4 MG/ML VIAL IVP SCH (08:47)
[2020-12-11] MEDS: CETIRIZINE HCL 10 MG TABLET. PO SCH (08:47)
[2020-12-11] MEDS: ALBUTEROL SULFATE 8GM INHALER. INH PRN ×2 (08:48→17:22)
--- NOTE | 2020-12-11 10:16 | CONS ---
DATE OF CONSULTATION: 12/11/2020 PULMONARY CONSULTATION ATTENDING PHYSICIAN: Dr. Herzog. REASON FOR CONSULTATION: Respiratory failure, COVID-19 pneumonia. HISTORY OF PRESENT ILLNESS: The patient is a 55-year-old female who was brought into the hospital because of dyspnea and hypoxia. The patient was tested positive for COVID-19 on 12/02/2020 as preop testing for endoscopy. She had fever and cough. She has also had some nausea, vomiting and diarrhea as well as loss of taste and smell. The patient was hospitalized. She was seen in the Emergency Room. Chest x-ray revealed bilateral infiltrates. There was no significant pleural effusion. She is currently on high flow oxygen. She is afebrile. Consultation requested for further evaluation and management. PAST MEDICAL HISTORY: Significant for diverticulosis, irritable bowel syndrome and breast cancer. PAST SURGICAL HISTORY: Mastectomy, hysterectomy, and colon resection. FAMILY HISTORY: Family history of cancer. Family history is noncontributory to lungs. SOCIAL HISTORY: Nonsmoker. ALLERGIES: None. MEDICATIONS: Reviewed as listed in the MRAD including remdesivir, dexamethasone, Lovenox. REVIEW OF SYSTEMS: A 12-point system obtained. Pertinent positives and discussed in my present illness, otherwise noncontributory. All systems that were negative, were reviewed as well. PHYSICAL EXAMINATION: VITAL SIGNS: Reviewed. She is on high flow oxygen with saturation 90% on 10-12 liters. Afebrile. GENERAL: Visual exam done due to COVID-19. No obvious respiratory distress. No paradoxical breathing. EXTREMITIES: No leg edema. LABORATORY DATA: Reviewed. White cell count 4.7, hemoglobin 12.1 and platelets are 196. BUN 11, creatinine 0.6. IMPRESSION: 1. Acute hypoxic respiratory failure in a patient who has COVID-19 pneumonia. No significant tobacco history. 2. Abnormal chest x-ray with bilateral infiltrates related to COVID-19 viral pneumonia. 3. No significant tobacco history. RECOMMENDATIONS: 1. Continue present high flow oxygen, keep saturation 90 and above. 2. Continue remdesivir, which was initiated yesterday. 3. Continue dexamethasone per protocol. 4. Lovenox for DVT prophylaxis. 5. We will follow the clinical course. If needed, may use Vapotherm. 6. Discussed with ZOHRA. MICHAEL/OWEN PANDYA: MICHAEL/mer TID: [id number]
[2020-12-11 11:00] VITALS: BP 103/63
--- NOTE | 2020-12-11 12:09 | NUR ---
SW following. Discussed with RN, pt from home with , 12L, regular diet, COVID-19 positive. Pulmonology following. RN advised no SW needs at this time. SW will continue to follow.
--- NOTE | 2020-12-11 14:50 | PDOC ---
[employer] PROGRESS NOTE Date of Service DOS: DATE: 12/11/20 TIME: 14:47 Chief Complaint Chief Complaint Shortness of breath History of Present Illness History of Present Illness Ms Arce is a 53-year-old female w/ PMHx seasonal allergies, asthma, pre- diabetes, CAD, GERD, Diverticulosis, mastectomy, hysterectomy, cystocele, rectocele, Crohns disease, h/o extensive bowel resection, and prior left carotid artery dissection presents to ED complaining of Positive for COVID-19 on 12/04/2020 as pre-operative testing for endoscopy. With fever cough shortness of breath nausea vomiting diarrhea as well as loss of taste and smell. Today her O2 saturations were 82% and she was instructed to come to the ED. O2 INCREASED TO 6L/NC, O2 SATURATION IMPROVES TO 94%. EKG is NSR. Chest radiograph with multifocal opacities Labs WBC 4.7, Hb 12.1, platelets 196, D-dimer 0.56, NA 141, K3.5, BUN 8, CR 0.5, glucose 112, calcium 8.1, bilirubin 0.3, AST 33, ALT 34, alk phos 94, albumin 3, NT proBNP 818, troponin 0 Admitted for further treatment 12/11/20 Patient examined at bedside She reports some improvement in her breathing although still feels overall unwell Pulmonary consulted Continue steroids and remdesivir, empiric antibiotics Wean oxygen as tolerated Plan of care discussed with bedside nurse Vitals/I&O Vitals/I&O: Vital Signs Date Time Temp Pulse Resp B/P (MAP) Pulse Ox O2 Delivery O2 Flow Rate FiO2 12/11/20 11:00 98.2 83 18 103/63 (76) 89 Nasal Cannula 2.0 98.2 I & O 0 12/10/20 12/10/20 12/11/20 15:00 23:00 07:00 Intake Total 710 ml 0 ml Balance 710 ml 0 ml Physical Exam General: Alert, Oriented X3, Cooperative, moderate distress Lungs: Clear Abdomen: Normal bowel sounds, Soft, No tenderness, No hepatosplenomegaly, No masses Extremities: No clubbing, No cyanosis, No edema, Normal pulses, No tenderness/swelling Skin: No rashes, No breakdown, No significant lesion Labs Labs: Laboratory Tests Test 12/10/20 15:05 12/11/20 03:30 D-Dimer (Johanna) 0.56 ug/mlFEU (0.00-0.50) Sodium Level 145 mmol/L (136-145) Potassium Level 3.9 mmol/L (3.5-5.1) Chloride Level 108 mmol/L (98-107) Carbon Dioxide Level 29 mmol/L (21-32) Anion Gap 8 (6-14) Blood Urea Nitrogen 11 mg/dL (7-20) Creatinine 0.6 mg/dL (0.6-1.0) Estimated GFR (Cockcroft-Gault) 103.0 BUN/Creatinine Ratio 18 (6-20) Glucose Level 163 mg/dL (70-99) Calcium Level 8.8 mg/dL (8.5-10.1) Total Bilirubin 0.2 mg/dL (0.2-1.0) Aspartate Amino Transf (AST/SGOT) 31 U/L (15-37) Alanine Aminotransferase (ALT/SGPT) 31 U/L (14-59) Alkaline Phosphatase 93 U/L (46-116) Total Protein 6.9 g/dL (6.4-8.2) Albumin 2.8 g/dL (3.4-5.0) Albumin/Globulin Ratio 0.7 (1.0-1.7) Assessment and Plan Assessmemt and Plan Problems Medical Problems: (1) COVID-19 Status: Acute (2) Hypoxia Status: Acute A/P: Acute respiratory failure with hypoxia - due to COVID 19. empiric steroids, remdesivir COVID 19 diagnosis 12/04/2020 on rapid. We will treat aggressively with remdesivir daily Decadron. Crohns disease - sees GI outpatient. Previously intolerant to Pentasa has been on prednisone. Was plan answered immunomodulatory therapy in the near future. Nausea - likely from crohns vs mild gastroparesis Severe protein calorie malnutrition - likely from difficulty taking PO due to crohns Abdominal pain - with colitis and h/o diverticulitis, will admit for IV antibiotics Schatzki's ring/dilation - H/o GERD, dysphagia Asthma with seasonal allergies - cont meds FEN - General diet PPX - lovenox FULL CODE Dispo - inpatient for at least 2 midnights Comment Review of Relevant I have reviewed the following items so (where applicable) has been applied. Medications: Current Medications Medications (Trade) Dose Ordered Sig/Michael Route PRN Reason Start Time Stop Time Status Last Admin Dose Admin Dexamethasone Sodium Phosphate (Decadron) 10 mg 1X ONCE IVP 12/10/20 15:15 12/10/20 15:16 DC 12/10/20 15:44 Ceftriaxone Sodium (Rocephin) 1 gm 1X ONCE IVP 12/10/20 15:15 12/10/20 15:16 DC 12/10/20 15:44 Remdesivir 200 mg/ Sodium Chloride 210 ml @ 210 mls/hr 1X ONCE IV 12/10/20 16:00 12/10/20 16:59 DC 12/10/20 15:59 Ondansetron HCl (Zofran) 4 mg 1X ONCE IVP 12/10/20 15:45 12/10/20 15:46 DC 12/10/20 15:44 Acetaminophen (Tylenol) 1,000 mg 1X ONCE PO 12/10/20 15:45 12/10/20 15:46 DC 12/10/20 15:44 Guaifenesin (Robitussin Dm) 10 ml PRN Q6HRS PRN PO COUGH 12/10/20 15:45 12/10/20 21:35 Psyllium Hydrophilic Mucilloid (Metamucil Fiber Packet) 1 pkt QHS PO 12/10/20 21:00 12/10/20 21:34 Enoxaparin Sodium (Lovenox 40mg Syringe) 40 mg Q24H SQ 12/10/20 21:00 12/10/20 21:35 Zinc Sulfate (Orazinc) 220 mg DAILY PO 12/10/20 15:45 12/11/20 08:47 Dexamethasone Sodium Phosphate (Decadron) 4 mg DAILY IVP 12/11/20 09:00 12/19/20 09:01 12/11/20 08:47 Lorazepam (Ativan) 0.5 mg PRN Q8HRS PRN PO ANXIETY / AGITATION 12/10/20 17:45 12/10/20 21:57 Atorvastatin Calcium (Lipitor) 40 mg QHS PO 12/10/20 21:00 12/10/20 21:34 Montelukast Sodium (Singulair) 10 mg QHS PO 12/10/20 21:00 12/10/20 21:34 Cetirizine HCl (ZyrTEC) 10 mg DAILY PO 12/11/20 09:00 12/11/20 08:47 Fluticasone Propionate (Flonase) 2 spray DAILY NS 12/11/20 09:00 12/11/20 08:47 Pantoprazole Sodium (Protonix) 40 mg DAILYAC PO 12/11/20 07:30 12/11/20 08:46 Albuterol Sulfate (Ventolin Hfa) 2 puff PRN Q4HRS PRN INH SHORTNESS OF BREATH 12/10/20 17:45 12/11/20 08:48 Justifications for Admission Other Justification VIKI HANNON MD Dec 11, 2020 14:50
[2020-12-11 15:00] VITALS: BP 110/70
[2020-12-11] MEDS: REMDESIVIR 100mg in NORMAL SALINE 250ML X 4 DAYS IV SCH (17:23)
[2020-12-11 19:49] VITALS: BP 116/63
[2020-12-11] MEDS: LORazepam 0.5 MG TABLET PO PRN (21:13)
[2020-12-11] MEDS: guaiFENesin DM 200MG/20MG 10 ML SYRUP PO PRN (21:13)
[2020-12-11] MEDS: ATORVASTATIN CALCIUM 40 MG TABLET. PO SCH (21:14)
[2020-12-11] MEDS: MONTELUKAST SODIUM 10 MG TABLET. PO SCH (21:14)
[2020-12-11] MEDS: ENOXAPARIN 40 MG/0.4 ML SYRINGE. SQ SCH (21:14)
[2020-12-11] MEDS: PSYLLIUM HUSK (SUGAR FREE) 1 PKT PACKET PO SCH (21:14)
[2020-12-11 23:23] VITALS: BP 102/66
[2020-12-12 03:59] VITALS: BP 111/64
[2020-12-12 07:00] VITALS: BP 102/56
[2020-12-12] MEDS: ALBUTEROL SULFATE 8GM INHALER. INH PRN (08:40)
[2020-12-12] MEDS: PANTOPRAZOLE 40 MG TABLET.DR. PO SCH (08:48)
[2020-12-12] MEDS: FLUTICASONE 50MCG/NASAL SPRAY 16GM BOTTLE. NS SCH (09:00)
--- NOTE | 2020-12-12 09:00 | PDOC ---
PULMONARY PROGRESS NOTES DATE: 12/12/20 TIME: 08:59 Subjective no increase soa Vitals Vital Signs Date Time Temp Pulse Resp B/P (MAP) Pulse Ox O2 Delivery O2 Flow Rate FiO2 12/12/20 07:00 97.2 63 20 102/56 (71) 91 Nasal Cannula 12.0 97.2 Comments due to covid, no physical exam done no soa, no edema General: Alert, No acute distress Labs Laboratory Tests Test 12/10/20 14:04 12/10/20 15:05 12/11/20 03:30 White Blood Count 4.7 x10^3/uL (4.0-11.0) Red Blood Count 4.41 x10^6/uL (3.50-5.40) Hemoglobin 12.1 g/dL (12.0-15.5) Hematocrit 36.1 % (36.0-47.0) Mean Corpuscular Volume 82 fL (79-100) Mean Corpuscular Hemoglobin 27 pg (25-35) Mean Corpuscular Hemoglobin Concent 33 g/dL (31-37) Red Cell Distribution Width 17.7 % (11.5-14.5) Platelet Count 196 x10^3/uL (140-400) Neutrophils (%) (Auto) 84 % (31-73) Lymphocytes (%) (Auto) 11 % (24-48) Monocytes (%) (Auto) 4 % (0-9) Eosinophils (%) (Auto) 0 % (0-3) Basophils (%) (Auto) 0 % (0-3) Neutrophils # (Auto) 3.9 x10^3/uL (1.8-7.7) Lymphocytes # (Auto) 0.5 x10^3/uL (1.0-4.8) Monocytes # (Auto) 0.2 x10^3/uL (0.0-1.1) Eosinophils # (Auto) 0.0 x10^3/uL (0.0-0.7) Basophils # (Auto) 0.0 x10^3/uL (0.0-0.2) Sodium Level 141 mmol/L (136-145) 145 mmol/L (136-145) Potassium Level 3.5 mmol/L (3.5-5.1) 3.9 mmol/L (3.5-5.1) Chloride Level 104 mmol/L (98-107) 108 mmol/L (98-107) Carbon Dioxide Level 27 mmol/L (21-32) 29 mmol/L (21-32) Anion Gap 10 (6-14) 8 (6-14) Blood Urea Nitrogen 8 mg/dL (7-20) 11 mg/dL (7-20) Creatinine 0.5 mg/dL (0.6-1.0) 0.6 mg/dL (0.6-1.0) Estimated GFR (Cockcroft-Gault) 127.2 103.0 BUN/Creatinine Ratio 16 (6-20) 18 (6-20) Glucose Level 112 mg/dL (70-99) 163 mg/dL (70-99) Calcium Level 8.4 mg/dL (8.5-10.1) 8.8 mg/dL (8.5-10.1) Total Bilirubin 0.3 mg/dL (0.2-1.0) 0.2 mg/dL (0.2-1.0) Aspartate Amino Transf (AST/SGOT) 33 U/L (15-37) 31 U/L (15-37) Alanine Aminotransferase (ALT/SGPT) 34 U/L (14-59) 31 U/L (14-59) Alkaline Phosphatase 94 U/L (46-116) 93 U/L (46-116) Troponin I Quantitative < 0.017 ng/mL (0.000-0.055) IL-Bde-U-Type Natriuretic Peptide 118 pg/mL (0-124) Total Protein 6.9 g/dL (6.4-8.2) 6.9 g/dL (6.4-8.2) Albumin 3.0 g/dL (3.4-5.0) 2.8 g/dL (3.4-5.0) Albumin/Globulin Ratio 0.8 (1.0-1.7) 0.7 (1.0-1.7) D-Dimer (Johanna) 0.56 ug/mlFEU (0.00-0.50) Medications Active Scripts Medications Dose Route/Sig Max Daily Dose Days Date Category Acetaminophen 325 Mg Tablet 650 Mg PO PRN Q8-12HRS PRN 12/22/19 Reported Barbara Allergy (Fexofenadine Hcl) 60 Mg Tablet 60 Mg PO DAILY 12/22/19 Reported Atorvastatin Calcium 40 Mg Tablet 1 Tab PO QHS 02/23/19 Reported Montelukast Sodium Tablet (Montelukast Sodium) 10 Mg Tablet 1 Tab PO QHS 30 09/10/18 Rx Multivitamins (Multivitamin) 1 Each Tablet 1 Tab PO DAILY 08/12/18 Reported Melatonin 3 Mg Tablet 1 Tab PO QHS 08/12/18 Reported Proair Hfa (Albuterol Sulfate) 8.5 Gm Hfa.aer.ad 1 Puff INH PRN Q6HRS PRN 08/12/18 Reported Flonase Allergy Relief (Fluticasone Propionate) 9.9 Ml [place].susp 2 Sprays NS DAILY 08/12/18 Reported Omeprazole 20 Mg Tablet.dr 1 Tab PO DAILY 08/12/18 Reported Impression . 1. Acute hypoxic respiratory failure in a patient who has COVID-19 pneumonia. No significant tobacco history. 2. Abnormal chest x-ray with bilateral infiltrates related to COVID-19 viral pneumonia. 3. No significant tobacco history. Plan . 1. Continue present high flow oxygen, keep saturation 90 and above. 2. Continue remdesivir, 3. Continue dexamethasone per protocol. 4. Lovenox for DVT prophylaxis. 5. We will follow the clinical course. If needed, may use Vapotherm. 6. Discussed with IRENE CARRERO MD Dec 12, 2020 09:00
[2020-12-12 09:58] LABS: ALBUMIN 2.9 g/dL (3.4-5.0); ALBUMIN/GLOBULIN RATIO 0.7 (1.0-1.7); CALCIUM 8.7 mg/dL (8.5-10.1); CREATININE 0.7 mg/dL (0.6-1.0); GFR 86.2; POTASSIUM 3.5 mmol/L (3.5-5.1); TOTAL BILIRUBIN 0.2 mg/dL (0.2-1.0); TOTAL PROTEIN 6.9 g/dL (6.4-8.2)
[2020-12-12] MEDS: ZINC SULFATE 220 MG CAPSULE. PO SCH (10:00)
[2020-12-12] MEDS: DEXAMETHASONE SOD PHOS 4 MG/ML VIAL IVP SCH (10:00)
[2020-12-12] MEDS: CETIRIZINE HCL 10 MG TABLET. PO SCH (10:00)
[2020-12-12 11:00] VITALS: BP 111/63
--- NOTE | 2020-12-12 14:45 | PDOC ---
[employer] PROGRESS NOTE Date of Service DOS: DATE: 12/12/20 TIME: 14:43 Chief Complaint Chief Complaint Shortness of breath History of Present Illness History of Present Illness Ms Arce is a 53-year-old female w/ PMHx seasonal allergies, asthma, pre- diabetes, CAD, GERD, Diverticulosis, mastectomy, hysterectomy, cystocele, rectocele, Crohns disease, h/o extensive bowel resection, and prior left carotid artery dissection presents to ED complaining of Positive for COVID-19 on 12/04/2020 as pre-operative testing for endoscopy. With fever cough shortness of breath nausea vomiting diarrhea as well as loss of taste and smell. Today her O2 saturations were 82% and she was instructed to come to the ED. O2 INCREASED TO 6L/NC, O2 SATURATION IMPROVES TO 94%. EKG is NSR. Chest radiograph with multifocal opacities Labs WBC 4.7, Hb 12.1, platelets 196, D-dimer 0.56, NA 141, K3.5, BUN 8, CR 0.5, glucose 112, calcium 8.1, bilirubin 0.3, AST 33, ALT 34, alk phos 94, albumin 3, NT proBNP 818, troponin 0 Admitted for further treatment 12/12/20 Patient seen and examined at bedside Continues to have shortness of breath Pulmonary consulted, continue steroids remdesivir empiric antibiotics Otherwise no major clinical changes Plan of care discussed with bedside nurse 12/11/20 Patient examined at bedside She reports some improvement in her breathing although still feels overall unwell Pulmonary consulted Continue steroids and remdesivir; hold off on antibiotics Wean oxygen as tolerated Plan of care discussed with bedside nurse Vitals/I&O Vitals/I&O: Vital Signs Date Time Temp Pulse Resp B/P (MAP) Pulse Ox O2 Delivery O2 Flow Rate FiO2 12/12/20 11:00 98.0 75 18 111/63 (79) 90 Nasal Cannula 12.0 98.0 Physical Exam General: Alert, Oriented X3, Cooperative, moderate distress Heart: Regular rate, Normal S1, Normal S2 Lungs: Other (coarse) Abdomen: Normal bowel sounds, Soft, No tenderness, No hepatosplenomegaly, No masses Extremities: No clubbing, No cyanosis, No edema, Normal pulses, No tenderness/swelling Skin: No rashes, No breakdown, No significant lesion Labs Labs: Laboratory Tests Test 12/12/20 09:20 Sodium Level 144 mmol/L (136-145) Potassium Level 3.5 mmol/L (3.5-5.1) Chloride Level 105 mmol/L (98-107) Carbon Dioxide Level 25 mmol/L (21-32) Anion Gap 14 (6-14) Blood Urea Nitrogen 17 mg/dL (7-20) Creatinine 0.7 mg/dL (0.6-1.0) Estimated GFR (Cockcroft-Gault) 86.2 BUN/Creatinine Ratio 24 (6-20) Glucose Level 163 mg/dL (70-99) Calcium Level 8.7 mg/dL (8.5-10.1) Total Bilirubin 0.2 mg/dL (0.2-1.0) Aspartate Amino Transf (AST/SGOT) 31 U/L (15-37) Alanine Aminotransferase (ALT/SGPT) 35 U/L (14-59) Alkaline Phosphatase 93 U/L (46-116) Total Protein 6.9 g/dL (6.4-8.2) Albumin 2.9 g/dL (3.4-5.0) Albumin/Globulin Ratio 0.7 (1.0-1.7) Review of Systems Review of Systems: Endorsing shortness of breath Assessment and Plan Assessmemt and Plan Problems Medical Problems: (1) COVID-19 Status: Acute (2) Hypoxia Status: Acute A/P: Acute respiratory failure with hypoxia - due to COVID 19. empiric steroids, remdesivir COVID 19 diagnosis 12/04/2020 on rapid. We will treat aggressively with remdesivir daily Decadron. Crohns disease - sees GI outpatient. Previously intolerant to Pentasa has been on prednisone. Was plan answered immunomodulatory therapy in the near future. Nausea - likely from crohns vs mild gastroparesis Severe protein calorie malnutrition - likely from difficulty taking PO due to crohns Abdominal pain - with colitis and h/o diverticulitis, will admit for IV antibiotics Schatzki's ring/dilation - H/o GERD, dysphagia Asthma with seasonal allergies - cont meds FEN - General diet PPX - lovenox FULL CODE Dispo - inpatient for at least 2 midnights Comment Review of Relevant I have reviewed the following items so (where applicable) has been applied. Medications: Current Medications Medications (Trade) Dose Ordered Sig/Michael Route PRN Reason Start Time Stop Time Status Last Admin Dose Admin Remdesivir 100 mg/ Sodium Chloride 230 ml @ 460 mls/hr Q24H IV 12/11/20 16:00 12/14/20 16:29 12/11/20 17:23 Justifications for Admission Other Justification VIKI HANNON MD Dec 12, 2020 14:45
[2020-12-12 15:00] VITALS: BP 115/70
[2020-12-12] MEDS: REMDESIVIR 100mg in NORMAL SALINE 250ML X 4 DAYS IV SCH (15:33)
[2020-12-12 19:00] VITALS: BP 121/71
[2020-12-12] MEDS: PSYLLIUM HUSK (SUGAR FREE) 1 PKT PACKET PO SCH (20:30)
[2020-12-12] MEDS: guaiFENesin DM 200MG/20MG 10 ML SYRUP PO PRN (20:30)
[2020-12-12] MEDS: LORazepam 0.5 MG TABLET PO PRN (20:31)
[2020-12-12] MEDS: ENOXAPARIN 40 MG/0.4 ML SYRINGE. SQ SCH (20:31)
[2020-12-12] MEDS: MONTELUKAST SODIUM 10 MG TABLET. PO SCH (20:31)
[2020-12-12] MEDS: ATORVASTATIN CALCIUM 40 MG TABLET. PO SCH (20:31)
[2020-12-12 23:00] VITALS: BP 107/53
[2020-12-13 03:00] VITALS: BP 128/73
[2020-12-13 07:00] VITALS: BP 123/69
[2020-12-13] MEDS: DEXAMETHASONE SOD PHOS 4 MG/ML VIAL IVP SCH (08:19)
[2020-12-13] MEDS: CETIRIZINE HCL 10 MG TABLET. PO SCH (08:19)
[2020-12-13] MEDS: PANTOPRAZOLE 40 MG TABLET.DR. PO SCH (08:19)
[2020-12-13] MEDS: FLUTICASONE 50MCG/NASAL SPRAY 16GM BOTTLE. NS SCH (08:20)
[2020-12-13] MEDS: ALBUTEROL SULFATE 8GM INHALER. INH PRN (08:20)
[2020-12-13] MEDS: ZINC SULFATE 220 MG CAPSULE. PO SCH (09:32)
[2020-12-13 11:00] VITALS: BP 125/83
--- NOTE | 2020-12-13 11:20 | NUR ---
SW following. Discussed with RN, pt dropped down 1L to 11L oxygen, still COVID-19 positive. No SW needs at this time. SW will continue to follow.
[2020-12-13 15:00] VITALS: BP 122/71
--- NOTE | 2020-12-13 15:57 | PDOC ---
[employer] PROGRESS NOTE Date of Service DOS: DATE: 12/13/20 TIME: 15:55 Chief Complaint Chief Complaint Shortness of breath History of Present Illness History of Present Illness Ms Arce is a 53-year-old female w/ PMHx seasonal allergies, asthma, pre- diabetes, CAD, GERD, Diverticulosis, mastectomy, hysterectomy, cystocele, rectocele, Crohns disease, h/o extensive bowel resection, and prior left carotid artery dissection presents to ED complaining of Positive for COVID-19 on 12/04/2020 as pre-operative testing for endoscopy. With fever cough shortness of breath nausea vomiting diarrhea as well as loss of taste and smell. Today her O2 saturations were 82% and she was instructed to come to the ED. O2 INCREASED TO 6L/NC, O2 SATURATION IMPROVES TO 94%. EKG is NSR. Chest radiograph with multifocal opacities Labs WBC 4.7, Hb 12.1, platelets 196, D-dimer 0.56, NA 141, K3.5, BUN 8, CR 0.5, glucose 112, calcium 8.1, bilirubin 0.3, AST 33, ALT 34, alk phos 94, albumin 3, NT proBNP 818, troponin 0 Admitted for further treatment 12/13/20 Patient seen and examined at bedside Has not some improvement today however still not at baseline No major clinical changes Plan of care discussed with bedside nurse 12/12/20 Patient seen and examined at bedside Continues to have shortness of breath Pulmonary consulted, continue steroids remdesivir empiric antibiotics Otherwise no major clinical changes Plan of care discussed with bedside nurse 12/11/20 Patient examined at bedside She reports some improvement in her breathing although still feels overall unwell Pulmonary consulted Continue steroids and remdesivir; hold off on antibiotics Wean oxygen as tolerated Plan of care discussed with bedside nurse Vitals/I&O Vitals/I&O: Vital Signs Date Time Temp Pulse Resp B/P (MAP) Pulse Ox O2 Delivery O2 Flow Rate FiO2 12/13/20 11:00 78 20 125/83 (97) 95 Nasal Cannula 10.0 12/13/20 07:00 98.0 98.0 I & O 12/12/20 12/12/20 12/13/20 15:00 23:00 07:00 Intake Total 300 ml Output Total 250 ml Balance 300 ml -250 ml Physical Exam General: Alert, Oriented X3, Cooperative, moderate distress Heart: Regular rate, Normal S1, Normal S2 Lungs: Other (coarse) Abdomen: Normal bowel sounds, Soft, No tenderness, No hepatosplenomegaly, No masses Extremities: No clubbing, No cyanosis, No edema, Normal pulses, No tenderness/swelling Skin: No rashes, No breakdown, No significant lesion Review of Systems Review of Systems: Endorses shortness of breath Assessment and Plan Assessmemt and Plan Problems Medical Problems: (1) COVID-19 Status: Acute (2) Hypoxia Status: Acute A/P: Acute respiratory failure with hypoxia - due to COVID 19. empiric steroids, remdesivir COVID 19 diagnosis 12/04/2020 on rapid. We will treat aggressively with remdesivir daily Decadron. Crohns disease - sees GI outpatient. Previously intolerant to Pentasa has been on prednisone. Was plan answered immunomodulatory therapy in the near future. Nausea - likely from crohns vs mild gastroparesis Severe protein calorie malnutrition - likely from difficulty taking PO due to crohns Abdominal pain - with colitis and h/o diverticulitis, will admit for IV antibiotics Schatzki's ring/dilation - H/o GERD, dysphagia Asthma with seasonal allergies - cont meds FEN - General diet PPX - lovenox FULL CODE Dispo - inpatient for at least 2 midnight Comment Review of Relevant I have reviewed the following items so (where applicable) has been applied. Justifications for Admission Other Justification VIKI HANNON MD Dec 13, 2020 15:57
[2020-12-13 16:08] LABS: ALBUMIN 3.1 g/dL (3.4-5.0); ALBUMIN/GLOBULIN RATIO 0.9 (1.0-1.7); CALCIUM 8.8 mg/dL (8.5-10.1); CREATININE 0.6 mg/dL (0.6-1.0); POTASSIUM 4.4 mmol/L (3.5-5.1); TOTAL BILIRUBIN 0.2 mg/dL (0.2-1.0); TOTAL PROTEIN 6.4 g/dL (6.4-8.2)
[2020-12-13] MEDS: REMDESIVIR 100mg in NORMAL SALINE 250ML X 4 DAYS IV SCH (16:41)
[2020-12-13 19:00] VITALS: BP 141/73
[2020-12-13] MEDS: LORazepam 0.5 MG TABLET PO PRN (20:19)
[2020-12-13] MEDS: ATORVASTATIN CALCIUM 40 MG TABLET. PO SCH (20:19)
[2020-12-13] MEDS: guaiFENesin DM 200MG/20MG 10 ML SYRUP PO PRN (20:19)
[2020-12-13] MEDS: PSYLLIUM HUSK (SUGAR FREE) 1 PKT PACKET PO SCH (20:19)
[2020-12-13] MEDS: MONTELUKAST SODIUM 10 MG TABLET. PO SCH (20:19)
[2020-12-13] MEDS: ENOXAPARIN 40 MG/0.4 ML SYRINGE. SQ SCH (20:20)
[2020-12-13 23:00] VITALS: BP 111/63
[2020-12-14 03:00] VITALS: BP 121/82
[2020-12-14] MEDS: guaiFENesin DM 200MG/20MG 10 ML SYRUP PO PRN ×3 (04:24→16:55)
[2020-12-14 04:45] LABS: ALBUMIN 2.8 g/dL (3.4-5.0); ALBUMIN/GLOBULIN RATIO 0.8 (1.0-1.7); CALCIUM 8.6 mg/dL (8.5-10.1); CREATININE 0.5 mg/dL (0.6-1.0); GFR 127.2; POTASSIUM 3.7 mmol/L (3.5-5.1); TOTAL BILIRUBIN 0.3 mg/dL (0.2-1.0); TOTAL PROTEIN 6.1 g/dL (6.4-8.2)
[2020-12-14 07:00] VITALS: BP 133/77
[2020-12-14] MEDS: DEXAMETHASONE SOD PHOS 4 MG/ML VIAL IVP SCH (08:23)
[2020-12-14] MEDS: PANTOPRAZOLE 40 MG TABLET.DR. PO SCH (08:24)
[2020-12-14] MEDS: FLUTICASONE 50MCG/NASAL SPRAY 16GM BOTTLE. NS SCH (08:24)
[2020-12-14] MEDS: ZINC SULFATE 220 MG CAPSULE. PO SCH (08:24)
[2020-12-14] MEDS: CETIRIZINE HCL 10 MG TABLET. PO SCH (08:24)
[2020-12-14 11:00] VITALS: BP 121/87
--- NOTE | 2020-12-14 11:07 | PDOC ---
PULMONARY PROGRESS NOTES DATE: 12/14/20 TIME: 11:06 Subjective no increase soa Vitals Vital Signs Date Time Temp Pulse Resp B/P (MAP) Pulse Ox O2 Delivery O2 Flow Rate FiO2 12/14/20 07:00 97.3 70 18 133/77 (95) 94 Nasal Cannula 4.0 97.3 Comments due to covid, no physical exam done no soa, no edema General: Alert, No acute distress Lungs: Other (coarse) Labs Laboratory Tests Test 12/13/20 15:25 12/14/20 04:00 Sodium Level 141 mmol/L (136-145) 143 mmol/L (136-145) Potassium Level 4.4 mmol/L (3.5-5.1) 3.7 mmol/L (3.5-5.1) Chloride Level 104 mmol/L (98-107) 108 mmol/L (98-107) Carbon Dioxide Level 22 mmol/L (21-32) 23 mmol/L (21-32) Anion Gap 15 (6-14) 12 (6-14) Blood Urea Nitrogen 18 mg/dL (7-20) 19 mg/dL (7-20) Creatinine 0.6 mg/dL (0.6-1.0) 0.5 mg/dL (0.6-1.0) Estimated GFR (Cockcroft-Gault) 103.0 127.2 BUN/Creatinine Ratio 30 (6-20) 38 (6-20) Glucose Level 135 mg/dL (70-99) 119 mg/dL (70-99) Calcium Level 8.8 mg/dL (8.5-10.1) 8.6 mg/dL (8.5-10.1) Total Bilirubin 0.2 mg/dL (0.2-1.0) 0.3 mg/dL (0.2-1.0) Aspartate Amino Transf (AST/SGOT) 26 U/L (15-37) 20 U/L (15-37) Alanine Aminotransferase (ALT/SGPT) 38 U/L (14-59) 33 U/L (14-59) Alkaline Phosphatase 92 U/L (46-116) 86 U/L (46-116) Total Protein 6.4 g/dL (6.4-8.2) 6.1 g/dL (6.4-8.2) Albumin 3.1 g/dL (3.4-5.0) 2.8 g/dL (3.4-5.0) Albumin/Globulin Ratio 0.9 (1.0-1.7) 0.8 (1.0-1.7) Laboratory Tests Test 12/13/20 15:25 12/14/20 04:00 Sodium Level 141 mmol/L (136-145) 143 mmol/L (136-145) Potassium Level 4.4 mmol/L (3.5-5.1) 3.7 mmol/L (3.5-5.1) Chloride Level 104 mmol/L (98-107) 108 mmol/L (98-107) Carbon Dioxide Level 22 mmol/L (21-32) 23 mmol/L (21-32) Anion Gap 15 (6-14) 12 (6-14) Blood Urea Nitrogen 18 mg/dL (7-20) 19 mg/dL (7-20) Creatinine 0.6 mg/dL (0.6-1.0) 0.5 mg/dL (0.6-1.0) Estimated GFR (Cockcroft-Gault) 103.0 127.2 BUN/Creatinine Ratio 30 (6-20) 38 (6-20) Glucose Level 135 mg/dL (70-99) 119 mg/dL (70-99) Calcium Level 8.8 mg/dL (8.5-10.1) 8.6 mg/dL (8.5-10.1) Total Bilirubin 0.2 mg/dL (0.2-1.0) 0.3 mg/dL (0.2-1.0) Aspartate Amino Transf (AST/SGOT) 26 U/L (15-37) 20 U/L (15-37) Alanine Aminotransferase (ALT/SGPT) 38 U/L (14-59) 33 U/L (14-59) Alkaline Phosphatase 92 U/L (46-116) 86 U/L (46-116) Total Protein 6.4 g/dL (6.4-8.2) 6.1 g/dL (6.4-8.2) Albumin 3.1 g/dL (3.4-5.0) 2.8 g/dL (3.4-5.0) Albumin/Globulin Ratio 0.9 (1.0-1.7) 0.8 (1.0-1.7) Medications Active Scripts Medications Dose Route/Sig Max Daily Dose Days Date Category Acetaminophen 325 Mg Tablet 650 Mg PO PRN Q8-12HRS PRN 12/22/19 Reported Barbara Allergy (Fexofenadine Hcl) 60 Mg Tablet 60 Mg PO DAILY 12/22/19 Reported Atorvastatin Calcium 40 Mg Tablet 1 Tab PO QHS 02/23/19 Reported Montelukast Sodium Tablet (Montelukast Sodium) 10 Mg Tablet 1 Tab PO QHS 30 09/10/18 Rx Multivitamins (Multivitamin) 1 Each Tablet 1 Tab PO DAILY 08/12/18 Reported Melatonin 3 Mg Tablet 1 Tab PO QHS 08/12/18 Reported Proair Hfa (Albuterol Sulfate) 8.5 Gm Hfa.aer.ad 1 Puff INH PRN Q6HRS PRN 08/12/18 Reported Flonase Allergy Relief (Fluticasone Propionate) 9.9 Ml [place].susp 2 Sprays NS DAILY 08/12/18 Reported Omeprazole 20 Mg Tablet.dr 1 Tab PO DAILY 08/12/18 Reported Impression . 1. Acute hypoxic respiratory failure in a patient who has COVID-19 pneumonia. No significant tobacco history. 2. Abnormal chest x-ray with bilateral infiltrates related to COVID-19 viral pneumonia. 3. No significant tobacco history. Plan . 1. Continue present high flow oxygen, keep saturation 90 and above. Oxygen requirement mildly improved. 2. Continue remdesivir, 3. Continue dexamethasone per protocol. 4. Lovenox for DVT prophylaxis. 5. We will follow the clinical course. No need for Vapotherm at present 6. Discussed with ZOHRA. IRENE HUBBARD MD Dec 14, 2020 11:07
--- NOTE | 2020-12-14 14:28 | PDOC ---
[employer] PROGRESS NOTE Date of Service DOS: DATE: 12/14/20 TIME: 14:26 Chief Complaint Chief Complaint Shortness of breath History of Present Illness History of Present Illness Ms Arce is a 53-year-old female w/ PMHx seasonal allergies, asthma, pre- diabetes, CAD, GERD, Diverticulosis, mastectomy, hysterectomy, cystocele, rectocele, Crohns disease, h/o extensive bowel resection, and prior left carotid artery dissection presents to ED complaining of Positive for COVID-19 on 12/04/2020 as pre-operative testing for endoscopy. With fever cough shortness of breath nausea vomiting diarrhea as well as loss of taste and smell. Today her O2 saturations were 82% and she was instructed to come to the ED. O2 INCREASED TO 6L/NC, O2 SATURATION IMPROVES TO 94%. EKG is NSR. Chest radiograph with multifocal opacities Labs WBC 4.7, Hb 12.1, platelets 196, D-dimer 0.56, NA 141, K3.5, BUN 8, CR 0.5, glucose 112, calcium 8.1, bilirubin 0.3, AST 33, ALT 34, alk phos 94, albumin 3, NT proBNP 818, troponin 0 Admitted for further treatment 12/14/20 Patient seen and examined at bedside Respiratory status stable remains on high flow oxygen will wean as tolerated Continue Dex remdesivir Ambulate as tolerated Plan of care discussed with bedside nurse 12/13/20 Patient seen and examined at bedside Has not some improvement today however still not at baseline No major clinical changes Plan of care discussed with bedside nurse 12/12/20 Patient seen and examined at bedside Continues to have shortness of breath Pulmonary consulted, continue steroids remdesivir empiric antibiotics Otherwise no major clinical changes Plan of care discussed with bedside nurse 12/11/20 Patient examined at bedside She reports some improvement in her breathing although still feels overall unwell Pulmonary consulted Continue steroids and remdesivir; hold off on antibiotics Wean oxygen as tolerated Plan of care discussed with bedside nurse Vitals/I&O Vitals/I&O: Vital Signs Date Time Temp Pulse Resp B/P (MAP) Pulse Ox O2 Delivery O2 Flow Rate FiO2 12/14/20 11:00 97.6 80 17 121/87 (98) 94 Nasal Cannula 4.0 97.6 I & O 12/13/20 12/13/20 12/14/20 15:00 23:00 07:00 Intake Total 600 ml 300 ml Output Total 600 ml Balance 600 ml 300 ml -600 ml Physical Exam General: Alert, Oriented X3, Cooperative, moderate distress Heart: Regular rate, Normal S1, Normal S2 Lungs: Clear Abdomen: Normal bowel sounds, Soft, No tenderness, No hepatosplenomegaly, No masses Extremities: No clubbing, No cyanosis, No edema, Normal pulses, No tenderness/swelling Skin: No rashes, No breakdown, No significant lesion Labs Labs: Laboratory Tests Test 12/13/20 15:25 12/14/20 04:00 Sodium Level 141 mmol/L (136-145) 143 mmol/L (136-145) Potassium Level 4.4 mmol/L (3.5-5.1) 3.7 mmol/L (3.5-5.1) Chloride Level 104 mmol/L (98-107) 108 mmol/L (98-107) Carbon Dioxide Level 22 mmol/L (21-32) 23 mmol/L (21-32) Anion Gap 15 (6-14) 12 (6-14) Blood Urea Nitrogen 18 mg/dL (7-20) 19 mg/dL (7-20) Creatinine 0.6 mg/dL (0.6-1.0) 0.5 mg/dL (0.6-1.0) Estimated GFR (Cockcroft-Gault) 103.0 127.2 BUN/Creatinine Ratio 30 (6-20) 38 (6-20) Glucose Level 135 mg/dL (70-99) 119 mg/dL (70-99) Calcium Level 8.8 mg/dL (8.5-10.1) 8.6 mg/dL (8.5-10.1) Total Bilirubin 0.2 mg/dL (0.2-1.0) 0.3 mg/dL (0.2-1.0) Aspartate Amino Transf (AST/SGOT) 26 U/L (15-37) 20 U/L (15-37) Alanine Aminotransferase (ALT/SGPT) 38 U/L (14-59) 33 U/L (14-59) Alkaline Phosphatase 92 U/L (46-116) 86 U/L (46-116) Total Protein 6.4 g/dL (6.4-8.2) 6.1 g/dL (6.4-8.2) Albumin 3.1 g/dL (3.4-5.0) 2.8 g/dL (3.4-5.0) Albumin/Globulin Ratio 0.9 (1.0-1.7) 0.8 (1.0-1.7) Review of Systems Review of Systems: Stable shortness of breath Assessment and Plan Assessmemt and Plan Problems Medical Problems: (1) COVID-19 Status: Acute (2) Hypoxia Status: Acute A/P: Acute respiratory failure with hypoxia - due to COVID 19. empiric steroids, re mdesivir COVID 19 diagnosis 12/04/2020 on rapid. We will treat aggressively with remdesivir daily Decadron. Crohns disease - sees GI outpatient. Previously intolerant to Pentasa has been on prednisone. Was plan answered immunomodulatory therapy in the near future. Nausea - likely from crohns vs mild gastroparesis Severe protein calorie malnutrition - likely from difficulty taking PO due to crohns Abdominal pain - with colitis and h/o diverticulitis, will admit for IV antibiotics Schatzki's ring/dilation - H/o GERD, dysphagia Asthma with seasonal allergies - cont meds FEN - General diet PPX - lovenox FULL CODE Dispo - inpatient for at least 2 midnight Comment Review of Relevant I have reviewed the following items so (where applicable) has been applied. Justifications for Admission Other Justification VIKI HANNON MD Dec 14, 2020 14:28
[2020-12-14 15:00] VITALS: BP 130/62
[2020-12-14] MEDS: REMDESIVIR 100mg in NORMAL SALINE 250ML X 4 DAYS IV SCH (16:00)
[2020-12-14] MEDS: ENOXAPARIN 40 MG/0.4 ML SYRINGE. SQ SCH (20:10)
[2020-12-14] MEDS: PSYLLIUM HUSK (SUGAR FREE) 1 PKT PACKET PO SCH ×2 (20:10→20:49)
[2020-12-14] MEDS: ATORVASTATIN CALCIUM 40 MG TABLET. PO SCH (20:10)
[2020-12-14] MEDS: MONTELUKAST SODIUM 10 MG TABLET. PO SCH (20:10)
[2020-12-14] MEDS: LORazepam 0.5 MG TABLET PO PRN (20:11)
[2020-12-14] MEDS: ALBUTEROL SULFATE 8GM INHALER. INH PRN (20:11)
[2020-12-14] MEDS: traMADol 50 MG TABLET PO PRN (20:26)
[2020-12-14 23:50] VITALS: BP 119/71
[2020-12-15 03:24] VITALS: BP 131/84
[2020-12-15 07:00] VITALS: BP 119/74
[2020-12-15] MEDS: CETIRIZINE HCL 10 MG TABLET. PO SCH (07:49)
[2020-12-15] MEDS: ZINC SULFATE 220 MG CAPSULE. PO SCH (07:49)
[2020-12-15] MEDS: PANTOPRAZOLE 40 MG TABLET.DR. PO SCH (07:49)
[2020-12-15] MEDS: DEXAMETHASONE SOD PHOS 4 MG/ML VIAL IVP SCH (07:50)
[2020-12-15] MEDS: FLUTICASONE 50MCG/NASAL SPRAY 16GM BOTTLE. NS SCH (07:50)
--- NOTE | 2020-12-15 10:18 | PDOC ---
PULMONARY PROGRESS NOTES DATE: 12/15/20 TIME: 10:15 Subjective no increase soa Vitals Vital Signs Date Time Temp Pulse Resp B/P (MAP) Pulse Ox O2 Delivery O2 Flow Rate FiO2 12/15/20 08:00 Nasal Cannula 6.0 12/15/20 07:00 96.7 69 20 119/74 (89) 91 96.7 Comments due to covid, no physical exam done no soa, no edema General: Alert, No acute distress Lungs: Clear Labs Laboratory Tests Test 12/13/20 15:25 12/14/20 04:00 Sodium Level 141 mmol/L (136-145) 143 mmol/L (136-145) Potassium Level 4.4 mmol/L (3.5-5.1) 3.7 mmol/L (3.5-5.1) Chloride Level 104 mmol/L (98-107) 108 mmol/L (98-107) Carbon Dioxide Level 22 mmol/L (21-32) 23 mmol/L (21-32) Anion Gap 15 (6-14) 12 (6-14) Blood Urea Nitrogen 18 mg/dL (7-20) 19 mg/dL (7-20) Creatinine 0.6 mg/dL (0.6-1.0) 0.5 mg/dL (0.6-1.0) Estimated GFR (Cockcroft-Gault) 103.0 127.2 BUN/Creatinine Ratio 30 (6-20) 38 (6-20) Glucose Level 135 mg/dL (70-99) 119 mg/dL (70-99) Calcium Level 8.8 mg/dL (8.5-10.1) 8.6 mg/dL (8.5-10.1) Total Bilirubin 0.2 mg/dL (0.2-1.0) 0.3 mg/dL (0.2-1.0) Aspartate Amino Transf (AST/SGOT) 26 U/L (15-37) 20 U/L (15-37) Alanine Aminotransferase (ALT/SGPT) 38 U/L (14-59) 33 U/L (14-59) Alkaline Phosphatase 92 U/L (46-116) 86 U/L (46-116) Total Protein 6.4 g/dL (6.4-8.2) 6.1 g/dL (6.4-8.2) Albumin 3.1 g/dL (3.4-5.0) 2.8 g/dL (3.4-5.0) Albumin/Globulin Ratio 0.9 (1.0-1.7) 0.8 (1.0-1.7) Medications Active Scripts Medications Dose Route/Sig Max Daily Dose Days Date Category Acetaminophen 325 Mg Tablet 650 Mg PO PRN Q8-12HRS PRN 12/22/19 Reported Barbara Allergy (Fexofenadine Hcl) 60 Mg Tablet 60 Mg PO DAILY 12/22/19 Reported Atorvastatin Calcium 40 Mg Tablet 1 Tab PO QHS 02/23/19 Reported Montelukast Sodium Tablet (Montelukast Sodium) 10 Mg Tablet 1 Tab PO QHS 30 09/10/18 Rx Multivitamins (Multivitamin) 1 Each Tablet 1 Tab PO DAILY 08/12/18 Reported Melatonin 3 Mg Tablet 1 Tab PO QHS 08/12/18 Reported Proair Hfa (Albuterol Sulfate) 8.5 Gm Hfa.aer.ad 1 Puff INH PRN Q6HRS PRN 08/12/18 Reported Flonase Allergy Relief (Fluticasone Propionate) 9.9 Ml [place].susp 2 Sprays NS DAILY 08/12/18 Reported Omeprazole 20 Mg Tablet.dr 1 Tab PO DAILY 08/12/18 Reported Impression . 1. Acute hypoxic respiratory failure in a patient who has COVID-19 pneumonia. No significant tobacco history. 2. Abnormal chest x-ray with bilateral infiltrates related to COVID-19 viral pneumonia. 3. No significant tobacco history. Plan . 1. Continue present high flow oxygen, keep saturation 90 and above. Oxygen re quirement improved. Down to 6 L 2. Continue remdesivir, 3. Continue dexamethasone per protocol. 4. Lovenox for DVT prophylaxis. 5. We will follow the clinical course. No need for Vapotherm at present 6. Discussed with RN. IRENE HUBBARD MD Dec 15, 2020 10:18
[2020-12-15 11:00] VITALS: BP 118/71
--- NOTE | 2020-12-15 12:07 | PDOC ---
[employer] PROGRESS NOTE Date of Service DOS: DATE: 12/15/20 TIME: 12:06 Chief Complaint Chief Complaint Shortness of breath History of Present Illness History of Present Illness Ms Arce is a 53-year-old female w/ PMHx seasonal allergies, asthma, pre- diabetes, CAD, GERD, Diverticulosis, mastectomy, hysterectomy, cystocele, rectocele, Crohns disease, h/o extensive bowel resection, and prior left carotid artery dissection presents to ED complaining of Positive for COVID-19 on 12/04/2020 as pre-operative testing for endoscopy. With fever cough shortness of breath nausea vomiting diarrhea as well as loss of taste and smell. Today her O2 saturations were 82% and she was instructed to come to the ED. O2 INCREASED TO 6L/NC, O2 SATURATION IMPROVES TO 94%. EKG is NSR. Chest radiograph with multifocal opacities Labs WBC 4.7, Hb 12.1, platelets 196, D-dimer 0.56, NA 141, K3.5, BUN 8, CR 0.5, glucose 112, calcium 8.1, bilirubin 0.3, AST 33, ALT 34, alk phos 94, albumin 3, NT proBNP 818, troponin 0 Admitted for further treatment 12/15/20 Patient seen and examined at bedside Currently on 6 L nasal cannula, reports that she does not feel more short of breath but is still far from baseline Continuing Covid treatment, pulmonary following Plan of care discussed with bedside RN 12/14/20 Patient seen and examined at bedside Respiratory status stable remains on high flow oxygen will wean as tolerated Continue Dex remdesivir Ambulate as tolerated Plan of care discussed with bedside nurse 12/13/20 Patient seen and examined at bedside Has not some improvement today however still not at baseline No major clinical changes Plan of care discussed with bedside nurse 12/12/20 Patient seen and examined at bedside Continues to have shortness of breath Pulmonary consulted, continue steroids remdesivir empiric antibiotics Otherwise no major clinical changes Plan of care discussed with bedside nurse 12/11/20 Patient examined at bedside She reports some improvement in her breathing although still feels overall unwell Pulmonary consulted Continue steroids and remdesivir; hold off on antibiotics Wean oxygen as tolerated Plan of care discussed with bedside nurse Vitals/I&O Vitals/I&O: Vital Signs Date Time Temp Pulse Resp B/P (MAP) Pulse Ox O2 Delivery O2 Flow Rate FiO2 12/15/20 08:00 Nasal Cannula 6.0 12/15/20 07:00 96.7 69 20 119/74 (10) 91 96.7 I & O 12/14/20 12/14/20 12/15/20 14:59 22:59 06:59 Intake Total 500 ml Output Total 200 ml Balance -200 ml 500 ml Physical Exam General: Alert, Oriented X3, Cooperative, moderate distress Heart: Regular rate, Normal S1, Normal S2 Lungs: Clear Abdomen: Normal bowel sounds, Soft, No tenderness, No hepatosplenomegaly, No masses Extremities: No clubbing, No cyanosis, No edema, Normal pulses, No tenderness/swelling Skin: No rashes, No breakdown, No significant lesion Review of Systems Review of Systems: Unless noted in today's HPI Assessment and Plan Assessmemt and Plan Problems Medical Problems: (1) COVID-19 Status: Acute (2) Hypoxia Status: Acute A/P: Acute respiratory failure with hypoxia - due to COVID 19. empiric steroids, remdesivir COVID 19 diagnosis 12/04/2020 on rapid. We will treat aggressively with remdesivir daily Decadron. Crohns disease - sees GI outpatient. Previously intolerant to Pentasa has been on prednisone. Was plan answered immunomodulatory therapy in the near future. Nausea - likely from crohns vs mild gastroparesis Severe protein calorie malnutrition - likely from difficulty taking PO due to crohns Abdominal pain - with colitis and h/o diverticulitis, will admit for IV antibiotics Schatzki's ring/dilation - H/o GERD, dysphagia Asthma with seasonal allergies - cont meds FEN - General diet PPX - lovenox FULL CODE Dispo - inpatient for at least 2 midnight Comment Review of Relevant I have reviewed the following items so (where applicable) has been applied. Justifications for Admission Other Justification VIKI HANNON MD Dec 15, 2020 12:07
[2020-12-15 15:00] VITALS: BP 114/66
[2020-12-15 19:00] VITALS: BP 120/73
[2020-12-15] MEDS: LORazepam 0.5 MG TABLET PO PRN (20:57)
[2020-12-15] MEDS: MONTELUKAST SODIUM 10 MG TABLET. PO SCH (20:57)
[2020-12-15] MEDS: ATORVASTATIN CALCIUM 40 MG TABLET. PO SCH (20:57)
[2020-12-15] MEDS: guaiFENesin DM 200MG/20MG 10 ML SYRUP PO PRN (20:58)
[2020-12-15] MEDS: ENOXAPARIN 40 MG/0.4 ML SYRINGE. SQ SCH (20:58)
[2020-12-15] MEDS: ALBUTEROL SULFATE 8GM INHALER. INH PRN (20:58)
[2020-12-15] MEDS: PSYLLIUM HUSK (SUGAR FREE) 1 PKT PACKET PO SCH (21:05)
[2020-12-15] MEDS: traMADol 50 MG TABLET PO PRN (21:05)
[2020-12-15 23:00] VITALS: BP 118/61
[2020-12-16 03:00] VITALS: BP 103/59
[2020-12-16 07:00] VITALS: BP 110/72
--- NOTE | 2020-12-16 08:29 | PDOC ---
[employer] [facility] PROGRESS NOTE Date of Service DOS: DATE: 12/16/20 TIME: 08:27 Chief Complaint Chief Complaint ACute hypoxic respiratory failure Shortness of breath COVID pneumonia sepsis colitis, GERD, esophagitis, moderate malnutrition History of Present Illness History of Present Illness Ms Arce is a 53-year-old female w/ PMHx seasonal allergies, asthma, pre- diabetes, CAD, GERD, Diverticulosis, mastectomy, hysterectomy, cystocele, rectocele, Crohns disease, h/o extensive bowel resection, and prior left carotid artery dissection presents to ED complaining of Positive for COVID-19 on 12/04/2020 as pre-operative testing for endoscopy. With fever cough shortness of breath nausea vomiting diarrhea as well as loss of taste and smell. on aDMIT her O2 saturations were 82% and req. 6L/NC, O2 SATURATION IMPROVES TO 94%. 12/16/20 Patient seen and examined Currently on 6 L nasal cannula, better today, down from 6 yesterday, she is eating better and her strength is a litlte better no event reports that she does not feel more short of breath but is still far from baseline Continuing Covid treatment, pulmonary following Plan of care discussed with bedside RN Vitals/I&O Vitals/I&O: Vital Signs Date Time Temp Pulse Resp B/P (MAP) Pulse Ox O2 Delivery O2 Flow Rate FiO2 12/16/20 03:00 96.4 62 20 103/59 (74) 95 Nasal Cannula 4.0 96.4 I & O 12/15/20 12/15/20 12/16/20 15:00 23:00 07:00 Intake Total 400 ml Output Total 300 ml Balance 100 ml Physical Exam General: Alert, Oriented X3, Cooperative, moderate distress Heart: Regular rate, Normal S1, Normal S2 Lungs: Clear Abdomen: Normal bowel sounds, Soft, No tenderness, No hepatosplenomegaly, No masses Extremities: No clubbing, No cyanosis, No edema, Normal pulses, No tenderness/swelling Skin: No rashes, No breakdown, No significant lesion Review of Systems Review of Systems: cough, weakness is sleeping well, stools normal Assessment and Plan Assessmemt and Plan Problems Medical Problems: (1) COVID-19 Status: Acute (2) Hypoxia Status: Acute Comment Review of Relevant I have reviewed the following items so (where applicable) has been applied. Justifications for Admission Other Justification JOSE HILL MD Dec 16, 2020 08:29
[2020-12-16] MEDS: guaiFENesin DM 200MG/20MG 10 ML SYRUP PO PRN ×2 (09:41→21:47)
[2020-12-16] MEDS: ZINC SULFATE 220 MG CAPSULE. PO SCH (09:41)
[2020-12-16] MEDS: FLUTICASONE 50MCG/NASAL SPRAY 16GM BOTTLE. NS SCH (09:42)
[2020-12-16] MEDS: PANTOPRAZOLE 40 MG TABLET.DR. PO SCH (09:42)
[2020-12-16] MEDS: CETIRIZINE HCL 10 MG TABLET. PO SCH (09:42)
[2020-12-16] MEDS: DEXAMETHASONE SOD PHOS 4 MG/ML VIAL IVP SCH (09:42)
--- NOTE | 2020-12-16 09:59 | PDOC ---
PULMONARY PROGRESS NOTES DATE: 12/16/20 TIME: 09:58 Subjective no increase soa Vitals Vital Signs Date Time Temp Pulse Resp B/P (MAP) Pulse Ox O2 Delivery O2 Flow Rate FiO2 12/16/20 07:00 97.0 70 19 110/72 (85) 95 Nasal Cannula 4.0 97.0 Comments due to covid, no physical exam done no soa, no edema General: Alert, No acute distress Medications Active Scripts Medications Dose Route/Sig Max Daily Dose Days Date Category Acetaminophen 325 Mg Tablet 650 Mg PO PRN Q8-12HRS PRN 12/22/19 Reported Barbara Allergy (Fexofenadine Hcl) 60 Mg Tablet 60 Mg PO DAILY 12/22/19 Reported Atorvastatin Calcium 40 Mg Tablet 1 Tab PO QHS 02/23/19 Reported Montelukast Sodium Tablet (Montelukast Sodium) 10 Mg Tablet 1 Tab PO QHS 30 09/10/18 Rx Multivitamins (Multivitamin) 1 Each Tablet 1 Tab PO DAILY 08/12/18 Reported Melatonin 3 Mg Tablet 1 Tab PO QHS 08/12/18 Reported Proair Hfa (Albuterol Sulfate) 8.5 Gm Hfa.aer.ad 1 Puff INH PRN Q6HRS PRN 08/12/18 Reported Flonase Allergy Relief (Fluticasone Propionate) 9.9 Ml [place].susp 2 Sprays NS DAILY 08/12/18 Reported Omeprazole 20 Mg Tablet.dr 1 Tab PO DAILY 08/12/18 Reported Impression . 1. Acute hypoxic respiratory failure in a patient who has COVID-19 pneumonia. No significant tobacco history. Continues to improve slowly. 2. Abnormal chest x-ray with bilateral infiltrates related to COVID-19 viral pneumonia. 3. No significant tobacco history. Plan . 1. Continue present high flow oxygen, keep saturation 90 and above. Oxygen requirement improved. Down to 5 L 2. Continue remdesivir, 3. Continue dexamethasone per protocol. 4. Lovenox for DVT prophylaxis. 5. We will follow the clinical course. 6. Discussed with RN. Possible discharge in next 24 to 48 hours with 6 min walk test prior to the discharge IRENE HUBBARD MD Dec 16, 2020 09:59
[2020-12-16 11:00] VITALS: BP 111/66
--- NOTE | 2020-12-16 11:32 | NUR ---
SW following. Discussed with RN, pt now on 4L oxygen. 6 minute walk ordered, plan for discharge in the next 24-48 hours. Pt is COVID-19 positive. SW will continue to follow.
[2020-12-16 15:00] VITALS: BP 113/64
[2020-12-16 19:00] VITALS: BP 107/70
[2020-12-16] MEDS: MONTELUKAST SODIUM 10 MG TABLET. PO SCH (21:45)
[2020-12-16] MEDS: ATORVASTATIN CALCIUM 40 MG TABLET. PO SCH (21:45)
[2020-12-16] MEDS: PSYLLIUM HUSK (SUGAR FREE) 1 PKT PACKET PO SCH (21:45)
[2020-12-16] MEDS: ENOXAPARIN 40 MG/0.4 ML SYRINGE. SQ SCH (21:45)
[2020-12-16] MEDS: LORazepam 0.5 MG TABLET PO PRN (21:45)
[2020-12-16] MEDS: traMADol 50 MG TABLET PO PRN (21:46)
[2020-12-16 23:00] VITALS: BP 102/58
[2020-12-17 03:00] VITALS: BP 123/69
[2020-12-17 07:00] VITALS: BP 113/69
--- NOTE | 2020-12-17 07:37 | PDOC ---
PULMONARY PROGRESS NOTES DATE: 12/17/20 TIME: 07:37 Subjective Patient feels better, currently on 5 L of oxygen, questioning on possibly going home. Vitals Vital Signs Date Time Temp Pulse Resp B/P (MAP) Pulse Ox O2 Delivery O2 Flow Rate FiO2 12/17/20 03:00 98.0 60 18 123/69 (87) 95 Nasal Cannula 4.0 98.0 Comments due to covid, no physical exam done no soa, no edema General: Alert, No acute distress Medications Active Scripts Medications Dose Route/Sig Max Daily Dose Days Date Category Acetaminophen 325 Mg Tablet 650 Mg PO PRN Q8-12HRS PRN 12/22/19 Reported Barbara Allergy (Fexofenadine Hcl) 60 Mg Tablet 60 Mg PO DAILY 12/22/19 Reported Atorvastatin Calcium 40 Mg Tablet 1 Tab PO QHS 02/23/19 Reported Montelukast Sodium Tablet (Montelukast Sodium) 10 Mg Tablet 1 Tab PO QHS 30 09/10/18 Rx Multivitamins (Multivitamin) 1 Each Tablet 1 Tab PO DAILY 08/12/18 Reported Melatonin 3 Mg Tablet 1 Tab PO QHS 08/12/18 Reported Proair Hfa (Albuterol Sulfate) 8.5 Gm Hfa.aer.ad 1 Puff INH PRN Q6HRS PRN 08/12/18 Reported Flonase Allergy Relief (Fluticasone Propionate) 9.9 Ml [place].susp 2 Sprays NS DAILY 08/12/18 Reported Omeprazole 20 Mg Tablet.dr 1 Tab PO DAILY 08/12/18 Reported Impression . 1. Acute hypoxic respiratory failure in a patient who has COVID-19 pneumonia. No significant tobacco history. Continues to improve slowly. 2. Abnormal chest x-ray with bilateral infiltrates related to COVID-19 viral pneumonia. 3. No significant tobacco history. Plan . Updated 12/17 6-minute walk Possible discharge in the a.m. Continue dexamethasone Finish course of remdesivir follow-up in the office with repeat chest x-ray 12/16 1. Continue present high flow oxygen, keep saturation 90 and above. Oxygen requirement improved. Down to 5 L 2. Continue remdesivir, 3. Continue dexamethasone per protocol. 4. Lovenox for DVT prophylaxis. 5. We will follow the clinical course. 6. Discussed with RN. Possible discharge in next 24 to 48 hours with 6 min walk test prior to the discharge DAMON MONAHAN MD Dec 17, 2020 07:37
[2020-12-17] MEDS: PANTOPRAZOLE 40 MG TABLET.DR. PO SCH (08:36)
[2020-12-17] MEDS: CETIRIZINE HCL 10 MG TABLET. PO SCH (08:36)
[2020-12-17] MEDS: ZINC SULFATE 220 MG CAPSULE. PO SCH (08:36)
[2020-12-17] MEDS: FLUTICASONE 50MCG/NASAL SPRAY 16GM BOTTLE. NS SCH (08:37)
[2020-12-17] MEDS: DEXAMETHASONE SOD PHOS 4 MG/ML VIAL IVP SCH (08:37)
[2020-12-17 11:00] VITALS: BP 113/77
[2020-12-17 15:00] VITALS: BP 133/67
--- NOTE | 2020-12-17 15:42 | PDOC ---
[employer] PROGRESS NOTE Date of Service DOS: DATE: 12/17/20 TIME: 15:41 Chief Complaint Chief Complaint ACute hypoxic respiratory failure Shortness of breath COVID pneumonia sepsis colitis, GERD, esophagitis, moderate malnutrition History of Present Illness History of Present Illness Ms Arce is a 53-year-old female w/ PMHx seasonal allergies, asthma, pre- diabetes, CAD, GERD, Diverticulosis, mastectomy, hysterectomy, cystocele, rectocele, Crohns disease, h/o extensive bowel resection, and prior left carotid artery dissection presents to ED complaining of Positive for COVID-19 on 12/04/2020 as pre-operative testing for endoscopy. With fever cough shortness of breath nausea vomiting diarrhea as well as loss of taste and smell. on aDMIT her O2 saturations were 82% and req. 6L/NC, O2 SATURATION IMPROVES TO 94%. 12/17/20 she feels to weak to DC, try in AM Patient seen and examined Currently on 4 L nasal cannula, better today, down from 6 yesterday, she is eating better and her strength is a litlte better no event reports that she does not feel more short of breath but is still far from baseline Continuing Covid treatment, pulmonary following Plan of care discussed with bedside RN Vitals/I&O Vitals/I&O: Vital Signs Date Time Temp Pulse Resp B/P (MAP) Pulse Ox O2 Delivery O2 Flow Rate FiO2 12/17/20 11:00 97.5 78 18 113/77 (89) 92 Nasal Cannula 4.0 97.5 Physical Exam General: Alert, Oriented X3, Cooperative, moderate distress Heart: Regular rate, Normal S1, Normal S2 Abdomen: Normal bowel sounds, Soft, No tenderness, No hepatosplenomegaly, No masses Extremities: No clubbing, No cyanosis, No edema, Normal pulses, No tenderness/swelling Skin: No rashes, No breakdown, No significant lesion Review of Systems Review of Systems: cough, dyspnea, weakness, Assessment and Plan Assessmemt and Plan Problems Medical Problems: (1) COVID-19 Status: Acute (2) Hypoxia Status: Acute Comment Review of Relevant I have reviewed the following items so (where applicable) has been applied. Medications: Current Medications Medications (Trade) Dose Ordered Sig/Michael Route PRN Reason Start Time Stop Time Status Last Admin Dose Admin Dexamethasone Sodium Phosphate (Decadron) 2 mg DAILY IVP 12/17/20 09:00 12/19/20 09:01 12/17/20 08:37 Justifications for Admission Other Justification JOSE HILL MD Dec 17, 2020 15:42
[2020-12-17 19:00] VITALS: BP 113/64
[2020-12-17] MEDS: ATORVASTATIN CALCIUM 40 MG TABLET. PO SCH (20:43)
[2020-12-17] MEDS: PSYLLIUM HUSK (SUGAR FREE) 1 PKT PACKET PO SCH (20:43)
[2020-12-17] MEDS: ENOXAPARIN 40 MG/0.4 ML SYRINGE. SQ SCH (20:43)
[2020-12-17] MEDS: MONTELUKAST SODIUM 10 MG TABLET. PO SCH (20:43)
[2020-12-17] MEDS: LORazepam 0.5 MG TABLET PO PRN (20:52)
[2020-12-17] MEDS: guaiFENesin DM 200MG/20MG 10 ML SYRUP PO PRN (20:55)
[2020-12-17 22:17] VITALS: BP 120/72
[2020-12-18 03:00] VITALS: BP 118/66
[2020-12-18 06:06] LABS: BASO % 0 % (0-3); EOS # 0.1 x10^3/uL (0.0-0.7); EOS % 1 % (0-3); HEMOGLOBIN 12.7 g/dL (12.0-15.5); LYMPH # 1.4 x10^3/uL (1.0-4.8); LYMPH % 23 % (24-48); MEAN CORPUSCULAR HEMOGLOBIN 27 pg (25-35); MEAN CORPUSCULAR HGB CONC 33 g/dL (31-37); MEAN CORPUSCULAR VOLUME 83 fL (79-100); MONO # 0.7 x10^3/uL (0.0-1.1); MONO % 12 % (0-9); NEUT # 3.9 x10^3/uL (1.8-7.7); NEUT % 64 % (31-73); PLATELET COUNT 375 x10^3/uL (140-400); RED CELL DISTRIBUTION WIDTH 17.2 % (11.5-14.5)
[2020-12-18 06:36] LABS: ALBUMIN 2.9 g/dL (3.4-5.0); ALBUMIN/GLOBULIN RATIO 0.8 (1.0-1.7); CALCIUM 9.1 mg/dL (8.5-10.1); CREATININE 0.6 mg/dL (0.6-1.0); TOTAL BILIRUBIN 0.3 mg/dL (0.2-1.0); TOTAL PROTEIN 6.4 g/dL (6.4-8.2)
[2020-12-18 07:00] VITALS: BP 124/65
[2020-12-18] MEDS: ZINC SULFATE 220 MG CAPSULE. PO SCH (08:28)
[2020-12-18] MEDS: CETIRIZINE HCL 10 MG TABLET. PO SCH (08:28)
[2020-12-18] MEDS: PANTOPRAZOLE 40 MG TABLET.DR. PO SCH (08:28)
[2020-12-18] MEDS: DEXAMETHASONE SOD PHOS 4 MG/ML VIAL IVP SCH (08:29)
[2020-12-18] MEDS: FLUTICASONE 50MCG/NASAL SPRAY 16GM BOTTLE. NS SCH (08:29)
--- NOTE | 2020-12-18 09:11 | PDOC ---
PULMONARY PROGRESS NOTES DATE: 12/18/20 TIME: 09:11 Subjective Patient feels better, currently on 5 L of oxygen, questioning on possibly going home. Vitals Vital Signs Date Time Temp Pulse Resp B/P (MAP) Pulse Ox O2 Delivery O2 Flow Rate FiO2 12/18/20 07:00 96.8 66 18 124/65 (84) 93 Nasal Cannula 4.0 96.8 Comments due to covid, no physical exam done no soa, no edema General: Alert, No acute distress Labs Laboratory Tests Test 12/18/20 04:20 White Blood Count 6.0 x10^3/uL (4.0-11.0) Red Blood Count 4.70 x10^6/uL (3.50-5.40) Hemoglobin 12.7 g/dL (12.0-15.5) Hematocrit 39.0 % (36.0-47.0) Mean Corpuscular Volume 83 fL (79-100) Mean Corpuscular Hemoglobin 27 pg (25-35) Mean Corpuscular Hemoglobin Concent 33 g/dL (31-37) Red Cell Distribution Width 17.2 % (11.5-14.5) Platelet Count 375 x10^3/uL (140-400) Neutrophils (%) (Auto) 64 % (31-73) Lymphocytes (%) (Auto) 23 % (24-48) Monocytes (%) (Auto) 12 % (0-9) Eosinophils (%) (Auto) 1 % (0-3) Basophils (%) (Auto) 0 % (0-3) Neutrophils # (Auto) 3.9 x10^3/uL (1.8-7.7) Lymphocytes # (Auto) 1.4 x10^3/uL (1.0-4.8) Monocytes # (Auto) 0.7 x10^3/uL (0.0-1.1) Eosinophils # (Auto) 0.1 x10^3/uL (0.0-0.7) Basophils # (Auto) 0.0 x10^3/uL (0.0-0.2) Sodium Level 139 mmol/L (136-145) Potassium Level 4.0 mmol/L (3.5-5.1) Chloride Level 104 mmol/L (98-107) Carbon Dioxide Level 26 mmol/L (21-32) Anion Gap 9 (6-14) Blood Urea Nitrogen 15 mg/dL (7-20) Creatinine 0.6 mg/dL (0.6-1.0) Estimated GFR (Cockcroft-Gault) 103.0 BUN/Creatinine Ratio 25 (6-20) Glucose Level 99 mg/dL (70-99) Calcium Level 9.1 mg/dL (8.5-10.1) Total Bilirubin 0.3 mg/dL (0.2-1.0) Aspartate Amino Transf (AST/SGOT) 9 U/L (15-37) Alanine Aminotransferase (ALT/SGPT) 36 U/L (14-59) Alkaline Phosphatase 99 U/L (46-116) Total Protein 6.4 g/dL (6.4-8.2) Albumin 2.9 g/dL (3.4-5.0) Albumin/Globulin Ratio 0.8 (1.0-1.7) Laboratory Tests Test 12/18/20 04:20 White Blood Count 6.0 x10^3/uL (4.0-11.0) Red Blood Count 4.70 x10^6/uL (3.50-5.40) Hemoglobin 12.7 g/dL (12.0-15.5) Hematocrit 39.0 % (36.0-47.0) Mean Corpuscular Volume 83 fL (79-100) Mean Corpuscular Hemoglobin 27 pg (25-35) Mean Corpuscular Hemoglobin Concent 33 g/dL (31-37) Red Cell Distribution Width 17.2 % (11.5-14.5) Platelet Count 375 x10^3/uL (140-400) Neutrophils (%) (Auto) 64 % (31-73) Lymphocytes (%) (Auto) 23 % (24-48) Monocytes (%) (Auto) 12 % (0-9) Eosinophils (%) (Auto) 1 % (0-3) Basophils (%) (Auto) 0 % (0-3) Neutrophils # (Auto) 3.9 x10^3/uL (1.8-7.7) Lymphocytes # (Auto) 1.4 x10^3/uL (1.0-4.8) Monocytes # (Auto) 0.7 x10^3/uL (0.0-1.1) Eosinophils # (Auto) 0.1 x10^3/uL (0.0-0.7) Basophils # (Auto) 0.0 x10^3/uL (0.0-0.2) Sodium Level 139 mmol/L (136-145) Potassium Level 4.0 mmol/L (3.5-5.1) Chloride Level 104 mmol/L (98-107) Carbon Dioxide Level 26 mmol/L (21-32) Anion Gap 9 (6-14) Blood Urea Nitrogen 15 mg/dL (7-20) Creatinine 0.6 mg/dL (0.6-1.0) Estimated GFR (Cockcroft-Gault) 103.0 BUN/Creatinine Ratio 25 (6-20) Glucose Level 99 mg/dL (70-99) Calcium Level 9.1 mg/dL (8.5-10.1) Total Bilirubin 0.3 mg/dL (0.2-1.0) Aspartate Amino Transf (AST/SGOT) 9 U/L (15-37) Alanine Aminotransferase (ALT/SGPT) 36 U/L (14-59) Alkaline Phosphatase 99 U/L (46-116) Total Protein 6.4 g/dL (6.4-8.2) Albumin 2.9 g/dL (3.4-5.0) Albumin/Globulin Ratio 0.8 (1.0-1.7) Medications Active Scripts Medications Dose Route/Sig Max Daily Dose Days Date Category Acetaminophen 325 Mg Tablet 650 Mg PO PRN Q8-12HRS PRN 12/22/19 Reported Barbara Allergy (Fexofenadine Hcl) 60 Mg Tablet 60 Mg PO DAILY 12/22/19 Reported Atorvastatin Calcium 40 Mg Tablet 1 Tab PO QHS 02/23/19 Reported Montelukast Sodium Tablet (Montelukast Sodium) 10 Mg Tablet 1 Tab PO QHS 30 09/10/18 Rx Multivitamins (Multivitamin) 1 Each Tablet 1 Tab PO DAILY 08/12/18 Reported Melatonin 3 Mg Tablet 1 Tab PO QHS 08/12/18 Reported Proair Hfa (Albuterol Sulfate) 8.5 Gm Hfa.aer.ad 1 Puff INH PRN Q6HRS PRN 08/12/18 Reported Flonase Allergy Relief (Fluticasone Propionate) 9.9 Ml [place].susp 2 Sprays NS DAILY 08/12/18 Reported Omeprazole 20 Mg Tablet. 1 Tab PO DAILY 08/12/18 Reported Impression . 1. Acute hypoxic respiratory failure in a patient who has COVID-19 pneumonia. No significant tobacco history. Continues to improve slowly. 2. Abnormal chest x-ray with bilateral infiltrates related to COVID-19 viral pneumonia. 3. No significant tobacco history. Plan . Updated 12/17 6-minute walk Possible discharge in the a.m. Continue dexamethasone Finish course of remdesivir follow-up in the office with repeat chest x-ray 12/16 1. Continue present high flow oxygen, keep saturation 90 and above. Oxygen requirement improved. Down to 5 L 2. Continue remdesivir, 3. Continue dexamethasone per protocol. 4. Lovenox for DVT prophylaxis. 5. We will follow the clinical course. 6. Discussed with RN. Possible discharge in next 24 to 48 hours with 6 min walk test prior to the discharge DAMON MONAHAN MD Dec 18, 2020 09:11
[2020-12-18 11:00] VITALS: BP 112/68
--- NOTE | 2020-12-18 11:10 | NUR ---
SW following. Discussed with RN, 6 minute walk completed - pt does not need home oxygen per RT. Pt will discharge home with self care. COVID-19 positive. SW will continue to follow.
[2020-12-18] MEDS ORDERED: PRED-220 PO (11:43)
--- NOTE | 2020-12-18 14:00 | NUR ---
Discharge Note: Patient was discharged home with self care. Patients IV was discontinued without any complications per LAKEISHA. Patient completed 6 minute walk and did not require oxygen. Patient was given discharge summary/instructions, follow-ups, and educational material. Patients new prescription was sent to patients preferred pharmacy. Patient asked when could she get the COVID-[address] Loreto Padron (ID) was called and stated she should follow-up with PCP and maybe wait 2 months since patient had active infection and still had antibodies in her system. Patient was taken down to the ER entrance via wheelchair with all personal belongings accompanied by LAKEISHA Cordon, where her brother was waiting for her to take her home.
== END 2020-12-18 14:00 | disposition home or self-care (01) | DRG 871 ==
LOC: ER 13:22 → 6 SOUTH 15:38 → ED HOLD 17:39 → 6 SOUTH 19:25
PROVIDERS: ADMIT Internal Medicine; ATTEND Internal Medicine
PROC: XW033E5 Introduction of Remdesivir Anti-infective into Peripheral Vein, Percutaneous Approach, New Technology Group 5 (ICD-10-PCS; principal; 2020-12-10)
DX: A41.89 Other specified sepsis (principal); E43 Unspecified severe protein-calorie malnutrition; J12.82 Pneumonia due to coronavirus disease 2019; J96.01 Acute respiratory failure with hypoxia; U07.1 COVID-19; K50.90 Crohn's disease, unspecified, without complications; I25.10 Atherosclerotic heart disease of native coronary artery without angina pectoris; J45.909 Unspecified asthma, uncomplicated; K21.00 Gastro-esophageal reflux disease with esophagitis, without bleeding; K22.2 Esophageal obstruction; Z80.9 Family history of malignant neoplasm, unspecified; Z85.3 Personal history of malignant neoplasm of breast; Z90.710 Acquired absence of both cervix and uterus; F41.9 Anxiety disorder, unspecified; K21.9 Gastro-esophageal reflux disease without esophagitis; M19.90 Unspecified osteoarthritis, unspecified site; Z98.51 Tubal ligation status; K57.90 Diverticulosis of intestine, part unspecified, without perforation or abscess without bleeding; R13.10 Dysphagia, unspecified; Z68.27 Body mass index [BMI] 27.0-27.9, adult
CPT/HCPCS: 36415; 71045; 80053; 83880; 84484; 85025; 85379; 93005; 94618; 96365; 96375; J0696; J1100; J1650; J2405; J7050; 99285-25; G0378; J7030

== ENCOUNTER → 2021-01-20 | Outpatient (CLI) | payer OTHER ==
[~2021-01-20] MED LIST changes: +PRED-220 PO
--- NOTE | 2021-01-23 11:25 | RESP ---
DATE OF SERVICE: 01/20/2021 PULMONARY FUNCTION TESTS ATTENDING PHYSICIAN: Thony Macdonald MD. The patient's FVC was 2.62, which is 77% predicted. FEV1 was 2.02, which is 77% predicted. The FEV1/FVC ratio was normal. FEF of 25-75 was 71% predicted. There was no response to bronchodilator. Lung volumes showed increased total lung capacity of 140% predicted and increased residual volume. Diffusion capacity was normal. There was no response to bronchodilators. IMPRESSION: 1. Spirometry consistent with small airway dysfunction. 2. No response to bronchodilators. 3. Lung volumes consistent with hyperinflation and air trapping. 4. Normal diffusion capacity. MICHAEL/CHRISTOPHER/YASMIN DR: Chandler TID: [id number] CC: THONY MACDONALD MD
== END ==
LOC: PF 08:55
PROVIDERS: ATTEND Internal Medicine Pulmonary Disease
DX: R06.00 Dyspnea, unspecified (principal)
CPT/HCPCS: 94060; 94640; 94726; 94729; 94664

== ENCOUNTER → 2021-02-13 | Outpatient (CLI) | payer OTHER ==
--- NOTE | 2021-02-13 16:23 | RAD ---
Single view of the chest. 02/13/2021 4:06 PM Indication: Reason: POST COVID DYSPNEA. / Spl. Instructions: / History: Comparison: Chest radiograph November 2020 Findings: There is considerable interval improvement in bilateral interstitial alveolar infiltrates. No significant residual infiltrate is identified. No pneumothorax or pleural effusion is seen. Heart size is normal. Bony thorax is intact. IMPRESSION: Resolution of the previously seen infiltrates. No acute cardiopulmonary process is identi fied Electronically signed by: Olegario Quiros MD (02/13/2021 4:20 PM) [id number]
== END ==
LOC: RAD 15:42
PROVIDERS: ATTEND Internal Medicine Pulmonary Disease
DX: R06.00 Dyspnea, unspecified (principal)
CPT/HCPCS: 71046

== ENCOUNTER → 2021-03-12 | Day surgery (SDC) | payer OTHER ==
[~2021-03-12] VITALS: Ht 162.6 cm; Wt 72.0 kg
[~2021-03-12] MED LIST changes: +LIDOCAINE 2% PF 5 ML VIAL. ONE; +PROPOFOL 10 MG/ML (20ML) VIAL. IV ONE
[2021-03-12 07:07] VITALS: BP 149/74
[2021-03-12] MEDS: IV RINGERS,LACTATED 1000ML 1,000 ML IV SCH (07:15)
[2021-03-12 08:18] VITALS: BP 119/73
== END | disposition home or self-care (01) ==
LOC: ENDOS 06:31
PROVIDERS: ATTEND Internal Medicine Gastroenterology
DX: R13.10 Dysphagia, unspecified (principal); K44.9 Diaphragmatic hernia without obstruction or gangrene; K31.89 Other diseases of stomach and duodenum; I25.10 Atherosclerotic heart disease of native coronary artery without angina pectoris; E78.00 Pure hypercholesterolemia, unspecified; J45.909 Unspecified asthma, uncomplicated; G47.30 Sleep apnea, unspecified; E66.9 Obesity, unspecified; K21.9 Gastro-esophageal reflux disease without esophagitis; M19.90 Unspecified osteoarthritis, unspecified site; F41.9 Anxiety disorder, unspecified; Z86.73 Personal history of transient ischemic attack (TIA), and cerebral infarction without residual deficits; Z98.51 Tubal ligation status; Z90.710 Acquired absence of both cervix and uterus; Z98.890 Other specified postprocedural states; Z79.899 Other long term (current) drug therapy; Z20.822 Contact with and (suspected) exposure to COVID-19
CPT/HCPCS: 43235; 43450; 87426; J2704

== ENCOUNTER → 2021-04-02 | Outpatient (CLI) | payer OTHER ==
[2021-03-12 08:18] VITALS: BP 119/73
[~2021-04-02] MED LIST changes: +IOHEXOL 240 MG/ML 50ML VIAL. PO ONE; +IOHEXOL 300 MG/ML 100ML VIAL. IV ONE; -LIDOCAINE 2% PF 5 ML VIAL. ONE; -PROPOFOL 10 MG/ML (20ML) VIAL. IV ONE
--- NOTE | 2021-04-02 17:36 | KCIC ---
EXAM: CT Abdomen and Pelvis with IV contrast CLINICAL HISTORY: Reason: Abdominal pain, dysphagia, Crohn's / Spl. Instructions: 90mL Omni 300 / His tory: Colon resection due to diverticulitis, LLQ pain upper abdominal pain. COMPARISON: none TECHNIQUE: Helical CT of the abdomen and pelvis was performed following the administration of intrave nous contrast. Axial, coronal and sagittal reformatted images were generated. PQRS compliance statement - One or more of the following individualized dose reduction techniques wer e utilized for this study: 1. Automated exposure control 2. Adjustment of the mA and/or kV according to patient size 3. Use of iterative reconstruction technique FINDINGS: Lower Chest: Lung bases are clear. Abdomen and Pelvis: Hepatic hypoattenuation, fatty liver. Gallbladder is normal with region of focal fatty sparing of the hepatic parenchyma in the gallbladder fossa. No biliary ductal dilatation. Pancreas, spleen and adre nal glands are unremarkable. Symmetric nephrograms. No focal renal lesion. No hydronephrosis. No hydr oureter. Bladder is decompressed with mild bladder wall thickening. Relatively featureless appearance of the sigmoid colon. Colonic diverticulosis. Moderate colonic stool content. No bowel obstruction. Very short segment of small bowel is herniated into the anterior abdominal soft tissues (series 2 nora ge 40 without associated bowel obstruction. Appendix is not seen. Bones: Hip joints, symphysis pubis and SI joint degenerative changes are seen. Lower lumbar spine degenerati ve changes are seen. IMPRESSION: 1. Short segment small bowel herniation into the anterior abdominal without associated bowel obstruc tion. 2. Hepatic hypoattenuation, fatty liver. 3. Colonic diverticulosis without evidence for acute diverticulitis. 4. Relatively featureless appearance of the sigmoid colon may be seen with chronic inflammatory polina l disease. 5. Mild bladder wall thickening may be reactive, accentuated by your decompression but can also be s een with cystitis and can be correlated with urinalysis. Electronically signed by: Rodney Flores MD (04/02/2021 5:33 PM) [facility]
== END ==
LOC: KCIC CT 12:29
PROVIDERS: ATTEND Physician Assistant
DX: K76.0 Fatty (change of) liver, not elsewhere classified (principal); K57.30 Diverticulosis of large intestine without perforation or abscess without bleeding; R19.5 Other fecal abnormalities; N32.89 Other specified disorders of bladder; R13.10 Dysphagia, unspecified; K50.90 Crohn's disease, unspecified, without complications; M16.0 Bilateral primary osteoarthritis of hip; M53.3 Sacrococcygeal disorders, not elsewhere classified; M47.816 Spondylosis without myelopathy or radiculopathy, lumbar region
CPT/HCPCS: 74177; Q9967

== ENCOUNTER → 2021-04-09 | Outpatient (CLI) | payer OTHER ==
[2021-03-12 08:18] VITALS: BP 119/73
[~2021-04-09] MED LIST changes: -IOHEXOL 240 MG/ML 50ML VIAL. PO ONE; -IOHEXOL 300 MG/ML 100ML VIAL. IV ONE
--- NOTE | 2021-04-09 13:10 | KCIC ---
STUDY: DG VIDEO SWALLOW STUDY INDICATION: Dysphagia. Hiatal hernia. GERD. Gastroparesis. COMPARISON: CT abdomen/pelvis 04/02/2021 TECHNIQUE/FINDINGS: Fluoroscopy Time: 2 minute 22 seconds Fluoroscopic images: 13 Real-time fluoroscopic evaluation of the esophagus with obtainment of intermittent spot images and sc reen saves. The patient drank thick and thin barium while upright and supine/prone in addition to swa llowed a 13 mm barium tablet. Motility: Weakened primary stripping wave but contrast was mostly cleared into the stomach in between swallows. Intermittent tertiary contractions. Structure: No stricture, discrete ulceration, mass or diverticulum. The barium tablet momentarily hel d up at the distal esophagus but did pass into the stomach after approximately 30 seconds. Small hiat al hernia and a Schatzki ring. Miscellaneous: No active reflux event was observed. The partially assessed stomach is unremarkable. N ormally located ligament of Treitz. IMPRESSION: 1. Mildly altered esophageal motility with a weakened primary stripping wave and intermittent visual ization of tertiary contractions which can be seen from long-standing reflux. 2. Small hiatal hernia with a Schatzki ring. No clinically relevant stricture with a barium tablet a ble to pass into the stomach after approximately 30 seconds. 3. No fluoroscopic evidence for an esophageal mass or ulcer. Electronically signed by: JACEY CHANG MD (04/09/2021 1:08 PM) [id number]
== END ==
LOC: KCIC 08:20
PROVIDERS: ATTEND Physician Assistant
DX: K44.9 Diaphragmatic hernia without obstruction or gangrene (principal); R13.10 Dysphagia, unspecified; K21.9 Gastro-esophageal reflux disease without esophagitis; K31.84 Gastroparesis
CPT/HCPCS: 74220

== ENCOUNTER → 2021-05-14 | Outpatient (CLI) | payer OTHER ==
[2021-03-12 08:18] VITALS: BP 119/73
[~2021-05-14] VITALS: Ht 162.6 cm; Wt 73.0 kg
[~2021-05-14] MED LIST changes: +SINCALIDE 1.5 MCG in IV NORMAL SALINE 50ML 30 ML IV ONE
--- NOTE | 2021-05-14 08:08 | RAD ---
EXAMINATION: US ABDOMEN LIMITED INDICATION: 56 years, Female, upper abdominal pain. COMPARISON: CT dated 04/02/2021 TECHNIQUE: Grayscale, color Doppler and limited spectral Doppler images of the right upper quadrant w ere obtained. FINDINGS: LIVER: SIZE (LENGTH): 15.6 cm. ECHOGENICITY: Increased. PARENCHYMA: Mild heterogeneous echotexture. Geographic shape hypoechoic area adjacent to the gallblad geni, consistent with focal fat sparing area, similar to prior exam. INTRAHEPATIC BILE DUCTS: Nondilated. PORTAL VEIN: Patent with normal hepatopedal flow. GALLBLADDER: GALLBLADDER WALL THICKNESS: 2 mm. MORPHOLOGY: Normal morphology. No pericholecystic free fluid. LUMEN: Normal. COMMON BILE DUCT DIAMETER: 5 mm. RIGHT KIDNEY: MEASURES: 12 cm in length. MORPHOLOGY/PARENCHYMA: Normal corticomedullary differentiation with no shadowing calculus or discrete masses. COLLECTING SYSTEM: No hydronephrosis. PANCREAS: VISUALIZED PORTIONS: Entire. APPEARANCE: Within normal limits. OTHER: RETROPERITONEUM, INFERIOR VENA CAVA: Not well-visualized. AORTA: Normal caliber measures up to Field 2 cm FLUID:No free fluid. IMPRESSION: 1. No acute sonographic findings in the right upper abdomen. 2. Moderate to severe diffuse hepatic steatosis. Electronically signed by: Arabella Sung MD (05/14/2021 8:06 AM) [id number]
--- NOTE | 2021-05-14 09:54 | RAD ---
EXAM: Nuclear hepatobiliary scan. HISTORY: Pain. TECHNIQUE: Following intravenous administration of 5.5 mCi Tc 99m Choletec, anterior images of the ab domen were obtained at five minute intervals through one hour. Subsequently, 1.46 mcg Kinevac was adm inistered and additional images to assess gallbladder ejection fraction were obtained. FINDINGS: There is prompt radiotracer uptake by the liver. No focal defect is seen. There is normal e xcretion into the biliary tree. The gallbladder is visualized within 10 minutes and there is free angie w into the duodenum. The gallbladder ejection fraction is 76 percent. IMPRESSION: Normal radionuclide biliary scan. Electronically signed by: Rachell Galeana MD (05/14/2021 9:51 AM) [id number]
== END ==
LOC: US 06:45
PROVIDERS: ATTEND Physician Assistant
DX: K76.0 Fatty (change of) liver, not elsewhere classified (principal)
CPT/HCPCS: 76705; 78227; A9537; J2805

== ENCOUNTER → 2021-07-14 | Day surgery (SDC) | payer OTHER ==
[~2021-07-14] VITALS: Ht 165.1 cm; Wt 82.0 kg
[~2021-07-14] MED LIST changes: +BUDE10.22 IH; +IV RINGERS,LACTATED 1000ML 1,000 ML IV SCH; +LIDOCAINE 2% PF 5 ML VIAL. ONE; +LORA0.5T96 PO; +PROPOFOL 10 MG/ML (20ML) VIAL. IV ONE; -SINCALIDE 1.5 MCG in IV NORMAL SALINE 50ML 30 ML IV ONE
[2021-07-14 12:47] VITALS: BP 136/80
--- NOTE | 2021-07-14 13:47 | PDOC4 ---
PROCEDURE Procedure Colonoscopy with biopsies Indication: h/o polyp, r/o IBD, diverticulosis. Meds: per anesthesia Findings: PASCUAL: normal. --'Scope advanced to TI. Prep adequate. Apparent anastomosis in proximal rectum/distal sigmoid. Just above this, mass-like proliferation of tissue (granulation?) over 1-2 cm. Biopsied this. Mucosa otherwise normal to TI. Occasional diverticulum seen in portion above anastomosis (historically transverse). Retroflex normal. Ran. well. IMP: Diverticulosis "Mass" above anastomosis, nature unclear but not clearly malignant. REC: Await path. Resume home meds, diet. I think OK to proceed with VHR. F/u with me in 2 weeks. ELIZABETH SRINIVASAN MD Jul 14, 2021 13:46
[2021-07-14 14:02] VITALS: BP 129/69
--- NOTE | 2021-07-16 16:07 | PATHOLOGY ---
[facility] Accession Number: [id number] . 01 Material submitted: . sigmoid colon - BIOPSY SIGMOID MASS . 01 Clinical history: . HX CROHN'S, COLITIS COLONOSCOPY . 02 Diagnosis: Colonic mucosa (biopsy sigmoid mass): - Ischemic ulcer with surrounding reactive glandular hyperplasia, acute and chronic inflammation and lymphoid aggregate formation. (WILLIAMS:deon; 07/15/2021) MBR 07/15/2021 1351 Local . 02 Comment: We find no evidence of malignancy in any of the tissue examined. . Dr. Baker's office is telephoned with this report at 1:50 p.m. on 07/15/21. . (WILLIAMS:deon; 07/15/2021) . 02 Electronically signed: . Isaac Navarro MD, Pathologist NPI- [id number] . 01 Gross description: . The specimen is received in formalin, labeled "Arce, Nini, bx sigmoid mass" and consists of multiple correa irregular tissues aggregating 0.6 x 0.5 x 0.1 cm which are filtered and submitted in toto in A1.(BEAVER; 07/14/2021) DKA/DKA 07/14/2021 1643 Local . 02 Pathologist provided ICD-10: K63.3, K52.9 . 02 CPT . 138475 Specimen Comment: A courtesy copy of this report has been sent to [phone], [phone] Specimen Comment: [id number], Specimen Comment: Report sent to , DR TRAYLOR / DR LIU Performed at: [address], [place], [place] [id number] MD Riaz Patel MD Phone: [phone] Performed at: [address], [place], [place] [id number] MD Isaac Navarro MD Phone: [phone]
== END | disposition home or self-care (01) ==
LOC: ENDOS 12:20
PROVIDERS: ATTEND Internal Medicine Gastroenterology
DX: K50.90 Crohn's disease, unspecified, without complications (principal); K52.9 Noninfective gastroenteritis and colitis, unspecified; K63.3 Ulcer of intestine; D49.0 Neoplasm of unspecified behavior of digestive system; K63.89 Other specified diseases of intestine; K57.30 Diverticulosis of large intestine without perforation or abscess without bleeding; I25.10 Atherosclerotic heart disease of native coronary artery without angina pectoris; E78.00 Pure hypercholesterolemia, unspecified; J45.909 Unspecified asthma, uncomplicated; K21.9 Gastro-esophageal reflux disease without esophagitis; E66.9 Obesity, unspecified; G47.30 Sleep apnea, unspecified; M19.90 Unspecified osteoarthritis, unspecified site; F41.9 Anxiety disorder, unspecified; Z86.010 Personal history of colon polyps; Z98.0 Intestinal bypass and anastomosis status; Z86.73 Personal history of transient ischemic attack (TIA), and cerebral infarction without residual deficits; Z98.51 Tubal ligation status; Z90.710 Acquired absence of both cervix and uterus; Z98.890 Other specified postprocedural states; Z79.899 Other long term (current) drug therapy
CPT/HCPCS: 45380; J2704

== ENCOUNTER 2021-07-17 07:31 | Observation (INO) | payer OTHER ==
[2021-07-17] VITALS (12 sets, daily range): BP systolic 97–150; BP diastolic 47–80
[~2021-07-17] VITALS: Ht 162.6 cm; Wt 62.2 kg
[~2021-07-17 07:31] MED LIST changes: -LIDOCAINE 2% PF 5 ML VIAL. ONE; +MORPHINE SULFATE 2 MG/ML INJ. IVP PRN; +PROCHLORPERAZINE 10 MG/2 ML VIAL. IVP PRN; -PROPOFOL 10 MG/ML (20ML) VIAL. IV ONE; +ceFAZolin SODIUM IV Push 1 GM VIAL. IVP PRN; +fentaNYL PF VIAL 100 MCG/2 ML VIAL IVP PRN
[2021-07-17] MEDS ORDERED: LIDOCAINE 2% PF 5 ML VIAL. ONE (08:40)
[2021-07-17] MEDS ORDERED: fentaNYL PF VIAL 100 MCG/2 ML VIAL ONE ×2 (08:40→10:36)
[2021-07-17] MEDS ORDERED: PROPOFOL 10 MG/ML (20ML) VIAL. IV ONE (08:40)
[2021-07-17] MEDS ORDERED: ROCURONIUM 50 MG/5 ML VIAL. ONE ×2 (08:41→10:23)
[2021-07-17] MEDS ORDERED: NEOSTIGMINE METHYLSULFATE 5 MG/5 ML SYRINGE. ONE (08:42)
[2021-07-17] MEDS ORDERED: KETOROLAC 30 MG/ML VIAL. ONE (08:42)
[2021-07-17] MEDS ORDERED: ONDANSETRON PF 4 MG/2 ML VIAL. ONE (08:42)
[2021-07-17] MEDS ORDERED: DEXAMETHASONE SOD PHOS 4 MG/ML VIAL ONE (08:42)
[2021-07-17] MEDS ORDERED: GLYCOPYRROLATE 1 MG/5 ML VIAL. ONE (08:43)
[2021-07-17] MEDS ORDERED: HYDROmorphone 2 MG/ML INJ. ONE (11:34)
[2021-07-17] MEDS: HYDROmorphone 2 MG/ML INJ. IVP PRN ×4 (11:39→12:17)
--- NOTE | 2021-07-17 11:43 | PDOC4 ---
Operative Note Operative Note Operative Note: Preoperative Diagnosis: Ventral hernia Postoperative Diagnosis: Same Procedure: Ventral hernia repair with mesh Surgeon: Giovani Power Shovel Engineer: Dr. Angel EDWARD, [place] POSADAS, Gianni Chun, MS 4 Anesthesia: General EBL: 20 mL Specimen: None Drains: None Complications: None Indication: The patient is a 56-year-old female who had prior abdominal surgery. Subsequent to that she has developed a bulge in the mid abdomen superior to the umbilicus. A CT scan confirmed a small ventral hernia at this location. She was offered surgical treatment with a ventral hernia repair. The risks of surgery were discussed which include bleeding, infection, recurrence, pain, an esthetic risk, mesh complication, potential need for additional surgery procedure. She understands and would like to proceed. Description: The patient was taken to the operating room and placed supine in the operating table. General anesthesia was performed. The abdomen was prepped with ChloraPrep and draped with sterile towels, sheets, and an Ioban. An incision was made at the site of the prior midline scar which was extended below the umbilicus. Cautery dissection was carried down to the fascia. The edges of the fascial defect were clearly delineated. We inspected inferiorly as well and saw no other occult hernias or areas of fascial weakening. There did appear to be some adherent bowel to the edges of the hernia defect. With sharp dissection lysis of adhesions was performed freeing up the loop of bowel from the location of the hernia. A large Ventralex ST mesh was then placed intraperitoneally. This was secured to the fascia at the 12, 3, 6, 9:00 positions using 0 Prolene in a horizontal mattress fashion. The mesh provided very good overlap in all directions of the hernia defect. The fascial edges were closed over the mesh with interrupted 0 Prolene. The deep subcutaneous tissue layers were closed with 0 Vicryl. The superficial subcutaneous tissue was closed with 3-0 Vicryl. Skin was approximated with 4-0 Monocryl. Steri-Strips and a sterile dressing were applied. The patient tolerated the procedure well and was sent to the recovery room in stable condition. At the end the case all counts were correct. FRANSICO LIU MD Jul 17, 2021 11:43
[2021-07-17] MEDS: IV 1/2 NORMAL SALINE 1,000 ML IV SCH ×2 (11:45→16:37)
[2021-07-17] MEDS ORDERED: IV NORMAL SALINE 1000ML BAG 1,000 ML IV SCH (11:45)
[2021-07-17] MEDS ORDERED: ONDANSETRON PF 4 MG/2 ML VIAL. IVP PRN (11:45)
[2021-07-17] MEDS ORDERED: NALOXONE 0.4 MG/ML VIAL. IV PRN (11:45)
[2021-07-17] MEDS ORDERED: KETOROLAC 30 MG/ML VIAL. IV PRN (11:45)
[2021-07-17] MEDS ORDERED: 0.9 % SODIUM CHLORIDE 10 ML DISP.SYRIN. IV PRN (11:45)
[2021-07-17] MEDS: HYDROmorphone 2 MG/ML INJ. IV PRN ×2 (14:29→19:22)
[2021-07-17] MEDS ORDERED: SEVOFLURANE 61 TO 120 MINUTES. IH ONE (14:38)
[2021-07-17] MEDS: oxyCODONE/APAP 5/325 1 TAB TABLET PO PRN ×2 (16:47→23:55)
[2021-07-18 02:49] VITALS: BP 88/51
[2021-07-18 07:00] VITALS: BP 103/61
[2021-07-18] MEDS: oxyCODONE/APAP 5/325 1 TAB TABLET PO PRN ×3 (07:48→20:50)
--- NOTE | 2021-07-18 10:21 | NUR ---
SW following. Discussed with RN, pt from home, 2L (does not use oxygen at home), soft diet, COVID-19 negative. Pt had surgery on 07/17/21. RN advised no SW needs at this time. SW will continue to follow.
--- NOTE | 2021-07-18 10:58 | PDOC ---
SURGICAL PROGRESS NOTE DATE: 07/18/21 TIME: 10:57 Subjective tolerating diet sore overall feeling ok Vital Signs Vital Signs Date Time Temp Pulse Resp B/P (MAP) Pulse Ox O2 Delivery O2 Flow Rate FiO2 07/18/21 08:20 Nasal Cannula 2.0 07/18/21 07:00 97.5 74 16 103/61 (75) 94 97.5 I&O Intake and Output 07/18/21 06:59 Intake Total 1940 ml Output Total 1620 ml Balance 320 ml Intake Oral 240 ml IV Total 1700 ml Output Urine Total 1600 ml Estimated Blood Loss 20 ml General: Alert, Oriented X3, Cooperative Abdomen: Soft, Other (binder in place) Labs Laboratory Tests Test 07/17/21 07:45 POC SARS CoV-2 Antigen Negative (NEGATIVE) Problem List s/p VIH ambulate pain control Justicifation of Admission Dx: Justifications for Admission: Justification of Admission Dx: Yes CALEB BOOTH APRN Jul 18, 2021 10:58
[2021-07-18 11:00] VITALS: BP 111/66
[2021-07-18 15:00] VITALS: BP 119/64
[2021-07-18 19:00] VITALS: BP 105/69
[2021-07-18 23:00] VITALS: BP 135/72
[2021-07-19 03:00] VITALS: BP 111/77
[2021-07-19 07:00] VITALS: BP 139/83
[2021-07-19] MEDS: oxyCODONE/APAP 5/325 1 TAB TABLET PO PRN (07:52)
[2021-07-19 11:00] VITALS: BP 115/68
--- NOTE | 2021-07-19 14:22 | PDOC3 ---
Discharge Summary Visit Information Date of Admission: Jul 17, 2021 Date of Discharge: Jul 19, 2021 Admitting Diagnosis: Incisional hernia Brief Hospital Course Allergies Allergies Coded Allergies Type Severity Reaction Last Updated Verified No Known Drug Allergies 07/16/21 No Vital Signs Vital Signs Date Time Temp Pulse Resp B/P (MAP) Pulse Ox O2 Delivery O2 Flow Rate FiO2 07/19/21 11:00 97.8 92 18 115/68 (84) 97 97.8 07/19/21 08:00 Room Air 07/19/21 03:00 2.0 Brief Hospital Course Ms. Arce is a 56 old F who presented with incisional hernia. She underwent uncomplicated repair with mesh on date of admission. Post op she gradually recovered and was stable for d/c home on 07/19. Discharge Information Condition at Discharge: Improved Follow Up: Weeks (2) Disposition/Orders: D/C to Home Scheduled Atorvastatin Calcium (Atorvastatin Calcium) 40 Mg Tablet, 1 TAB PO QHS for cholesterol, #90 Ref 3 (Reported) Entered as Reported by: REZA LOUISE on 02/23/19 1658 Last Taken: Unknown Dose on 07/16/21 Last Action: Last Taken Edited on 07/17/21753 by TACOS CHARLES Budesonide/Formoterol Fumarate (Symbicort 80-4.5 Mcg Inhaler) 10.2 Gm Hfa.aer.ad, 1 PUFF IH BID for ASTHMA , (Reported) Entered as Reported by: OLGA KIRK on 07/16/21 1027 Last Taken: Unknown Dose on 07/17/21 0600 Last Action: Last Taken Edited on 07/17/21753 by TACOS CHARLES Fexofenadine Hcl (Barbara Allergy) 60 Mg Tablet, 60 MG PO DAILY for control allergies, (Reported) Entered as Reported by: EMMANUEL KELLER on 12/22/19 1706 Last Taken: Unknown Dose on 07/16/21 Last Action: Last Taken Edited on 07/17/21753 by TACOS CHARLES Fluticasone Propionate (Flonase Allergy Relief) 9.9 Ml [place].susp, 2 SPRAYS NS DAILY for allergies, (Reported) Entered as Reported by: NAILA ESPINAL on 08/12/18 0816 Last Taken: Unknown Dose on 07/16/21 Last Action: Last Taken Edited on 07/17/21 0754 by TACOS CHARLES Lorazepam (Ativan) 0.5 Mg Tablet, 0.5 MG PO HS for ANXIETY , (Reported) Entered as Reported by: OLGA KIRK on 07/16/21 1029 Last Taken: Unknown Dose on 07/12/21 Last Action: Last Taken Edited on 07/17/21 075 by TACOS CHARLES Melatonin (Melatonin) 3 Mg Tablet, 1 TAB PO QHS for insomnia, #30 Ref 2 (Reported) Entered as Reported by: NAILA ESPINAL on 08/12/18 0834 Last Taken: Unknown Dose on 07/16/21 Last Action: Last Taken Edited on 07/17/21 0754 by TACOS CHARLES Montelukast Sodium (Montelukast Sodium Tablet ) 10 Mg Tablet, 1 TAB PO QHS for Allergies for 30 Days, #30 Ref 5 Prescribed by: VIKI FUENTES MD on 09/10/18 1421 Last Taken: Unknown Dose on 07/16/21 Last Action: Last Taken Edited on 07/17/21 075 by TACOS CHARLES Multivitamin (Multivitamins) 1 Each Tablet, 1 TAB PO DAILY for supplement, #90 Ref 3 (Reported) Entered as Reported by: NAILA ESPINAL on 08/12/18 0836 Last Taken: Unknown Dose on 07/08/21 Last Action: Last Taken Edited on 07/17/21 075 by TACOS CHARLES Omeprazole (Omeprazole) 20 Mg Tablet.dr, 1 TAB PO DAILY for reflux, #90 Ref 1 (Reported) Entered as Reported by: NAILA ESPINAL on 08/12/18 0815 Last Taken: Unknown Dose on 07/17/21 0600 Last Action: Last Taken Edited on 07/17/21 0754 by TACOS CHARLES Scheduled PRN Albuterol Sulfate (Proair Hfa) 8.5 Gm Hfa.aer.ad, 1 PUFF INH PRN Q6HRS PRN for SHORTNESS OF BREATH, (Reported) Entered as Reported by: NAILA ESPINAL on 08/12/18 0833 Last Action: Reviewed on 07/16/21 1023 by OLGA KIRK Justicifation of Admission Dx: Justifications for Admission: Justification of Admission Dx: Yes BHAVIN SEVERINO MD Jul 19, 2021 14:22
--- NOTE | 2021-07-19 15:20 | NUR ---
Discharge Note: TIFFANIE STANLEY Discharge instructions and discharge home medications reviewed with Patient and a copy given. All questions have been answered and understanding verbalized. The following instructions and handouts were given: information about activity, diet, medications, follow up appointments, incision care. Discontinued lines and drains: IV line in left hand removed, catheter tip intact. Patient discharged to home with self care with son, wheelchair used for mobility to discharge vehicle.
== END 2021-07-19 15:20 | disposition home or self-care (01) ==
LOC: SURG 07:31 → 4 NORTH 11:43
PROVIDERS: ADMIT Surgery; ATTEND Surgery
DX: K43.2 Incisional hernia without obstruction or gangrene (principal); Z20.822 Contact with and (suspected) exposure to COVID-19; K66.0 Peritoneal adhesions (postprocedural) (postinfection)
CPT/HCPCS: 49560; 49568; 96374; 96376; A4364; A4930; A6402; C1781; G0378; G0379; J0690; J1100; J1170; J1885; J2405; J2704; J2710; J3010; J3490; A4452

== ENCOUNTER → 2021-10-21 | Outpatient (CLI) | payer OTHER ==
[~2021-10-21] MED LIST changes: -IV RINGERS,LACTATED 1000ML 1,000 ML IV SCH; -MORPHINE SULFATE 2 MG/ML INJ. IVP PRN; -OMEP20TA8 PO; +OMEP20TA91 PO; -PROCHLORPERAZINE 10 MG/2 ML VIAL. IVP PRN; -ceFAZolin SODIUM IV Push 1 GM VIAL. IVP PRN; -fentaNYL PF VIAL 100 MCG/2 ML VIAL IVP PRN
--- NOTE | 2021-10-21 16:54 | RAD ---
Bilateral knees 3 views each. HISTORY: Bilateral knee pain, M 25.562, M 25.561 Right knee AP, lateral and sunrise views were taken of the right knee. There is no fracture or joint effusion or acute osseous abnormality. Left knee 3 views were taken of the left knee. There is no fracture or joint effusion or acute osseous abnormal ity. IMPRESSION: 1. No acute osseous abnormality in either knee. Electronically signed by: Nagi Zaldivar MD (10/21/2021 4:52 PM) [id number]
== END ==
LOC: RAD 15:46
PROVIDERS: ATTEND Nurse Practitioner
DX: M25.562 Pain in left knee (principal); M25.561 Pain in right knee
CPT/HCPCS: 73562-50